=== PATIENT | male | born 1955 | race African-American/Black ===

== ENCOUNTER 2016-06-15 11:04 | Inpatient (IN) | payer OTHER ==
[2016-06-15 11:22] VITALS: BMI 23.0
--- NOTE | 2016-06-15 12:37 | HP ---
CIWA Score - CIWA Score Nausea/Vomitin Muscle Tremors: 3 Anxiety: 3 Agitation: 2 Paroxysmal Sweats: 2 Orientation: 0-Oriented Tacttile Disturbances: 2-Mild Itch/Numbness/Burn Auditory Disturbances: 1-Very Mild Visual Disturbances: 0-None Headache: 3-Moderate CIWA-Ar Total Score: 19 Admission ROS S - HPI Chief Complaint: "I am tired of this using alcohol and and crack." Allergies/Adverse Reactions: Allergies Allergy/AdvReac Type Severity Reaction Status Date / Time No Known Allergies Allergy Verified 06/15/16 11:32 History of Present Illness: Pt. is a 60 YO male here to Detox from Alcohol. This is his first Detox admission to [facility]. He also reports using Crack and marijuana on a daily basis. Exam Limitations: No Limitations - Ebola screening Have you traveled outside of the country in the last 21 days: No (N) Have you had contact with anyone from an Ebola affected area: No Have you been sick,other than usual withdrawal symptoms: No Do you have a fever: No - Review of Systems Constitutional: Chills, Diaphoresis, Fever, Loss of Appetite, Malaise, Night Sweats, Changes in sleep, Unintentional Wgt. Loss (Has lost approx. 40 lbs. over the last 6 months.) EENT: reports: Tinnitus, Other (Pt. uses dentures for both upper and lower teeth ; however, he does not have them with him for this admission.) Respiratory: reports: No Symptoms reported Cardiac: reports: No Symptoms Reported, Other (Hx of Stroke.) GI: reports: Diarrhea, Nausea, Poor Appetite, Vomiting : reports: No Symptoms Reported Musculoskeletal: reports: No Symptoms Reported Integumentary: reports: No Symptoms Reported Neuro: reports: Headache, Tremors Endocrine: reports: No Symptoms Reported Hematology: reports: No Symptoms Reported Psychiatric: reports: Judgement Intact, Anxious, Depressed, other (Hx. of Schizoaffective Disorder.) Other Systems: Reviewed and Negative Patient History - Patient Medical History Hx Anemia: No Hx Asthma: No Hx Chronic Obstructive Pulmonary Disease (COPD): Yes Hx Cancer: Yes (Colon Ca, Tx'd w/ surgery, 2014. No F/U treatment recommended at this time.) Hx Cardiac Disorders: Yes (DVT of Left Lower Extremity, 2016, Treated, Resolved. ) Hx Congestive Heart Failure: No Hx Hypertension: No Hx Hypercholesterolemia: Yes (Meds. in past; Currently managed with diet.) Hx Pacemaker: No HX Cerebrovascular Accident: Yes (Hx. of Strokes, 4-5 previous.) Hx Seizures: No Hx Dementia: No Hx Diabetes: No Hx Gastrointestinal Disorders: Yes (GERD) Hx Liver Disease: Yes (Hep C, Diagnosed approx. 11 years ago.) Hx Genitourinary Disorders: No Hx Sexually Transmitted Disorders: Yes (Hx of gonnorhea, age 16, treated.) Hx Renal Disease (ESRD): No Hx Thyroid Disease: No Hx Human Immunodeficiency Virus (HIV): No (Last Tested: NEGATIVE.) Hx Hepatitis C: Yes (Diagnosed approx. 11 years ago; No treatment yet.) Hx Depression: Yes (On Meds. up until 3 days ago.) Hx Suicide Attempt: No (PATIENT DENIES CURRENT SI / HI.) Hx Bipolar Disorder: No Hx Schizophrenia: No Other Medical History: Schizoaffective Disorder, on meds. until 3 days. ago. - Patient Surgical History Past Surgical History: Yes Hx Neurologic Surgery: No Hx Cataract Extraction: No Hx Cardiac Surgery: No Hx Lung Surgery: No Hx Breast Surgery: No Hx Breast Biopsy: No Hx Abdominal Surgery: Yes (colectomy in 04/22 [facility] for Colon CA) Hx Appendectomy: No Hx Cholecystectomy: No Hx Genitourinary Surgery: No Hx Orthopedic Surgery: No Anesthesia Reaction: No - PPD History Previous Implant?: Yes Documented Results: Negative w/o proof Implanted On Prior R Admission?: No PPD to be Administered?: Yes - Reproductive History Patient is a Female of Child Bearing Age (11 -55 yrs old): No (PATIENT IS MALE.) - Smoking Cessation Smoking history: Current every day smoker Have you smoked in the past 12 months: Yes Aproximately how many cigarettes per day: 5 Cigars Per Day: 0 Hx Chewing Tobacco Use: No Initiated information on smoking cessation: Yes 'Breaking Loose' booklet given: 06/15/16 (GIVEN ON UNIT.) - Substance & Tx. History Hx Alcohol Use: Yes Hx Substance Use: Yes Substance Use Type: Cocaine, Marijuana Hx Substance Use Treatment: Yes (Detox/Rehab at Approx. 4-5 months ago ( [facility]).) - Substances Abused Alcohol Route: Oral Frequency: Daily Amount used: 1 pint vodka or rum/ 2 40 oz beers Age of first use: 11 Date of Last Use: 06/14/16 Crack Route: Smoking Frequency: Daily Amount used: 3 bags Age of first use: 25 Date of Last Use: 06/14/16 Marijuana/Hashish Route: Smoking Frequency: Daily Amount used: 2 joints Age of first use: 25 Date of Last Use: 06/14/16 Family Disease History - Family Disease History Family Disease History: Other: Mother (Stroke.), Brother (Psych. disorder.), Sister (Stroke, .) Admission Physical Exam [facility] - Vital Signs Vital Signs: Vital Signs - 24 hr 06/15/16 11:20 Temperature 98.8 F Pulse Rate 64 Respiratory 20 Rate Blood Pressure 115/73 - Physical General Appearance: Yes: Within Normal Limits, Nourished, Appropriately Dressed , Tremorous, Anxious HEENTM: Yes: Hearing grossly Normal, Normocephalic, Normal Voice, JL, Pharynx Normal Respiratory: Yes: Chest Non-Tender, Lungs Clear, Normal Breath Sounds, No Respiratory Distress Neck: Yes: No masses,lesions,Nodules, Supple, Trachea in good position Breast: Yes: Breast Exam Deferred Cardiology: Yes: Regular Rhythm, Regular Rate, S1, S2 Abdominal: Yes: Normal Bowel Sounds, Non Tender, Flat, Soft Genitourinary: Yes: Within Normal Limits Back: Yes: Normal Inspection Musculoskeletal: Yes: full range of Motion, Gait Steady Extremities: Yes: Normal Range of Motion, Non-Tender, Tremors, Other (Varicose veins noted on Left Lower Extremity. No redness noted. Pt. denies pain at site.) 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: Fully Oriented, Alert, Normal Mood/Affect, Normal Response Integumentary: Yes: Normal Color, Warm Lymphatic: Yes: Within Normal Limits - Diagnostic (1) Alcohol dependence with uncomplicated withdrawal Current Visit: Yes Status: Acute (2) Cocaine dependence, uncomplicated Current Visit: Yes Status: Acute (3) Cannabis dependence, uncomplicated Current Visit: Yes Status: Acute (4) Nicotine dependence Current Visit: Yes Status: Chronic Qualifiers: Nicotine product type: cigarettes Substance use status: uncomplicated Qualified Code(s): F17.210 - Nicotine dependence, cigarettes, uncomplicated (5) Hep C w/o coma, chronic Current Visit: Yes Status: Acute (6) History of DVT of lower extremity Current Visit: Yes Status: Resolved (7) History of stroke Current Visit: Yes Status: Chronic Cleared for Admission [facility] - Detox or Rehab [facility] Level of Care: Medically Managed Detox Regimen/Protocol: Librium (PT. ADVISED TO FOLLOW-UP WITH PMD / VASCULAR SPECIALIST AFTER DETOX DISCHARGE FOR GENERAL MEDICAL ASSESSMENT AND FOR HISTORY OF STROKE AND DVT.) [facility] Breath Alcohol Content Breath Alcohol Content: 0 Urine Drug Screen - Results Drug Screen Negative: No Urine Drug Screen Results: THC-Marijuana, MALINA-Cocaine, TCA-Tricyclic Antidepress
[2016-06-15] MEDS ORDERED: hydrOXYzine PAMOATE 50 MG CAPSULE (FP) PO PRN (13:08)
[2016-06-15] MEDS ORDERED: MAG HYDROX/AL HYDROX/SIMETH 30 ML UNIT-DOSE CUP PO PRN (13:08)
[2016-06-15] MEDS ORDERED: chlordiazePOXIDE HCL 25 MG CAPSULE PO PRN (13:08)
[2016-06-15] MEDS ORDERED: MAGNESIUM HYDROX 2400MG/30ML ORAL SUSPENSION 30 ML CUP PO PRN (13:08)
[2016-06-15] MEDS ORDERED: IBUPROFEN 400 MG TABLET (FP) PO PRN (13:08)
[2016-06-15] MEDS ORDERED: P-EPHED 60MG/TRIPROLIDI 2.5MG TABLET PO PRN (13:08)
[2016-06-15] MEDS ORDERED: MENTHOL/PHENOL 1 EACH UD MM PRN (13:08)
[2016-06-15] MEDS ORDERED: MAGNESIUM CITRATE 300 ML BOTTLE PO PRN (13:08)
[2016-06-15] MEDS ORDERED: diphenhydrAMINE HCL 50 MG CAPSULE PO PRN (13:08)
[2016-06-15] MEDS ORDERED: ACETAMINOPHEN 325 MG TABLET (FP) PO PRN (13:08)
[2016-06-15] MEDS ORDERED: LOPERAMIDE HCL 2 MG CAPSULE PO PRN (13:08)
[2016-06-15] MEDS ORDERED: guaiFENesin/D-METHORPHAN HB 10 ML UNIT-DOSE CUPS PO PRN (13:08)
[2016-06-15] MEDS ORDERED: NICOTINE POLACRILEX 2 MG GUM BUC PRN (13:08)
[2016-06-15] MEDS ORDERED: ALBUTEROL SO4 6.7 GM HFA INHALER IH PRN (13:13)
[2016-06-15] MEDS ORDERED: chlordiazePOXIDE HCL 25 MG CAPSULE PO ONE (14:00)
[2016-06-15] MEDS: chlordiazePOXIDE HCL 25 MG CAPSULE PO SCH ×2 (17:59→23:39)
[2016-06-15 18:51] LABS: URINE APPEARANCE CLEAR; URINE BILIRUBIN NEGATIVE (NEGATIVE); URINE BLOOD NEGATIVE (NEGATIVE); URINE COLOR YELLOW; URINE GLUCOSE (UA) NEGATIVE (NEGATIVE); URINE KETONE NEGATIVE (NEGATIVE); URINE NITRITE NEGATIVE (NEGATIVE); URINE PROTEIN NEGATIVE (NEGATIVE); URINE UROBILINOGEN 4.0 E.U/dl E.U./dl (0.2-1.0)
[2016-06-15 18:57] LABS: URINE LEUK ESTERASE TRACE (NEGATIVE)
[2016-06-15 19:01] LABS: URINE MUCUS RARE; URINE RBC 3 /hpf (0-3); URINE WBC 25 /hpf (3-5)
[2016-06-15] MEDS: THIAMINE HCL 100 MG TABLET (FP) PO SCH (22:55)
[2016-06-16] MEDS: chlordiazePOXIDE HCL 25 MG CAPSULE PO SCH ×4 (05:48→22:35)
--- NOTE | 2016-06-16 09:31 | CONSULT ---
[facility] Psychiatric Consult - Data Date of interview: 06/16/16 Admission source: [facility] Identifying data: This is 60 years old male with Schizoaffective disorder history, intoxicated wioth: Alcohol, Cocaien, Cannabis and Nicotine Substance Abuse History: - Smoking Cessation. Smoking history: Current every day smoker. Have you smoked in the past 12 months: Yes. Aproximately how many cigarettes per day: 5. Cigars Per Day: 0. Hx Chewing Tobacco Use: No. Initiated information on smoking cessation: Yes. 'Breaking Loose' booklet given : 06/15/16 (GIVEN ON UNIT.). - Substance & Tx. History. Hx Alcohol Use: Yes. Hx Substance Use: Yes. Substance Use Type: Cocaine, Marijuana. Hx Substance Use Treatment: Yes (Detox/Rehab at Approx. 4-5 months ago ([facility]).). - Substances Abused. Alcohol. Route: Oral. Frequency: Daily. Amount used: 1 pint vodka or rum/ 2 40 oz beers. Age of first use: 11. Date of Last Use: 06/14/16. Crack. Route: Smoking. Frequency: Daily. Amount used: 3 bags. Age of first use: 25. Date of Last Use: 06/14/16. Marijuana/Hashish. Route : Smoking. Frequency: Daily. Amount used: 2 joints. Age of first use: 25. Date of Last Use: 06/14/16 Medical History: HepC+, History of old CVA, DVT History, Psychiatric History: Patient reports unclear history of psychiatric hospitalizations, reports taking prior to admission: Rispaedal 3mg poqd,. Trazodonbe 100mg po qhs. Remeron 15mg p[o qjhs. Ambien 10mg po qhs Physical/Sexual Abuse/Trauma History: Denies Additional Comment: Rispaedal 3mg poqd,. Trazodonbe 100mg po qhs. Remeron 15mg p[o qjhs. Ambien 10mg po qhs Mental Status Exam - Mental Status Exam Alert and Oriented to: Person Cognitive Function: Fair Patient Appearance: Unkempt Mood: Sad Affect: Flat Patient Behavior: Sedated Speech Pattern: Delayed Voice Loudness: Mildly Soft/Quiet Thought Process: Circumstantial Thought Disorder: Being Controlled Hallucinations: Denies Suicidal Ideation: Denies Homicidal Ideation: Denies Insight/Judgement: Fair Sleep: Difficulty falling asleep Appetite: Fair Muscle strength/Tone: Mild Hypotonicity Gait/Station: Shuffling Additional Comments: Rispaedal 3mg poqd,. Trazodonbe 100mg po qhs. Remeron 15mg p[o qjhs. Ambien 10mg po qhs Psychiatric Findings - Problem List ([place] 1, 2,3) (1) Alcohol dependence with uncomplicated withdrawal Current Visit: Yes Status: Acute (2) Cannabis dependence, uncomplicated Current Visit: Yes Status: Acute (3) Cocaine dependence, uncomplicated Current Visit: Yes Status: Acute (4) Nicotine dependence Current Visit: Yes Status: Chronic Qualifiers: Nicotine product type: cigarettes Substance use status: uncomplicated Qualified Code(s): F17.210 - Nicotine dependence, cigarettes, uncomplicated (5) Schizoaffective disorder Current Visit: Yes Status: Suspected (6) Drug-induced mood disorder Current Visit: Yes Status: Acute - Initial Treatment Plan Initial Treatment Plan: Rispaedal 3mg poqd,. Trazodonbe 100mg po qhs. Remeron 15mg p[o qjhs. Ambien 10mg po qhs
[2016-06-16] MEDS ORDERED: MIRTAZAPINE 15 MG TABLET (FP) PO SCH ×2 (10:00→22:00)
[2016-06-16] MEDS ORDERED: RISPERIDONE 3 MG PO SCH (10:00)
[2016-06-16 10:09] LABS: MCH 28.2 pg (25.7-33.7); MCHC 32.8 g/dl (32.0-35.9); MEAN CELL VOLUME 85.8 fl (80-96); MEAN PLT VOLUME 7.5 fl (7.5-11.1); PLATELET COUNT 173 K/MM3 (134-434); RDW 13.5 % (11.9-15.9); WHITE BLOOD COUNT 4.6 K/mm3 (4.0-10.0)
[2016-06-16 10:16] LABS: ALBUMIN 3.1 g/dl (3.4-5.0); ALK PHOS 124 U/L (45-117); ANION GAP 7 (8-16); BILIRUBIN,TOTAL 0.5 mg/dL (0.2-1.0); CALCIUM 8.9 mg/dL (8.5-10.1); CO2 29 mmol/L (21-32); CREATININE 0.8 mg/dL (0.7-1.3); GLUCOSE,RANDOM 87 mg/dL (74-106); SGOT/AST 96 U/L (15-37); SGPT/ALT 87 U/L (12-78); TOT PROT 7.3 g/dl (6.4-8.2)
[2016-06-16] MEDS: PRENATAL VITAMINS W/ FOLIC ACID TABLET (FP) PO SCH (10:43)
[2016-06-16] MEDS: risperiDONE 3 MG TABLET PO SCH (10:51)
[2016-06-16 11:06] LABS: SICKLE CELL SCREEN NEGATIVE (NEGATIVE)
--- NOTE | 2016-06-16 11:34 | PN ---
S CIWA - CIWA Score Nausea/Vomitin Muscle Tremors: 2 Anxiety: 3 Agitation: 2 Paroxysmal Sweats: 3 Orientation: 0-Oriented Tacttile Disturbances: 1-Very Mild Itch/Numbness Auditory Disturbances: 0-None Visual Disturbances: 0-None Headache: 0-None Present CIWA-Ar Total Score: 13 S Progress Note (SOAP) Subjective: interrupted sleep, sweats , diarrhea Objective: 06/16/16 11:33 Vital Signs Temperature 98.1 F 06/16/16 10:16 Pulse Rate 91 H 06/16/16 10:16 Respiratory Rate 18 06/16/16 10:16 Blood Pressure 98/57 06/16/16 10:16 O2 Sat by Pulse Oximetry (%) Laboratory Tests 06/15/16 06/16/16 06/16/16 17:45 06:30 06:30 WBC 4.6 RBC 4.86 Hgb 13.7 Hct 41.7 MCV 85.8 MCHC 32.8 RDW 13.5 Plt Count 173 MPV 7.5 Sickle Cell Screen Negative Sodium 141 Potassium 4.2 Chloride 105 Carbon Dioxide 29 Anion Gap 7 L BUN 13 Creatinine 0.8 Creat Clearance w eGFR > 60 Random Glucose 87 Calcium 8.9 Total Bilirubin 0.5 AST 96 H ALT 87 H Alkaline Phosphatase 124 H Total Protein 7.3 Albumin 3.1 L Urine Color Yellow Urine Appearance Clear Urine pH 6.0 Ur Specific [place] 1.023 Urine Protein Negative Urine Glucose (UA) Negative Urine Ketones Negative Urine Blood Negative Urine Nitrite Negative Urine Bilirubin Negative Urine Urobilinogen 4.0 e.u/dl Ur Leukocyte Esterase Trace H Urine RBC 3 Urine WBC 25 Ur Epithelial Cells Rare Urine Mucus Rare RPR Titer 06/16/16 06:30 WBC RBC Hgb Hct MCV MCHC RDW Plt Count MPV Sickle Cell Screen Sodium Potassium Chloride Carbon Dioxide Anion Gap BUN Creatinine Creat Clearance w eGFR Random Glucose Calcium Total Bilirubin AST ALT Alkaline Phosphatase Total Protein Albumin Urine Color Urine Appearance Urine pH Ur Specific [place] Urine Protein Urine Glucose (UA) Urine Ketones Urine Blood Urine Nitrite Urine Bilirubin Urine Urobilinogen Ur Leukocyte Esterase Urine RBC Urine WBC Ur Epithelial Cells Urine Mucus RPR Titer Nonreactive pt aox3 in nad lying in bed Assessment: 06/16/16 11:33 withdrawl sx's Plan: cont. detox increase fluids
[2016-06-16] MEDS ORDERED: PNEUMOC 13-VAL CONJ-DIP CRM/PF 0.5 ML DISP.SYRIN IM ONE (12:00)
[2016-06-16] MEDS ORDERED: INFLUENZA VACCINE 45 MCG/0.5 ML (MDV 16-17) IM ONE (12:00)
[2016-06-16 14:31] LABS: HIV 1 & 2 AB NEGATIVE; HIV 1 AGp24 NEGATIVE
[2016-06-16] MEDS ORDERED: PATIENT'S OWN MEDICATION (NON-FORMULARY) (Zolpidem Tartrate [Ambien] 10 MG) PO SCH (22:00)
[2016-06-16] MEDS ORDERED: ZOLPIDEM TARTRATE 10 MG TABLET (PARK CARE ONLY) PO PRN (22:00)
[2016-06-16] MEDS ORDERED: traZODone HCL 50 MG TABLET (FP) PO SCH (22:00)
[2016-06-16] MEDS: THIAMINE HCL 100 MG TABLET (FP) PO SCH (22:36)
[2016-06-16] MEDS: MIRTAZAPINE 15 MG TABLET (FP) PO SCH (22:36)
[2016-06-16] MEDS: traZODone HCL 100 MG TABLET (FP) PO SCH (22:37)
[2016-06-17] MEDS: chlordiazePOXIDE HCL 25 MG CAPSULE PO SCH ×2 (05:40→10:23)
[2016-06-17] MEDS: risperiDONE 3 MG TABLET PO SCH (10:22)
[2016-06-17] MEDS: PRENATAL VITAMINS W/ FOLIC ACID TABLET (FP) PO SCH (10:22)
--- NOTE | 2016-06-17 12:53 | PN ---
S CIWA - CIWA Score Nausea/Vomitin Muscle Tremors: 2 Anxiety: 2 Agitation: 2 Paroxysmal Sweats: 3 Orientation: 0-Oriented Tacttile Disturbances: 1-Very Mild Itch/Numbness Auditory Disturbances: 0-None Visual Disturbances: 0-None Headache: 0-None Present CIWA-Ar Total Score: 13 S Progress Note (SOAP) Subjective: interrupted sleep, upset stomach Objective: 06/17/16 12:51 Vital Signs Temperature 98.1 F 06/17/16 09:29 Pulse Rate 71 06/17/16 09:29 Respiratory Rate 20 06/17/16 09:29 Blood Pressure 122/69 06/17/16 09:29 O2 Sat by Pulse Oximetry (%) Laboratory Tests 06/15/16 06/16/16 06/16/16 17:45 06:30 06:30 WBC 4.6 RBC 4.86 Hgb 13.7 Hct 41.7 MCV 85.8 MCHC 32.8 RDW 13.5 Plt Count 173 MPV 7.5 Sickle Cell Screen Negative Sodium 141 Potassium 4.2 Chloride 105 Carbon Dioxide 29 Anion Gap 7 L BUN 13 Creatinine 0.8 Creat Clearance w eGFR > 60 Random Glucose 87 Calcium 8.9 Total Bilirubin 0.5 AST 96 H ALT 87 H Alkaline Phosphatase 124 H Total Protein 7.3 Albumin 3.1 L Urine Color Yellow Urine Appearance Clear Urine pH 6.0 Ur Specific [place] 1.023 Urine Protein Negative Urine Glucose (UA) Negative Urine Ketones Negative Urine Blood Negative Urine Nitrite Negative Urine Bilirubin Negative Urine Urobilinogen 4.0 e.u/dl Ur Leukocyte Esterase Trace H Urine RBC 3 Urine WBC 25 Ur Epithelial Cells Rare Urine Mucus Rare RPR Titer HIV 1&2 Antibody Screen HIV P24 Antigen 06/16/16 06/16/16 06:30 09:00 WBC RBC Hgb Hct MCV MCHC RDW Plt Count MPV Sickle Cell Screen Sodium Potassium Chloride Carbon Dioxide Anion Gap BUN Creatinine Creat Clearance w eGFR Random Glucose Calcium Total Bilirubin AST ALT Alkaline Phosphatase Total Protein Albumin Urine Color Urine Appearance Urine pH Ur Specific [place] Urine Protein Urine Glucose (UA) Urine Ketones Urine Blood Urine Nitrite Urine Bilirubin Urine Urobilinogen Ur Leukocyte Esterase Urine RBC Urine WBC Ur Epithelial Cells Urine Mucus RPR Titer Nonreactive HIV 1&2 Antibody Screen Negative HIV P24 Antigen Negative pt aox3 in nad lying in bed abd- soft nontender bs ++ Assessment: 06/17/16 12:52 withdrawl sx's dyspepsia Plan: cont. detox increrase fluids [place] [facility]
[2016-06-17] MEDS: chlordiazePOXIDE 5 MG CAPSULE PO SCH ×2 (17:45→22:34)
[2016-06-17] MEDS: traZODone HCL 100 MG TABLET (FP) PO SCH (22:34)
[2016-06-17] MEDS: THIAMINE HCL 100 MG TABLET (FP) PO SCH (22:34)
[2016-06-17] MEDS: MIRTAZAPINE 15 MG TABLET (FP) PO SCH (22:34)
[2016-06-18] MEDS: chlordiazePOXIDE 5 MG CAPSULE PO SCH ×3 (05:49→10:44)
--- NOTE | 2016-06-18 09:50 | EKG ---
Test Reason : Blood Pressure : / mmHG Vent. Rate : 055 BPM Atrial Rate : 055 BPM P-R Int : 160 ms QRS Dur : 076 ms QT Int : 442 ms P-R-T Axes : 078 077 059 degrees QTc Int : 422 ms SINUS BRADYCARDIA OTHERWISE NORMAL ECG NO PREVIOUS ECGS AVAILABLE Confirmed by PERLA GONZALEZ, RENE ([id number]) on 06/18/2016 9:49:36 AM Referred By: Confirmed By:RENE DUNCAN MD
[2016-06-18] MEDS: risperiDONE 3 MG TABLET PO SCH (10:44)
[2016-06-18] MEDS: PRENATAL VITAMINS W/ FOLIC ACID TABLET (FP) PO SCH (10:44)
--- NOTE | 2016-06-18 11:12 | PN ---
[facility] Progress Note (SOAP) Subjective: sweats Objective: 06/18/16 11:12 Vital Signs Temperature 98.2 F 06/18/16 10:02 Pulse Rate 82 06/18/16 10:02 Respiratory Rate 18 06/18/16 10:02 Blood Pressure 117/83 06/18/16 10:02 O2 Sat by Pulse Oximetry (%) awake/alert lying in bed no acute distress Assessment: 06/18/16 11:12 withdrawal sx Plan: continue detox increase fluids d/c in am
[2016-06-18] MEDS: chlordiazePOXIDE HCL 10 MG CAPSULE PO SCH ×2 (17:55→23:41)
[2016-06-18] MEDS: traZODone HCL 100 MG TABLET (FP) PO SCH (22:44)
[2016-06-18] MEDS: THIAMINE HCL 100 MG TABLET (FP) PO SCH (22:45)
[2016-06-18] MEDS: MIRTAZAPINE 15 MG TABLET (FP) PO SCH (22:45)
[2016-06-19] MEDS: chlordiazePOXIDE HCL 10 MG CAPSULE PO SCH (05:50)
--- NOTE | 2016-06-19 08:14 | DS ---
[facility] Detox Discharge Summary Admission Date: 06/15/16 Discharge Date: 06/19/16 - History Present History: Alcohol Dependence - Physical Exam Results Vital Signs: Vital Signs Temperature 96.3 F L 06/19/16 05:51 Pulse Rate 64 06/19/16 05:51 Respiratory Rate 16 06/19/16 05:51 Blood Pressure 96/63 06/19/16 05:51 O2 Sat by Pulse Oximetry (%) - Treatment Hospital Course: Detox Protocol Followed, Detoxed Safely, Responded well, Discharged Condition Good - Medication Discharge Medications: Ambulatory Orders Risperidone [Risperdal] 3 mg PO DAILY 06/15/16 Trazodone HCl [Desyrel -] 100 mg PO HS 06/15/16 Mirtazapine [Remeron -] 15 mg PO HS #30 tablet 06/16/16 Risperidone [Risperdal -] 3 mg PO DAILY #30 tablet 06/16/16 Trazodone HCl [Desyrel -] 100 mg PO HS #30 tablet 06/16/16 Zolpidem Tartrate 10 mg PO HS #14 tablet MDD 10 06/16/16 Zolpidem Tartrate [Ambien] 10 mg PO HS #14 06/16/16 - Diagnosis (1) Alcohol dependence with uncomplicated withdrawal Current Visit: Yes Status: Chronic (2) Cannabis dependence, uncomplicated Current Visit: Yes Status: Chronic (3) Cocaine dependence, uncomplicated Current Visit: Yes Status: Chronic (4) Hep C w/o coma, chronic Current Visit: Yes Status: Chronic (5) Nicotine dependence Current Visit: Yes Status: Chronic Qualifiers: Nicotine product type: cigarettes Substance use status: uncomplicated Qualified Code(s): F17.210 - Nicotine dependence, cigarettes, uncomplicated (6) Schizoaffective disorder Current Visit: Yes Status: Suspected Qualifiers: Schizoaffective disorder type: unspecified Qualified Code(s): F25.9 - Schizoaffective disorder, unspecified - AMA Did Patient Leave Against Medical Advice: No
[2016-06-19 10:30] VITALS: BP 98/74; PULSE 100; TEMP 97.9
[2016-06-19] MEDS: PRENATAL VITAMINS W/ FOLIC ACID TABLET (FP) PO SCH (10:47)
[2016-06-19] MEDS: risperiDONE 3 MG TABLET PO SCH (10:47)
== END 2016-06-19 12:30 | disposition home or self-care (01) | DRG 772 ==
LOC: YASAS 11:04 → Y6N 11:46
PROVIDERS: ADMIT Internal Medicine; ATTEND Internal Medicine
PROC: HZ42ZZZ Group Counseling for Substance Abuse Treatment, Cognitive-Behavioral (ICD-10-PCS; principal; 2016-06-15)
DX: F10.230 Alcohol dependence with withdrawal, uncomplicated (principal); F14.20 Cocaine dependence, uncomplicated; F12.20 Cannabis dependence, uncomplicated; F17.210 Nicotine dependence, cigarettes, uncomplicated; F25.9 Schizoaffective disorder, unspecified; F19.24 Other psychoactive substance dependence with psychoactive substance-induced mood disorder; B18.2 Chronic viral hepatitis C; K21.9 Gastro-esophageal reflux disease without esophagitis; R10.13 Epigastric pain; Z87.438 Personal history of other diseases of male genital organs; Z86.73 Personal history of transient ischemic attack (TIA), and cerebral infarction without residual deficits; Z86.718 Personal history of other venous thrombosis and embolism; Z86.79 Personal history of other diseases of the circulatory system; Z86.69 Personal history of other diseases of the nervous system and sense organs; Z90.49 Acquired absence of other specified parts of digestive tract; Z85.038 Personal history of other malignant neoplasm of large intestine
CPT/HCPCS: 36415; 80053; 81003; 81015; 85027; 85660; 86593; 87389; 90670; 93005; 93010

== ENCOUNTER 2017-01-11 11:46 | Inpatient (IN) | payer OTHER ==
[2017-01-11 12:54] VITALS: BMI 20.7
--- NOTE | 2017-01-11 14:32 | HP ---
CIWA Score - CIWA Score Nausea/Vomitin Muscle Tremors: 3 Anxiety: 4-Mod. Anxious/Guarded Agitation: 1-Slight > Activity Paroxysmal Sweats: 3 Orientation: 0-Oriented Tacttile Disturbances: 2-Mild Itch/Numbness/Burn Auditory Disturbances: 0-None Visual Disturbances: 2-Mild Sensitivity Headache: 0-None Present CIWA-Ar Total Score: 20 Admission ROS [facility] - HPI Chief Complaint: "I have to stop this." Pt. is here to Detox from Alcohol. Allergies/Adverse Reactions: Allergies Allergy/AdvReac Type Severity Reaction Status Date / Time No Known Allergies Allergy Verified 06/15/16 11:32 History of Present Illness: Pt. is a 61 YO male here to Detox from Alcohol. Pt. has had 1 previous Detox admission at [facility]. Longest recent period of sobriety: 5.5 years (2008 - 2013). Exam Limitations: No Limitations - Ebola screening Have you traveled outside of the country in the last 21 days: No Have you had contact with anyone from an Ebola affected area: No Have you been sick,other than usual withdrawal symptoms: No Do you have a fever: No - Review of Systems Constitutional: Diaphoresis, Loss of Appetite, Malaise, Night Sweats, Changes in sleep, Unintentional Wgt. Loss (Lost approx. 35 - 40 lbs. over last 6 months. ) EENT: reports: No Symptoms Reported Respiratory: reports: No Symptoms reported Cardiac: reports: Palpitations GI: reports: Diarrhea, Nausea, Poor Appetite, Vomiting : reports: No Symptoms Reported Musculoskeletal: reports: No Symptoms Reported Integumentary: reports: No Symptoms Reported Neuro: reports: Seizure (Due to ETOH (last episode: approx. 2 months ago).), Tremors Endocrine: reports: No Symptoms Reported Hematology: reports: No Symptoms Reported Psychiatric: reports: Judgement Intact, Mood/Affect Appropiate, Orientated x3, Anxious, Depressed (Takes meds.) Other Systems: Reviewed and Negative Patient History - Patient Medical History Hx Anemia: No Hx Asthma: No Hx Chronic Obstructive Pulmonary Disease (COPD): Yes (Uncertain about type.) Hx Cancer: Yes (Colon Ca, Tx'd w/ surgery, 2014. No F/U treatment recommended at this time.) Hx Cardiac Disorders: No Hx Congestive Heart Failure: No Hx Hypertension: No Hx Hypercholesterolemia: Yes (Meds. in past; Currently managed with diet.) Hx Pacemaker: No HX Cerebrovascular Accident: No Hx Seizures: Yes (2 months ago Due to ETOH; Last episode approx. 2 months ago.) Hx Dementia: No Hx Diabetes: No Hx Gastrointestinal Disorders: No (History of Colon Ca.) Hx Liver Disease: Yes (Hep C, Diagnosed approx. 11 years ago.) Hx Genitourinary Disorders: No Hx Sexually Transmitted Disorders: No Hx Renal Disease (ESRD): No Hx Thyroid Disease: No Hx Human Immunodeficiency Virus (HIV): No (Last Tested: 07/2016: NEGATIVE.) Hx Hepatitis C: Yes (Diagnosed approx. 11 years ago; No treatment yet.) Hx Depression: Yes (On meds.) Hx Suicide Attempt: No (PATIENT DENEIS CURRENT SI / HI.) Hx Bipolar Disorder: No Hx Schizophrenia: Yes (Schizoaffective Disorder.) Other Medical History: DENIES. - Patient Surgical History Past Surgical History: Yes Hx Neurologic Surgery: No Hx Cataract Extraction: No Hx Cardiac Surgery: No Hx Lung Surgery: No Hx Breast Surgery: No Hx Breast Biopsy: No Hx Abdominal Surgery: Yes (colectomy in 04/22 [facility] for Colon CA) Hx Appendectomy: No Hx Cholecystectomy: No Hx Genitourinary Surgery: No Hx Orthopedic Surgery: No Anesthesia Reaction: No - PPD History Previous Implant?: Yes Documented Results: Negative w/proof Implanted On Prior [facility] Admission?: Yes Date: 06/17/16 PPD to be Administered?: No - Reproductive History Patient is a Female of Child Bearing Age (11 -55 yrs old): No (PATIENT IS MALE.) - Smoking Cessation Smoking history: Current every day smoker Have you smoked in the past 12 months: Yes Aproximately how many cigarettes per day: 7 Cigars Per Day: 0 Hx Chewing Tobacco Use: No Initiated information on smoking cessation: Yes 'Breaking Loose' booklet given: 01/11/17 (GIVEN ON UNIT.) - Substance & Tx. History Hx Alcohol Use: Yes Hx Substance Use: Yes Substance Use Type: Alcohol, Cocaine Hx Substance Use Treatment: Yes (1 previous Detox admission at [facility].) - Substances Abused Alcohol Route: Oral Frequency: Daily Amount used: VODKA(1 PINT)/BEER(7-12 OZ CANS) Age of first use: 11 Date of Last Use: 01/10/17 Cocaine Route: Smoking Frequency: Daily Amount used: $100 Age of first use: 20 Date of Last Use: 01/10/17 Family Disease History - Family Disease History Family Disease History: Other: Mother (Stroke.), Brother (Psych. disorder.), Sister (Aneurysm, .) Admission Physical Exam [facility] - Vital Signs Vital Signs: Vital Signs - 24 hr 01/11/17 12:51 Temperature 98 F Pulse Rate 65 Respiratory 18 Rate Blood Pressure 121/76 - Physical General Appearance: Yes: No Apparent Distress, Appropriately Dressed, Thin, Tremorous, Anxious HEENTM: Yes: Hearing grossly Normal, Normocephalic, Normal Voice, JL, Pharynx Normal Respiratory: Yes: Chest Non-Tender, Lungs Clear, No Respiratory Distress, No Accessory Muscle Use Neck: Yes: No masses,lesions,Nodules, Supple, Trachea in good position Breast: Yes: Breast Exam Deferred Cardiology: Yes: Regular Rhythm, Regular Rate, S1, S2 Abdominal: Yes: Normal Bowel Sounds, Non Tender, Flat, Soft Genitourinary: Yes: Within Normal Limits Back: Yes: Normal Inspection Musculoskeletal: Yes: full range of Motion, Gait Steady Extremities: Yes: Normal Range of Motion, Non-Tender, Tremors 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: Fully Oriented, Alert, Normal Mood/Affect, Normal Response Integumentary: Yes: Normal Color, Dry, Warm Lymphatic: Yes: Within Normal Limits - Diagnostic (1) Alcohol dependence with uncomplicated withdrawal Current Visit: Yes Status: Acute (2) Cocaine dependence, uncomplicated Current Visit: Yes Status: Acute (3) Nicotine dependence Current Visit: Yes Status: Chronic Qualifiers: Nicotine product type: cigarettes Substance use status: uncomplicated Qualified Code(s): F17.210 - Nicotine dependence, cigarettes, uncomplicated (4) History of schizoaffective disorder Current Visit: Yes Status: Chronic (5) History of seizure Current Visit: Yes Status: Chronic Comment: Due to ETOH Withdrawal. (6) COPD (chronic obstructive pulmonary disease) Current Visit: Yes Status: Chronic Qualifiers: COPD type: unspecified COPD Qualified Code(s): J44.9 - Chronic obstructive pulmonary disease, unspecified (7) History of colon cancer Current Visit: Yes Status: Chronic (8) History of colon surgery Current Visit: Yes Status: Chronic (9) Hep C w/o coma, chronic Current Visit: Yes Status: Chronic Cleared for Admission [facility] - Detox or Rehab [facility] Level of Care: Medically Managed Detox Regimen/Protocol: Librium [facility] Breath Alcohol Content Breath Alcohol Content: 0 Urine Drug Screen - Results Drug Screen Negative: No Urine Drug Screen Results: THC-Marijuana, MALINA-Cocaine
[2017-01-11] MEDS ORDERED: LOPERAMIDE HCL 2 MG CAPSULE PO PRN (15:07)
[2017-01-11] MEDS ORDERED: diphenhydrAMINE HCL 50 MG CAPSULE PO PRN (15:07)
[2017-01-11] MEDS ORDERED: chlordiazePOXIDE HCL 25 MG CAPSULE PO PRN (15:07)
[2017-01-11] MEDS ORDERED: IBUPROFEN 400 MG TABLET (FP) PO PRN (15:07)
[2017-01-11] MEDS ORDERED: hydrOXYzine PAMOATE 50 MG CAPSULE (FP) PO PRN (15:07)
[2017-01-11] MEDS ORDERED: MAGNESIUM HYDROX 2400MG/30ML ORAL SUSPENSION 30 ML CUP PO PRN (15:07)
[2017-01-11] MEDS ORDERED: MENTHOL/PHENOL 1 EACH UD MM PRN (15:07)
[2017-01-11] MEDS ORDERED: chlordiazePOXIDE HCL 25 MG CAPSULE PO ONE (15:07)
[2017-01-11] MEDS ORDERED: P-EPHED 60MG/TRIPROLIDI 2.5MG TABLET PO PRN (15:07)
[2017-01-11] MEDS ORDERED: ACETAMINOPHEN 325 MG TABLET (FP) PO PRN (15:07)
[2017-01-11] MEDS ORDERED: MAG HYDROX/AL HYDROX/SIMETH 30 ML UNIT-DOSE CUP PO PRN (15:07)
[2017-01-11] MEDS ORDERED: MAGNESIUM CITRATE 300 ML BOTTLE PO PRN (15:07)
[2017-01-11] MEDS ORDERED: guaiFENesin/D-METHORPHAN HB 10 ML UNIT-DOSE CUPS PO PRN (15:07)
[2017-01-11] MEDS: chlordiazePOXIDE HCL 25 MG CAPSULE PO SCH ×2 (17:40→22:47)
[2017-01-11 20:58] LABS: URINE APPEARANCE SLCLOUDY; URINE BILIRUBIN NEGATIVE (NEGATIVE); URINE BLOOD 2+ (NEGATIVE); URINE COLOR YELLOW; URINE GLUCOSE (UA) NEGATIVE (NEGATIVE); URINE KETONE NEGATIVE (NEGATIVE); URINE NITRITE NEGATIVE (NEGATIVE); URINE PROTEIN NEGATIVE (NEGATIVE); URINE UROBILINOGEN 4.0 E.U/dl mg/dL (0.2-1.0)
[2017-01-11 21:00] LABS: URINE LEUK ESTERASE 2+ (NEGATIVE)
[2017-01-11 21:03] LABS: URINE BACTERIA RARE /hpf (NONE SEEN); URINE MUCUS RARE; URINE RBC 4 /hpf (0-3); URINE WBC 5 /hpf (3-5)
[2017-01-11] MEDS: THIAMINE HCL 100 MG TABLET (FP) PO SCH (22:47)
[2017-01-12] MEDS: chlordiazePOXIDE HCL 25 MG CAPSULE PO SCH ×4 (05:45→22:10)
[2017-01-12 10:05] LABS: MCH 27.8 pg (25.7-33.7); MEAN CELL VOLUME 84.4 fl (80-96); MEAN PLT VOLUME 7.7 fl (7.5-11.1); PLATELET COUNT 129 K/MM3 (134-434); RDW 13.5 % (11.9-15.9); WHITE BLOOD COUNT 5.1 K/mm3 (4.0-10.0)
[2017-01-12 10:07] LABS: ANION GAP 5 (8-16); BILIRUBIN,TOTAL 0.9 mg/dL (0.2-1.0); CALCIUM 8.9 mg/dL (8.5-10.1); CO2 31 mmol/L (21-32); CREATININE 0.8 mg/dL (0.7-1.3); GLUCOSE,RANDOM 79 mg/dL (74-106); SGOT/AST 20 U/L (15-37); SGPT/ALT 18 U/L (12-78); TOT PROT 7.2 g/dl (6.4-8.2)
[2017-01-12 10:08] LABS: ALK PHOS 83 U/L (45-117)
[2017-01-12] MEDS: ZEPATIER PO SCH (10:56)
[2017-01-12] MEDS: PRENATAL VITAMINS W/ FOLIC ACID TABLET (FP) PO SCH (10:57)
[2017-01-12] MEDS ORDERED: POTASSIUM CHLORIDE TABS 20 MEQ TABLET.ER (FP) PO ONE (11:03)
--- NOTE | 2017-01-12 11:03 | PN ---
[facility] CIWA - CIWA Score Nausea/Vomitin Muscle Tremors: 3 Anxiety: 3 Agitation: 2 Paroxysmal Sweats: 1-Minimal Palms Moist Orientation: 0-Oriented Tacttile Disturbances: 1-Very Mild Itch/Numbness Auditory Disturbances: 1-Very Mild Visual Disturbances: 1-Very Mild Sensitivity Headache: 2-Mild CIWA-Ar Total Score: 17 S Progress Note (SOAP) Subjective: alert,irritable,anxious,interrupted sleep,tremor,pain in the body Objective: 01/12/17 11:00 Vital Signs Temperature 98.4 F 01/12/17 09:55 Pulse Rate 71 01/12/17 09:55 Respiratory Rate 18 01/12/17 09:55 Blood Pressure 115/76 01/12/17 09:55 O2 Sat by Pulse Oximetry (%) ekg sinus bradycardia 51/min no chest pain,no sob,no dizziness Laboratory Last Values WBC 5.1 K/mm3 (4.0-10.0) 01/12/17 07:45 RBC 4.83 M/mm3 (4.00-5.60) 01/12/17 07:45 Hgb 13.4 GM/dL (11.7-16.9) 01/12/17 07:45 Hct 40.8 % (35.4-49) 01/12/17 07:45 MCV 84.4 fl (80-96) 01/12/17 07:45 MCH 27.8 pg (25.7-33.7) 01/12/17 07:45 MCHC 33.0 g/dl (32.0-35.9) 01/12/17 07:45 RDW 13.5 % (11.9-15.9) 01/12/17 07:45 Plt Count 129 K/MM3 (134-434) L D 01/12/17 07:45 MPV 7.7 fl (7.5-11.1) 01/12/17 07:45 Sodium 144 mmol/L (136-145) 01/12/17 07:45 Potassium 3.3 mmol/L (3.5-5.1) L D 01/12/17 07:45 Chloride 108 mmol/L (98-107) H 01/12/17 07:45 Carbon Dioxide 31 mmol/L (21-32) 01/12/17 07:45 Anion Gap 5 (8-16) L 01/12/17 07:45 BUN 14 mg/dL (7-18) 01/12/17 07:45 Creatinine 0.8 mg/dL (0.7-1.3) 01/12/17 07:45 Creat Clearance w eGFR > 60 (>60) 01/12/17 07:45 Random Glucose 79 mg/dL (74-106) 01/12/17 07:45 Calcium 8.9 mg/dL (8.5-10.1) 01/12/17 07:45 Total Bilirubin 0.9 mg/dL (0.2-1.0) D 01/12/17 07:45 AST 20 U/L (15-37) D 01/12/17 07:45 ALT 18 U/L (12-78) D 01/12/17 07:45 Alkaline Phosphatase 83 U/L (45-117) D 01/12/17 07:45 Total Protein 7.2 g/dl (6.4-8.2) 01/12/17 07:45 Albumin 3.0 g/dl (3.4-5.0) L 01/12/17 07:45 Urine Color Yellow 01/11/17 17:15 Urine Appearance Slcloudy 01/11/17 17:15 Urine pH 6.0 (5.0-8.0) 01/11/17 17:15 Ur Specific [place] 1.025 (1.005-1.025) 01/11/17 17:15 Urine Protein Negative (NEGATIVE) 01/11/17 17:15 Urine Glucose (UA) Negative (NEGATIVE) 01/11/17 17:15 Urine Ketones Negative (NEGATIVE) 01/11/17 17:15 Urine Blood 2+ (NEGATIVE) H 01/11/17 17:15 Urine Nitrite Negative (NEGATIVE) 01/11/17 17:15 Urine Bilirubin Negative (NEGATIVE) 01/11/17 17:15 Urine Urobilinogen 4.0 e.u/dl mg/dL (0.2-1.0) 01/11/17 17:15 Ur Leukocyte Esterase 2+ (NEGATIVE) H D 01/11/17 17:15 Urine RBC 4 /hpf (0-3) 01/11/17 17:15 Urine WBC 5 /hpf (3-5) 01/11/17 17:15 Ur Epithelial Cells Rare /hpf (FEW) 01/11/17 17:15 Urine Bacteria Rare /hpf (NONE SEEN) 01/11/17 17:15 Urine Mucus Rare 01/11/17 17:15 01/12/17 11:02 Assessment: 01/12/17 11:02 withdrawal symptom Plan: continue detox,k dur 20 meq po daily,k is 3.3,continue detox
--- NOTE | 2017-01-12 11:23 | CONSULT ---
[facility] Psychiatric Consult - Data Date of interview: 01/12/17 Admission source: [facility] Identifying data: This is 61 [facility] intoxicated with: Risperdal 3mg poqd. Remeron 15 po qhs. Trazodone 100mg po hqs Substance Abuse History: - Smoking Cessation. Smoking history: Current every day smoker. Have you smoked in the past 12 months: Yes. Aproximately how many cigarettes per day: 7. Cigars Per Day: 0. Hx Chewing Tobacco Use: No. Initiated information on smoking cessation: Yes. 'Breaking Loose' booklet given : 01/11/17 (GIVEN ON UNIT.). - Substance & Tx. History. Hx Alcohol Use: Yes. Hx Substance Use: Yes. Substance Use Type: Alcohol, Cocaine. Hx Substance Use Treatment: Yes (1 previous Detox admission at [facility] - Substances Abused. Alcohol. Route: Oral. Frequency: Daily. Amount used: VODKA(1 PINT)/BEER(7-12 OZ CANS). Age of first use: 11. Date of Last Use: 01/10/17. Cocaine. Route: Smoking. Frequency: Daily. Amount used: $100. Age of first use: 20. Date of Last Use: 01/10/17 Medical History: Colon cancer, HepC+, Seizure history, Stroke history Psychiatric History: Patient reports history of Schizoaffective disorder , reports no history of psychiatric hospitalizarions, reports taking prior to admission: Risperdal 3mg poqd. Remeron 15 mg po qhs. Treazodone 100mg po qhs Physical/Sexual Abuse/Trauma History: Denies Additional Comment: Risperdal 3mg poqd. Remeron 15 mg po qhs. Treazodone 100mg po qhs Mental Status Exam - Mental Status Exam Alert and Oriented to: Person Cognitive Function: Fair Patient Appearance: Unkempt Mood: Sad Affect: Mood Congruent Patient Behavior: Cooperative Speech Pattern: Appropriate Voice Loudness: Mildly Soft/Quiet Thought Process: Circumstantial Thought Disorder: Being Controlled Hallucinations: Denies Suicidal Ideation: Denies Homicidal Ideation: Denies Insight/Judgement: Fair Sleep: Difficulty falling asleep Appetite: Weight loss Muscle strength/Tone: Normal Gait/Station: Normal Additional Comments: Risperdal 3mg poqd. Remeron 15 mg po qhs. Treazodone 100mg po qhs Psychiatric Findings - Problem List ([place] 1, 2,3) (1) Alcohol dependence with uncomplicated withdrawal Current Visit: Yes Status: Acute (2) Cocaine dependence, uncomplicated Current Visit: Yes Status: Acute (3) COPD (chronic obstructive pulmonary disease) Current Visit: Yes Status: Chronic Qualifiers: COPD type: unspecified COPD Qualified Code(s): J44.9 - Chronic obstructive pulmonary disease, unspecified (4) History of schizoaffective disorder Current Visit: Yes Status: Chronic (5) Nicotine dependence Current Visit: Yes Status: Chronic Qualifiers: Nicotine product type: cigarettes Substance use status: uncomplicated Qualified Code(s): F17.210 - Nicotine dependence, cigarettes, uncomplicated (6) Drug-induced mood disorder Current Visit: No Status: Acute (7) Cannabis dependence, uncomplicated Current Visit: No Status: Chronic (8) Schizoaffective disorder Current Visit: No Status: Suspected Qualifiers: Schizoaffective disorder type: unspecified Qualified Code(s): F25.9 - Schizoaffective disorder, unspecified - Initial Treatment Plan Initial Treatment Plan: Risperdal 3mg poqd. Remeron 15 mg po qhs. Treazodone 100mg po qhs
[2017-01-12 12:10] LABS: HIV 1 & 2 AB NEGATIVE; HIV 1 AGp24 NEGATIVE
[2017-01-12] MEDS: THIAMINE HCL 100 MG TABLET (FP) PO SCH (22:10)
[2017-01-13] MEDS: chlordiazePOXIDE HCL 25 MG CAPSULE PO SCH ×2 (05:39→10:34)
[2017-01-13] MEDS: PRENATAL VITAMINS W/ FOLIC ACID TABLET (FP) PO SCH (10:33)
[2017-01-13] MEDS: POTASSIUM CHLORIDE TABS 20 MEQ TABLET.ER (FP) PO SCH (10:34)
[2017-01-13] MEDS: ZEPATIER PO SCH (10:35)
--- NOTE | 2017-01-13 10:38 | PN ---
[facility] CIWA - CIWA Score Nausea/Vomitin Muscle Tremors: 3 Anxiety: 2 Agitation: 2 Paroxysmal Sweats: 1-Minimal Palms Moist Orientation: 0-Oriented Tacttile Disturbances: 1-Very Mild Itch/Numbness Auditory Disturbances: 1-Very Mild Visual Disturbances: 1-Very Mild Sensitivity Headache: 2-Mild CIWA-Ar Total Score: 16 S Progress Note (SOAP) Subjective: ALERT,IRRITABLE,ANXIOUS,INTERRUPTED SLEEP,TREMOR Objective: 01/13/17 10:37 Vital Signs Temperature 97.1 F L 01/13/17 06:00 Pulse Rate 49 L 01/13/17 06:00 Respiratory Rate 18 01/13/17 06:00 Blood Pressure 123/67 01/13/17 06:00 O2 Sat by Pulse Oximetry (%) Laboratory Last Values WBC 5.1 K/mm3 (4.0-10.0) 01/12/17 07:45 RBC 4.83 M/mm3 (4.00-5.60) 01/12/17 07:45 Hgb 13.4 GM/dL (11.7-16.9) 01/12/17 07:45 Hct 40.8 % (35.4-49) 01/12/17 07:45 MCV 84.4 fl (80-96) 01/12/17 07:45 MCH 27.8 pg (25.7-33.7) 01/12/17 07:45 MCHC 33.0 g/dl (32.0-35.9) 01/12/17 07:45 RDW 13.5 % (11.9-15.9) 01/12/17 07:45 Plt Count 129 K/MM3 (134-434) L D 01/12/17 07:45 MPV 7.7 fl (7.5-11.1) 01/12/17 07:45 Sodium 144 mmol/L (136-145) 01/12/17 07:45 Potassium 3.3 mmol/L (3.5-5.1) L D 01/12/17 07:45 Chloride 108 mmol/L (98-107) H 01/12/17 07:45 Carbon Dioxide 31 mmol/L (21-32) 01/12/17 07:45 Anion Gap 5 (8-16) L 01/12/17 07:45 BUN 14 mg/dL (7-18) 01/12/17 07:45 Creatinine 0.8 mg/dL (0.7-1.3) 01/12/17 07:45 Creat Clearance w eGFR > 60 (>60) 01/12/17 07:45 Random Glucose 79 mg/dL (74-106) 01/12/17 07:45 Calcium 8.9 mg/dL (8.5-10.1) 01/12/17 07:45 Total Bilirubin 0.9 mg/dL (0.2-1.0) D 01/12/17 07:45 AST 20 U/L (15-37) D 01/12/17 07:45 ALT 18 U/L (12-78) D 01/12/17 07:45 Alkaline Phosphatase 83 U/L (45-117) D 01/12/17 07:45 Total Protein 7.2 g/dl (6.4-8.2) 01/12/17 07:45 Albumin 3.0 g/dl (3.4-5.0) L 01/12/17 07:45 Urine Color Yellow 01/11/17 17:15 Urine Appearance Slcloudy 01/11/17 17:15 Urine pH 6.0 (5.0-8.0) 01/11/17 17:15 Ur Specific [place] 1.025 (1.005-1.025) 01/11/17 17:15 Urine Protein Negative (NEGATIVE) 01/11/17 17:15 Urine Glucose (UA) Negative (NEGATIVE) 01/11/17 17:15 Urine Ketones Negative (NEGATIVE) 01/11/17 17:15 Urine Blood 2+ (NEGATIVE) H 01/11/17 17:15 Urine Nitrite Negative (NEGATIVE) 01/11/17 17:15 Urine Bilirubin Negative (NEGATIVE) 01/11/17 17:15 Urine Urobilinogen 4.0 e.u/dl mg/dL (0.2-1.0) 01/11/17 17:15 Ur Leukocyte Esterase 2+ (NEGATIVE) H D 01/11/17 17:15 Urine RBC 4 /hpf (0-3) 01/11/17 17:15 Urine WBC 5 /hpf (3-5) 01/11/17 17:15 Ur Epithelial Cells Rare /hpf (FEW) 01/11/17 17:15 Urine Bacteria Rare /hpf (NONE SEEN) 01/11/17 17:15 Urine Mucus Rare 01/11/17 17:15 RPR Titer Nonreactive (NONREACTIVE) 01/12/17 07:45 HIV 1&2 Antibody Screen Negative 01/12/17 07:45 HIV P24 Antigen Negative 01/12/17 07:45 01/13/17 10:39 Assessment: 01/13/17 10:39 WITHDRAWAL SYMPTOM Plan: CONTINUE DETOX,ON K REPLACEMENT
[2017-01-13] MEDS: chlordiazePOXIDE 5 MG CAPSULE PO SCH ×2 (17:29→22:20)
[2017-01-13] MEDS: THIAMINE HCL 100 MG TABLET (FP) PO SCH (22:20)
[2017-01-14] MEDS: chlordiazePOXIDE 5 MG CAPSULE PO SCH ×2 (05:55→11:12)
[2017-01-14] MEDS: PRENATAL VITAMINS W/ FOLIC ACID TABLET (FP) PO SCH (10:39)
[2017-01-14] MEDS: ZEPATIER PO SCH (10:39)
[2017-01-14] MEDS: POTASSIUM CHLORIDE TABS 20 MEQ TABLET.ER (FP) PO SCH (10:39)
[2017-01-14] MEDS: risperiDONE 3 MG TABLET PO SCH (10:39)
--- NOTE | 2017-01-14 10:59 | PN ---
S Progress Note (SOAP) Subjective: ALERT,IRRITABLE,ANXIOUS,INTERRUPTED SLEEP Objective: 01/14/17 10:58 Vital Signs Temperature 97.9 F 01/14/17 09:56 Pulse Rate 69 01/14/17 09:56 Respiratory Rate 18 01/14/17 09:56 Blood Pressure 109/72 01/14/17 09:56 O2 Sat by Pulse Oximetry (%) Assessment: 01/14/17 10:58 WITHDRAWAL SYMPTOM Plan: CONTINUE DETOX
--- NOTE | 2017-01-14 14:52 | EKG ---
Test Reason : Blood Pressure : / mmHG Vent. Rate : 051 BPM Atrial Rate : 051 BPM P-R Int : 142 ms QRS Dur : 078 ms QT Int : 468 ms P-R-T Axes : 054 075 057 degrees QTc Int : 431 ms POOR DATA QUALITY, INTERPRETATION MAY BE ADVERSELY AFFECTED SINUS BRADYCARDIA OTHERWISE NORMAL ECG WHEN COMPARED WITH ECG OF 15-JUN-2016 14:00, NO SIGNIFICANT CHANGE WAS FOUND Confirmed by FLORENTINO VACA MD ([id number]) on 01/14/2017 2:52:13 PM Referred By: Confirmed By:FLORENTINO VACA MD
[2017-01-14] MEDS: chlordiazePOXIDE HCL 10 MG CAPSULE PO SCH ×2 (17:27→22:15)
[2017-01-14] MEDS ORDERED: MIRTAZAPINE 15 MG TABLET (FP) PO SCH (22:00)
[2017-01-14] MEDS ORDERED: traZODone HCL 100 MG TABLET (FP) PO SCH (22:00)
[2017-01-14] MEDS: THIAMINE HCL 100 MG TABLET (FP) PO SCH (22:15)
[2017-01-15] MEDS: chlordiazePOXIDE HCL 10 MG CAPSULE PO SCH ×2 (05:40→11:00)
--- NOTE | 2017-01-15 08:41 | DS ---
[facility] Detox Discharge Summary Admission Date: 01/11/17 Discharge Date: 01/15/17 - History Present History: Alcohol Dependence, Cannabis Dependence Additional Comments: follow up with after care program as arrangement Pertinent Past History: seizure copd history of surgery for colon cancer hepatitis c schizoaffective disorder weight loss hypokalemia - Physical Exam Results Vital Signs: Vital Signs Temperature 96.1 F L 01/15/17 06:16 Pulse Rate 59 L 01/15/17 06:16 Respiratory Rate 16 01/15/17 06:16 Blood Pressure 112/60 01/15/17 06:16 O2 Sat by Pulse Oximetry (%) Pertinent Admission Physical Exam Findings: withdrawal symptom - Treatment Hospital Course: Detox Protocol Followed, Detoxed Safely, Responded well, Discharged Condition Good, Rehab Referral Accepted Patient has Accepted a Rehab Referral to: [facility] - Medication Discharge Medications: Ambulatory Orders Risperidone [Risperdal] 3 mg PO DAILY 06/15/16 Mirtazapine [Remeron -] 15 mg PO HS #30 tablet 06/16/16 Trazodone HCl [Desyrel -] 100 mg PO HS #30 tablet 06/16/16 Elbasvir/Grazoprevir [Zepatier 50-100 mg Tablet] 1 each PO DAILY 01/11/17 Mirtazapine [Remeron -] 15 mg PO HS #30 tablet 01/14/17 Risperidone [Risperdal -] 3 mg PO DAILY #30 tablet 01/14/17 Trazodone HCl [Desyrel -] 100 mg PO HS #30 tablet 01/14/17 - Diagnosis (1) Hypokalemia Current Visit: Yes Status: Acute (2) Alcohol dependence with uncomplicated withdrawal Current Visit: Yes Status: Acute (3) Cocaine dependence, uncomplicated Current Visit: Yes Status: Acute (4) COPD (chronic obstructive pulmonary disease) Current Visit: Yes Status: Chronic Qualifiers: COPD type: unspecified COPD Qualified Code(s): J44.9 - Chronic obstructive pulmonary disease, unspecified (5) History of colon cancer Current Visit: Yes Status: Chronic (6) History of colon surgery Current Visit: Yes Status: Chronic (7) History of schizoaffective disorder Current Visit: Yes Status: Chronic (8) Nicotine dependence Current Visit: Yes Status: Chronic Qualifiers: Nicotine product type: cigarettes Substance use status: uncomplicated Qualified Code(s): F17.210 - Nicotine dependence, cigarettes, uncomplicated (9) Drug-induced mood disorder Current Visit: No Status: Acute (10) History of stroke Current Visit: No Status: Chronic (11) Schizoaffective disorder Current Visit: No Status: Suspected Qualifiers: Schizoaffective disorder type: unspecified Qualified Code(s): F25.9 - Schizoaffective disorder, unspecified (12) History of seizure Current Visit: Yes Status: Chronic - AMA Did Patient Leave Against Medical Advice: No
[2017-01-15 10:25] VITALS: BP 105/68; PULSE 109; TEMP 98.6
[2017-01-15] MEDS: PRENATAL VITAMINS W/ FOLIC ACID TABLET (FP) PO SCH (10:59)
[2017-01-15] MEDS: POTASSIUM CHLORIDE TABS 20 MEQ TABLET.ER (FP) PO SCH (10:59)
[2017-01-15] MEDS: risperiDONE 3 MG TABLET PO SCH (11:00)
[2017-01-15] MEDS: ZEPATIER PO SCH (11:00)
== END 2017-01-15 12:30 | disposition other institution (70) | DRG 774 ==
LOC: YASAS 11:46 → Y6N 15:30
PROVIDERS: ADMIT Internal Medicine; ATTEND Internal Medicine
PROC: HZ2ZZZZ Detoxification Services for Substance Abuse Treatment (ICD-10-PCS; principal; 2017-01-11)
DX: F10.230 Alcohol dependence with withdrawal, uncomplicated (principal); F14.20 Cocaine dependence, uncomplicated; F17.210 Nicotine dependence, cigarettes, uncomplicated; F19.24 Other psychoactive substance dependence with psychoactive substance-induced mood disorder; F25.9 Schizoaffective disorder, unspecified; E87.6 Hypokalemia; R00.1 Bradycardia, unspecified; B18.2 Chronic viral hepatitis C; J44.9 Chronic obstructive pulmonary disease, unspecified; Z85.038 Personal history of other malignant neoplasm of large intestine; Z86.73 Personal history of transient ischemic attack (TIA), and cerebral infarction without residual deficits; Z86.69 Personal history of other diseases of the nervous system and sense organs
CPT/HCPCS: 36415; 80053; 81003; 81015; 85027; 86593; 87389; 93005; 93010

== ENCOUNTER 2017-01-15 12:46 | Inpatient (IN) | payer OTHER ==
[2017-01-15 13:27] VITALS: BMI 21.4
[2017-01-15] MEDS ORDERED: MAG HYDROX/AL HYDROX/SIMETH 30 ML UNIT-DOSE CUP PO PRN (15:30)
[2017-01-15] MEDS ORDERED: IBUPROFEN 400 MG TABLET (FP) PO PRN (15:30)
[2017-01-15] MEDS ORDERED: LOPERAMIDE HCL 2 MG CAPSULE PO PRN (15:30)
[2017-01-15] MEDS ORDERED: MAGNESIUM CITRATE 300 ML BOTTLE PO PRN (15:30)
[2017-01-15] MEDS ORDERED: guaiFENesin/D-METHORPHAN HB 10 ML UNIT-DOSE CUPS PO PRN (15:30)
[2017-01-15] MEDS ORDERED: NICOTINE POLACRILEX 2 MG GUM BUC PRN (15:30)
[2017-01-15] MEDS ORDERED: MENTHOL/PHENOL 1 EACH UD MM PRN (15:30)
[2017-01-15] MEDS ORDERED: P-EPHED 60MG/TRIPROLIDI 2.5MG TABLET PO PRN (15:30)
[2017-01-15] MEDS ORDERED: MAGNESIUM HYDROX 2400MG/30ML ORAL SUSPENSION 30 ML CUP PO PRN (15:30)
[2017-01-15] MEDS ORDERED: ACETAMINOPHEN 325 MG TABLET (FP) PO PRN (15:30)
--- NOTE | 2017-01-15 15:33 | HP ---
[facility] Rehab Assess/Revision - Admission History Admitted to Rehab from: [facility] [place] Date of Admission to Rehab: 01/15/17 - Vital signs Vital Signs: Vital Signs Period Temp Pulse Resp BP Sys/Kelly Pulse Ox Last 24 Hr 98.3 F 92 20 106/70 - Findings Detox History & Physical reviewed: Yes Concur with findings: Yes
[2017-01-15] MEDS: THIAMINE HCL 100 MG TABLET (FP) PO SCH (21:52)
[2017-01-16] MEDS: PRENATAL VITAMINS W/ FOLIC ACID TABLET (FP) PO SCH (10:02)
[2017-01-16] MEDS: PATIENT'S OWN MEDICATION (NON-FORMULARY) (Elbasvir/Grazoprevir [Zepatier 50-100 Mg Tablet] PO SCH (10:02)
--- NOTE | 2017-01-16 11:10 | HP ---
Psychiatrist Admission - Data Date of interview: 01/16/17 Admission source: Identifying data: This is the first inpatient rehabilitation admission for this 61 year old single Black male residing alone in [facility], supported by [facility]. Medical History: Patient reports history of colon cancer, hepatitis C, seizures and stroke. Smokes cigarettes 10 a day. Psychiatric History: Patient reports was diagnosed as Schizoaffective disorder, one psychiatric hospitalization 4 years ago at [facility] due to depression and auditory hallucinations, paranoid thoyghts. He reports sees the psychiatrist at [facility] in the [place], states he currently on Risperdal 3 mg po hs, Remeron 15 mg po hs and Trazodone 100 mg po hs. Was seen by at [facility] and continued his medications. During the admission to patient was observed by a staff to be very sedated. Reports no history of suicidal attempts. Physical/Sexual Abuse/Trauma History: Denies history of sexual, physical and verbal abuse. 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 Vital Signs: Vital Signs - 24 hr 01/15/17 01/16/17 01/16/17 13:05 00:30 03:30 Temperature 98.3 F Pulse Rate 92 H Respiratory 20 18 18 Rate Blood Pressure 106/70 Allergies/Adverse Reactions: Allergies Allergy/AdvReac Type Severity Reaction Status Date / Time No Known Allergies Allergy Verified 01/15/17 13:29 Date of last physical exam: 01/11/17 Concur with the findings of this exam: Yes - Substance Abuse/Tx History Hx Alcohol Use: Yes (started at age of 11, daily 1 pint of vodka) Hx Substance Use: Yes Substance Use Type: Cocaine (daily $100 ), Marijuana ("once in a while".) Hx Substance Use Treatment: Yes - Admission Criteria Previous failed treatment: Yes Poor recovery environment: Yes Comorbidities: Yes Lacks judgement: Yes Mental Status Exam - Mental Status Exam Alert and Oriented to: Place, Person Cognitive Function: Grossly Intact Patient Appearance: Unkempt, Disheveled Mood: Sad Affect: Mood Congruent Patient Behavior: Appropriate, Cooperative Speech Pattern: Unclear, Slurred (disphasic) Voice Loudness: Mildly Soft/Quiet Thought Process: Goal Oriented Thought Disorder: Not Present Hallucinations: Denies Suicidal Ideation: Denies Homicidal Ideation: Denies Insight/Judgement: Fair Sleep: Fair Appetite: Fair Muscle strength/Tone: Normal Gait/Station: Normal Psychiatric Findings - Problem List ([place] 1, 2,3) (1) History of colon surgery Current Visit: No Status: Chronic (2) History of seizure Current Visit: No Status: Chronic Comment: Due to ETOH Withdrawal. (3) History of stroke Current Visit: No Status: Chronic (4) Nicotine dependence Current Visit: No Status: Chronic Qualifiers: Nicotine product type: cigarettes Substance use status: uncomplicated Qualified Code(s): F17.210 - Nicotine dependence, cigarettes, uncomplicated (5) Schizoaffective disorder Current Visit: No Status: Suspected Qualifiers: Schizoaffective disorder type: unspecified Qualified Code(s): F25.9 - Schizoaffective disorder, unspecified (6) Cannabis abuse Current Visit: Yes Status: Acute (7) Alcohol dependence Current Visit: Yes Status: Acute (8) Cocaine dependence Current Visit: Yes Status: Acute - Initial Treatment Plan Initial Treatment Plan: Will continue Trazodone and Risperdal, d/c Remeron due to sedation , will monitor progress as needed.
[2017-01-16] MEDS: THIAMINE HCL 100 MG TABLET (FP) PO SCH (21:52)
[2017-01-16] MEDS: traZODone HCL 100 MG TABLET (FP) PO SCH (21:52)
[2017-01-17] MEDS: PRENATAL VITAMINS W/ FOLIC ACID TABLET (FP) PO SCH (10:22)
[2017-01-17] MEDS: risperiDONE 3 MG TABLET PO SCH (10:22)
[2017-01-17] MEDS: PATIENT'S OWN MEDICATION (NON-FORMULARY) (Elbasvir/Grazoprevir [Zepatier 50-100 Mg Tablet] PO SCH (10:24)
[2017-01-17] MEDS: THIAMINE HCL 100 MG TABLET (FP) PO SCH (21:39)
[2017-01-17] MEDS: traZODone HCL 100 MG TABLET (FP) PO SCH (21:39)
[2017-01-18] MEDS: PRENATAL VITAMINS W/ FOLIC ACID TABLET (FP) PO SCH (10:18)
[2017-01-18] MEDS: risperiDONE 3 MG TABLET PO SCH (10:18)
[2017-01-18] MEDS: PATIENT'S OWN MEDICATION (NON-FORMULARY) (Elbasvir/Grazoprevir [Zepatier 50-100 Mg Tablet] PO SCH (10:19)
[2017-01-18] MEDS: THIAMINE HCL 100 MG TABLET (FP) PO SCH (21:03)
[2017-01-18] MEDS: traZODone HCL 100 MG TABLET (FP) PO SCH (21:03)
[2017-01-19] MEDS: PATIENT'S OWN MEDICATION (NON-FORMULARY) (Elbasvir/Grazoprevir [Zepatier 50-100 Mg Tablet] PO SCH (10:36)
[2017-01-19] MEDS: risperiDONE 3 MG TABLET PO SCH (10:36)
[2017-01-19] MEDS: PRENATAL VITAMINS W/ FOLIC ACID TABLET (FP) PO SCH (10:36)
[2017-01-19] MEDS: diphenhydrAMINE HCL 50 MG CAPSULE PO PRN (21:50)
[2017-01-19] MEDS: traZODone HCL 100 MG TABLET (FP) PO SCH (21:50)
[2017-01-19] MEDS: THIAMINE HCL 100 MG TABLET (FP) PO SCH (21:50)
[2017-01-20] MEDS: risperiDONE 3 MG TABLET PO SCH (10:36)
[2017-01-20] MEDS: PRENATAL VITAMINS W/ FOLIC ACID TABLET (FP) PO SCH (10:36)
[2017-01-20] MEDS: PATIENT'S OWN MEDICATION (NON-FORMULARY) (Elbasvir/Grazoprevir [Zepatier 50-100 Mg Tablet] PO SCH (10:38)
[2017-01-20] MEDS: THIAMINE HCL 100 MG TABLET (FP) PO SCH (22:01)
[2017-01-20] MEDS: traZODone HCL 100 MG TABLET (FP) PO SCH (22:01)
[2017-01-20] MEDS: diphenhydrAMINE HCL 50 MG CAPSULE PO PRN (22:02)
[2017-01-21] MEDS: PATIENT'S OWN MEDICATION (NON-FORMULARY) (Elbasvir/Grazoprevir [Zepatier 50-100 Mg Tablet] PO SCH (10:23)
[2017-01-21] MEDS: risperiDONE 3 MG TABLET PO SCH (10:23)
[2017-01-21] MEDS: PRENATAL VITAMINS W/ FOLIC ACID TABLET (FP) PO SCH (10:23)
[2017-01-21] MEDS: traZODone HCL 100 MG TABLET (FP) PO SCH (21:46)
[2017-01-21] MEDS: THIAMINE HCL 100 MG TABLET (FP) PO SCH (21:46)
[2017-01-21] MEDS: diphenhydrAMINE HCL 50 MG CAPSULE PO PRN (21:46)
[2017-01-22] MEDS: PRENATAL VITAMINS W/ FOLIC ACID TABLET (FP) PO SCH (10:39)
[2017-01-22] MEDS: PATIENT'S OWN MEDICATION (NON-FORMULARY) (Elbasvir/Grazoprevir [Zepatier 50-100 Mg Tablet] PO SCH (10:39)
[2017-01-22] MEDS: risperiDONE 3 MG TABLET PO SCH (10:39)
[2017-01-22] MEDS: traZODone HCL 100 MG TABLET (FP) PO SCH (21:17)
[2017-01-22] MEDS: THIAMINE HCL 100 MG TABLET (FP) PO SCH (21:17)
[2017-01-22] MEDS: diphenhydrAMINE HCL 50 MG CAPSULE PO PRN (21:17)
[2017-01-23] MEDS: PRENATAL VITAMINS W/ FOLIC ACID TABLET (FP) PO SCH (10:19)
[2017-01-23] MEDS: risperiDONE 3 MG TABLET PO SCH (10:19)
[2017-01-23] MEDS: PATIENT'S OWN MEDICATION (NON-FORMULARY) (Elbasvir/Grazoprevir [Zepatier 50-100 Mg Tablet] PO SCH (10:21)
[2017-01-23] MEDS: traZODone HCL 100 MG TABLET (FP) PO SCH (21:50)
[2017-01-23] MEDS: diphenhydrAMINE HCL 50 MG CAPSULE PO PRN (21:50)
[2017-01-23] MEDS: THIAMINE HCL 100 MG TABLET (FP) PO SCH (21:50)
[2017-01-24] MEDS: risperiDONE 3 MG TABLET PO SCH (10:24)
[2017-01-24] MEDS: PATIENT'S OWN MEDICATION (NON-FORMULARY) (Elbasvir/Grazoprevir [Zepatier 50-100 Mg Tablet] PO SCH (10:24)
[2017-01-24] MEDS: PRENATAL VITAMINS W/ FOLIC ACID TABLET (FP) PO SCH (10:24)
[2017-01-24] MEDS: THIAMINE HCL 100 MG TABLET (FP) PO SCH (21:29)
[2017-01-24] MEDS: diphenhydrAMINE HCL 50 MG CAPSULE PO PRN (21:29)
[2017-01-24] MEDS: traZODone HCL 100 MG TABLET (FP) PO SCH (21:29)
[2017-01-25] MEDS: PATIENT'S OWN MEDICATION (NON-FORMULARY) (Elbasvir/Grazoprevir [Zepatier 50-100 Mg Tablet] PO SCH (10:31)
[2017-01-25] MEDS: PRENATAL VITAMINS W/ FOLIC ACID TABLET (FP) PO SCH (10:31)
[2017-01-25] MEDS: risperiDONE 3 MG TABLET PO SCH (10:31)
[2017-01-25] MEDS: traZODone HCL 100 MG TABLET (FP) PO SCH (21:17)
[2017-01-25] MEDS: diphenhydrAMINE HCL 50 MG CAPSULE PO PRN (21:17)
[2017-01-25] MEDS: THIAMINE HCL 100 MG TABLET (FP) PO SCH (21:17)
[2017-01-26] MEDS: risperiDONE 3 MG TABLET PO SCH (10:35)
[2017-01-26] MEDS: PRENATAL VITAMINS W/ FOLIC ACID TABLET (FP) PO SCH (10:35)
[2017-01-26] MEDS: PATIENT'S OWN MEDICATION (NON-FORMULARY) (Elbasvir/Grazoprevir [Zepatier 50-100 Mg Tablet] PO SCH (10:36)
[2017-01-26] MEDS: traZODone HCL 100 MG TABLET (FP) PO SCH (21:38)
[2017-01-26] MEDS: THIAMINE HCL 100 MG TABLET (FP) PO SCH (21:38)
[2017-01-26] MEDS: diphenhydrAMINE HCL 50 MG CAPSULE PO PRN (21:38)
[2017-01-27] MEDS: PRENATAL VITAMINS W/ FOLIC ACID TABLET (FP) PO SCH (10:41)
[2017-01-27] MEDS: PATIENT'S OWN MEDICATION (NON-FORMULARY) (Elbasvir/Grazoprevir [Zepatier 50-100 Mg Tablet] PO SCH (10:41)
[2017-01-27] MEDS: risperiDONE 3 MG TABLET PO SCH (10:41)
[2017-01-27] MEDS: traZODone HCL 100 MG TABLET (FP) PO SCH (21:46)
[2017-01-27] MEDS: THIAMINE HCL 100 MG TABLET (FP) PO SCH (21:46)
[2017-01-27] MEDS: diphenhydrAMINE HCL 50 MG CAPSULE PO PRN (21:47)
[2017-01-28] MEDS: PRENATAL VITAMINS W/ FOLIC ACID TABLET (FP) PO SCH (10:33)
[2017-01-28] MEDS: risperiDONE 3 MG TABLET PO SCH (10:33)
[2017-01-28] MEDS: PATIENT'S OWN MEDICATION (NON-FORMULARY) (Elbasvir/Grazoprevir [Zepatier 50-100 Mg Tablet] PO SCH (10:34)
[2017-01-28] MEDS: THIAMINE HCL 100 MG TABLET (FP) PO SCH (22:04)
[2017-01-28] MEDS: diphenhydrAMINE HCL 50 MG CAPSULE PO PRN (22:04)
[2017-01-28] MEDS: traZODone HCL 100 MG TABLET (FP) PO SCH (22:04)
[2017-01-29 07:04] VITALS: BP 108/75; PULSE 72; TEMP 98.1
[2017-01-29] MEDS: PRENATAL VITAMINS W/ FOLIC ACID TABLET (FP) PO SCH (09:55)
[2017-01-29] MEDS: risperiDONE 3 MG TABLET PO SCH (09:55)
[2017-01-29] MEDS: PATIENT'S OWN MEDICATION (NON-FORMULARY) (Elbasvir/Grazoprevir [Zepatier 50-100 Mg Tablet] PO SCH (09:55)
--- NOTE | 2017-01-29 12:07 | PN ---
Psychiatric Progress Note Vital Signs: Vital Signs Period Temp Pulse Resp BP Sys/Kelly Pulse Ox Last 24 Hr 98.1 F 72 16-18 108/75 Date of Session: 01/29/17 Chief Complaint:: discharge visit HPI: Patient has addressed alcohol, cocaine, nicotine dependence, cannabis abuse comorbid Schizoaffective disorder. ROS: WNL Current Side Effect: No Lab tests ordered: No Lab tests reviewed: Yes Provider note:: Patient has completed today his treatment and met his identified goals, will continue to address his issues at [facility]. Patient verballzed understanding of the negative consequences of his addiction and motivated to continue maintain abstinence. Patient reports feeling with current medications management, his anxiety decrease, mood stable and sleep improved, medications well tolareted, scripts provided, patient is stable for discharge today. Total face to face time:: 30 Mental Status Exam - Mental Status Exam Alert and Oriented to: Time, Place, Person Cognitive Function: Good Patient Appearance: Well Groomed Mood: Hopeful Affect: Appropriate, Mood Congruent Patient Behavior: Appropriate, Cooperative Speech Pattern: Slurred Voice Loudness: Normal Thought Process: Intact, Goal Oriented Thought Disorder: Not Present Hallucinations: Denies Suicidal Ideation: Denies Homicidal Ideation: Denies Insight/Judgement: Fair Sleep: Fair Appetite: Fair Muscle strength/Tone: Normal Gait/Station: Normal Psychiatric Treatment Plan - Problem List (2) History of seizure Comment: Due to ETOH Withdrawal. (4) Nicotine dependence Qualifiers: Nicotine product type: cigarettes Substance use status: uncomplicated Qualified Code(s): F17.210 - Nicotine dependence, cigarettes, uncomplicated (5) Schizoaffective disorder Qualifiers: Schizoaffective disorder type: unspecified Qualified Code(s): F25.9 - Schizoaffective disorder, unspecified
== END 2017-01-29 11:15 | disposition home or self-care (01) | DRG 772 ==
LOC: YASAS 12:46 → Y5N 12:48
PROVIDERS: ADMIT Psychiatry & Neurology Psychiatry; ATTEND Psychiatry & Neurology Psychiatry
PROC: HZ42ZZZ Group Counseling for Substance Abuse Treatment, Cognitive-Behavioral (ICD-10-PCS; principal; 2017-01-29)
DX: F10.20 Alcohol dependence, uncomplicated (principal); F14.20 Cocaine dependence, uncomplicated; F17.210 Nicotine dependence, cigarettes, uncomplicated; F12.10 Cannabis abuse, uncomplicated; Z86.73 Personal history of transient ischemic attack (TIA), and cerebral infarction without residual deficits; Z86.69 Personal history of other diseases of the nervous system and sense organs

== ENCOUNTER 2017-06-24 10:05 | Inpatient (IN) | payer OTHER ==
[2017-06-24 11:38] VITALS: BMI 20.3
--- NOTE | 2017-06-24 14:11 | HP ---
CIWA Score - CIWA Score Nausea/Vomitin-No Nausea/No Vomiting Muscle Tremors: 4-Moderate,w/Arms Extend Anxiety: 4-Mod. Anxious/Guarded Agitation: 4-Moderately Restless Paroxysmal Sweats: 1-Minimal Palms Moist Orientation: 0-Oriented Tacttile Disturbances: 3-Moderate Itch/Numb/Burn Auditory Disturbances: 0-None Visual Disturbances: 0-None Headache: 0-None Present CIWA-Ar Total Score: 16 Admission ROS BHS - HPI Chief Complaint: WITHDRAWAL SX FROM ALCOHOL Allergies/Adverse Reactions: Allergies Allergy/AdvReac Type Severity Reaction Status Date / Time No Known Allergies Allergy Verified 06/24/17 11:37 History of Present Illness: 61 Y/O AA/MALE WITH A HX ALCOHOL AND ALCOHOL DEPENDENCE SEEKING DETOX [place]. Exam Limitations: No Limitations - Ebola screening Have you traveled outside of the country in the last 21 days: No Have you had contact with anyone from an Ebola affected area: No Have you been sick,other than usual withdrawal symptoms: No Do you have a fever: No - Review of Systems Constitutional: Chills, Loss of Appetite, Night Sweats, Changes in sleep, Unexplained wgt Loss EENT: reports: Blurred Vision, Tearing, Nose Congestion, Dental Problems (NO TEETH) Respiratory: reports: Shortness of Breath (HAD COPD BUT RESOLVED PER PT), Wheezing Cardiac: reports: No Symptoms Reported GI: reports: Diarrhea, Nausea, Poor Fluid Intake, Vomiting : reports: No Symptoms Reported Musculoskeletal: reports: No Symptoms Reported Integumentary: reports: No Symptoms Reported Neuro: reports: Unsteady Gait Endocrine: reports: No Symptoms Reported Hematology: reports: No Symptoms Reported Psychiatric: reports: Orientated x3, Anxious, Depressed (HX SCHIZOAFFECTIVE D/O) Other Systems: Reviewed and Negative Patient History - Patient Medical History Hx Anemia: No Hx Asthma: No Hx Chronic Obstructive Pulmonary Disease (COPD): Yes ("NOT ANYMORE"- MED ) Hx Cancer: Yes (Colon Ca, Tx'd w/ surgery, 2014. No F/U treatment recommended at this time.) Hx Cardiac Disorders: No Hx Congestive Heart Failure: No Hx Hypertension: No Hx Hypercholesterolemia: Yes (Meds. in past 2 years; Currently managed with diet.) Hx Pacemaker: No HX Cerebrovascular Accident: No Hx Seizures: No Hx Dementia: No Hx Diabetes: No Hx Gastrointestinal Disorders: No Hx Liver Disease: Yes (Hep C, Diagnosed approx. 11 years ago.) Hx Genitourinary Disorders: No Hx Sexually Transmitted Disorders: No (syhphillis @ 39 yrs old) Hx Renal Disease (ESRD): No Hx Thyroid Disease: No Hx Human Immunodeficiency Virus (HIV): No (Last Tested: 07/2016: NEGATIVE.) Hx Hepatitis C: Yes (Diagnosed approx. 11 years ago; No treatment yet.) Hx Depression: Yes Hx Suicide Attempt: No (DENIES) Hx Bipolar Disorder: No Hx Schizophrenia: Yes - Patient Surgical History Past Surgical History: Yes Hx Neurologic Surgery: No Hx Cataract Extraction: No Hx Cardiac Surgery: No Hx Lung Surgery: No Hx Breast Surgery: No Hx Breast Biopsy: No Hx Abdominal Surgery: Yes (colectomy in 04/22 [facility]) Hx Appendectomy: No Hx Cholecystectomy: No Hx Genitourinary Surgery: No Hx Orthopedic Surgery: No Anesthesia Reaction: No - PPD History Previous Implant?: Yes Date: 06/17/16 PPD to be Administered?: Yes - Reproductive History Patient is a Female of Child Bearing Age (11 -55 yrs old): No (MALE) - Smoking Cessation Smoking history: Current every day smoker Have you smoked in the past 12 months: Yes Aproximately how many cigarettes per day: 7 Cigars Per Day: 0 Hx Chewing Tobacco Use: No Initiated information on smoking cessation: Yes 'Breaking Loose' booklet given: 06/24/17 - Substance & Tx. History Hx Alcohol Use: Yes (BARCADI) Hx Substance Use: Yes (CRACK) Substance Use Type: Alcohol, Cocaine Hx Substance Use Treatment: Yes (LAST TX AT [facility]) - Substances Abused Alcohol Route: Oral Frequency: Daily Amount used: 4 cans 1/2 pint baccardi Age of first use: 12 Date of Last Use: 06/23/17 Crack Route: Smoking Frequency: Daily Amount used: 4 bags Age of first use: 29 Date of Last Use: 06/23/17 Family Disease History - Family Disease History Family Disease History: Other: Mother (Stroke.), Brother (Psych. disorder.), Sister (Aneurysm, .) Admission Physical Exam BHS - Vital Signs Vital Signs: Vital Signs - 24 hr 06/24/17 11:36 Temperature 97 F L Pulse Rate 77 Respiratory 20 Rate Blood Pressure 125/75 - Physical General Appearance: Yes: Moderate Distress, Thin, Irritable, Anxious HEENTM: Yes: EOMI, Normocephalic, JL, Pharynx Normal Respiratory: Yes: Chest Non-Tender, Lungs Clear Neck: Yes: No masses,lesions,Nodules, Supple, Trachea in good position Breast: Yes: Breast Exam Deferred Cardiology: Yes: Regular Rhythm, Regular Rate, S1, S2 Abdominal: Yes: Normal Bowel Sounds, Non Tender, Flat, Soft Genitourinary: Yes: Other (N/C) Back: Yes: Within Normal Limits Musculoskeletal: Yes: full range of Motion, Gait Steady Extremities: Yes: Normal Range of Motion, Non-Tender 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: admitting representative II-XII NML intact, Fully Oriented, Alert Integumentary: Yes: Dry, Warm Lymphatic: Yes: Within Normal Limits - Diagnostic (1) Alcohol dependence with uncomplicated withdrawal Current Visit: No Status: Acute (2) Cocaine dependence, uncomplicated Current Visit: Yes Status: Acute (3) Hepatitis C Current Visit: Yes Status: Chronic Qualifiers: Viral hepatitis chronicity: chronic (4) COPD (chronic obstructive pulmonary disease) Current Visit: Yes Status: Suspected Qualifiers: COPD type: unspecified COPD Qualified Code(s): J44.9 - Chronic obstructive pulmonary disease, unspecified Comment: PT STATES RESOLVED AND NO CURRENT MED/ WILL MONITOR RESPITORY WHILE IN [place]. (5) History of seizure Current Visit: Yes Status: Chronic Comment: Due to ETOH Withdrawal. (6) Nicotine dependence Current Visit: Yes Status: Acute Qualifiers: Nicotine product type: cigarettes Substance use status: in withdrawal Qualified Code(s): F17.213 - Nicotine dependence, cigarettes, with withdrawal Cleared for Admission [facility] - Detox or Rehab [facility] Level of Care: Medically Managed Detox Regimen/Protocol: Librium [facility] Breath Alcohol Content Breath Alcohol Content: 0 Urine Drug Screen - Results Drug Screen Negative: No Urine Drug Screen Results: MALINA-Cocaine
[2017-06-24] MEDS ORDERED: MAGNESIUM HYDROX 2400MG/30ML ORAL SUSPENSION 30 ML CUP PO PRN (14:18)
[2017-06-24] MEDS ORDERED: MAG HYDROX/AL HYDROX/SIMETH 30 ML UNIT-DOSE CUP PO PRN (14:18)
[2017-06-24] MEDS ORDERED: chlordiazePOXIDE HCL 25 MG CAPSULE PO PRN (14:18)
[2017-06-24] MEDS ORDERED: IBUPROFEN 400 MG TABLET (FP) PO PRN (14:18)
[2017-06-24] MEDS ORDERED: hydrOXYzine PAMOATE 25 MG CAPSULE (FP) PO PRN (14:18)
[2017-06-24] MEDS ORDERED: P-EPHED 60MG/TRIPROLIDI 2.5MG TABLET PO PRN (14:18)
[2017-06-24] MEDS ORDERED: LOPERAMIDE HCL 2 MG CAPSULE PO PRN (14:18)
[2017-06-24] MEDS ORDERED: MAGNESIUM CITRATE 300 ML BOTTLE PO PRN (14:18)
[2017-06-24] MEDS ORDERED: ACETAMINOPHEN 325 MG TABLET (FP) PO PRN (14:18)
[2017-06-24] MEDS ORDERED: MENTHOL/PHENOL 1 EACH UD MM PRN (14:18)
[2017-06-24] MEDS ORDERED: NICOTINE POLACRILEX 2 MG GUM BUC PRN (14:18)
[2017-06-24] MEDS ORDERED: chlordiazePOXIDE HCL 25 MG CAPSULE PO ONE (14:38)
[2017-06-24] MEDS: NICOTINE 14 MG/24 HOURS TOPICAL PATCH TD SCH (17:28)
[2017-06-24] MEDS: chlordiazePOXIDE HCL 25 MG CAPSULE PO SCH ×2 (17:28→22:26)
[2017-06-24] MEDS: THIAMINE HCL 100 MG TABLET (FP) PO SCH (22:24)
[2017-06-24 23:37] LABS: URINE APPEARANCE CLEAR; URINE BILIRUBIN NEGATIVE (NEGATIVE); URINE BLOOD NEGATIVE (NEGATIVE); URINE COLOR LTYELLOW; URINE GLUCOSE (UA) NEGATIVE (NEGATIVE); URINE KETONE NEGATIVE (NEGATIVE); URINE NITRITE NEGATIVE (NEGATIVE); URINE PROTEIN NEGATIVE (NEGATIVE); URINE UROBILINOGEN NEGATIVE mg/dL (0.2-1.0)
[2017-06-24 23:41] LABS: URINE LEUK ESTERASE 1+ (NEGATIVE)
[2017-06-25] LABS: EPI CELLS RARE /HPF (FEW); URINE BACTERIA RARE /hpf (NONE SEEN); URINE HYALINE CAST 1 /lpf; URINE MUCUS RARE
[2017-06-25] MEDS: chlordiazePOXIDE HCL 25 MG CAPSULE PO SCH ×4 (05:48→22:08)
[2017-06-25] MEDS: PRENATAL VITAMINS W/ FOLIC ACID TABLET (FP) PO SCH (10:29)
[2017-06-25] MEDS: NICOTINE 14 MG/24 HOURS TOPICAL PATCH TD SCH (10:30)
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
[2017-06-25 10:40] LABS: HEMATOCRIT 46.1 % (35.4-49); HEMOGLOBIN 14.8 GM/dL (11.7-16.9); MCHC 32.2 g/dl (32.0-35.9); MEAN CELL VOLUME 86.9 fl (80-96); MEAN PLT VOLUME 7.6 fl (7.5-11.1); PLATELET COUNT 267 K/MM3 (134-434); RDW 15.1 % (11.9-15.9); WHITE BLOOD COUNT 5.9 K/mm3 (4.0-10.0)
[2017-06-25 10:51] LABS: ALBUMIN 3.5 g/dl (3.4-5.0); ANION GAP 10 (8-16); BLOOD UREA NITROGEN 12 mg/dL (7-18); CALCIUM 9.3 mg/dL (8.5-10.1); CHLORIDE 104 mmol/L (98-107); CO2 28 mmol/L (21-32); GLUCOSE,RANDOM 66 mg/dL (74-106); POTASSIUM 4.4 mmol/L (3.5-5.1); SODIUM 142 mmol/L (136-145)
[2017-06-25 10:57] LABS: ALK PHOS 130 U/L (45-117); BILIRUBIN,TOTAL 0.5 mg/dL (0.2-1.0); CREATININE 0.8 mg/dL (0.7-1.3); SGOT/AST 16 U/L (15-37); SGPT/ALT 14 U/L (12-78); TOT PROT 8.1 g/dl (6.4-8.2)
[2017-06-25] MEDS ORDERED: FLU VACCINE QUAD 60 MCG/0.5 ML (MDV 17-18) IM ONE (12:00)
--- NOTE | 2017-06-25 12:37 | EKG ---
Test Reason : Blood Pressure : / mmHG Vent. Rate : 063 BPM Atrial Rate : 063 BPM P-R Int : 156 ms QRS Dur : 078 ms QT Int : 412 ms P-R-T Axes : 077 078 064 degrees QTc Int : 421 ms NORMAL SINUS RHYTHM NORMAL ECG WHEN COMPARED WITH ECG OF 11-JAN-2017 16:30, NO SIGNIFICANT CHANGE WAS FOUND Confirmed by HAILEE RUIZ MD ([id number]) on 06/25/2017 12:36:52 PM Referred By: Confirmed By:HAILEE RUIZ MD
--- NOTE | 2017-06-25 14:02 | PN ---
[facility] CIWA - CIWA Score Nausea/Vomitin-No Nausea/No Vomiting Muscle Tremors: 3 Anxiety: 5 Agitation: 3 Paroxysmal Sweats: 2 Orientation: 0-Oriented Tacttile Disturbances: 1-Very Mild Itch/Numbness Auditory Disturbances: 2-Mild Harshness/Frighten Visual Disturbances: 2-Mild Sensitivity Headache: 0-None Present CIWA-Ar Total Score: 18 BHS Progress Note (SOAP) Subjective: Fatigue, Anxious, Sweating, Tremors. Objective: PT. A & O X 3. NO ACUTE DISTRESS. 06/25/17 13:59 Vital Signs Temperature 97.5 F L 06/25/17 13:30 Pulse Rate 85 06/25/17 13:30 Respiratory Rate 18 06/25/17 13:30 Blood Pressure 113/77 06/25/17 13:30 O2 Sat by Pulse Oximetry (%) Laboratory Tests 06/24/17 06/24/17 06/25/17 12:20 21:55 06:00 WBC 5.9 RBC 5.30 Hgb 14.8 D Hct 46.1 MCV 86.9 MCH 28.0 MCHC 32.2 RDW 15.1 D Plt Count 267 D MPV 7.6 Sodium Potassium Chloride Carbon Dioxide Anion Gap BUN Creatinine Creat Clearance w eGFR Random Glucose Calcium Total Bilirubin AST ALT Alkaline Phosphatase Total Protein Albumin Urine Color Ltyellow Urine Appearance Clear Urine pH 6.0 Ur Specific [place] 1.016 Urine Protein Negative Urine Glucose (UA) Negative Urine Ketones Negative Urine Blood Negative Urine Nitrite Negative Urine Bilirubin Negative Urine Urobilinogen Negative Ur Leukocyte Esterase 1+ H Urine WBC (Auto) 14 Urine RBC (Auto) 1 Ur Epithelial Cells Rare Urine Bacteria Rare Hyaline Casts 1 Urine Mucus Rare HIV 1&2 Antibody Screen Negative HIV P24 Antigen Negative 06/25/17 06:00 WBC RBC Hgb Hct MCV MCH MCHC RDW Plt Count MPV Sodium 142 Potassium 4.4 D Chloride 104 Carbon Dioxide 28 Anion Gap 10 BUN 12 Creatinine 0.8 Creat Clearance w eGFR > 60 Random Glucose 66 L Calcium 9.3 Total Bilirubin 0.5 D AST 16 ALT 14 D Alkaline Phosphatase 130 H D Total Protein 8.1 Albumin 3.5 Urine Color Urine Appearance Urine pH Ur Specific [place] Urine Protein Urine Glucose (UA) Urine Ketones Urine Blood Urine Nitrite Urine Bilirubin Urine Urobilinogen Ur Leukocyte Esterase Urine WBC (Auto) Urine RBC (Auto) Ur Epithelial Cells Urine Bacteria Hyaline Casts Urine Mucus HIV 1&2 Antibody Screen HIV P24 Antigen LABS NOTED. RPR RESULT PENDING. 06/25/17 14:01 Assessment: 06/25/17 14:00 WITHDRAWAL SYMPTOMS. Plan: CONTINUE DETOX. INCREASE DAILY PO FLUID INTAKE. REPEAT UA FOR ADMISSION ABNORMALITIES.
[2017-06-25] MEDS: risperiDONE 2 MG TABLET PO SCH (22:07)
[2017-06-25] MEDS: THIAMINE HCL 100 MG TABLET (FP) PO SCH (22:07)
[2017-06-25] MEDS: traZODone HCL 50 MG TABLET (FP) PO SCH (22:08)
[2017-06-26] MEDS: chlordiazePOXIDE HCL 25 MG CAPSULE PO SCH ×2 (05:36→10:24)
[2017-06-26] MEDS: PRENATAL VITAMINS W/ FOLIC ACID TABLET (FP) PO SCH (10:24)
[2017-06-26] MEDS: NICOTINE 14 MG/24 HOURS TOPICAL PATCH TD SCH (10:24)
--- NOTE | 2017-06-26 11:58 | PN ---
[facility] CIWA - CIWA Score Nausea/Vomitin-No Nausea/No Vomiting Muscle Tremors: 3 Anxiety: 5 Agitation: 2 Paroxysmal Sweats: No Perspiration Orientation: 0-Oriented Tacttile Disturbances: 2-Mild Itch/Numbness/Burn Auditory Disturbances: 0-None Visual Disturbances: 3-Moderate Sensitivity Headache: 0-None Present CIWA-Ar Total Score: 15 S Progress Note (SOAP) Subjective: Diarrhea, Interrupted Sleep, Nausea, Fatigue. Objective: PT. A & O X 3, OBSERVED AMBULATING ON UNIT. NO ACUTE DISTRESS. 06/26/17 11:56 Vital Signs Temperature 97.0 F L 06/26/17 09:57 Pulse Rate 87 06/26/17 09:57 Respiratory Rate 18 06/26/17 09:57 Blood Pressure 103/71 06/26/17 09:57 O2 Sat by Pulse Oximetry (%) Laboratory Tests 06/24/17 06/24/17 06/25/17 12:20 21:55 06:00 WBC 5.9 RBC 5.30 Hgb 14.8 D Hct 46.1 MCV 86.9 MCH 28.0 MCHC 32.2 RDW 15.1 D Plt Count 267 D MPV 7.6 Sodium Potassium Chloride Carbon Dioxide Anion Gap BUN Creatinine Creat Clearance w eGFR Random Glucose Calcium Total Bilirubin AST ALT Alkaline Phosphatase Total Protein Albumin Urine Color Ltyellow Urine Appearance Clear Urine pH 6.0 Ur Specific [place] 1.016 Urine Protein Negative Urine Glucose (UA) Negative Urine Ketones Negative Urine Blood Negative Urine Nitrite Negative Urine Bilirubin Negative Urine Urobilinogen Negative Ur Leukocyte Esterase 1+ H Urine WBC (Auto) 14 Urine RBC (Auto) 1 Ur Epithelial Cells Rare Urine Bacteria Rare Hyaline Casts 1 Urine Mucus Rare RPR Titer HIV 1&2 Antibody Screen Negative HIV P24 Antigen Negative 06/25/17 06/25/17 06:00 06:00 WBC RBC Hgb Hct MCV MCH MCHC RDW Plt Count MPV Sodium 142 Potassium 4.4 D Chloride 104 Carbon Dioxide 28 Anion Gap 10 BUN 12 Creatinine 0.8 Creat Clearance w eGFR > 60 Random Glucose 66 L Calcium 9.3 Total Bilirubin 0.5 D AST 16 ALT 14 D Alkaline Phosphatase 130 H D Total Protein 8.1 Albumin 3.5 Urine Color Urine Appearance Urine pH Ur Specific [place] Urine Protein Urine Glucose (UA) Urine Ketones Urine Blood Urine Nitrite Urine Bilirubin Urine Urobilinogen Ur Leukocyte Esterase Urine WBC (Auto) Urine RBC (Auto) Ur Epithelial Cells Urine Bacteria Hyaline Casts Urine Mucus RPR Titer Nonreactive HIV 1&2 Antibody Screen HIV P24 Antigen LABS NOTED. RESULTS OF REPEAT UA PENDING. 06/26/17 11:57 Assessment: 06/26/17 11:56 WITHDRAWAL SYMPTOMS. Plan: CONTINUE DETOX. INCREASE DAILY PO FLUID INTAKE.
[2017-06-26 13:43] LABS: URINE APPEARANCE SLCLOUDY; URINE BILIRUBIN NEGATIVE (NEGATIVE); URINE BLOOD NEGATIVE (NEGATIVE); URINE COLOR YELLOW; URINE GLUCOSE (UA) NEGATIVE (NEGATIVE); URINE KETONE NEGATIVE (NEGATIVE); URINE NITRITE NEGATIVE (NEGATIVE); URINE PROTEIN NEGATIVE (NEGATIVE); URINE UROBILINOGEN NEGATIVE mg/dL (0.2-1.0)
[2017-06-26 13:49] LABS: URINE LEUK ESTERASE 1+ (NEGATIVE)
[2017-06-26 13:53] LABS: CALCIUM OXALATE CRYSTALS FEW /hpf (NONE SEEN); URINE BACTERIA RARE /hpf (NONE SEEN)
[2017-06-26] MEDS: chlordiazePOXIDE 5 MG CAPSULE PO SCH ×2 (17:56→22:21)
[2017-06-26] MEDS: guaiFENesin/D-METHORPHAN HB 10 ML UNIT-DOSE CUPS PO PRN (17:58)
[2017-06-26] MEDS: traZODone HCL 50 MG TABLET (FP) PO SCH (22:20)
[2017-06-26] MEDS: risperiDONE 2 MG TABLET PO SCH (22:20)
[2017-06-26] MEDS: THIAMINE HCL 100 MG TABLET (FP) PO SCH (22:20)
[2017-06-27] MEDS: chlordiazePOXIDE 5 MG CAPSULE PO SCH ×2 (06:14→12:18)
[2017-06-27] MEDS: NICOTINE 14 MG/24 HOURS TOPICAL PATCH TD SCH (10:24)
[2017-06-27] MEDS: PRENATAL VITAMINS W/ FOLIC ACID TABLET (FP) PO SCH (10:24)
--- NOTE | 2017-06-27 17:00 | PN ---
S Progress Note (SOAP) Subjective: Tremors, Anxious, Diarrhea. Objective: PT. A & O X 3, OBSERVED AMBULATING ON UNIT. NO ACUTE DISTRESS. 06/27/17 16:58 Vital Signs Temperature 97.0 F L 06/27/17 13:19 Pulse Rate 101 H 06/27/17 13:19 Respiratory Rate 20 06/27/17 13:19 Blood Pressure 103/71 06/27/17 13:19 O2 Sat by Pulse Oximetry (%) Laboratory Tests 06/24/17 06/24/17 06/25/17 12:20 21:55 06:00 WBC 5.9 RBC 5.30 Hgb 14.8 D Hct 46.1 MCV 86.9 MCH 28.0 MCHC 32.2 RDW 15.1 D Plt Count 267 D MPV 7.6 Sodium Potassium Chloride Carbon Dioxide Anion Gap BUN Creatinine Creat Clearance w eGFR Random Glucose Calcium Total Bilirubin AST ALT Alkaline Phosphatase Total Protein Albumin Urine Color Ltyellow Urine Appearance Clear Urine pH 6.0 Ur Specific [place] 1.016 Urine Protein Negative Urine Glucose (UA) Negative Urine Ketones Negative Urine Blood Negative Urine Nitrite Negative Urine Bilirubin Negative Urine Urobilinogen Negative Ur Leukocyte Esterase 1+ H Urine WBC (Auto) 14 Urine RBC (Auto) 1 Ur Epithelial Cells Rare Calcium Oxalate Crystal Urine Bacteria Rare Hyaline Casts 1 Urine Mucus Rare RPR Titer HIV 1&2 Antibody Screen Negative HIV P24 Antigen Negative 06/25/17 06/25/17 06/26/17 06:00 06:00 11:10 WBC RBC Hgb Hct MCV MCH MCHC RDW Plt Count MPV Sodium 142 Potassium 4.4 D Chloride 104 Carbon Dioxide 28 Anion Gap 10 BUN 12 Creatinine 0.8 Creat Clearance w eGFR > 60 Random Glucose 66 L Calcium 9.3 Total Bilirubin 0.5 D AST 16 ALT 14 D Alkaline Phosphatase 130 H D Total Protein 8.1 Albumin 3.5 Urine Color Yellow Urine Appearance Slcloudy Urine pH 5.0 Ur Specific [place] 1.020 Urine Protein Negative Urine Glucose (UA) Negative Urine Ketones Negative Urine Blood Negative Urine Nitrite Negative Urine Bilirubin Negative Urine Urobilinogen Negative Ur Leukocyte Esterase 1+ H Urine WBC (Auto) 43 Urine RBC (Auto) 1 Ur Epithelial Cells Calcium Oxalate Crystal Few Urine Bacteria Rare Hyaline Casts Urine Mucus RPR Titer Nonreactive HIV 1&2 Antibody Screen HIV P24 Antigen LABS NOTED. RESULTS OF REPEAT UA NOTED. URINE NITRITE AND URINE BLOOD NEGATIVE. 06/27/17 18:09 Assessment: 06/27/17 16:59 WITHDRAWAL SYMPTOMS. Plan: CONTINUE DETOX. INCREASE DAILY PO FLUID INTAKE.
[2017-06-27] MEDS: chlordiazePOXIDE HCL 10 MG CAPSULE PO SCH ×2 (17:59→22:48)
[2017-06-27] MEDS: guaiFENesin/D-METHORPHAN HB 10 ML UNIT-DOSE CUPS PO PRN (18:00)
[2017-06-27] MEDS: THIAMINE HCL 100 MG TABLET (FP) PO SCH (22:47)
[2017-06-27] MEDS: risperiDONE 2 MG TABLET PO SCH (22:47)
[2017-06-27] MEDS: traZODone HCL 50 MG TABLET (FP) PO SCH (22:48)
[2017-06-28] MEDS: chlordiazePOXIDE HCL 10 MG CAPSULE PO SCH ×2 (06:05→10:49)
[2017-06-28] MEDS: PRENATAL VITAMINS W/ FOLIC ACID TABLET (FP) PO SCH (09:40)
[2017-06-28 10:21] VITALS: BP 93/63; PULSE 104; TEMP 98.4
[2017-06-28] MEDS: NICOTINE 14 MG/24 HOURS TOPICAL PATCH TD SCH (10:48)
--- NOTE | 2017-06-28 13:20 | DS ---
[facility] Detox Discharge Summary Admission Date: 06/24/17 Discharge Date: 06/28/17 - History Present History: Alcohol Dependence, Cocaine Dependence Pertinent Past History: Hepatitis C HLD - Physical Exam Results Vital Signs: Vital Signs Temperature 98.4 F 06/28/17 10:20 Pulse Rate 104 H 06/28/17 10:20 Respiratory Rate 20 06/28/17 10:20 Blood Pressure 93/63 06/28/17 10:20 O2 Sat by Pulse Oximetry (%) Pertinent Admission Physical Exam Findings: Withdrawal symptoms Laboratory Tests 06/24/17 06/24/17 06/25/17 12:20 21:55 06:00 WBC 5.9 RBC 5.30 Hgb 14.8 D Hct 46.1 MCV 86.9 MCH 28.0 MCHC 32.2 RDW 15.1 D Plt Count 267 D MPV 7.6 Sodium Potassium Chloride Carbon Dioxide Anion Gap BUN Creatinine Creat Clearance w eGFR Random Glucose Calcium Total Bilirubin AST ALT Alkaline Phosphatase Total Protein Albumin Urine Color Ltyellow Urine Appearance Clear Urine pH 6.0 Ur Specific [place] 1.016 Urine Protein Negative Urine Glucose (UA) Negative Urine Ketones Negative Urine Blood Negative Urine Nitrite Negative Urine Bilirubin Negative Urine Urobilinogen Negative Ur Leukocyte Esterase 1+ H Urine WBC (Auto) 14 Urine RBC (Auto) 1 Ur Epithelial Cells Rare Calcium Oxalate Crystal Urine Bacteria Rare Hyaline Casts 1 Urine Mucus Rare RPR Titer HIV 1&2 Antibody Screen Negative HIV P24 Antigen Negative 06/25/17 06/25/17 06/26/17 06:00 06:00 11:10 WBC RBC Hgb Hct MCV MCH MCHC RDW Plt Count MPV Sodium 142 Potassium 4.4 D Chloride 104 Carbon Dioxide 28 Anion Gap 10 BUN 12 Creatinine 0.8 Creat Clearance w eGFR > 60 Random Glucose 66 L Calcium 9.3 Total Bilirubin 0.5 D AST 16 ALT 14 D Alkaline Phosphatase 130 H D Total Protein 8.1 Albumin 3.5 Urine Color Yellow Urine Appearance Slcloudy Urine pH 5.0 Ur Specific [place] 1.020 Urine Protein Negative Urine Glucose (UA) Negative Urine Ketones Negative Urine Blood Negative Urine Nitrite Negative Urine Bilirubin Negative Urine Urobilinogen Negative Ur Leukocyte Esterase 1+ H Urine WBC (Auto) 43 Urine RBC (Auto) 1 Ur Epithelial Cells Calcium Oxalate Crystal Few Urine Bacteria Rare Hyaline Casts Urine Mucus RPR Titer Nonreactive HIV 1&2 Antibody Screen HIV P24 Antigen Labs noted: abnormal UA (encouraged to drink lots of water) - Treatment Hospital Course: Detox Protocol Followed, Detoxed Safely, Responded well, Discharged Condition Good - Medication Discharge Medications: Ambulatory Orders Risperidone [Risperdal] 3 mg PO DAILY 06/15/16 Mirtazapine [Remeron -] 15 mg PO HS #30 tablet 06/16/16 Trazodone HCl [Desyrel -] 100 mg PO HS #30 tablet 06/16/16 Elbasvir/Grazoprevir [Zepatier 50-100 mg Tablet] 1 each PO DAILY 01/11/17 - Diagnosis (1) Depression Status: Chronic (2) HLD (hyperlipidemia) Status: Chronic (3) Alcohol dependence with uncomplicated withdrawal Status: Acute (4) Cocaine dependence, uncomplicated Status: Chronic (5) Nicotine dependence Status: Chronic Qualifiers: Nicotine product type: cigarettes Substance use status: in withdrawal Qualified Code(s): F17.213 - Nicotine dependence, cigarettes, with withdrawal (6) Hepatitis C Status: Chronic Qualifiers: Viral hepatitis chronicity: chronic Hepatic coma status: without hepatic coma Qualified Code(s): B18.2 - Chronic viral hepatitis C (7) Schizoaffective disorder Status: Chronic Qualifiers: Schizoaffective disorder type: unspecified Qualified Code(s): F25.9 - Schizoaffective disorder, unspecified - AMA Did Patient Leave Against Medical Advice: No (F/U with PCP within 1-2 weeks)
== END 2017-06-28 09:50 | disposition home or self-care (01) | DRG 774 ==
LOC: YASAS 10:05 → Y3N 14:33
PROVIDERS: ADMIT Internal Medicine; ATTEND Internal Medicine
PROC: HZ2ZZZZ Detoxification Services for Substance Abuse Treatment (ICD-10-PCS; principal; 2017-06-24)
DX: F10.230 Alcohol dependence with withdrawal, uncomplicated (principal); F14.20 Cocaine dependence, uncomplicated; F17.213 Nicotine dependence, cigarettes, with withdrawal; F32.9 Major depressive disorder, single episode, unspecified; F25.9 Schizoaffective disorder, unspecified; E78.5 Hyperlipidemia, unspecified; B18.2 Chronic viral hepatitis C; J44.9 Chronic obstructive pulmonary disease, unspecified; Z85.038 Personal history of other malignant neoplasm of large intestine; Z90.49 Acquired absence of other specified parts of digestive tract; Z86.69 Personal history of other diseases of the nervous system and sense organs; Z87.438 Personal history of other diseases of male genital organs
CPT/HCPCS: 36415; 80053; 81003; 81015; 85027; 86593; 87389; 90688; 93005; 93010

== ENCOUNTER 2017-08-10 12:01 | Inpatient (IN) | payer OTHER ==
[2017-08-10 15:24] VITALS: BMI 19.8
--- NOTE | 2017-08-10 17:34 | HP ---
CIWA Score - CIWA Score Nausea/Vomitin (N/V/D) Muscle Tremors: 2 Anxiety: 4-Mod. Anxious/Guarded Agitation: 3 Paroxysmal Sweats: 1-Minimal Palms Moist Orientation: 0-Oriented Tacttile Disturbances: 2-Mild Itch/Numbness/Burn Auditory Disturbances: 0-None Visual Disturbances: 0-None Headache: 0-None Present CIWA-Ar Total Score: 17 Admission ROS S - HPI Chief Complaint: ALCOHOL WITHDRAWAL SX Allergies/Adverse Reactions: Allergies Allergy/AdvReac Type Severity Reaction Status Date / Time No Known Allergies Allergy Verified 08/10/17 16:07 History of Present Illness: 61 Y/O AA/MALE WITH A HX OF ALCOHOL AND COCAINE DEPENDENCE SEEKING DETOX TX. PT HAS PREVIOUS TX EPISODES. Exam Limitations: No Limitations - Ebola screening Have you traveled outside of the country in the last 21 days: No Have you had contact with anyone from an Ebola affected area: No Have you been sick,other than usual withdrawal symptoms: No Do you have a fever: No - Review of Systems Constitutional: Chills, Loss of Appetite, Night Sweats, Changes in sleep, Unintentional Wgt. Loss EENT: reports: Blurred Vision (WEARS NIR GLASSES), Dental Problems (MISSING TEETH TOP/BOTTOM) Respiratory: reports: No Symptoms reported Cardiac: reports: Lightheadedness GI: reports: Constipated, Diarrhea, Nausea, Poor Appetite, Poor Fluid Intake, Vomiting, Indigestion : reports: No Symptoms Reported Musculoskeletal: reports: No Symptoms Reported Integumentary: reports: No Symptoms Reported Neuro: reports: Seizure, Unsteady Gait, Dizziness Endocrine: reports: No Symptoms Reported Hematology: reports: No Symptoms Reported Psychiatric: reports: Orientated x3, Anxious, Depressed Other Systems: Reviewed and Negative Patient History - Patient Medical History Hx Anemia: No Hx Asthma: No Hx Chronic Obstructive Pulmonary Disease (COPD): No Hx Cancer: Yes (Colon Ca, Tx'd w/ surgery, 2014. No F/U treatment recommended at this time.) Hx Cardiac Disorders: No Hx Congestive Heart Failure: No Hx Hypertension: No Hx Hypercholesterolemia: Yes (Meds. in past 2 years; Currently managed with diet.) Hx Pacemaker: No HX Cerebrovascular Accident: No Hx Seizures: No Hx Dementia: No Hx Diabetes: No Hx Gastrointestinal Disorders: No Hx Liver Disease: Yes (Hep C, Diagnosed approx. 11 years ago.) Hx Genitourinary Disorders: No Hx Sexually Transmitted Disorders: No Hx Renal Disease (ESRD): No Hx Thyroid Disease: No Hx Human Immunodeficiency Virus (HIV): No (Last Tested: 07/2016: NEGATIVE.) Hx Hepatitis C: Yes (Diagnosed approx. 11 years ago; [facility] [place]) Hx Depression: Yes (ON MEDS) Hx Suicide Attempt: No Hx Bipolar Disorder: No Hx Schizophrenia: Yes - Patient Surgical History Past Surgical History: Yes Hx Neurologic Surgery: No Hx Cataract Extraction: No Hx Cardiac Surgery: No Hx Lung Surgery: No Hx Breast Surgery: No Hx Breast Biopsy: No Hx Abdominal Surgery: Yes (colectomy in 04/22 [facility] [place]) Hx Appendectomy: No Hx Cholecystectomy: No Hx Genitourinary Surgery: No Hx Orthopedic Surgery: No Anesthesia Reaction: No - PPD History Previous Implant?: Yes Documented Results: Negative w/o proof Implanted On Prior [facility] Admission?: Yes Date: 06/17/16 PPD to be Administered?: Yes - Reproductive History Patient is a Female of Child Bearing Age (11 -55 yrs old): No (MALE) - Smoking Cessation Smoking history: Current every day smoker Have you smoked in the past 12 months: Yes Aproximately how many cigarettes per day: 6 Cigars Per Day: 0 Hx Chewing Tobacco Use: No Initiated information on smoking cessation: Yes 'Breaking Loose' booklet given: 08/10/17 - Substance & Tx. History Hx Alcohol Use: Yes (RUM) Hx Substance Use: Yes (COCAINE) Substance Use Type: Alcohol, Cocaine Hx Substance Use Treatment: Yes (LAST TX AT [facility]) - Substances Abused Alcohol Route: Oral Frequency: Daily Amount used: 1 PINT RUM Age of first use: 8 Date of Last Use: 08/10/17 Crack Route: Smoking Frequency: Daily Amount used: $30-40 Age of first use: 23 Date of Last Use: 08/09/17 Family Disease History - Family Disease History Family Disease History: Other: Mother (Stroke.), Brother (Psych. disorder.), Sister (Aneurysm, .) Admission Physical Exam BHS - Vital Signs Vital Signs: Vital Signs - 24 hr 08/10/17 15:20 Temperature 96.4 F L Pulse Rate 76 Respiratory 20 Rate Blood Pressure 122/74 - Physical General Appearance: Yes: Disheveled, Moderate Distress, Thin, Irritable, Anxious HEENTM: Yes: EOMI, Normocephalic, JL, Pharynx Normal Respiratory: Yes: Chest Non-Tender, Lungs Clear, Normal Breath Sounds, No Respiratory Distress Neck: Yes: No masses,lesions,Nodules, Supple, Trachea in good position Breast: Yes: Breast Exam Deferred Cardiology: Yes: Regular Rhythm, Regular Rate, S1, S2 Abdominal: Yes: Normal Bowel Sounds, Non Tender, Flat, Soft Genitourinary: Yes: Other (N/C) Back: Yes: Within Normal Limits Musculoskeletal: Yes: full range of Motion, Gait Steady Extremities: Yes: Normal Range of Motion, Non-Tender 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: 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 NML intact, Fully Oriented, Alert, Motor Strength 5/5 Integumentary: Yes: Dry, Warm Lymphatic: Yes: Within Normal Limits - Diagnostic (1) Alcohol dependence with uncomplicated withdrawal Current Visit: Yes Status: Acute (2) Hepatitis C Current Visit: Yes Status: Chronic Qualifiers: Viral hepatitis chronicity: chronic Hepatic coma status: without hepatic coma Qualified Code(s): B18.2 - Chronic viral hepatitis C (3) History of colon cancer Current Visit: Yes Status: Chronic (4) History of colon surgery Current Visit: Yes Status: Chronic (5) Nicotine dependence Current Visit: Yes Status: Chronic Qualifiers: Nicotine product type: cigarettes Substance use status: in withdrawal Qualified Code(s): F17.213 - Nicotine dependence, cigarettes, with withdrawal (6) COPD (chronic obstructive pulmonary disease) Current Visit: Yes Status: Suspected Qualifiers: COPD type: unspecified COPD Qualified Code(s): J44.9 - Chronic obstructive pulmonary disease, unspecified Comment: PT STATES RESOLVED AND NO CURRENT MED/ WILL MONITOR RESPITORY WHILE IN [place]. (7) HLD (hyperlipidemia) Current Visit: Yes Status: Suspected (8) History of seizure Current Visit: Yes Status: Suspected Comment: Due to ETOH Withdrawal. (9) Depression Current Visit: Yes Status: Chronic (10) History of schizoaffective disorder Current Visit: Yes Status: Chronic Cleared for Admission S - Detox or Rehab [facility] Level of Care: Medically Managed Detox Regimen/Protocol: Librium [facility] Breath Alcohol Content Breath Alcohol Content: 0 Urine Drug Screen - Results Drug Screen Negative: No Urine Drug Screen Results: MALINA-Cocaine
[2017-08-10] MEDS ORDERED: P-EPHED 60MG/TRIPROLIDI 2.5MG TABLET PO PRN (17:56)
[2017-08-10] MEDS ORDERED: chlordiazePOXIDE HCL 25 MG CAPSULE PO PRN (17:56)
[2017-08-10] MEDS ORDERED: MENTHOL/PHENOL 1 EACH UD MM PRN (17:56)
[2017-08-10] MEDS ORDERED: ACETAMINOPHEN 325 MG TABLET (FP) PO PRN (17:56)
[2017-08-10] MEDS ORDERED: MAGNESIUM CITRATE 300 ML BOTTLE PO PRN (17:56)
[2017-08-10] MEDS ORDERED: MAG HYDROX/AL HYDROX/SIMETH 30 ML UNIT-DOSE CUP PO PRN (17:56)
[2017-08-10] MEDS ORDERED: NICOTINE POLACRILEX 2 MG GUM BC PRN (17:56)
[2017-08-10] MEDS ORDERED: IBUPROFEN 400 MG TABLET (FP) PO PRN (17:56)
[2017-08-10] MEDS ORDERED: LOPERAMIDE HCL 2 MG CAPSULE PO PRN (17:56)
[2017-08-10] MEDS ORDERED: hydrOXYzine PAMOATE 50 MG CAPSULE (FP) PO PRN (17:56)
[2017-08-10] MEDS ORDERED: MAGNESIUM HYDROX 2400MG/30ML ORAL SUSPENSION 30 ML CUP PO PRN (17:56)
[2017-08-10] MEDS ORDERED: guaiFENesin/D-METHORPHAN HB 10 ML UNIT-DOSE CUPS PO PRN (17:56)
[2017-08-10] MEDS ORDERED: chlordiazePOXIDE HCL 25 MG CAPSULE PO ONE (18:30)
[2017-08-10] MEDS: NICOTINE 7 MG/24 HOURS TOPICAL PATCH TD SCH (18:41)
[2017-08-10] MEDS: THIAMINE HCL 100 MG TABLET (FP) PO SCH (22:20)
[2017-08-10] MEDS: chlordiazePOXIDE HCL 25 MG CAPSULE PO SCH (22:20)
[2017-08-10] MEDS: PATIENT'S OWN MEDICATION (NON-FORMULARY) (Elbasvir/Grazoprevir [Zepatier 50-100 Mg Tablet] PO SCH (22:20)
[2017-08-10 22:37] LABS: URINE APPEARANCE CLEAR; URINE BILIRUBIN NEGATIVE (NEGATIVE); URINE BLOOD NEGATIVE (NEGATIVE); URINE COLOR YELLOW; URINE GLUCOSE (UA) NEGATIVE (NEGATIVE); URINE KETONE NEGATIVE (NEGATIVE); URINE NITRITE NEGATIVE (NEGATIVE); URINE PROTEIN NEGATIVE (NEGATIVE)
[2017-08-10 22:53] LABS: URINE LEUK ESTERASE 2+ (NEGATIVE)
[2017-08-10 23:01] LABS: EPI CELLS RARE /HPF (FEW); URINE MUCUS RARE
[2017-08-11] MEDS: chlordiazePOXIDE HCL 25 MG CAPSULE PO SCH ×4 (05:43→22:59)
[2017-08-11 10:23] LABS: HEMATOCRIT 41.5 % (35.4-49); HEMOGLOBIN 14.1 GM/dL (11.7-16.9); MCH 29.1 pg (25.7-33.7); MCHC 33.9 g/dl (32.0-35.9); MEAN CELL VOLUME 85.8 fl (80-96); MEAN PLT VOLUME 7.6 fl (7.5-11.1); PLATELET COUNT 240 K/MM3 (134-434); RBC 4.83 M/mm3 (4.00-5.60); RDW 14.9 % (11.9-15.9); WHITE BLOOD COUNT 6.1 K/mm3 (4.0-10.0)
[2017-08-11] MEDS: PRENATAL VITAMINS W/ FOLIC ACID TABLET (FP) PO SCH (10:28)
[2017-08-11 10:32] LABS: CHLORIDE 107 mmol/L (98-107); POTASSIUM 4.1 mmol/L (3.5-5.1); SODIUM 144 mmol/L (136-145)
[2017-08-11] MEDS: NICOTINE 7 MG/24 HOURS TOPICAL PATCH TD SCH (10:40)
[2017-08-11] MEDS: PATIENT'S OWN MEDICATION (NON-FORMULARY) (Elbasvir/Grazoprevir [Zepatier 50-100 Mg Tablet] PO SCH (10:44)
[2017-08-11 10:58] LABS: ALBUMIN 3.7 g/dl (3.4-5.0); ALK PHOS 116 U/L (45-117); ANION GAP 8 (8-16); BILIRUBIN,TOTAL 0.7 mg/dL (0.2-1.0); BLOOD UREA NITROGEN 14 mg/dL (7-18); CALCIUM 8.9 mg/dL (8.5-10.1); CO2 29 mmol/L (21-32); CREATININE 1.1 mg/dL (0.7-1.3); GLUCOSE,RANDOM 80 mg/dL (74-106); SGOT/AST 19 U/L (15-37); SGPT/ALT 10 U/L (12-78); TOT PROT 7.8 g/dl (6.4-8.2)
--- NOTE | 2017-08-11 11:23 | PN ---
S CIWA - CIWA Score Nausea/Vomitin Muscle Tremors: 3 Anxiety: 3 Agitation: 3 Paroxysmal Sweats: 1-Minimal Palms Moist Orientation: 0-Oriented Tacttile Disturbances: 1-Very Mild Itch/Numbness Auditory Disturbances: 1-Very Mild Visual Disturbances: 0-None Headache: 2-Mild CIWA-Ar Total Score: 17 BHS Progress Note (SOAP) Subjective: ALERT,IRRITABLE,ANXIOUS,INTERRUPTED SLEEP,TREMOR,PAIN IN THE BODY Objective: 08/11/17 11:19 Vital Signs Temperature 98.2 F 08/11/17 06:00 Pulse Rate 54 L 08/11/17 06:00 Respiratory Rate 18 08/11/17 06:00 Blood Pressure 102/64 08/11/17 06:00 O2 Sat by Pulse Oximetry (%) EKG NSR NO CHEST PAIN,NO SOB,NO DIZZINESS Laboratory Last Values WBC 6.1 K/mm3 (4.0-10.0) 08/11/17 05:45 RBC 4.83 M/mm3 (4.00-5.60) 08/11/17 05:45 Hgb 14.1 GM/dL (11.7-16.9) 08/11/17 05:45 Hct 41.5 % (35.4-49) 08/11/17 05:45 MCV 85.8 fl (80-96) 08/11/17 05:45 MCH 29.1 pg (25.7-33.7) 08/11/17 05:45 MCHC 33.9 g/dl (32.0-35.9) 08/11/17 05:45 RDW 14.9 % (11.9-15.9) 08/11/17 05:45 Plt Count 240 K/MM3 (134-434) 08/11/17 05:45 MPV 7.6 fl (7.5-11.1) 08/11/17 05:45 Sodium 144 mmol/L (136-145) 08/11/17 05:45 Potassium 4.1 mmol/L (3.5-5.1) 08/11/17 05:45 Chloride 107 mmol/L (98-107) 08/11/17 05:45 Carbon Dioxide 29 mmol/L (21-32) 08/11/17 05:45 Anion Gap 8 (8-16) 08/11/17 05:45 BUN 14 mg/dL (7-18) 08/11/17 05:45 Creatinine 1.1 mg/dL (0.7-1.3) D 08/11/17 05:45 Creat Clearance w eGFR > 60 (>60) 08/11/17 05:45 Random Glucose 80 mg/dL (74-106) D 08/11/17 05:45 Calcium 8.9 mg/dL (8.5-10.1) 08/11/17 05:45 Total Bilirubin 0.7 mg/dL (0.2-1.0) D 08/11/17 05:45 AST 19 U/L (15-37) 08/11/17 05:45 ALT 10 U/L (12-78) L D 08/11/17 05:45 Alkaline Phosphatase 116 U/L (45-117) 08/11/17 05:45 Total Protein 7.8 g/dl (6.4-8.2) 08/11/17 05:45 Albumin 3.7 g/dl (3.4-5.0) 08/11/17 05:45 Urine Color Yellow 08/10/17 Unknown Urine Appearance Clear 08/10/17 Unknown Urine pH 5.0 (5.0-8.0) 08/10/17 Unknown Ur Specific [place] 1.020 (1.001-1.035) 08/10/17 Unknown Urine Protein Negative (NEGATIVE) 08/10/17 Unknown Urine Glucose (UA) Negative (NEGATIVE) 08/10/17 Unknown Urine Ketones Negative (NEGATIVE) 08/10/17 Unknown Urine Blood Negative (NEGATIVE) 08/10/17 Unknown Urine Nitrite Negative (NEGATIVE) 08/10/17 Unknown Urine Bilirubin Negative (NEGATIVE) 08/10/17 Unknown Urine Urobilinogen 2.0 mg/dL (0.2-1.0) 08/10/17 Unknown Ur Leukocyte Esterase 2+ (NEGATIVE) H 08/10/17 Unknown Urine WBC (Auto) 34 /hpf (3-5) 08/10/17 Unknown Urine RBC (Auto) 3 /hpf (0-3) 08/10/17 Unknown Ur Epithelial Cells Rare /HPF (FEW) 08/10/17 Unknown Urine Mucus Rare 08/10/17 Unknown Assessment: 08/11/17 11:22 WITHDRAWAL SYMPTOM Plan: CONTINUE DETOX,REPEAT UA R/O UTI,ENCOURAGE ORAL FLUID
--- NOTE | 2017-08-11 12:04 | EKG ---
Test Reason : Blood Pressure : / mmHG Vent. Rate : 069 BPM Atrial Rate : 069 BPM P-R Int : 152 ms QRS Dur : 078 ms QT Int : 414 ms P-R-T Axes : 068 076 060 degrees QTc Int : 443 ms NORMAL SINUS RHYTHM WHEN COMPARED WITH ECG OF 24-JUN-2017 18:18, NO SIGNIFICANT CHANGE WAS FOUND Confirmed by MD Avelar Edward ([id number]) on 08/11/2017 12:04:29 PM Referred By: Confirmed By:Jassi Avelar MD
--- NOTE | 2017-08-11 12:55 | CONSULT ---
[facility] Psychiatric Consult - Data Date of interview: 08/11/17 Admission source: [facility] Identifying data: Pt. is a 61 year old single male, without kids, supported by [facility], and residence is offered by his drug program. This is one of multiple admissions for patient. Pt. admitted to for alcohol and cocaine dependence. Substance Abuse History: Following information confirmed with Mr. Barker: - Smoking Cessation. Smoking history: Current every day smoker. Have you smoked in the past 12 months: Yes. Aproximately how many cigarettes per day: 6. Cigars Per Day: 0. Hx Chewing Tobacco Use: No. Initiated information on smoking cessation: Yes. 'Breaking Loose' booklet given: 08/10/17. - Substance & Tx. History. Hx Alcohol Use: Yes (RUM). Hx Substance Use: Yes (COCAINE). Substance Use Type: Alcohol, Cocaine. Hx Substance Use Treatment: Yes (LAST TX AT [facility]). - Substances Abused. Alcohol. Route: Oral. Frequency: Daily. Amount used: 1 PINT RUM. Age of first use: 8. Date of Last Use: 08/10/17. Crack. Route: Smoking. Frequency: Daily. Amount used: $30-40. Age of first use: 23. Date of Last Use: 08/09/17 Medical History: Colon Ca, Tx'd w/ surgery, 2015. No F/U treatment recommended at this time. hypercholesterolemia, Hep C Psychiatric History: Pt reports one [facility] [place] approximately ten years ago. States he is currently seeing a psychiatrist at the [facility] [place]. States he is prescribed Risperdal, trazodone and ambien, although is unsure of dosages. Reports last taking his medications one week ago. Chart reviewed. Pt. was seen by gag writer on 06/25/17 and was prescribed risperdal 2mg qhs +trazodone 50mg qhs. Pt. denies h/o suicide attempt. Pt denies suicidal and homicidal ideation. Physical/Sexual Abuse/Trauma History: Denies. Mental Status Exam - Mental Status Exam Alert and Oriented to: Time, Place, Person Cognitive Function: Good Patient Appearance: Unkempt Mood: Euthymic Affect: Mood Congruent Patient Behavior: Guarded, Cooperative Speech Pattern: Delayed Voice Loudness: Moderately Soft/Quiet Thought Process: Goal Oriented Thought Disorder: Not Present Hallucinations: Denies Suicidal Ideation: Denies Homicidal Ideation: Denies Insight/Judgement: Poor Sleep: Poorly Appetite: Fair Muscle strength/Tone: Normal Gait/Station: Normal Psychiatric Findings - Problem List ([place] 1, 2,3) (1) Alcohol dependence with uncomplicated withdrawal Current Visit: Yes Status: Acute (2) Cocaine dependence, uncomplicated Current Visit: Yes Status: Chronic (3) Schizoaffective disorder Current Visit: Yes Status: Chronic Qualifiers: Schizoaffective disorder type: unspecified Qualified Code(s): F25.9 - Schizoaffective disorder, unspecified Comment: Self reports. - Initial Treatment Plan Initial Treatment Plan: Psychoeducation provided. Detoxification provided. Risperdal 2mg qhs +trazdone 50mg qhs. Benefits and side effects discussed. Verbal consent given. Will continue to monitor.
[2017-08-11 18:17] LABS: URINE APPEARANCE SLCLOUDY; URINE BILIRUBIN NEGATIVE (NEGATIVE); URINE BLOOD NEGATIVE (NEGATIVE); URINE COLOR YELLOW; URINE GLUCOSE (UA) NEGATIVE (NEGATIVE); URINE KETONE NEGATIVE (NEGATIVE); URINE NITRITE NEGATIVE (NEGATIVE); URINE PROTEIN NEGATIVE (NEGATIVE)
[2017-08-11 18:22] LABS: URINE LEUK ESTERASE 1+ (NEGATIVE)
[2017-08-11 19:44] LABS: CALCIUM OXALATE CRYSTALS FEW /hpf (NONE SEEN); EPI CELLS RARE /HPF (FEW)
[2017-08-11] MEDS: THIAMINE HCL 100 MG TABLET (FP) PO SCH (22:48)
[2017-08-11] MEDS: risperiDONE 2 MG TABLET PO SCH (22:48)
[2017-08-11] MEDS: traZODone HCL 50 MG TABLET (FP) PO SCH (22:49)
[2017-08-12] MEDS: chlordiazePOXIDE HCL 25 MG CAPSULE PO SCH ×3 (06:04→17:10)
[2017-08-12] MEDS ORDERED: RISPERIDONE 3 MG PO SCH (10:00)
[2017-08-12] MEDS: PRENATAL VITAMINS W/ FOLIC ACID TABLET (FP) PO SCH (10:50)
[2017-08-12] MEDS: PATIENT'S OWN MEDICATION (NON-FORMULARY) (Elbasvir/Grazoprevir [Zepatier 50-100 Mg Tablet] PO SCH (10:50)
--- NOTE | 2017-08-12 10:50 | PN ---
S CIWA - CIWA Score Nausea/Vomitin Muscle Tremors: 3 Anxiety: 3 Agitation: 3 Paroxysmal Sweats: 1-Minimal Palms Moist Orientation: 0-Oriented Tacttile Disturbances: 1-Very Mild Itch/Numbness Auditory Disturbances: 1-Very Mild Visual Disturbances: 0-None Headache: 2-Mild CIWA-Ar Total Score: 17 BHS Progress Note (SOAP) Subjective: ALERT,IRRITABLE,ANXIOUS,INTERRUPTED SLEEP,TREMOR,PAIN IN THE BODY Objective: 08/12/17 10:47 Vital Signs Temperature 98.1 F 08/12/17 06:24 Pulse Rate 62 08/12/17 06:24 Respiratory Rate 16 08/12/17 06:24 Blood Pressure 127/78 08/12/17 06:24 O2 Sat by Pulse Oximetry (%) 08/12/17 10:48 Laboratory Results - last 24 hr 08/11/17 08/11/17 08/11/17 05:45 05:45 14:00 Carbon Dioxide 29 Anion Gap 8 BUN 14 Creatinine 1.1 D Creat Clearance w eGFR > 60 Random Glucose 80 D Calcium 8.9 Total Bilirubin 0.7 D AST 19 ALT 10 L D Alkaline Phosphatase 116 Total Protein 7.8 Albumin 3.7 Urine Color Yellow Urine Appearance Slcloudy Urine pH 6.0 Ur Specific [place] 1.025 Urine Protein Negative Urine Glucose (UA) Negative Urine Ketones Negative Urine Blood Negative Urine Nitrite Negative Urine Bilirubin Negative Urine Urobilinogen 2.0 Ur Leukocyte Esterase 1+ H Urine WBC (Auto) 20 Urine RBC (Auto) 2 Ur Epithelial Cells Rare Calcium Oxalate Crystal Few RPR Titer Nonreactive Assessment: 08/12/17 10:49 WITHDRAWAL SYMPTOM Plan: CONTINUE DETOX,
[2017-08-12] MEDS: NICOTINE 7 MG/24 HOURS TOPICAL PATCH TD SCH (10:51)
--- NOTE | 2017-08-12 11:21 | EKG ---
Test Reason : Blood Pressure : / mmHG Vent. Rate : 070 BPM Atrial Rate : 070 BPM P-R Int : 152 ms QRS Dur : 072 ms QT Int : 396 ms P-R-T Axes : 078 076 065 degrees QTc Int : 427 ms NORMAL SINUS RHYTHM NORMAL ECG WHEN COMPARED WITH ECG OF 10-AUG-2017 18:43, NO SIGNIFICANT CHANGE WAS FOUND Confirmed by RENE DUNCAN MD ([id number]) on 08/12/2017 11:21:04 AM Referred By: Confirmed By:RENE DUNCAN MD
[2017-08-12] MEDS: risperiDONE 2 MG TABLET PO SCH (22:16)
[2017-08-12] MEDS: chlordiazePOXIDE 5 MG CAPSULE PO SCH (22:16)
[2017-08-12] MEDS: traZODone HCL 50 MG TABLET (FP) PO SCH (22:17)
[2017-08-12] MEDS: THIAMINE HCL 100 MG TABLET (FP) PO SCH (22:17)
[2017-08-13] MEDS: chlordiazePOXIDE 5 MG CAPSULE PO SCH ×3 (06:05→17:21)
[2017-08-13] MEDS: PRENATAL VITAMINS W/ FOLIC ACID TABLET (FP) PO SCH (10:10)
[2017-08-13] MEDS: NICOTINE 7 MG/24 HOURS TOPICAL PATCH TD SCH (10:11)
[2017-08-13] MEDS: PATIENT'S OWN MEDICATION (NON-FORMULARY) (Elbasvir/Grazoprevir [Zepatier 50-100 Mg Tablet] PO SCH (10:11)
--- NOTE | 2017-08-13 10:56 | PN ---
BHS Progress Note (SOAP) Subjective: ALERT,INTERRUPTED SLEEP,ACHING PAIN Objective: 08/13/17 10:55 Vital Signs Temperature 97.3 F L 08/13/17 06:22 Pulse Rate 67 08/13/17 06:22 Respiratory Rate 18 08/13/17 06:22 Blood Pressure 103/60 08/13/17 06:22 O2 Sat by Pulse Oximetry (%) Assessment: 08/13/17 10:55 WITHDRAWAL SYMPTOM Plan: CONTINUE DETOX
[2017-08-13] MEDS: THIAMINE HCL 100 MG TABLET (FP) PO SCH (22:11)
[2017-08-13] MEDS: traZODone HCL 50 MG TABLET (FP) PO SCH (22:11)
[2017-08-13] MEDS: chlordiazePOXIDE HCL 10 MG CAPSULE PO SCH (22:11)
[2017-08-13] MEDS: risperiDONE 2 MG TABLET PO SCH (22:11)
[2017-08-14] MEDS: chlordiazePOXIDE HCL 10 MG CAPSULE PO SCH ×2 (06:21→10:46)
--- NOTE | 2017-08-14 08:11 | PN ---
S Progress Note (SOAP) Subjective: ALERT,NO COMPLAINT Objective: 08/14/17 08:09 ALERT,NO COMPLAINT 08/14/17 08:09 Vital Signs Temperature 97.2 F L 08/14/17 06:26 Pulse Rate 63 08/14/17 06:26 Respiratory Rate 16 08/14/17 06:26 Blood Pressure 103/64 08/14/17 06:26 O2 Sat by Pulse Oximetry (%) Assessment: 08/14/17 08:09 DETOX COMPLETED,NO WITHDRAWAL SYMPTOM Plan: DISCHARGE TODAY,FOLLOW UP WITH AFTER CARE PROGRAM ARRANGEMENT
--- NOTE | 2017-08-14 08:17 | DS ---
[facility] Detox Discharge Summary Admission Date: 08/10/17 Discharge Date: 08/14/17 - History Present History: Alcohol Dependence Additional Comments: FOLLOW UP WITH [facility] ARR[facility]EMENT Pertinent Past History: HEPATITIS C HISTORY OF COLECTOMY FOR CANCER OF COLON COPD NICOTINE DEPENDENCE HYPERLIPIDEMIA SEIZURE SCHIZOAFFECTIVE DISORDER - Physical Exam Results Vital Signs: Vital Signs Temperature 97.2 F L 08/14/17 06:26 Pulse Rate 63 08/14/17 06:26 Respiratory Rate 16 08/14/17 06:26 Blood Pressure 103/64 08/14/17 06:26 O2 Sat by Pulse Oximetry (%) Pertinent Admission Physical Exam Findings: WITHDRAWAL SIGNS AND SYMPTOM Vital Signs Temperature 97.2 F L 08/14/17 06:26 Pulse Rate 63 08/14/17 06:26 Respiratory Rate 16 08/14/17 06:26 Blood Pressure 103/64 08/14/17 06:26 O2 Sat by Pulse Oximetry (%) - Treatment Hospital Course: Detox Protocol Followed, Detoxed Safely, Responded well, Discharged Condition Good, Rehab Referral Accepted Patient has Accepted a Rehab Referral to: [facility] - Medication Discharge Medications: Ambulatory Orders Risperidone [Risperdal] 3 mg PO DAILY 06/15/16 Mirtazapine [Remeron -] 15 mg PO HS #30 tablet 06/16/16 traZODone HCL [Desyrel -] 100 mg PO HS #30 tablet 06/16/16 Elbasvir/Grazoprevir [Zepatier 50-100 mg Tablet] 1 each PO DAILY 01/11/17 - Diagnosis (1) Alcohol dependence with uncomplicated withdrawal Current Visit: Yes Status: Acute (2) Hepatitis C Current Visit: Yes Status: Chronic Qualifiers: Viral hepatitis chronicity: chronic Hepatic coma status: without hepatic coma Qualified Code(s): B18.2 - Chronic viral hepatitis C (3) History of colon cancer Current Visit: Yes Status: Chronic (4) History of colon surgery Current Visit: Yes Status: Chronic (5) History of schizoaffective disorder Current Visit: Yes Status: Chronic (6) Nicotine dependence Current Visit: Yes Status: Chronic Qualifiers: Nicotine product type: cigarettes Substance use status: in withdrawal Qualified Code(s): F17.213 - Nicotine dependence, cigarettes, with withdrawal (7) HLD (hyperlipidemia) Current Visit: Yes Status: Suspected (8) History of seizure Current Visit: Yes Status: Suspected (9) History of stroke Current Visit: No Status: Chronic (10) Schizoaffective disorder Current Visit: Yes Status: Chronic Qualifiers: Schizoaffective disorder type: unspecified Qualified Code(s): F25.9 - Schizoaffective disorder, unspecified - AMA Did Patient Leave Against Medical Advice: No
[2017-08-14] MEDS: NICOTINE 7 MG/24 HOURS TOPICAL PATCH TD SCH (10:46)
[2017-08-14] MEDS: PRENATAL VITAMINS W/ FOLIC ACID TABLET (FP) PO SCH (10:46)
[2017-08-14] MEDS: PATIENT'S OWN MEDICATION (NON-FORMULARY) (Elbasvir/Grazoprevir [Zepatier 50-100 Mg Tablet] PO SCH (10:46)
[2017-08-14 13:23] VITALS: BP 125/71; PULSE 94; TEMP 99.7
== END 2017-08-14 14:54 | disposition other institution (70) | DRG 774 ==
LOC: YASAS 12:01 → Y6N 17:27
PROVIDERS: ADMIT Internal Medicine; ATTEND Internal Medicine
PROC: HZ2ZZZZ Detoxification Services for Substance Abuse Treatment (ICD-10-PCS; principal; 2017-08-10)
DX: F10.230 Alcohol dependence with withdrawal, uncomplicated (principal); F14.20 Cocaine dependence, uncomplicated; F17.213 Nicotine dependence, cigarettes, with withdrawal; F25.9 Schizoaffective disorder, unspecified; E78.5 Hyperlipidemia, unspecified; B18.2 Chronic viral hepatitis C; Z85.038 Personal history of other malignant neoplasm of large intestine; Z90.49 Acquired absence of other specified parts of digestive tract; Z86.73 Personal history of transient ischemic attack (TIA), and cerebral infarction without residual deficits; Z86.69 Personal history of other diseases of the nervous system and sense organs
CPT/HCPCS: 36415; 80053; 81003; 81015; 85027; 86593; 93005; 93010

== ENCOUNTER 2017-08-14 15:12 | Inpatient (IN) | payer OTHER ==
[2017-08-14] MEDS ORDERED: guaiFENesin/D-METHORPHAN HB 10 ML UNIT-DOSE CUPS PO PRN (16:01)
[2017-08-14] MEDS ORDERED: MAG HYDROX/AL HYDROX/SIMETH 30 ML UNIT-DOSE CUP PO PRN (16:01)
[2017-08-14] MEDS ORDERED: NICOTINE POLACRILEX 2 MG GUM BUC PRN (16:01)
[2017-08-14] MEDS ORDERED: MAGNESIUM CITRATE 300 ML BOTTLE PO PRN (16:01)
[2017-08-14] MEDS ORDERED: P-EPHED 60MG/TRIPROLIDI 2.5MG TABLET PO PRN (16:01)
[2017-08-14] MEDS ORDERED: IBUPROFEN 400 MG TABLET (FP) PO PRN (16:01)
[2017-08-14] MEDS ORDERED: MENTHOL/PHENOL 1 EACH UD MM PRN (16:01)
[2017-08-14] MEDS ORDERED: LOPERAMIDE HCL 2 MG CAPSULE PO PRN (16:01)
[2017-08-14] MEDS ORDERED: ACETAMINOPHEN 325 MG TABLET (FP) PO PRN (16:01)
--- NOTE | 2017-08-14 16:04 | HP ---
[facility] Rehab Assess/Revision - Admission History Admitted to Rehab from: [facility] Date of Admission to Rehab: 08/14/17 - Findings Detox History & Physical reviewed: Yes Concur with findings: Yes Inpatient Rehab Admission - Initial Determination Are CD services needed?: Yes Free of communicable disease: Yes Not in need of hospitalization: Yes - Rehab Admission Criteria Previous failed treatment: Yes Poor recovery environment: Yes Comorbidities: Yes Lacks judgement: Yes Patient is meeting Inpatient Rehab admission criteria:: Yes
[2017-08-14] MEDS: traZODone HCL 50 MG TABLET (FP) PO SCH (21:28)
[2017-08-14] MEDS: risperiDONE 2 MG TABLET PO SCH (21:28)
[2017-08-14] MEDS: THIAMINE HCL 100 MG TABLET (FP) PO SCH (21:28)
[2017-08-14] MEDS ORDERED: MIRTAZAPINE 15 MG TABLET (FP) PO SCH (22:00)
[2017-08-14] MEDS ORDERED: OLANZapine 5 MG TABLET PO SCH (22:00)
[2017-08-15] MEDS: PATIENT'S OWN MEDICATION (NON-FORMULARY) (Elbasvir/Grazoprevir [Zepatier 50-100 Mg Tablet] PO SCH (09:56)
[2017-08-15] MEDS: PRENATAL VITAMINS W/ FOLIC ACID TABLET (FP) PO SCH (09:56)
[2017-08-15] MEDS: NICOTINE 14 MG/24 HOURS TOPICAL PATCH TD SCH (09:57)
[2017-08-15] MEDS: risperiDONE 2 MG TABLET PO SCH (21:27)
[2017-08-15] MEDS: THIAMINE HCL 100 MG TABLET (FP) PO SCH (21:27)
[2017-08-15] MEDS: traZODone HCL 50 MG TABLET (FP) PO SCH (21:27)
[2017-08-16] MEDS: PATIENT'S OWN MEDICATION (NON-FORMULARY) (Elbasvir/Grazoprevir [Zepatier 50-100 Mg Tablet] PO SCH (10:00)
[2017-08-16] MEDS: PRENATAL VITAMINS W/ FOLIC ACID TABLET (FP) PO SCH (10:00)
[2017-08-16] MEDS: NICOTINE 14 MG/24 HOURS TOPICAL PATCH TD SCH (10:00)
[2017-08-16] MEDS: THIAMINE HCL 100 MG TABLET (FP) PO SCH (21:31)
[2017-08-16] MEDS: traZODone HCL 50 MG TABLET (FP) PO SCH (21:31)
[2017-08-16] MEDS: risperiDONE 2 MG TABLET PO SCH (21:31)
[2017-08-17] MEDS: PATIENT'S OWN MEDICATION (NON-FORMULARY) (Elbasvir/Grazoprevir [Zepatier 50-100 Mg Tablet] PO SCH (10:14)
[2017-08-17] MEDS: PRENATAL VITAMINS W/ FOLIC ACID TABLET (FP) PO SCH (10:14)
[2017-08-17] MEDS: NICOTINE 14 MG/24 HOURS TOPICAL PATCH TD SCH (10:15)
[2017-08-17] MEDS: traZODone HCL 50 MG TABLET (FP) PO SCH (21:26)
[2017-08-17] MEDS: risperiDONE 2 MG TABLET PO SCH (21:26)
[2017-08-17] MEDS: THIAMINE HCL 100 MG TABLET (FP) PO SCH (21:26)
[2017-08-18] MEDS: PRENATAL VITAMINS W/ FOLIC ACID TABLET (FP) PO SCH (10:00)
[2017-08-18] MEDS: NICOTINE 14 MG/24 HOURS TOPICAL PATCH TD SCH (10:00)
[2017-08-18] MEDS: PATIENT'S OWN MEDICATION (NON-FORMULARY) (Elbasvir/Grazoprevir [Zepatier 50-100 Mg Tablet] PO SCH (10:01)
[2017-08-18] MEDS: THIAMINE HCL 100 MG TABLET (FP) PO SCH (21:27)
[2017-08-18] MEDS: risperiDONE 2 MG TABLET PO SCH (21:27)
[2017-08-18] MEDS: traZODone HCL 50 MG TABLET (FP) PO SCH (21:27)
[2017-08-19] MEDS: PRENATAL VITAMINS W/ FOLIC ACID TABLET (FP) PO SCH (09:59)
[2017-08-19] MEDS: NICOTINE 14 MG/24 HOURS TOPICAL PATCH TD SCH (09:59)
[2017-08-19] MEDS: PATIENT'S OWN MEDICATION (NON-FORMULARY) (Elbasvir/Grazoprevir [Zepatier 50-100 Mg Tablet] PO SCH (10:02)
--- NOTE | 2017-08-19 16:52 | PN ---
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
[2017-08-19] MEDS ORDERED: ALBUTEROL SO4 2.5/IPRATROPIUM 0.5 INH SOL 3 ML VIAL.NEB. NEB ONE (17:30)
[2017-08-19] MEDS: LORATADINE 10 MG TABLET PO SCH (17:33)
[2017-08-19] MEDS ORDERED: AZITHROMYCIN 250 MG TABLET PO ONE (17:45)
[2017-08-19] MEDS ORDERED: AZITHROMYCIN 500 MG TABLET PO ONE (17:45)
[2017-08-19] MEDS: THIAMINE HCL 100 MG TABLET (FP) PO SCH (21:30)
[2017-08-19] MEDS: risperiDONE 2 MG TABLET PO SCH (21:30)
[2017-08-19] MEDS: traZODone HCL 50 MG TABLET (FP) PO SCH (21:30)
[2017-08-19] MEDS: hydrOXYzine PAMOATE 50 MG CAPSULE (FP) PO PRN (21:31)
[2017-08-20] MEDS: LORATADINE 10 MG TABLET PO SCH (10:30)
[2017-08-20] MEDS: PRENATAL VITAMINS W/ FOLIC ACID TABLET (FP) PO SCH (10:30)
[2017-08-20] MEDS: PATIENT'S OWN MEDICATION (NON-FORMULARY) (Elbasvir/Grazoprevir [Zepatier 50-100 Mg Tablet] PO SCH (10:31)
[2017-08-20] MEDS: AZITHROMYCIN 250 MG TABLET PO SCH (10:32)
[2017-08-20] MEDS: ALBUTEROL SO4 2.5/IPRATROPIUM 0.5 INH SOL 3 ML VIAL.NEB. NEB PRN (13:31)
[2017-08-20 17:16] LABS: URINE APPEARANCE SLCLOUDY; URINE BILIRUBIN NEGATIVE (NEGATIVE); URINE BLOOD NEGATIVE (NEGATIVE); URINE COLOR YELLOW; URINE GLUCOSE (UA) NEGATIVE (NEGATIVE); URINE KETONE NEGATIVE (NEGATIVE); URINE NITRITE NEGATIVE (NEGATIVE); URINE PROTEIN NEGATIVE (NEGATIVE); URINE UROBILINOGEN NEGATIVE mg/dL (0.2-1.0)
[2017-08-20 17:22] LABS: URINE LEUK ESTERASE 1+ (NEGATIVE)
[2017-08-20 17:50] LABS: URINE MUCUS RARE
[2017-08-20] MEDS: traZODone HCL 50 MG TABLET (FP) PO SCH (21:35)
[2017-08-20] MEDS: THIAMINE HCL 100 MG TABLET (FP) PO SCH (21:35)
[2017-08-20] MEDS: risperiDONE 2 MG TABLET PO SCH (21:35)
[2017-08-20] MEDS: hydrOXYzine PAMOATE 50 MG CAPSULE (FP) PO PRN (21:36)
[2017-08-21] MEDS: PRENATAL VITAMINS W/ FOLIC ACID TABLET (FP) PO SCH (09:54)
[2017-08-21] MEDS: LORATADINE 10 MG TABLET PO SCH (09:54)
[2017-08-21] MEDS: PATIENT'S OWN MEDICATION (NON-FORMULARY) (Elbasvir/Grazoprevir [Zepatier 50-100 Mg Tablet] PO SCH (09:55)
[2017-08-21] MEDS: AZITHROMYCIN 250 MG TABLET PO SCH (09:56)
[2017-08-21] MEDS: ALBUTEROL SO4 2.5/IPRATROPIUM 0.5 INH SOL 3 ML VIAL.NEB. NEB PRN (14:42)
[2017-08-21] MEDS: traZODone HCL 50 MG TABLET (FP) PO SCH (21:33)
[2017-08-21] MEDS: risperiDONE 2 MG TABLET PO SCH (21:33)
[2017-08-21] MEDS: THIAMINE HCL 100 MG TABLET (FP) PO SCH (21:33)
[2017-08-21] MEDS: MAGNESIUM HYDROX 2400MG/30ML ORAL SUSPENSION 30 ML CUP PO PRN (21:33)
[2017-08-21] MEDS: hydrOXYzine PAMOATE 50 MG CAPSULE (FP) PO PRN (21:34)
[2017-08-22] MEDS: PRENATAL VITAMINS W/ FOLIC ACID TABLET (FP) PO SCH (10:14)
[2017-08-22] MEDS: LORATADINE 10 MG TABLET PO SCH (10:14)
[2017-08-22] MEDS: AZITHROMYCIN 250 MG TABLET PO SCH (10:14)
[2017-08-22] MEDS: PATIENT'S OWN MEDICATION (NON-FORMULARY) (Elbasvir/Grazoprevir [Zepatier 50-100 Mg Tablet] PO SCH (10:16)
[2017-08-22] MEDS: MAGNESIUM HYDROX 2400MG/30ML ORAL SUSPENSION 30 ML CUP PO PRN (12:47)
[2017-08-22] MEDS: ALBUTEROL SO4 2.5/IPRATROPIUM 0.5 INH SOL 3 ML VIAL.NEB. NEB PRN (15:35)
[2017-08-22] MEDS: risperiDONE 2 MG TABLET PO SCH (21:37)
[2017-08-22] MEDS: hydrOXYzine PAMOATE 50 MG CAPSULE (FP) PO PRN (21:37)
[2017-08-22] MEDS: traZODone HCL 50 MG TABLET (FP) PO SCH (21:37)
[2017-08-22] MEDS: THIAMINE HCL 100 MG TABLET (FP) PO SCH (21:37)
[2017-08-23] MEDS: PRENATAL VITAMINS W/ FOLIC ACID TABLET (FP) PO SCH (10:20)
[2017-08-23] MEDS: LORATADINE 10 MG TABLET PO SCH (10:21)
[2017-08-23] MEDS: PATIENT'S OWN MEDICATION (NON-FORMULARY) (Elbasvir/Grazoprevir [Zepatier 50-100 Mg Tablet] PO SCH (10:21)
[2017-08-23] MEDS: AZITHROMYCIN 250 MG TABLET PO SCH (10:22)
[2017-08-23] MEDS: hydrOXYzine PAMOATE 50 MG CAPSULE (FP) PO PRN (21:37)
[2017-08-23] MEDS: THIAMINE HCL 100 MG TABLET (FP) PO SCH (21:37)
[2017-08-23] MEDS: traZODone HCL 50 MG TABLET (FP) PO SCH (21:37)
[2017-08-23] MEDS: risperiDONE 2 MG TABLET PO SCH (21:37)
[2017-08-24] MEDS: LORATADINE 10 MG TABLET PO SCH (10:09)
[2017-08-24] MEDS: PATIENT'S OWN MEDICATION (NON-FORMULARY) (Elbasvir/Grazoprevir [Zepatier 50-100 Mg Tablet] PO SCH (10:09)
[2017-08-24] MEDS: PRENATAL VITAMINS W/ FOLIC ACID TABLET (FP) PO SCH (10:09)
[2017-08-24] MEDS: THIAMINE HCL 100 MG TABLET (FP) PO SCH (21:40)
[2017-08-24] MEDS: risperiDONE 2 MG TABLET PO SCH (21:40)
[2017-08-24] MEDS: traZODone HCL 50 MG TABLET (FP) PO SCH (21:40)
[2017-08-24] MEDS: hydrOXYzine PAMOATE 50 MG CAPSULE (FP) PO PRN (21:40)
[2017-08-25] MEDS: PRENATAL VITAMINS W/ FOLIC ACID TABLET (FP) PO SCH (10:14)
[2017-08-25] MEDS: PATIENT'S OWN MEDICATION (NON-FORMULARY) (Elbasvir/Grazoprevir [Zepatier 50-100 Mg Tablet] PO SCH (10:14)
[2017-08-25] MEDS: LORATADINE 10 MG TABLET PO SCH (10:14)
[2017-08-25] MEDS: traZODone HCL 50 MG TABLET (FP) PO SCH (21:30)
[2017-08-25] MEDS: THIAMINE HCL 100 MG TABLET (FP) PO SCH (21:30)
[2017-08-25] MEDS: risperiDONE 2 MG TABLET PO SCH (21:30)
[2017-08-25] MEDS: hydrOXYzine PAMOATE 50 MG CAPSULE (FP) PO PRN (21:31)
[2017-08-26] MEDS: LORATADINE 10 MG TABLET PO SCH (10:23)
[2017-08-26] MEDS: PRENATAL VITAMINS W/ FOLIC ACID TABLET (FP) PO SCH (10:23)
[2017-08-26] MEDS: PATIENT'S OWN MEDICATION (NON-FORMULARY) (Elbasvir/Grazoprevir [Zepatier 50-100 Mg Tablet] PO SCH (10:23)
[2017-08-26] MEDS: traZODone HCL 50 MG TABLET (FP) PO SCH (21:39)
[2017-08-26] MEDS: THIAMINE HCL 100 MG TABLET (FP) PO SCH (21:39)
[2017-08-26] MEDS: risperiDONE 2 MG TABLET PO SCH (21:39)
[2017-08-26] MEDS: hydrOXYzine PAMOATE 50 MG CAPSULE (FP) PO PRN (21:40)
[2017-08-27 06:52] VITALS: BP 108/73; PULSE 73; TEMP 98.1
[2017-08-27] MEDS: LORATADINE 10 MG TABLET PO SCH (10:09)
[2017-08-27] MEDS: PRENATAL VITAMINS W/ FOLIC ACID TABLET (FP) PO SCH (10:09)
[2017-08-27] MEDS: PATIENT'S OWN MEDICATION (NON-FORMULARY) (Elbasvir/Grazoprevir [Zepatier 50-100 Mg Tablet] PO SCH (10:09)
--- NOTE | 2017-08-27 10:12 | PN ---
[facility] Progress Note Note: patient requesting 1 monthhep c medications for discharge, will follow up with hep c specialist Vital Signs - 24 hr 08/27/17 08/27/17 08/27/17 00:30 03:30 06:51 Temperature 98.1 F Pulse Rate 73 Respiratory 18 18 16 Rate Blood Pressure 108/73 Laboratory Tests 08/20/17 15:30 Urine Color Yellow Urine Appearance Slcloudy Urine pH 7.0 Ur Specific [place] 1.016 Urine Protein Negative Urine Glucose (UA) Negative Urine Ketones Negative Urine Blood Negative Urine Nitrite Negative Urine Bilirubin Negative Urine Urobilinogen Negative Ur Leukocyte Esterase 1+ H Urine WBC (Auto) 3 Urine RBC (Auto) <1 Urine Mucus Rare labs reviewed with patient, abnormal u/a Patietn advised to follow up with pcp for hep c treatment and repeat bloodwork, abnormal u/a
--- NOTE | 2017-08-27 11:10 | HP ---
Psychiatrist Admission - Data Date of interview: 08/17/17 Admission source: [address] [place] [address] detox Identifying data: This is the one of the multiple admissions to [address] [place] [address] inpatient rehabilitation for this 61 years old single childless male,residning alone,supported by [facility]. Medical History: Significant for H/O Stroke,COPD,H/O Seizures,Hyperlipidemia. Psychiatric History: Reportsd long and extensive psychiatric history,bieng dx with Schizoaffective disorder and placed on medications more that 10 yeaqrs ago.He reports one psychiatric hopitalization to [facility] due to auditory hallucinations,severe depression.No history of suicidality.Patient sees psychiatrist at [facility].Current medications:Riperdal 2 mg po hs and Trazodone 50 mg po hs(continued while in detox on [address] [place] [address]). Physical/Sexual Abuse/Trauma History: denies Vital Signs: Vital Signs - 24 hr 08/27/17 08/27/17 08/27/17 00:30 03:30 06:51 Temperature 98.1 F Pulse Rate 73 Respiratory 18 18 16 Rate Blood Pressure 108/73 Allergies/Adverse Reactions: Allergies Allergy/AdvReac Type Severity Reaction Status Date / Time No Known Allergies Allergy Verified 08/10/17 16:07 Date of last physical exam: 08/10/17 Concur with the findings of this exam: Yes - Substance Abuse/Tx History Hx Alcohol Use: Yes (10-11 yo,1 pint of rum daily) Hx Substance Use: Yes ( since school age on/off,crack since 23 yo $40 daily) Substance Use Type: Alcohol, Cocaine, Marijuana Hx Substance Use Treatment: Yes (completed this program in Jan 2017) Mental Status Exam - Mental Status Exam Alert and Oriented to: Time, Place, Person Cognitive Function: Grossly Intact Patient Appearance: Well Groomed Mood: Euthymic Affect: Mood Congruent Patient Behavior: Appropriate, Cooperative Speech Pattern: Clear Thought Process: Goal Oriented Thought Disorder: Being Controlled, Paranoid Ideation Hallucinations: Denies Suicidal Ideation: Denies Homicidal Ideation: Denies Insight/Judgement: Fair Sleep: Fair Appetite: Good Muscle strength/Tone: Normal Gait/Station: Normal Psychiatric Findings - Problem List ([place] 1, 2,3) (1) Drug-induced mood disorder Current Visit: Yes Status: Chronic (2) Hypokalemia Current Visit: Yes Status: Resolved (3) Alcohol dependence Current Visit: Yes Status: Chronic (4) Cocaine dependence Current Visit: Yes Status: Chronic (5) Cannabis dependence Current Visit: Yes Status: Acute (6) History of stroke Current Visit: No Status: Chronic (7) Nicotine dependence Current Visit: Yes Status: Chronic Qualifiers: (8) Schizoaffective disorder Current Visit: Yes Status: Chronic Qualifiers: Comment: Self reports. (9) COPD (chronic obstructive pulmonary disease) Current Visit: Yes Status: Chronic Qualifiers: Comment: PT STATES RESOLVED AND NO CURRENT MED/ WILL MONITOR RESPITORY WHILE IN [place]. (10) HLD (hyperlipidemia) Current Visit: Yes Status: Chronic (11) History of seizure Current Visit: Yes Status: Chronic Comment: Due to ETOH Withdrawal. - Initial Treatment Plan Initial Treatment Plan: Continue Risperdal 2 mg po hs and Trazodone 50 mg po hs. Will monitor progress.
--- NOTE | 2017-08-27 13:24 | PN ---
Psychiatric Progress Note Vital Signs: Vital Signs Period Temp Pulse Resp BP Sys/Kelly Pulse Ox Last 24 Hr 98.1 F 73 16-18 108/73 Date of Session: 08/27/17 Chief Complaint:: discharge visit HPI: Patient has addressed alcohol, cocaine, cannabis, nicotine dependence comorbid Schizoaffective disorder. ROS: H/O Stroke,COPD,H/O Seizures,Hyperlipidemia. Current Side Effect: No Lab tests ordered: No Lab tests reviewed: Yes Provider note:: Patient has completed today this program and met his goals, he will continue to address his issues at [facility] outpatient program. He gained insights into importance of changing attitudes and utilization of supports to prevent relapses. Risperdal and Trazodone well tolerated, patient reports he feels well, no darinel-effects reported, scripts provided for 30 days, patient is stable for discharge today. Total face to face time:: 20 Mental Status Exam - Mental Status Exam Alert and Oriented to: Time, Place, Person Cognitive Function: Grossly Intact Patient Appearance: Well Groomed Mood: Hopeful Affect: Appropriate, Mood Congruent Patient Behavior: Appropriate, Cooperative Speech Pattern: Clear, Appropriate Voice Loudness: Normal Thought Process: Intact, Goal Oriented Thought Disorder: Not Present Hallucinations: Denies Suicidal Ideation: Denies Homicidal Ideation: Denies Insight/Judgement: Fair Sleep: Fair Appetite: Good Muscle strength/Tone: Normal Gait/Station: Normal Psychiatric Treatment Plan - Problem List (4) Nicotine dependence Qualifiers: (5) Schizoaffective disorder Qualifiers: Comment: Self reports.
== END 2017-08-27 10:50 | disposition home or self-care (01) | DRG 772 ==
LOC: YASAS 15:12 → Y5N 15:13
PROVIDERS: ADMIT Psychiatry & Neurology Psychiatry; ATTEND Psychiatry & Neurology Psychiatry
PROC: HZ42ZZZ Group Counseling for Substance Abuse Treatment, Cognitive-Behavioral (ICD-10-PCS; principal; 2017-08-14)
DX: F10.20 Alcohol dependence, uncomplicated (principal); F14.20 Cocaine dependence, uncomplicated; F12.20 Cannabis dependence, uncomplicated; F17.210 Nicotine dependence, cigarettes, uncomplicated; F25.9 Schizoaffective disorder, unspecified; F19.24 Other psychoactive substance dependence with psychoactive substance-induced mood disorder; J44.9 Chronic obstructive pulmonary disease, unspecified; E78.5 Hyperlipidemia, unspecified; Z86.69 Personal history of other diseases of the nervous system and sense organs; Z86.73 Personal history of transient ischemic attack (TIA), and cerebral infarction without residual deficits
CPT/HCPCS: 81003; 81015; 94640

== ENCOUNTER 2017-10-08 12:07 | Inpatient (IN) | payer OTHER ==
[2017-10-08 12:47] VITALS: BMI 20.9
--- NOTE | 2017-10-08 14:35 | HP ---
CIWA Score - CIWA Score Nausea/Vomitin Muscle Tremors: 3 Anxiety: 3 Agitation: 2 Paroxysmal Sweats: 1-Minimal Palms Moist Orientation: 0-Oriented Tacttile Disturbances: 1-Very Mild Itch/Numbness Auditory Disturbances: 1-Very Mild Visual Disturbances: 0-None Headache: 2-Mild CIWA-Ar Total Score: 16 Admission ROS BHS - HPI Chief Complaint: i need help to stop drinking alcohol and cocaine Allergies/Adverse Reactions: Allergies Allergy/AdvReac Type Severity Reaction Status Date / Time No Known Allergies Allergy Verified 10/08/17 14:25 History of Present Illness: this 61 years old male with alcohol and cocaine dependence,seeking detox, withdrawal symptom,last detox [facility] 08/10/17 to 08/14/17 hepatitis c schizoaffective disorder,depression nicotine dependence longest period of sobriety 5 and half years weight loss Exam Limitations: No Limitations - Ebola screening Have you traveled outside of the country in the last 21 days: No Have you had contact with anyone from an Ebola affected area: No Have you been sick,other than usual withdrawal symptoms: No Do you have a fever: No - Review of Systems Constitutional: Loss of Appetite, Malaise, Night Sweats, Changes in sleep, Weakness, Unintentional Wgt. Loss EENT: reports: Nose Congestion Respiratory: reports: No Symptoms reported GI: reports: Diarrhea, Poor Appetite, Abdominal cramping : reports: No Symptoms Reported Musculoskeletal: reports: Back Pain, Joint Pain, Muscle Pain Integumentary: reports: Dryness Neuro: reports: Tingling, Tremors Endocrine: reports: No Symptoms Reported Hematology: reports: No Symptoms Reported Psychiatric: reports: No Sypmtoms Reported, Judgement Intact, Mood/Affect Appropiate, Orientated x3, other (schizoaffective disorder with depression) Patient History - Patient Medical History Hx Anemia: No Hx Asthma: No Hx Chronic Obstructive Pulmonary Disease (COPD): No Hx Cancer: Yes (Colon Ca, Tx'd w/ surgery, 2014. No F/U treatment recommended at this time.) Hx Cardiac Disorders: No Hx Congestive Heart Failure: No Hx Hypertension: No Hx Hypercholesterolemia: Yes (Meds. in past 2 years; Currently managed with diet.) Hx Pacemaker: No HX Cerebrovascular Accident: No Hx Seizures: No Hx Dementia: No Hx Diabetes: No Hx Gastrointestinal Disorders: No Hx Liver Disease: Yes (Hep C, Diagnosed approx. 11 years ago.) Hx Genitourinary Disorders: No Hx Sexually Transmitted Disorders: Yes (Treated for syphillis in the past) Hx Renal Disease (ESRD): No Hx Thyroid Disease: No Hx Human Immunodeficiency Virus (HIV): No (Last Tested: 07/2016: NEGATIVE.) Hx Hepatitis C: Yes (Diagnosed approx. 11 years ago; [facility] [place]) Hx Depression: Yes Hx Suicide Attempt: No Hx Bipolar Disorder: No Hx Schizophrenia: No Other Medical History: no suicidal,no homicidal - Patient Surgical History Past Surgical History: Yes Hx Neurologic Surgery: No Hx Cataract Extraction: No Hx Cardiac Surgery: No Hx Lung Surgery: No Hx Breast Surgery: No Hx Breast Biopsy: No Hx Abdominal Surgery: Yes (colectomy in 04/22 [facility]) Hx Appendectomy: No Hx Cholecystectomy: No Hx Genitourinary Surgery: No Hx Section: (N/A) Hx Orthopedic Surgery: No Anesthesia Reaction: No - PPD History Previous Implant?: Yes Documented Results: Negative w/proof Date: 08/12/17 Results: 0mm PPD to be Administered?: No - Smoking Cessation Smoking history: Current every day smoker Have you smoked in the past 12 months: Yes Aproximately how many cigarettes per day: 10 Cigars Per Day: 0 Hx Chewing Tobacco Use: No Initiated information on smoking cessation: Yes 'Breaking Loose' booklet given: 10/08/17 - Substance & Tx. History Hx Alcohol Use: Yes Hx Substance Use: Yes Substance Use Type: Alcohol, Cocaine Hx Substance Use Treatment: Yes ([facility] 08/10/17 to 02/14/18) - Substances Abused Alcohol Route: Oral Frequency: Daily Amount used: 6PK BEER Age of first use: 7 Date of Last Use: 10/08/17 Crack Route: Smoking Frequency: Daily Amount used: $20 Age of first use: 27 Date of Last Use: 10/08/17 Family Disease History - Family Disease History Family Disease History: Other: Mother (Stroke.), Brother (Psych. disorder.), Sister (Aneurysm, .) Admission Physical Exam S - Vital Signs Vital Signs: Vital Signs - 24 hr 10/08/17 12:44 Temperature 98.5 F Pulse Rate 97 H Respiratory 20 Rate Blood Pressure 114/69 - Physical General Appearance: Yes: Moderate Distress, Tremorous, Irritable, Sweating, Anxious HEENTM: Yes: Pharynx Normal, Nasal Congestion Respiratory: Yes: Within Normal Limits, Lungs Clear, Normal Breath Sounds Neck: Yes: Within Normal Limits, Supple, Trachea in good position Breast: Yes: Within Normal Limits Cardiology: Yes: Within Normal Limits, Regular Rhythm, S1, S2 Abdominal: Yes: Within Normal Limits, Normal Bowel Sounds, Non Tender, Soft, Surgical Scar (at midline) Genitourinary: Yes: Within Normal Limits Back: Yes: Within Normal Limits, Normal Inspection, Muscle Spasm Musculoskeletal: Yes: Pelvis Stable Extremities: Yes: Tremors 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: Within Normal Limits, insurance marketing specialist II-XII NML intact, Fully Oriented, Alert Integumentary: Yes: Dry - Diagnostic (1) Alcohol dependence with uncomplicated withdrawal Current Visit: No Status: Acute (2) Cocaine dependence Current Visit: No Status: Chronic (3) Hepatitis C Current Visit: No Status: Chronic Qualifiers: Viral hepatitis chronicity: chronic Hepatic coma status: without hepatic coma Qualified Code(s): B18.2 - Chronic viral hepatitis C (4) History of colon cancer Current Visit: No Status: Chronic (5) Schizoaffective disorder Current Visit: No Status: Chronic Qualifiers: (6) Weight loss Current Visit: Yes Status: Acute (7) COPD (chronic obstructive pulmonary disease) Current Visit: No Status: Chronic Qualifiers: Comment: PT STATES RESOLVED AND NO CURRENT MED/ WILL MONITOR RESPITORY WHILE IN [place]. (8) HLD (hyperlipidemia) Current Visit: No Status: Chronic (9) Nicotine dependence Current Visit: No Status: Chronic Qualifiers: Cleared for Admission S - Detox or Rehab [facility] Level of Care: Medically Managed Detox Regimen/Protocol: Librium [facility] Breath Alcohol Content Breath Alcohol Content: 0 Urine Drug Screen - Results Drug Screen Negative: No Urine Drug Screen Results: MALINA-Cocaine
[2017-10-08] MEDS ORDERED: P-EPHED 60MG/TRIPROLIDI 2.5MG TABLET PO PRN (14:52)
[2017-10-08] MEDS ORDERED: MAG HYDROX/AL HYDROX/SIMETH 30 ML UNIT-DOSE CUP PO PRN (14:52)
[2017-10-08] MEDS ORDERED: chlordiazePOXIDE HCL 25 MG CAPSULE PO PRN (14:52)
[2017-10-08] MEDS ORDERED: MENTHOL/PHENOL 1 EACH UD MM PRN (14:52)
[2017-10-08] MEDS ORDERED: ACETAMINOPHEN 325 MG TABLET (FP) PO PRN (14:52)
[2017-10-08] MEDS ORDERED: hydrOXYzine PAMOATE 25 MG CAPSULE (FP) PO PRN (14:52)
[2017-10-08] MEDS ORDERED: MAGNESIUM CITRATE 300 ML BOTTLE PO PRN (14:52)
[2017-10-08] MEDS ORDERED: IBUPROFEN 400 MG TABLET (FP) PO PRN (14:52)
[2017-10-08] MEDS ORDERED: LOPERAMIDE HCL 2 MG CAPSULE PO PRN (14:52)
[2017-10-08] MEDS ORDERED: MAGNESIUM HYDROX 2400MG/30ML ORAL SUSPENSION 30 ML CUP PO PRN (14:52)
[2017-10-08] MEDS ORDERED: guaiFENesin/D-METHORPHAN HB 10 ML UNIT-DOSE CUPS PO PRN (14:52)
[2017-10-08] MEDS ORDERED: chlordiazePOXIDE HCL 25 MG CAPSULE PO ONE (15:45)
[2017-10-08] MEDS: chlordiazePOXIDE HCL 25 MG CAPSULE PO SCH ×2 (17:24→22:47)
[2017-10-08 17:34] LABS: URINE APPEARANCE CLEAR; URINE BILIRUBIN NEGATIVE (<2.0 mg/dL); URINE COLOR YELLOW; URINE GLUCOSE (UA) NEGATIVE (NEGATIVE); URINE KETONE NEGATIVE (NEGATIVE); URINE NITRITE NEGATIVE (NEGATIVE); URINE PROTEIN NEGATIVE (NEGATIVE); URINE UROBILINOGEN NEGATIVE mg/dL (0.2-1.0)
[2017-10-08 17:46] LABS: URINE LEUK ESTERASE 2+ (NEGATIVE)
[2017-10-08] MEDS: THIAMINE HCL 100 MG TABLET (FP) PO SCH (22:48)
[2017-10-09] MEDS: chlordiazePOXIDE HCL 25 MG CAPSULE PO SCH ×4 (06:16→22:21)
--- NOTE | 2017-10-09 09:51 | EKG ---
Test Reason : Blood Pressure : / mmHG Vent. Rate : 070 BPM Atrial Rate : 070 BPM P-R Int : 156 ms QRS Dur : 078 ms QT Int : 410 ms P-R-T Axes : 073 070 060 degrees QTc Int : 442 ms NORMAL SINUS RHYTHM NORMAL ECG WHEN COMPARED WITH ECG OF 11-AUG-2017 11:40, NO SIGNIFICANT CHANGE WAS FOUND Confirmed by JADA DOOLEY MD ([id number]) on 10/09/2017 9:51:33 AM Referred By: Confirmed By:JADA DOOLEY MD
[2017-10-09 09:55] LABS: HEMATOCRIT 40.5 % (35.4-49); HEMOGLOBIN 13.5 GM/dL (11.7-16.9); MCH 28.8 pg (25.7-33.7); MCHC 33.4 g/dl (32.0-35.9); MEAN CELL VOLUME 86.2 fl (80-96); MEAN PLT VOLUME 6.9 fl (7.5-11.1); PLATELET COUNT 235 K/MM3 (134-434); RDW 14.1 % (11.9-15.9); WHITE BLOOD COUNT 4.9 K/mm3 (4.0-10.0)
[2017-10-09] MEDS: PRENATAL VITAMINS W/ FOLIC ACID TABLET (FP) PO SCH (10:12)
[2017-10-09 10:49] LABS: ALBUMIN 2.9 g/dl (3.4-5.0); ANION GAP 4 (8-16); BLOOD UREA NITROGEN 9 mg/dL (7-18); CALCIUM 8.6 mg/dL (8.5-10.1); CHLORIDE 107 mmol/L (98-107); CO2 32 mmol/L (21-32); GLUCOSE,RANDOM 70 mg/dL (74-106); POTASSIUM 4.1 mmol/L (3.5-5.1); SODIUM 143 mmol/L (136-145)
[2017-10-09 10:54] LABS: ALK PHOS 73 U/L (45-117); BILIRUBIN,TOTAL 0.5 mg/dL (0.2-1.0); CREATININE 0.8 mg/dL (0.7-1.3); SGOT/AST 18 U/L (15-37); SGPT/ALT 9 U/L (12-78); TOT PROT 6.6 g/dl (6.4-8.2)
--- NOTE | 2017-10-09 12:04 | CONSULT ---
[facility] Psychiatric Consult - Data Date of interview: 10/09/17 Admission source: [facility] Identifying data: Readmission to [facility] for this 61 y/o AA male seeking detox treatment on for alcohol and cocaine (crack) dependence.Patient is single without children,domiciled,unemployed and supported on SSI benefits. Substance Abuse History: Confirmed by patient in this interview.Details in current [facility] report : Smoking history: Current every day smoker. Have you smoked in the past 12 months: Yes. Aproximately how many cigarettes per day: 10. Cigars Per Day: 0. Hx Chewing Tobacco Use: No. Initiated information on smoking cessation: Yes. 'Breaking Loose' booklet given: 10/08/17. - Substance & Tx. History. Hx Alcohol Use: Yes. Hx Substance Use: Yes. Substance Use Type : Alcohol, Cocaine. Hx Substance Use Treatment: Yes ([facility] 08/10/17 to 02/14/18) . - Substances Abused. Alcohol. Route: Oral. Frequency: Daily. Amount used: 6PK BEER. Age of first use: 7. Date of Last Use: 10/08/17. Crack. Route: Smoking. Frequency: Daily. Amount used: $20. Age of first use: 27. Date of Last Use: 10/08/17 Medical History: Hepatitis C,past treatment (colectomy) for cancer of colon in 2014,hypercholesterolemia and a history of treatment for syphilis. Psychiatric History: Significant history of psychiatric illness.Patient is diagnosed with Schizoaffective Disorder.He admits to two (?) psychiatric hospitalizations ([facility] in [place] + [facility] in the [place]).Mr Barker declares that he gets his outpatient psychiatric services at [facility] under the supervision of Dr Benitez.Managed on a regimen of risperdal,trazodone and remeron (individual doses not recalled).Patient denies history of suicide attempts. Physical/Sexual Abuse/Trauma History: Patient denies. Additional Comment: Urine Drug Screen Results: MALINA-Cocaine.Noted. Mental Status Exam - Mental Status Exam Alert and Oriented to: Time, Place, Person Cognitive Function: Grossly Intact Patient Appearance: Unkempt, Disheveled Mood: Nervous, Withdrawn Affect: Mood Congruent, Constricted Patient Behavior: Fatigued, Appropriate, Cooperative Speech Pattern: Clear Voice Loudness: Normal Thought Process: Goal Oriented Thought Disorder: Not Present Hallucinations: Denies Suicidal Ideation: Denies Homicidal Ideation: Denies Insight/Judgement: Poor Sleep: Poorly, Difficulty falling asleep Appetite: Fair, Weight loss Muscle strength/Tone: Normal (no complaint of rigidity or weakness ) Gait/Station: Normal Psychiatric Findings - Problem List ([place] 1, 2,3) (1) Alcohol dependence with uncomplicated withdrawal Current Visit: Yes Status: Acute (2) Cocaine dependence, uncomplicated Current Visit: Yes Status: Acute (3) Nicotine dependence Current Visit: Yes Status: Acute Qualifiers: (4) Schizoaffective disorder Current Visit: Yes Status: Chronic Qualifiers: Comment: As per existing records and patient's own verbal account.On medications. (5) Insomnia Current Visit: Yes Status: Acute - Initial Treatment Plan Initial Treatment Plan: Psychoeducation.Records are revisited.Detoxification.Sleep hygiene.Medications : risperdal 0.5 mg po bid + trazodone 50 mg po hs.Doses are reduced (caution for oversedation).Side effects/ benefits of both drugs are reviewed with the patient.He agrees with this careplan.Observation.Pharmacy claims surveyed with patient's verbal authorization : evidence of refills for risperdal 2 mg/hs/30 days + trazodone 50 mg/hs/30 days issued on 08/2017 at [facility] (resume writer spoke with pharmacist @ [phone]).
--- NOTE | 2017-10-09 12:37 | PN ---
[facility] CIWA - CIWA Score Nausea/Vomitin-No Nausea/No Vomiting Muscle Tremors: 2 Anxiety: 4-Mod. Anxious/Guarded Agitation: 2 Paroxysmal Sweats: 3 Orientation: 0-Oriented Tacttile Disturbances: 2-Mild Itch/Numbness/Burn Auditory Disturbances: 2-Mild Harshness/Frighten Visual Disturbances: 2-Mild Sensitivity Headache: 0-None Present CIWA-Ar Total Score: 17 BHS Progress Note (SOAP) Subjective: Fatigue, Tremors, Sweating, Anxious. Objective: PATIENT A & O X 3. NO ACUTE DISTRESS. 10/09/17 12:33 Vital Signs Temperature 97.4 F L 10/09/17 09:30 Pulse Rate 63 10/09/17 09:30 Respiratory Rate 16 10/09/17 09:30 Blood Pressure 98/58 10/09/17 09:30 O2 Sat by Pulse Oximetry (%) Laboratory Tests 10/08/17 10/09/17 10/09/17 17:07 07:30 07:30 WBC 4.9 RBC 4.70 Hgb 13.5 Hct 40.5 MCV 86.2 MCH 28.8 MCHC 33.4 RDW 14.1 Plt Count 235 MPV 6.9 L Sodium 143 Potassium 4.1 Chloride 107 Carbon Dioxide 32 Anion Gap 4 L BUN 9 D Creatinine 0.8 D Creat Clearance w eGFR > 60 Random Glucose 70 L Calcium 8.6 Total Bilirubin 0.5 D AST 18 ALT 9 L Alkaline Phosphatase 73 D Total Protein 6.6 Albumin 2.9 L D Urine Color Yellow Urine Appearance Clear Urine pH 6.0 Ur Specific [place] 1.011 Urine Protein Negative Urine Glucose (UA) Negative Urine Ketones Negative Urine Blood Negative Urine Nitrite Negative Urine Bilirubin Negative Urine Urobilinogen Negative Ur Leukocyte Esterase 2+ H Urine WBC (Auto) 27 Urine RBC (Auto) 1 RPR Titer 10/09/17 07:30 WBC RBC Hgb Hct MCV MCH MCHC RDW Plt Count MPV Sodium Potassium Chloride Carbon Dioxide Anion Gap BUN Creatinine Creat Clearance w eGFR Random Glucose Calcium Total Bilirubin AST ALT Alkaline Phosphatase Total Protein Albumin Urine Color Urine Appearance Urine pH Ur Specific [place] Urine Protein Urine Glucose (UA) Urine Ketones Urine Blood Urine Nitrite Urine Bilirubin Urine Urobilinogen Ur Leukocyte Esterase Urine WBC (Auto) Urine RBC (Auto) RPR Titer Nonreactive LABS NOTED. Assessment: 10/09/17 12:34 WITHDRAWAL SYMPTOMS. Plan: CONTINUE DETOX. INCREASE DAILY PO FLUID INTAKE. REPEAT UA WITH URINE C + S FOR ADMISSION [place] ABNORMALITIES.
[2017-10-09] MEDS: risperiDONE 0.5 MG TABLET (FP) PO SCH (22:20)
[2017-10-09] MEDS: traZODone HCL 50 MG TABLET (FP) PO SCH (22:21)
[2017-10-09] MEDS: THIAMINE HCL 100 MG TABLET (FP) PO SCH (22:21)
[2017-10-10] MEDS: chlordiazePOXIDE HCL 25 MG CAPSULE PO SCH ×2 (05:18→10:26)
[2017-10-10] MEDS: PRENATAL VITAMINS W/ FOLIC ACID TABLET (FP) PO SCH (10:26)
[2017-10-10] MEDS: risperiDONE 0.5 MG TABLET (FP) PO SCH ×2 (10:26→22:19)
--- NOTE | 2017-10-10 15:48 | PN ---
[facility] CIWA - CIWA Score Nausea/Vomitin-No Nausea/No Vomiting Muscle Tremors: 3 Anxiety: 4-Mod. Anxious/Guarded Agitation: 0-Normal Activity Paroxysmal Sweats: 3 Orientation: 2-Disoriented Date<2 days Tacttile Disturbances: 2-Mild Itch/Numbness/Burn Auditory Disturbances: 0-None Visual Disturbances: 2-Mild Sensitivity Headache: 0-None Present CIWA-Ar Total Score: 16 S Progress Note (SOAP) Subjective: Tremors, Sweating, Interrupted Sleep, Fatigue. Objective: PATIENT A & O X 2 (UNCERTAIN ABOUT CURRENT DAY / DATE). PATIENT OBSERVED AMBULATING ON UNIT. NO ACUTE DISTRESS. 10/10/17 15:49 Vital Signs Temperature 96.2 F L 10/10/17 13:24 Pulse Rate 82 10/10/17 13:24 Respiratory Rate 16 10/10/17 13:24 Blood Pressure 104/62 10/10/17 13:24 O2 Sat by Pulse Oximetry (%) Laboratory Tests 10/08/17 10/09/17 10/09/17 17:07 07:30 07:30 WBC 4.9 RBC 4.70 Hgb 13.5 Hct 40.5 MCV 86.2 MCH 28.8 MCHC 33.4 RDW 14.1 Plt Count 235 MPV 6.9 L Sodium 143 Potassium 4.1 Chloride 107 Carbon Dioxide 32 Anion Gap 4 L BUN 9 D Creatinine 0.8 D Creat Clearance w eGFR > 60 Random Glucose 70 L Calcium 8.6 Total Bilirubin 0.5 D AST 18 ALT 9 L Alkaline Phosphatase 73 D Total Protein 6.6 Albumin 2.9 L D Urine Color Yellow Urine Appearance Clear Urine pH 6.0 Ur Specific [place] 1.011 Urine Protein Negative Urine Glucose (UA) Negative Urine Ketones Negative Urine Blood Negative Urine Nitrite Negative Urine Bilirubin Negative Urine Urobilinogen Negative Ur Leukocyte Esterase 2+ H Urine WBC (Auto) 27 Urine RBC (Auto) 1 RPR Titer 10/09/17 07:30 WBC RBC Hgb Hct MCV MCH MCHC RDW Plt Count MPV Sodium Potassium Chloride Carbon Dioxide Anion Gap BUN Creatinine Creat Clearance w eGFR Random Glucose Calcium Total Bilirubin AST ALT Alkaline Phosphatase Total Protein Albumin Urine Color Urine Appearance Urine pH Ur Specific [place] Urine Protein Urine Glucose (UA) Urine Ketones Urine Blood Urine Nitrite Urine Bilirubin Urine Urobilinogen Ur Leukocyte Esterase Urine WBC (Auto) Urine RBC (Auto) RPR Titer Nonreactive LABS NOTED. RESULTS OF REPEAT UA AND URINE C + S PENDING. PATIENT DENIES ANY UNUSUAL URINARY SYMPTOMS (BURNING, PAIN, FREQUENCY, URGENCY). 10/10/17 15:51 Assessment: 10/10/17 15:49 WITHDRAWAL SYMPTOMS. Plan: CONTINUE DETOX. INCREASE DAILY PO FLUID INTAKE. ENCOURAGE AMBULATION.
[2017-10-10 16:02] LABS: URINE APPEARANCE CLOUDY; URINE BILIRUBIN NEGATIVE (<2.0 mg/dL); URINE COLOR YELLOW; URINE GLUCOSE (UA) NEGATIVE (NEGATIVE); URINE KETONE NEGATIVE (NEGATIVE); URINE LEUK ESTERASE TRACE (NEGATIVE); URINE NITRITE NEGATIVE (NEGATIVE); URINE PROTEIN NEGATIVE (NEGATIVE); URINE UROBILINOGEN NEGATIVE mg/dL (0.2-1.0)
[2017-10-10 16:22] LABS: EPI CELLS RARE /HPF (FEW); URINE MUCUS RARE; YEAST FEW
[2017-10-10] MEDS: chlordiazePOXIDE 5 MG CAPSULE PO SCH ×2 (16:56→22:20)
[2017-10-10] MEDS: THIAMINE HCL 100 MG TABLET (FP) PO SCH (22:19)
[2017-10-10] MEDS: traZODone HCL 50 MG TABLET (FP) PO SCH (22:19)
[2017-10-11] MEDS: chlordiazePOXIDE 5 MG CAPSULE PO SCH ×2 (05:23→10:10)
[2017-10-11] MEDS: risperiDONE 0.5 MG TABLET (FP) PO SCH ×2 (10:10→22:28)
[2017-10-11] MEDS: PRENATAL VITAMINS W/ FOLIC ACID TABLET (FP) PO SCH (10:10)
--- NOTE | 2017-10-11 14:45 | PN ---
[facility] Progress Note (SOAP) Subjective: ANXIETY,SWEATS,FATIGUE. Objective: 10/11/17 14:45 Vital Signs 10/11/17 10/11/17 09:31 13:17 Temperature 95.9 F L 97.1 F L Pulse Rate 87 61 Respiratory 16 18 Rate Blood Pressure 85/59 103/66 Laboratory Tests 10/08/17 10/09/17 10/09/17 17:07 07:30 07:30 WBC 4.9 RBC 4.70 Hgb 13.5 Hct 40.5 MCV 86.2 MCH 28.8 MCHC 33.4 RDW 14.1 Plt Count 235 MPV 6.9 L Sodium 143 Potassium 4.1 Chloride 107 Carbon Dioxide 32 Anion Gap 4 L BUN 9 D Creatinine 0.8 D Creat Clearance w eGFR > 60 Random Glucose 70 L Calcium 8.6 Total Bilirubin 0.5 D AST 18 ALT 9 L Alkaline Phosphatase 73 D Total Protein 6.6 Albumin 2.9 L D Urine Color Yellow Urine Appearance Clear Urine pH 6.0 Ur Specific [place] 1.011 Urine Protein Negative Urine Glucose (UA) Negative Urine Ketones Negative Urine Blood Negative Urine Nitrite Negative Urine Bilirubin Negative Urine Urobilinogen Negative Ur Leukocyte Esterase 2+ H Urine WBC (Auto) 27 Urine RBC (Auto) 1 Ur Epithelial Cells Urine Mucus Urine Yeast RPR Titer 10/09/17 10/10/17 07:30 07:44 WBC RBC Hgb Hct MCV MCH MCHC RDW Plt Count MPV Sodium Potassium Chloride Carbon Dioxide Anion Gap BUN Creatinine Creat Clearance w eGFR Random Glucose Calcium Total Bilirubin AST ALT Alkaline Phosphatase Total Protein Albumin Urine Color Yellow Urine Appearance Cloudy Urine pH 6.0 Ur Specific [place] 1.019 Urine Protein Negative Urine Glucose (UA) Negative Urine Ketones Negative Urine Blood Negative Urine Nitrite Negative Urine Bilirubin Negative Urine Urobilinogen Negative Ur Leukocyte Esterase Trace Urine WBC (Auto) 23 Urine RBC (Auto) 12 Ur Epithelial Cells Rare Urine Mucus Rare Urine Yeast Few RPR Titer Nonreactive ASYMPTOMATIC UC RESULT PENDING Assessment: 10/11/17 14:46 WITHDRAWAL SX Plan: CONTINUE DETOX
[2017-10-11] MEDS: chlordiazePOXIDE HCL 10 MG CAPSULE PO SCH ×2 (17:28→22:28)
[2017-10-11] MEDS: THIAMINE HCL 100 MG TABLET (FP) PO SCH (22:28)
[2017-10-11] MEDS: traZODone HCL 50 MG TABLET (FP) PO SCH (22:28)
[2017-10-11] MEDS: MELATONIN 5 MG TABLETS PO PRN (22:30)
[2017-10-12] MEDS: chlordiazePOXIDE HCL 10 MG CAPSULE PO SCH ×2 (06:05→10:27)
--- NOTE | 2017-10-12 09:33 | DS ---
[facility] Detox Discharge Summary Admission Date: 10/08/17 Discharge Date: 10/13/17 - History Present History: Alcohol Dependence, Cocaine Dependence Additional Comments: DETOX COMPLETED. ALERT O X 3. PT HAS PCP DR. SIFUENTES AT [facility] IN [place], [place]. PT REFERRED TO [facility] IF BED AVAILABLE OR [facility]. ADDENDUM: PT DID NOT GO TO REHAB PLANNED YESTERDAY HENCE HE WAS HELD FROM YESTERDAY 10/12/17 ON THE UNIT TILL TODAY(10/13/17). PT NOW HAS BEEN ADMITTED TO GO TO [facility] TODAY AND HAS A BED AVAILABLE. Pertinent Past History: PLEASE SEE DX BELOW - Physical Exam Results Vital Signs: Vital Signs Temperature 97.7 F 10/12/17 09:31 Pulse Rate 78 10/12/17 09:31 Respiratory Rate 18 10/12/17 09:31 Blood Pressure 116/74 10/12/17 09:31 O2 Sat by Pulse Oximetry (%) Pertinent Admission Physical Exam Findings: WITHDRAWAL SX Laboratory Tests 10/08/17 10/09/17 10/09/17 17:07 07:30 07:30 WBC 4.9 RBC 4.70 Hgb 13.5 Hct 40.5 MCV 86.2 MCH 28.8 MCHC 33.4 RDW 14.1 Plt Count 235 MPV 6.9 L Sodium 143 Potassium 4.1 Chloride 107 Carbon Dioxide 32 Anion Gap 4 L BUN 9 D Creatinine 0.8 D Creat Clearance w eGFR > 60 Random Glucose 70 L Calcium 8.6 Total Bilirubin 0.5 D AST 18 ALT 9 L Alkaline Phosphatase 73 D Total Protein 6.6 Albumin 2.9 L D Urine Color Yellow Urine Appearance Clear Urine pH 6.0 Ur Specific [place] 1.011 Urine Protein Negative Urine Glucose (UA) Negative Urine Ketones Negative Urine Blood Negative Urine Nitrite Negative Urine Bilirubin Negative Urine Urobilinogen Negative Ur Leukocyte Esterase 2+ H Urine WBC (Auto) 27 Urine RBC (Auto) 1 Ur Epithelial Cells Urine Mucus Urine Yeast RPR Titer 10/09/17 10/10/17 07:30 07:44 WBC RBC Hgb Hct MCV MCH MCHC RDW Plt Count MPV Sodium Potassium Chloride Carbon Dioxide Anion Gap BUN Creatinine Creat Clearance w eGFR Random Glucose Calcium Total Bilirubin AST ALT Alkaline Phosphatase Total Protein Albumin Urine Color Yellow Urine Appearance Cloudy Urine pH 6.0 Ur Specific [place] 1.019 Urine Protein Negative Urine Glucose (UA) Negative Urine Ketones Negative Urine Blood Negative Urine Nitrite Negative Urine Bilirubin Negative Urine Urobilinogen Negative Ur Leukocyte Esterase Trace Urine WBC (Auto) 23 Urine RBC (Auto) 12 Ur Epithelial Cells Rare Urine Mucus Rare Urine Yeast Few RPR Titer Nonreactive UC RESULT PENDING. PT DENIES ANY SYMPTOMS OF UTI. - Treatment Hospital Course: Detox Protocol Followed, Detoxed Safely, Responded well, Discharged Condition Good, Rehab Referral Accepted Patient has Accepted a Rehab Referral to: [facility] - Medication Discharge Medications: Ambulatory Orders traZODone HCL [Desyrel -] 100 mg PO HS #30 tablet 06/16/16 Mirtazapine [Remeron -] 15 mg PO HS 10/08/17 Risperidone [Risperdal -] 3 mg PO HS 10/08/17 Risperidone [Risperdal] 2 mg PO DAILY 10/08/17 Zolpidem Tartrate [Ambien] 10 mg PO HS 10/08/17 Risperidone [Risperdal -] 0.5 mg PO BID #60 tablet 10/13/17 traZODone HCL [Desyrel -] 50 mg PO HS #30 tablet 10/13/17 - Diagnosis (1) Alcohol dependence with uncomplicated withdrawal Current Visit: Yes Status: Acute (2) Cocaine dependence, uncomplicated Current Visit: Yes Status: Acute (3) Nicotine dependence Current Visit: Yes Status: Acute Qualifiers: Nicotine product type: cigarettes Substance use status: in withdrawal Qualified Code(s): F17.213 - Nicotine dependence, cigarettes, with withdrawal (4) Weight loss Current Visit: Yes Status: Acute (5) COPD (chronic obstructive pulmonary disease) Current Visit: Yes Status: Chronic Qualifiers: COPD type: unspecified COPD Qualified Code(s): J44.9 - Chronic obstructive pulmonary disease, unspecified (6) Hep C w/o coma, chronic Current Visit: Yes Status: Chronic (7) History of colon cancer Current Visit: Yes Status: Chronic (8) HLD (hyperlipidemia) Current Visit: Yes Status: Chronic Qualifiers: Hyperlipidemia type: unspecified Qualified Code(s): E78.5 - Hyperlipidemia , unspecified - AMA Did Patient Leave Against Medical Advice: No
[2017-10-12] MEDS: risperiDONE 0.5 MG TABLET (FP) PO SCH ×2 (10:26→22:27)
[2017-10-12] MEDS: PRENATAL VITAMINS W/ FOLIC ACID TABLET (FP) PO SCH (10:26)
--- NOTE | 2017-10-12 10:28 | PN ---
[facility] Progress Note (SOAP) Subjective: DETOX COMPLETED. ALERT O X 3 PT REFERRED TO [facility] OR [facility] PENDING BED AVAILABILITY. Objective: 10/12/17 10:26 Vital Signs 10/12/17 10/12/17 10/12/17 03:30 06:09 06:30 Temperature 96.9 F L Pulse Rate 59 L Respiratory 18 18 18 Rate Blood Pressure 103/66 10/12/17 09:31 Temperature 97.7 F Pulse Rate 78 Respiratory 18 Rate Blood Pressure 116/74 Laboratory Tests 10/08/17 10/09/17 10/09/17 17:07 07:30 07:30 WBC 4.9 RBC 4.70 Hgb 13.5 Hct 40.5 MCV 86.2 MCH 28.8 MCHC 33.4 RDW 14.1 Plt Count 235 MPV 6.9 L Sodium 143 Potassium 4.1 Chloride 107 Carbon Dioxide 32 Anion Gap 4 L BUN 9 D Creatinine 0.8 D Creat Clearance w eGFR > 60 Random Glucose 70 L Calcium 8.6 Total Bilirubin 0.5 D AST 18 ALT 9 L Alkaline Phosphatase 73 D Total Protein 6.6 Albumin 2.9 L D Urine Color Yellow Urine Appearance Clear Urine pH 6.0 Ur Specific [place] 1.011 Urine Protein Negative Urine Glucose (UA) Negative Urine Ketones Negative Urine Blood Negative Urine Nitrite Negative Urine Bilirubin Negative Urine Urobilinogen Negative Ur Leukocyte Esterase 2+ H Urine WBC (Auto) 27 Urine RBC (Auto) 1 Ur Epithelial Cells Urine Mucus Urine Yeast RPR Titer 10/09/17 10/10/17 07:30 07:44 WBC RBC Hgb Hct MCV MCH MCHC RDW Plt Count MPV Sodium Potassium Chloride Carbon Dioxide Anion Gap BUN Creatinine Creat Clearance w eGFR Random Glucose Calcium Total Bilirubin AST ALT Alkaline Phosphatase Total Protein Albumin Urine Color Yellow Urine Appearance Cloudy Urine pH 6.0 Ur Specific [place] 1.019 Urine Protein Negative Urine Glucose (UA) Negative Urine Ketones Negative Urine Blood Negative Urine Nitrite Negative Urine Bilirubin Negative Urine Urobilinogen Negative Ur Leukocyte Esterase Trace Urine WBC (Auto) 23 Urine RBC (Auto) 12 Ur Epithelial Cells Rare Urine Mucus Rare Urine Yeast Few RPR Titer Nonreactive UC RESULT PENDING. Assessment: 10/12/17 10:28 MEDICALLY STABLE. Plan: D/C PT TODAY TO REHAB WHERE BED AVAILABLE.
--- NOTE | 2017-10-12 16:08 | PN ---
[facility] Progress Note Note: MR SOLORZANO WILL BE HELD OVER TILL TOMORROW BECAUSE PT WAS WAITING TO BE PICKED UP BY [facility] BUT AT THE LAST MINUTE CALLED TO SAY BED WAS NOW UNAVAILABLE. COUNSELOR BERNIE ROQUE WILL REVISIT PATIENTS REFERRAL ARRANGEMENTS TOMORROW,
[2017-10-12] MEDS: traZODone HCL 50 MG TABLET (FP) PO SCH (22:27)
[2017-10-12] MEDS: THIAMINE HCL 100 MG TABLET (FP) PO SCH (22:27)
[2017-10-12] MEDS: MELATONIN 5 MG TABLETS PO PRN (22:27)
[2017-10-13] MEDS: PRENATAL VITAMINS W/ FOLIC ACID TABLET (FP) PO SCH (09:49)
[2017-10-13] MEDS: risperiDONE 0.5 MG TABLET (FP) PO SCH (09:49)
[2017-10-13 14:15] VITALS: BP 102/80; PULSE 70; TEMP 96.4
== END 2017-10-13 17:46 | disposition other institution (70) | DRG 774 ==
LOC: YASAS 12:07 → Y3N 14:49
PROVIDERS: ADMIT Internal Medicine; ATTEND Internal Medicine
PROC: HZ2ZZZZ Detoxification Services for Substance Abuse Treatment (ICD-10-PCS; principal; 2017-10-08)
DX: F10.230 Alcohol dependence with withdrawal, uncomplicated (principal); F14.20 Cocaine dependence, uncomplicated; F17.213 Nicotine dependence, cigarettes, with withdrawal; F25.9 Schizoaffective disorder, unspecified; J44.9 Chronic obstructive pulmonary disease, unspecified; B18.2 Chronic viral hepatitis C; E78.5 Hyperlipidemia, unspecified; G47.00 Insomnia, unspecified; Z85.038 Personal history of other malignant neoplasm of large intestine; Z87.438 Personal history of other diseases of male genital organs; Z87.898 Personal history of other specified conditions
CPT/HCPCS: 36415; 80053; 81003; 81015; 85027; 86593; 87086; 93005; 93010

== ENCOUNTER 2017-10-13 17:54 | Inpatient (IN) | payer OTHER ==
--- NOTE | 2017-10-13 19:29 | PN ---
[facility] Progress Note Note: Psychiatrist telephone appointment clerk note: Called by nursing staff to order medications for patient recently admitted from detox. He saw Dr Ku on 10/09/17 in detox and was prescribed Risperdal 0.5 mg po BID and Trazadone 50 mg po HS. .According to pharmacy claims, he filled scrpits for Risperdal 2 mg/day and trazadone 50 mg/hs as recently as august 2017. Risperdal 1 mg po BID and Trazadone 50 mg po HS will be ordered for patient
[2017-10-13] MEDS: risperiDONE 1 MG TABLET (FP) PO SCH (21:45)
[2017-10-13] MEDS: traZODone HCL 50 MG TABLET (FP) PO SCH (21:45)
[2017-10-13] MEDS ORDERED: traZODone HCL 100 MG TABLET (FP) PO SCH (22:00)
--- NOTE | 2017-10-14 06:46 | HP ---
Psychiatrist Admission - Data Date of interview: 10/14/17 Admission source: 3N Identifying data: This is the third [facility] admission for this 61 years old single Black male, unemployed on SSI, domiciled Medical History: Significant for COPD, hepatitis C, dyslipidemia, history of treatment for syphilis and past colectomy for cancer of colon in 2015. Smokes 10 cigarettes daily Psychiatric History: Significant history of psychiatric illness. Patient is diagnosed with Schizoaffective Disorder. Reports history of 2 previous psychiatric admissions to [facility] in [place] 7-8 years ago and [facility] in the [place] approximately 3 years ago. Denies previous admission to [facility] as reported on one of his previous admission to this facility. Told entry writer he attended psychiatric outpatient at [facility] [place] in the past. Curently he receives his outpatient psychiatric services at [facility] under the supervision of Dr Benitez and he is on a regimen of Risperdal 2 mg, Trazodone 100 mg and Ambien. According to [facility] claims, script for Risperdal 2mg/day & Trazadone 50 mg/hs were filled on 08/27/17 at [facility]. Patient denies history of suicide attempt. Physical/Sexual Abuse/Trauma History: Denies history of sexual, physical and verbal abuse.Patient reports he served in [employer]) from 1972 to 1977, and discharged with "bad conduct", reports "I was fighting". Additional Comment: Reports history of 3 previous misdemeanor arrests on chages of drinking in public Vital Signs: Vital Signs - 24 hr 10/14/17 10/14/17 00:30 03:30 Respiratory 18 18 Rate Allergies/Adverse Reactions: Allergies Allergy/AdvReac Type Severity Reaction Status Date / Time No Known Allergies Allergy Verified 10/08/17 14:25 Date of last physical exam: 10/08/17 Concur with the findings of this exam: Yes - Substance Abuse/Tx History Hx Alcohol Use: Yes Hx Substance Use: Yes Substance Use Type: Alcohol (Started drinking alcohol at age 7, consumes a 6pk of beer daily. Last drank on 10/08/17), Cocaine (Started smoking crack cocaine at age 27, consumes $20 worth daily. Last smoked on 10/08/17) Hx Substance Use Treatment: Yes (5 previous inpt detox & 2 inpt rehab @ [facility]) Mental Status Exam - Mental Status Exam Alert and Oriented to: Time, Place, Person Cognitive Function: Fair Patient Appearance: Disheveled Mood: Hopeful, Euthymic Affect: Appropriate Patient Behavior: Cooperative Speech Pattern: Clear Voice Loudness: Normal Thought Process: Intact, Goal Oriented Thought Disorder: Not Present Hallucinations: Denies Suicidal Ideation: Denies Homicidal Ideation: Denies Insight/Judgement: Fair Sleep: Poorly Appetite: Good Muscle strength/Tone: Normal Gait/Station: Normal Psychiatric Findings - Problem List (Straughn 1, 2,3) (1) Alcohol dependence Current Visit: Yes Status: Acute (2) Cocaine dependence Current Visit: Yes Status: Acute (3) Cannabis dependence Current Visit: No Status: Acute (4) Nicotine dependence Current Visit: No Status: Chronic Qualifiers: Nicotine product type: cigarettes Substance use status: in withdrawal Qualified Code(s): F17.213 - Nicotine dependence, cigarettes, with withdrawal (5) Schizoaffective disorder Current Visit: No Status: Chronic Qualifiers: Schizoaffective disorder type: unspecified Qualified Code(s): F25.9 - Schizoaffective disorder, unspecified Comment: As per existing records and patient's own verbal account.On medications. (6) Substance-induced sleep disorder Current Visit: Yes Status: Acute (7) COPD (chronic obstructive pulmonary disease) Current Visit: No Status: Chronic Qualifiers: COPD type: unspecified COPD Qualified Code(s): J44.9 - Chronic obstructive pulmonary disease, unspecified Comment: PT STATES RESOLVED AND NO CURRENT MED/ WILL MONITOR RESPITORY WHILE IN [place]. (8) HLD (hyperlipidemia) Current Visit: No Status: Chronic Qualifiers: Hyperlipidemia type: unspecified Qualified Code(s): E78.5 - Hyperlipidemia , unspecified (9) Hepatitis C Current Visit: No Status: Chronic Qualifiers: Viral hepatitis chronicity: chronic Hepatic coma status: without hepatic coma Qualified Code(s): B18.2 - Chronic viral hepatitis C (10) History of colon cancer Current Visit: No Status: Resolved (11) History of colon surgery Current Visit: No Status: Suspected - Initial Treatment Plan Initial Treatment Plan: 1) Continue Risperdal 1 mg po BID and Trazadone 50 mg po HS. 2) Monitor progress
[2017-10-14] MEDS ORDERED: risperiDONE 2 MG TABLET PO SCH (10:00)
[2017-10-14] MEDS: risperiDONE 1 MG TABLET (FP) PO SCH ×2 (10:06→21:31)
[2017-10-14] MEDS: traZODone HCL 50 MG TABLET (FP) PO SCH (21:31)
[2017-10-15] MEDS: risperiDONE 1 MG TABLET (FP) PO SCH ×2 (09:59→21:29)
[2017-10-15] MEDS ORDERED: IBUPROFEN 400 MG TABLET (FP) PO PRN (10:06)
[2017-10-15] MEDS ORDERED: P-EPHED 60MG/TRIPROLIDI 2.5MG TABLET PO PRN (10:06)
[2017-10-15] MEDS ORDERED: NICOTINE POLACRILEX 2 MG GUM BUC PRN (10:06)
[2017-10-15] MEDS ORDERED: MENTHOL/PHENOL 1 EACH UD MM PRN (10:06)
[2017-10-15] MEDS ORDERED: MAGNESIUM CITRATE 300 ML BOTTLE PO PRN (10:06)
[2017-10-15] MEDS ORDERED: ACETAMINOPHEN 325 MG TABLET (FP) PO PRN (10:06)
[2017-10-15] MEDS ORDERED: guaiFENesin/D-METHORPHAN HB 10 ML UNIT-DOSE CUPS PO PRN (10:06)
[2017-10-15] MEDS ORDERED: MAGNESIUM HYDROX 2400MG/30ML ORAL SUSPENSION 30 ML CUP PO PRN (10:06)
[2017-10-15] MEDS ORDERED: LOPERAMIDE HCL 2 MG CAPSULE PO PRN (10:06)
[2017-10-15] MEDS ORDERED: MAG HYDROX/AL HYDROX/SIMETH 30 ML UNIT-DOSE CUP PO PRN (10:06)
--- NOTE | 2017-10-15 10:09 | HP ---
[facility]USAN GONZALEZ Rehab Assess/Revision - Admission History Admitted to Rehab from: [facility] Date of Admission to Rehab: 10/13/17 - Vital signs Vital Signs: Vital Signs Period Temp Pulse Resp BP Sys/Kelly Pulse Ox Last 24 Hr 97.9 F 66 18-18 99/65 - Findings Detox History & Physical reviewed: Yes Concur with findings: Yes Comments/Additional Findings: FOR REHAB PROTOCOL Inpatient Rehab Admission - Initial Determination Are CD services needed?: Yes Free of communicable disease: Yes Not in need of hospitalization: Yes - Rehab Admission Criteria Previous failed treatment: Yes Poor recovery environment: Yes Comorbidities: Yes Lacks judgement: No Patient is meeting Inpatient Rehab admission criteria:: Yes
[2017-10-15] MEDS: NICOTINE 21 MG/24 HOURS TOPICAL PATCH TD SCH (13:45)
[2017-10-15] MEDS: MELATONIN 5 MG TABLETS PO PRN (21:29)
[2017-10-15] MEDS: traZODone HCL 50 MG TABLET (FP) PO SCH (21:29)
[2017-10-15] MEDS: THIAMINE HCL 100 MG TABLET (FP) PO SCH (21:29)
[2017-10-16] MEDS: risperiDONE 1 MG TABLET (FP) PO SCH ×2 (10:04→21:21)
[2017-10-16] MEDS: PRENATAL VITAMINS W/ FOLIC ACID TABLET (FP) PO SCH (10:04)
[2017-10-16] MEDS: NICOTINE 21 MG/24 HOURS TOPICAL PATCH TD SCH (10:04)
[2017-10-16] MEDS: traZODone HCL 50 MG TABLET (FP) PO SCH (21:21)
[2017-10-16] MEDS: THIAMINE HCL 100 MG TABLET (FP) PO SCH (21:21)
[2017-10-16] MEDS: MELATONIN 5 MG TABLETS PO PRN (21:21)
[2017-10-17] MEDS: risperiDONE 1 MG TABLET (FP) PO SCH ×2 (10:24→21:40)
[2017-10-17] MEDS: PRENATAL VITAMINS W/ FOLIC ACID TABLET (FP) PO SCH (10:24)
[2017-10-17] MEDS: NICOTINE 21 MG/24 HOURS TOPICAL PATCH TD SCH (10:24)
[2017-10-17] MEDS: THIAMINE HCL 100 MG TABLET (FP) PO SCH (21:40)
[2017-10-17] MEDS: traZODone HCL 50 MG TABLET (FP) PO SCH (21:40)
[2017-10-17] MEDS: MELATONIN 5 MG TABLETS PO PRN (21:40)
[2017-10-18] MEDS: NICOTINE 21 MG/24 HOURS TOPICAL PATCH TD SCH (10:04)
[2017-10-18] MEDS: PRENATAL VITAMINS W/ FOLIC ACID TABLET (FP) PO SCH (10:04)
[2017-10-18] MEDS: risperiDONE 1 MG TABLET (FP) PO SCH ×2 (10:04→21:20)
[2017-10-18] MEDS: MELATONIN 5 MG TABLETS PO PRN (21:20)
[2017-10-18] MEDS: traZODone HCL 50 MG TABLET (FP) PO SCH (21:20)
[2017-10-18] MEDS: THIAMINE HCL 100 MG TABLET (FP) PO SCH (21:20)
[2017-10-19] MEDS: risperiDONE 1 MG TABLET (FP) PO SCH ×2 (09:32→21:32)
[2017-10-19] MEDS: PRENATAL VITAMINS W/ FOLIC ACID TABLET (FP) PO SCH (09:32)
[2017-10-19] MEDS: NICOTINE 21 MG/24 HOURS TOPICAL PATCH TD SCH (09:32)
[2017-10-19] MEDS: MELATONIN 5 MG TABLETS PO PRN (21:31)
[2017-10-19] MEDS: THIAMINE HCL 100 MG TABLET (FP) PO SCH (21:32)
[2017-10-19] MEDS: traZODone HCL 50 MG TABLET (FP) PO SCH (21:32)
[2017-10-20] MEDS: PRENATAL VITAMINS W/ FOLIC ACID TABLET (FP) PO SCH (10:19)
[2017-10-20] MEDS: NICOTINE 21 MG/24 HOURS TOPICAL PATCH TD SCH (10:19)
[2017-10-20] MEDS: risperiDONE 1 MG TABLET (FP) PO SCH ×2 (10:19→22:10)
[2017-10-20] MEDS: traZODone HCL 50 MG TABLET (FP) PO SCH (22:10)
[2017-10-20] MEDS: THIAMINE HCL 100 MG TABLET (FP) PO SCH (22:10)
[2017-10-20] MEDS: MELATONIN 5 MG TABLETS PO PRN (22:10)
[2017-10-21] MEDS: PRENATAL VITAMINS W/ FOLIC ACID TABLET (FP) PO SCH (10:19)
[2017-10-21] MEDS: risperiDONE 1 MG TABLET (FP) PO SCH ×2 (10:19→21:40)
[2017-10-21] MEDS: NICOTINE 21 MG/24 HOURS TOPICAL PATCH TD SCH (10:20)
[2017-10-21] MEDS: traZODone HCL 50 MG TABLET (FP) PO SCH (21:40)
[2017-10-21] MEDS: THIAMINE HCL 100 MG TABLET (FP) PO SCH (21:40)
[2017-10-21] MEDS: MELATONIN 5 MG TABLETS PO PRN (21:40)
[2017-10-22] MEDS: risperiDONE 1 MG TABLET (FP) PO SCH ×2 (10:07→21:50)
[2017-10-22] MEDS: PRENATAL VITAMINS W/ FOLIC ACID TABLET (FP) PO SCH (10:07)
[2017-10-22] MEDS: NICOTINE 21 MG/24 HOURS TOPICAL PATCH TD SCH (10:08)
[2017-10-22] MEDS: traZODone HCL 50 MG TABLET (FP) PO SCH (21:50)
[2017-10-22] MEDS: THIAMINE HCL 100 MG TABLET (FP) PO SCH (21:50)
[2017-10-22] MEDS: MELATONIN 5 MG TABLETS PO PRN (21:50)
[2017-10-23] MEDS: PRENATAL VITAMINS W/ FOLIC ACID TABLET (FP) PO SCH (09:39)
[2017-10-23] MEDS: risperiDONE 1 MG TABLET (FP) PO SCH (09:39)
[2017-10-23] MEDS: NICOTINE 21 MG/24 HOURS TOPICAL PATCH TD SCH (09:40)
--- NOTE | 2017-10-23 09:43 | PN ---
Psychiatric Progress Note Vital Signs: Vital Signs Period Temp Pulse Resp BP Sys/Kelly Pulse Ox Last 24 Hr 97.8 F 72 16-18 105/69 Date of Session: 10/23/17 Chief Complaint:: "I'm hearing noises" HPI: Patient addressing Alcohol, Cocaine and Cannabis Dependence comorbid with Nicotine Dependence, Schizoffective Disorder and Substance-Induced Mood Disorder ROS: COPD, HLD, Hep C, S/P colon cancer Current Medications: Active Medications Generic Name Dose Route Start Last Admin Trade Name Freq PRN Reason Stop Dose Admin Acetaminophen 650 mg 10/15/17 10:06 Tylenol - PO Q4H PRN FEVER Al Hydroxide/Mg Hydroxide 30 ml 10/15/17 10:06 Mylanta Oral Suspension - PO Q6H PRN DYSPEPSIA Eucalyptus/Menthol/Phenol/Sorbitol 1 each 10/15/17 10:06 Cepastat Lozenge - MM Q4H PRN SORE THROAT Guaifenesin 10 ml 10/15/17 10:06 Robitussin Dm - PO Q6H PRN COUGH Hydroxyzine Pamoate 25 mg 10/15/17 10:06 Vistaril - PO Q4H PRN AGITATION Ibuprofen 400 mg 10/15/17 10:06 Motrin - PO Q6H PRN Pain Level 4-6 Loperamide HCl 4 mg 10/15/17 10:06 Imodium - PO Q6H PRN DIARRHEA Magnesium Citrate 300 ml 10/15/17 10:06 Citroma - PO Q48H PRN CONSTIPATION Magnesium Hydroxide 30 ml 10/15/17 10:06 Milk Of Magnesia - PO DAILY PRN CONSTIPATION Melatonin 5 mg 10/15/17 22:00 10/22/17 21:50 Melatonin PO 5 mg HS PRN Administration INSOMNIA Nicotine 21 mg 10/15/17 10:30 10/22/17 10:08 Nicoderm Patch - TD Not Given DAILY RADHA Nicotine Polacrilex 2 mg 10/15/17 10:06 Nicorette Gum - BUC Q2H PRN NICOTINE REPLACEMENT RX Multivit/Folic Acid/Iron 1 tab 10/16/17 10:00 10/22/17 10:07 Vitamins (Sjr) - PO 1 tab DAILY RADHA Administration Pseudoephedrine/Triprolidine 1 combo 10/15/17 10:06 Actifed - PO TID PRN NASAL CONGESTION Risperidone 1 mg 05/08/18 22:00 10/22/17 21:50 Risperdal - PO 1 mg BID RADHA Administration Thiamine HCl 100 mg 10/15/17 22:00 10/22/17 21:50 Vitamin B1 - PO 100 mg HS RADHA Administration Trazodone HCl 50 mg 10/13/17 22:00 10/22/17 21:50 Desyrel - PO 50 mg HS RADHA Administration Medication(s) Change(s): Increase Risperdal dosage to 2 mg po BID Current Side Effect: No Lab tests ordered: Yes Lab tests reviewed: Yes Provider note:: Patient reports hearing noises of keys diggling and foot steps of people walking. Denies hearing voices. States he always hears these noises despite taking medication. Claims that the only time he stopped hearing them was when he was taking Zyprexa. He was explained that he is currently on Risperdal which has similar antipsychotic effects as Zyprexa. Discussed raising current med dose to 2 mg po BID and he agreed with that plan. Total face to face time:: 25 Mental Status Exam - Mental Status Exam Alert and Oriented to: Time, Place, Person Cognitive Function: Fair Patient Appearance: Disheveled Mood: Hopeful, Euthymic Affect: Appropriate Patient Behavior: Cooperative Speech Pattern: Clear Voice Loudness: Normal Thought Process: Intact Thought Disorder: Not Present Hallucinations: Auditory (hearing noises of keys diggling and foot steps) Suicidal Ideation: Denies Homicidal Ideation: Denies Insight/Judgement: Fair Sleep: Fair Appetite: Good Muscle strength/Tone: Normal Psychiatric Treatment Plan - Problem List (1) Alcohol dependence Current Visit: Yes (2) Cocaine dependence Current Visit: Yes (3) Cannabis dependence Current Visit: No (4) Nicotine dependence Current Visit: No Qualifiers: Nicotine product type: cigarettes Substance use status: in withdrawal Qualified Code(s): F17.213 - Nicotine dependence, cigarettes, with withdrawal (5) Schizoaffective disorder Current Visit: No Qualifiers: Schizoaffective disorder type: unspecified Qualified Code(s): F25.9 - Schizoaffective disorder, unspecified Comment: As per existing records and patient's own verbal account.On medications. (6) Substance-induced sleep disorder Current Visit: Yes (7) COPD (chronic obstructive pulmonary disease) Current Visit: No Qualifiers: COPD type: unspecified COPD Qualified Code(s): J44.9 - Chronic obstructive pulmonary disease, unspecified Comment: PT STATES RESOLVED AND NO CURRENT MED/ WILL MONITOR RESPITORY WHILE IN [place]. (8) HLD (hyperlipidemia) Current Visit: No Qualifiers: Hyperlipidemia type: unspecified Qualified Code(s): E78.5 - Hyperlipidemia , unspecified (9) Hepatitis C Current Visit: No Qualifiers: Viral hepatitis chronicity: chronic Hepatic coma status: without hepatic coma Qualified Code(s): B18.2 - Chronic viral hepatitis C (10) History of colon cancer Current Visit: No (11) History of colon surgery Current Visit: No Initial treatment plan: 1) Discontinue Risperdal 1 mg po BID. 2) Start Risperdal 2 mg po BID. 3) Monitor progress
[2017-10-23] MEDS: risperiDONE 2 MG TABLET PO SCH ×2 (10:21→22:29)
[2017-10-23] MEDS: THIAMINE HCL 100 MG TABLET (FP) PO SCH (22:28)
[2017-10-23] MEDS: traZODone HCL 50 MG TABLET (FP) PO SCH (22:29)
[2017-10-23] MEDS: hydrOXYzine PAMOATE 25 MG CAPSULE (FP) PO PRN (22:31)
[2017-10-24] MEDS: NICOTINE 21 MG/24 HOURS TOPICAL PATCH TD SCH (09:52)
[2017-10-24] MEDS: PRENATAL VITAMINS W/ FOLIC ACID TABLET (FP) PO SCH (09:52)
[2017-10-24] MEDS: risperiDONE 2 MG TABLET PO SCH ×2 (09:52→22:11)
[2017-10-24] MEDS: THIAMINE HCL 100 MG TABLET (FP) PO SCH (22:11)
[2017-10-24] MEDS: traZODone HCL 50 MG TABLET (FP) PO SCH (22:11)
[2017-10-24] MEDS: hydrOXYzine PAMOATE 25 MG CAPSULE (FP) PO PRN (22:12)
[2017-10-25] MEDS: PRENATAL VITAMINS W/ FOLIC ACID TABLET (FP) PO SCH (10:02)
[2017-10-25] MEDS: risperiDONE 2 MG TABLET PO SCH ×2 (10:02→22:15)
[2017-10-25] MEDS: NICOTINE 21 MG/24 HOURS TOPICAL PATCH TD SCH (10:02)
[2017-10-25] MEDS: hydrOXYzine PAMOATE 25 MG CAPSULE (FP) PO PRN (22:15)
[2017-10-25] MEDS: THIAMINE HCL 100 MG TABLET (FP) PO SCH (22:15)
[2017-10-25] MEDS: traZODone HCL 50 MG TABLET (FP) PO SCH (22:15)
[2017-10-26] MEDS: risperiDONE 2 MG TABLET PO SCH ×2 (10:04→22:50)
[2017-10-26] MEDS: PRENATAL VITAMINS W/ FOLIC ACID TABLET (FP) PO SCH (10:04)
[2017-10-26] MEDS: NICOTINE 21 MG/24 HOURS TOPICAL PATCH TD SCH (10:05)
[2017-10-26] MEDS: THIAMINE HCL 100 MG TABLET (FP) PO SCH (22:50)
[2017-10-26] MEDS: traZODone HCL 50 MG TABLET (FP) PO SCH (22:50)
[2017-10-26] MEDS: hydrOXYzine PAMOATE 25 MG CAPSULE (FP) PO PRN (22:51)
[2017-10-27] MEDS: PRENATAL VITAMINS W/ FOLIC ACID TABLET (FP) PO SCH (10:23)
[2017-10-27] MEDS: NICOTINE 21 MG/24 HOURS TOPICAL PATCH TD SCH (10:23)
[2017-10-27] MEDS: risperiDONE 2 MG TABLET PO SCH ×2 (10:23→21:52)
--- NOTE | 2017-10-27 14:40 | PN ---
Psychiatric Progress Note Vital Signs: Vital Signs Period Temp Pulse Resp BP Sys/Kelly Pulse Ox Last 24 Hr 97.8 F 78 18-18 120/68 Date of Session: 10/27/17 Chief Complaint:: Discharge Note HPI: Patient addressing Alcohol, Cocaine and Cannabis Dependence comorbid with Nicotine Depence, Schizoaffective Disorder and Substance-Induced Sleep Disorder ROS: COPD, HLD, Hep C, S/P colon cancer Current Medications: Active Medications Generic Name Dose Route Start Last Admin Trade Name Freq PRN Reason Stop Dose Admin Acetaminophen 650 mg 10/15/17 10:06 Tylenol - PO Q4H PRN FEVER Al Hydroxide/Mg Hydroxide 30 ml 10/15/17 10:06 Mylanta Oral Suspension - PO Q6H PRN DYSPEPSIA Eucalyptus/Menthol/Phenol/Sorbitol 1 each 10/15/17 10:06 Cepastat Lozenge - MM Q4H PRN SORE THROAT Guaifenesin 10 ml 10/15/17 10:06 Robitussin Dm - PO Q6H PRN COUGH Hydroxyzine Pamoate 25 mg 10/15/17 10:06 10/26/17 22:51 Vistaril - PO 25 mg Q4H PRN Administration AGITATION Ibuprofen 400 mg 10/15/17 10:06 Motrin - PO Q6H PRN Pain Level 4-6 Loperamide HCl 4 mg 10/15/17 10:06 Imodium - PO Q6H PRN DIARRHEA Magnesium Citrate 300 ml 10/15/17 10:06 Citroma - PO Q48H PRN CONSTIPATION Magnesium Hydroxide 30 ml 10/15/17 10:06 10/24/17 09:53 Milk Of Magnesia - PO 30 ml DAILY PRN Administration CONSTIPATION Melatonin 5 mg 10/15/17 22:00 10/22/17 21:50 Melatonin PO 5 mg HS PRN Administration INSOMNIA Nicotine 21 mg 10/15/17 10:30 10/27/17 10:23 Nicoderm Patch - TD Not Given DAILY RADHA Nicotine Polacrilex 2 mg 10/15/17 10:06 Nicorette Gum - BUC Q2H PRN NICOTINE REPLACEMENT RX Multivit/Folic Acid/Iron 1 tab 10/16/17 10:00 10/27/17 10:23 Vitamins (Sjr) - PO 1 tab DAILY RADHA Administration Pseudoephedrine/Triprolidine 1 combo 10/15/17 10:06 Actifed - PO TID PRN NASAL CONGESTION Risperidone 2 mg 10/23/17 10:00 10/27/17 10:23 Risperdal - PO 2 mg BID RADHA Administration Thiamine HCl 100 mg 10/15/17 22:00 10/26/17 22:50 Vitamin B1 - PO 100 mg HS RADHA Administration Trazodone HCl 50 mg 10/13/17 22:00 10/26/17 22:50 Desyrel - PO 50 mg HS RADHA Administration Current Side Effect: No Lab tests ordered: Yes Lab tests reviewed: Yes Provider note:: Patient will complete this program on 10/28/17. He has met his treatment goals and will continue to address his issues in outpatient treatment at [facility]/OP. Told keno writer that from his participation in this program, he has come to realize if he continues to surround himself with people that use he will continue using as well. He responded well to Risperdal 2 mg po BID and Trazadone 50 mg po HS, Scripts for 30 days supply of medications will electronicaly be transmitted to [facility] at [address] [place] [address]. He is stable for discharge on 10/28/17. Total face to face time:: 35 Mental Status Exam - Mental Status Exam Alert and Oriented to: Time, Place, Person Cognitive Function: Fair Patient Appearance: Disheveled Mood: Hopeful, Euthymic Affect: Appropriate Patient Behavior: Cooperative Speech Pattern: Clear, Artificially Ventilated Thought Process: Intact, Goal Oriented Thought Disorder: Not Present Hallucinations: Denies Suicidal Ideation: Denies Homicidal Ideation: Denies Insight/Judgement: Fair Sleep: Fair Appetite: Good Muscle strength/Tone: Normal Gait/Station: Normal Psychiatric Treatment Plan - Problem List (1) Alcohol dependence Current Visit: Yes (2) Cocaine dependence Current Visit: Yes (3) Cannabis dependence Current Visit: No (4) Nicotine dependence Current Visit: No Qualifiers: Nicotine product type: cigarettes Substance use status: in withdrawal Qualified Code(s): F17.213 - Nicotine dependence, cigarettes, with withdrawal (5) Schizoaffective disorder Current Visit: No Qualifiers: Schizoaffective disorder type: unspecified Qualified Code(s): F25.9 - Schizoaffective disorder, unspecified Comment: As per existing records and patient's own verbal account.On medications. (6) Substance-induced sleep disorder Current Visit: Yes (7) COPD (chronic obstructive pulmonary disease) Current Visit: No Qualifiers: COPD type: unspecified COPD Qualified Code(s): J44.9 - Chronic obstructive pulmonary disease, unspecified Comment: PT STATES RESOLVED AND NO CURRENT MED/ WILL MONITOR RESPITORY WHILE IN [place]. (8) HLD (hyperlipidemia) Current Visit: No Qualifiers: Hyperlipidemia type: unspecified Qualified Code(s): E78.5 - Hyperlipidemia , unspecified (9) Hepatitis C Current Visit: No Qualifiers: Viral hepatitis chronicity: chronic Hepatic coma status: without hepatic coma Qualified Code(s): B18.2 - Chronic viral hepatitis C (10) History of colon cancer Current Visit: No (11) History of colon surgery Current Visit: No Initial treatment plan: Patient will be discharged tomorrow and referred to [facility] for outpatient treatment
[2017-10-27] MEDS: hydrOXYzine PAMOATE 25 MG CAPSULE (FP) PO PRN (21:52)
[2017-10-27] MEDS: THIAMINE HCL 100 MG TABLET (FP) PO SCH (21:52)
[2017-10-27] MEDS: traZODone HCL 50 MG TABLET (FP) PO SCH (21:52)
[2017-10-28 06:50] VITALS: BP 131/69; PULSE 76; TEMP 98
[2017-10-28] MEDS: risperiDONE 2 MG TABLET PO SCH (09:05)
[2017-10-28] MEDS: PRENATAL VITAMINS W/ FOLIC ACID TABLET (FP) PO SCH (09:05)
[2017-10-28] MEDS: NICOTINE 21 MG/24 HOURS TOPICAL PATCH TD SCH (09:05)
== END 2017-10-28 09:56 | disposition home or self-care (01) | DRG 772 ==
LOC: YASAS 17:54 → Y3W 17:55
PROVIDERS: ADMIT Psychiatry & Neurology Psychiatry; ATTEND Psychiatry & Neurology Psychiatry
PROC: HZ42ZZZ Group Counseling for Substance Abuse Treatment, Cognitive-Behavioral (ICD-10-PCS; principal; 2017-10-13)
DX: F10.20 Alcohol dependence, uncomplicated (principal); F14.20 Cocaine dependence, uncomplicated; F12.20 Cannabis dependence, uncomplicated; F17.210 Nicotine dependence, cigarettes, uncomplicated; F25.9 Schizoaffective disorder, unspecified; F19.282 Other psychoactive substance dependence with psychoactive substance-induced sleep disorder; B18.2 Chronic viral hepatitis C; J44.9 Chronic obstructive pulmonary disease, unspecified; E78.5 Hyperlipidemia, unspecified; Z85.038 Personal history of other malignant neoplasm of large intestine
CPT/HCPCS: J2794

== ENCOUNTER 2017-12-08 12:03 | Inpatient (IN) | payer OTHER ==
[2017-12-08 13:47] VITALS: BMI 21.2
--- NOTE | 2017-12-08 15:27 | HP ---
CIWA Score - CIWA Score Nausea/Vomitin-No Nausea/No Vomiting Muscle Tremors: 3 Anxiety: 4-Mod. Anxious/Guarded Agitation: 3 Paroxysmal Sweats: 1-Minimal Palms Moist Orientation: 0-Oriented Tacttile Disturbances: 1-Very Mild Itch/Numbness Auditory Disturbances: 0-None Visual Disturbances: 0-None Headache: 0-None Present CIWA-Ar Total Score: 12 Admission ROS BHS - HPI Chief Complaint: alcohol withdrawal sx Allergies/Adverse Reactions: Allergies Allergy/AdvReac Type Severity Reaction Status Date / Time No Known Allergies Allergy Verified 12/08/17 15:24 History of Present Illness: 61 years old male with long history of alcohol nicotine dependence has weight loss hepatitis c and schizophrenia is admitted to detox Exam Limitations: No Limitations - Ebola screening Have you traveled outside of the country in the last 21 days: No (N) Have you had contact with anyone from an Ebola affected area: No Have you been sick,other than usual withdrawal symptoms: No Do you have a fever: No - Review of Systems Constitutional: Loss of Appetite, Changes in sleep, Unintentional Wgt. Loss, Unexplained wgt Loss EENT: reports: Blurred Vision (need eye glasses) Respiratory: reports: No Symptoms reported Cardiac: reports: No Symptoms Reported GI: reports: Nausea, Poor Appetite, Poor Fluid Intake, Indigestion, Abdominal cramping : reports: No Symptoms Reported Musculoskeletal: reports: No Symptoms Reported Integumentary: reports: No Symptoms Reported Neuro: reports: Tremors Endocrine: reports: No Symptoms Reported Hematology: reports: No Symptoms Reported Psychiatric: reports: Judgement Intact, Orientated x3, Anxious, Depressed Other Systems: Reviewed and Negative Patient History - Patient Medical History Hx Anemia: No Hx Asthma: No Hx Chronic Obstructive Pulmonary Disease (COPD): No Hx Cancer: Yes (Colon Ca, Tx'd w/ surgery, 2015. No F/U treatment recommended at this time.) Hx Cardiac Disorders: No Hx Congestive Heart Failure: No Hx Hypertension: No Hx Hypercholesterolemia: Yes (Meds. in past 2 years; Currently managed with diet.) Hx Pacemaker: No HX Cerebrovascular Accident: No Hx Seizures: No Hx Dementia: No Hx Diabetes: No Hx Gastrointestinal Disorders: No Hx Liver Disease: Yes (Hep C, Diagnosed approx. 11 years ago.) Hx Genitourinary Disorders: No Hx Sexually Transmitted Disorders: Yes (Gonorrhea at 15 years) Hx Renal Disease (ESRD): No Hx Thyroid Disease: No Hx Human Immunodeficiency Virus (HIV): No (Last Tested: 07/2016: NEGATIVE.) Hx Hepatitis C: Yes (Diagnosed approx. 11 years ago; [facility] [place]) Hx Depression: No Hx Suicide Attempt: No Hx Bipolar Disorder: No Hx Schizophrenia: Yes - Patient Surgical History Past Surgical History: Yes Hx Neurologic Surgery: No Hx Cataract Extraction: No Hx Cardiac Surgery: No Hx Lung Surgery: No Hx Breast Surgery: No Hx Breast Biopsy: No Hx Abdominal Surgery: Yes (colectomy in 04/22 [facility]) Hx Appendectomy: No Hx Cholecystectomy: No Hx Genitourinary Surgery: No Hx Section: (N/A) Hx Orthopedic Surgery: No Anesthesia Reaction: No - PPD History Previous Implant?: Yes Documented Results: Negative w/proof Implanted On Prior [facility] Admission?: Yes Date: 08/12/17 Results: 0mm PPD to be Administered?: No - Smoking Cessation Smoking history: Current every day smoker Have you smoked in the past 12 months: Yes Aproximately how many cigarettes per day: 10 Cigars Per Day: 0 Hx Chewing Tobacco Use: No Initiated information on smoking cessation: Yes 'Breaking Loose' booklet given: 12/08/17 - Substance & Tx. History Hx Alcohol Use: Yes Hx Substance Use: Yes Substance Use Type: Alcohol, Cocaine, Marijuana Hx Substance Use Treatment: Yes (10/2017 [facility] - Substances Abused Alcohol-beer Route: Oral Frequency: Daily Amount used: 2 (16 oz.)/2 shots (vodka) Age of first use: 11 Date of Last Use: 12/07/17 Crack Route: Smoking Frequency: Daily Amount used: $20 Age of first use: 29 Date of Last Use: 12/07/17 Family Disease History - Family Disease History Family Disease History: Other: Mother (Stroke.), Brother (Psych. disorder.), Sister (Aneurysm, .) Admission Physical Exam S - Vital Signs Vital Signs: Vital Signs - 24 hr 12/08/17 13:45 Temperature 97.2 F L Pulse Rate 59 L Respiratory 20 Rate Blood Pressure 129/71 - Physical General Appearance: Yes: Appropriately Dressed, Mild Distress, Thin, Tremorous, Irritable, Sweating, Anxious HEENTM: Yes: Hearing grossly Normal, Normocephalic, Normal Voice Respiratory: Yes: Chest Non-Tender, Lungs Clear, Normal Breath Sounds, No Respiratory Distress, No Accessory Muscle Use Neck: Yes: Supple, Trachea in good position Breast: Yes: Breasts Symetrical, No Discharge Cardiology: Yes: Regular Rhythm, S1, S2, Bradycardia Abdominal: Yes: Normal Bowel Sounds, Non Tender, Flat Genitourinary: Yes: Within Normal Limits Back: Yes: Normal Inspection Musculoskeletal: Yes: full range of Motion, Gait Steady Extremities: Yes: Normal Inspection, Normal Range of Motion, Non-Tender, Tremors 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: Fully Oriented, Alert, Motor Strength 5/5, Normal Response, Depressed Affect Integumentary: Yes: Warm Lymphatic: Yes: Within Normal Limits - Diagnostic (1) Alcohol dependence with uncomplicated withdrawal Current Visit: Yes Status: Acute (2) Weight loss Current Visit: Yes Status: Acute (3) Hepatitis C Current Visit: Yes Status: Resolved Qualifiers: Viral hepatitis chronicity: chronic Hepatic coma status: without hepatic coma Qualified Code(s): B18.2 - Chronic viral hepatitis C (4) Nicotine dependence Current Visit: Yes Status: Acute Qualifiers: Nicotine product type: cigarettes Substance use status: in withdrawal Qualified Code(s): F17.213 - Nicotine dependence, cigarettes, with withdrawal (5) Schizoaffective disorder Current Visit: Yes Status: Suspected Qualifiers: Schizoaffective disorder type: unspecified Qualified Code(s): F25.9 - Schizoaffective disorder, unspecified Comment: As per existing records and patient's own verbal account.On medications. (6) History of colon cancer Current Visit: Yes Status: Resolved Cleared for Admission [facility] - Detox or Rehab [facility] Level of Care: Medically Managed Detox Regimen/Protocol: Librium [facility] Breath Alcohol Content Breath Alcohol Content: 0 Urine Drug Screen - Results Drug Screen Negative: No Urine Drug Screen Results: THC-Marijuana, MALINA-Cocaine
[2017-12-08] MEDS ORDERED: ACETAMINOPHEN 325 MG TABLET (FP) PO PRN (15:35)
[2017-12-08] MEDS ORDERED: MENTHOL/PHENOL 1 EACH UD MM PRN (15:35)
[2017-12-08] MEDS ORDERED: P-EPHED 60MG/TRIPROLIDI 2.5MG TABLET PO PRN (15:35)
[2017-12-08] MEDS ORDERED: MAGNESIUM HYDROX 2400MG/30ML ORAL SUSPENSION 30 ML CUP PO PRN (15:35)
[2017-12-08] MEDS ORDERED: NICOTINE POLACRILEX 2 MG GUM BC PRN (15:35)
[2017-12-08] MEDS ORDERED: MAGNESIUM CITRATE 300 ML BOTTLE PO PRN (15:35)
[2017-12-08] MEDS ORDERED: guaiFENesin/D-METHORPHAN HB 10 ML UNIT-DOSE CUPS PO PRN (15:35)
[2017-12-08] MEDS ORDERED: chlordiazePOXIDE HCL 25 MG CAPSULE PO PRN (15:35)
[2017-12-08] MEDS ORDERED: LOPERAMIDE HCL 2 MG CAPSULE PO PRN (15:35)
[2017-12-08] MEDS ORDERED: MAG HYDROX/AL HYDROX/SIMETH 30 ML UNIT-DOSE CUP PO PRN (15:35)
[2017-12-08] MEDS ORDERED: chlordiazePOXIDE HCL 25 MG CAPSULE PO SCH (17:00)
[2017-12-08] MEDS: chlordiazePOXIDE HCL 25 MG CAPSULE PO SCH ×2 (18:36→22:35)
[2017-12-08] MEDS: NICOTINE 14 MG/24 HOURS TOPICAL PATCH TD SCH (18:37)
[2017-12-08] MEDS ORDERED: MELATONIN 5 MG TABLETS PO PRN (22:00)
[2017-12-08] MEDS: THIAMINE HCL 100 MG TABLET (FP) PO SCH (22:35)
[2017-12-09] MEDS: chlordiazePOXIDE HCL 25 MG CAPSULE PO SCH ×4 (05:40→22:22)
[2017-12-09 09:40] LABS: HEMATOCRIT 43.2 % (35.4-49); HEMOGLOBIN 14.5 GM/dL (11.7-16.9); MCHC 33.6 g/dl (32.0-35.9); MEAN CELL VOLUME 86.3 fl (80-96); PLATELET COUNT 213 K/MM3 (134-434); RBC 5.01 M/mm3 (4.00-5.60); WHITE BLOOD COUNT 4.8 K/mm3 (4.0-10.0)
[2017-12-09 09:54] LABS: CHLORIDE 105 mmol/L (98-107); SODIUM 140 mmol/L (136-145)
[2017-12-09 10:14] LABS: ALBUMIN 3.2 g/dl (3.4-5.0); ALK PHOS 84 U/L (45-117); ANION GAP 10 (8-16); BILIRUBIN,TOTAL 0.9 mg/dL (0.2-1.0); BLOOD UREA NITROGEN 13 mg/dL (7-18); CALCIUM 8.4 mg/dL (8.5-10.1); CO2 25 mmol/L (21-32); CREATININE 0.8 mg/dL (0.7-1.3); GLUCOSE,RANDOM 80 mg/dL (74-106); SGOT/AST 21 U/L (15-37); SGPT/ALT 15 U/L (12-78); TOT PROT 7.3 g/dl (6.4-8.2)
[2017-12-09] MEDS: NICOTINE 14 MG/24 HOURS TOPICAL PATCH TD SCH (10:26)
[2017-12-09] MEDS: PRENATAL VITAMINS W/ FOLIC ACID TABLET (FP) PO SCH (10:26)
--- NOTE | 2017-12-09 10:55 | PN ---
S CIWA - CIWA Score Nausea/Vomitin-No Nausea/No Vomiting Muscle Tremors: 3 Anxiety: 2 Agitation: 3 Paroxysmal Sweats: 1-Minimal Palms Moist Orientation: 1-Uncertain about Date Tacttile Disturbances: 1-Very Mild Itch/Numbness Auditory Disturbances: 0-None Visual Disturbances: 0-None Headache: 1-Very Mild CIWA-Ar Total Score: 12 BHS Progress Note (SOAP) Subjective: tremor sweat tolerated librium 25 mg well sleep better at night "calmer" Objective: 12/09/17 10:59 Vital Signs Temperature 98.1 F 12/09/17 09:46 Pulse Rate 82 12/09/17 09:46 Respiratory Rate 18 12/09/17 09:46 Blood Pressure 96/52 12/09/17 09:46 O2 Sat by Pulse Oximetry (%) Laboratory Last Values WBC 4.8 K/mm3 (4.0-10.0) 12/09/17 08:00 RBC 5.01 M/mm3 (4.00-5.60) 12/09/17 08:00 Hgb 14.5 GM/dL (11.7-16.9) 12/09/17 08:00 Hct 43.2 % (35.4-49) 12/09/17 08:00 MCV 86.3 fl (80-96) 12/09/17 08:00 MCH 29.0 pg (25.7-33.7) 12/09/17 08:00 MCHC 33.6 g/dl (32.0-35.9) 12/09/17 08:00 RDW 14.0 % (11.9-15.9) 12/09/17 08:00 Plt Count 213 K/MM3 (134-434) 12/09/17 08:00 MPV 7.0 fl (7.5-11.1) L 12/09/17 08:00 Sodium 140 mmol/L (136-145) 12/09/17 08:00 Potassium 4.0 mmol/L (3.5-5.1) 12/09/17 08:00 Chloride 105 mmol/L (98-107) 12/09/17 08:00 Carbon Dioxide 25 mmol/L (21-32) D 12/09/17 08:00 Anion Gap 10 (8-16) 12/09/17 08:00 BUN 13 mg/dL (7-18) 12/09/17 08:00 Creatinine 0.8 mg/dL (0.7-1.3) 12/09/17 08:00 Creat Clearance w eGFR > 60 (>60) 12/09/17 08:00 Random Glucose 80 mg/dL (74-106) 12/09/17 08:00 Calcium 8.4 mg/dL (8.5-10.1) L 12/09/17 08:00 Total Bilirubin 0.9 mg/dL (0.2-1.0) 12/09/17 08:00 AST 21 U/L (15-37) 12/09/17 08:00 ALT 15 U/L (12-78) D 12/09/17 08:00 Alkaline Phosphatase 84 U/L (45-117) 12/09/17 08:00 Total Protein 7.3 g/dl (6.4-8.2) 12/09/17 08:00 Albumin 3.2 g/dl (3.4-5.0) L 12/09/17 08:00 RPR Titer Nonreactive (NONREACTIVE) 12/09/17 08:00 lab noted Assessment: 12/09/17 11:00 withdrawal sx Plan: continue detox
[2017-12-09 11:00] LABS: URINE APPEARANCE CLEAR; URINE BILIRUBIN NEGATIVE (<2.0 mg/dL); URINE COLOR YELLOW; URINE GLUCOSE (UA) NEGATIVE (NEGATIVE); URINE KETONE NEGATIVE (NEGATIVE); URINE NITRITE NEGATIVE (NEGATIVE); URINE PROTEIN NEGATIVE (NEGATIVE)
[2017-12-09 11:10] LABS: URINE LEUK ESTERASE 2+ (NEGATIVE)
[2017-12-09 11:12] LABS: EPI CELLS RARE /HPF (FEW); URINE MUCUS RARE
--- NOTE | 2017-12-09 14:05 | CONSULT ---
[facility] Psychiatric Consult - Data Date of interview: 12/09/17 Admission source: [facility] Identifying data: Patient is a 61 year old single male, without kids, domiciled , unemployed and supported by [facility]. This is one of multiple admissions for patient. Pt admitted to for alcohol and cocaine dependence. Substance Abuse History: Smoking Cessation. Smoking history: Current every day smoker. Have you smoked in the past 12 months: Yes. Aproximately how many cigarettes per day: 10. Cigars Per Day: 0. Hx Chewing Tobacco Use: No. Initiated information on smoking cessation: Yes. 'Breaking Loose' booklet given : 12/08/17. - Substance & Tx. History. Hx Alcohol Use: Yes. Hx Substance Use : Yes. Substance Use Type: Alcohol, Cocaine, Marijuana. Hx Substance Use Treatment: Yes (10/2017 [facility]). - Substances Abused. Alcohol-beer. Route: Oral. Frequency: Daily. Amount used: 2 (16 oz.)/2 shots (vodka). Age of first use: 11. Date of Last Use: 12/07/17. Crack. Route: Smoking. Frequency: Daily. Amount used: $20. Age of first use: 29. Date of Last Use: 12/07/17 Medical History: hypercholesterolemia, Hep C, Colon Ca, Tx'd w/ surgery, 2014. No F/U treatment recommended at this time. Psychiatric History: Patient reports several psychiatric hospitalizations to [facility] in [place] and [facility] approximately 7-10 years ago. OPD is provided at [facility] in [facility]. Diagnosis of schizoaffective disorder. Pt. reports being prescribed risperdal, zyprexa, and trazodone. As per pharmacy claims patient is prescribed risperdal 2mg BID and trazodone 50mg qhs. Pt. was recently in [facility] and was titrated from risperdal 1mg BID to risperdal 2mg BID. Pt. denies h/o suicide attempt. Physical/Sexual Abuse/Trauma History: Denies. Mental Status Exam - Mental Status Exam Alert and Oriented to: Time, Place, Person Cognitive Function: Fair Patient Appearance: Unkempt, Disheveled Mood: Hopeful, Euthymic Affect: Mood Congruent Patient Behavior: Cooperative Speech Pattern: Appropriate Voice Loudness: Normal Thought Process: Intact Thought Disorder: Not Present Hallucinations: Denies Suicidal Ideation: Denies Homicidal Ideation: Denies Insight/Judgement: Poor Sleep: Poorly Appetite: Poor Muscle strength/Tone: Normal Gait/Station: Normal Psychiatric Findings - Problem List ([place] 1, 2,3) (1) Alcohol dependence with uncomplicated withdrawal Current Visit: Yes Status: Acute (2) Nicotine dependence Current Visit: Yes Status: Acute Qualifiers: Nicotine product type: cigarettes Substance use status: in withdrawal Qualified Code(s): F17.213 - Nicotine dependence, cigarettes, with withdrawal (3) Schizoaffective disorder Current Visit: Yes Status: Chronic Qualifiers: Schizoaffective disorder type: unspecified Qualified Code(s): F25.9 - Schizoaffective disorder, unspecified Comment: As per existing records and patient's own verbal account.On medications. (4) Hepatitis C Current Visit: Yes Status: Resolved Qualifiers: Viral hepatitis chronicity: chronic Hepatic coma status: without hepatic coma Qualified Code(s): B18.2 - Chronic viral hepatitis C (5) History of colon cancer Current Visit: Yes Status: Resolved - Initial Treatment Plan Initial Treatment Plan: Psychoeducation provided. Detoxification provided. Risperdal 1mg BID + trazodone 50mg qhs. Benefits and side effects discussed. Verbal consent given.
--- NOTE | 2017-12-09 15:47 | EKG ---
Test Reason : Blood Pressure : / mmHG Vent. Rate : 052 BPM Atrial Rate : 052 BPM P-R Int : 160 ms QRS Dur : 078 ms QT Int : 448 ms P-R-T Axes : 094 078 068 degrees QTc Int : 416 ms SINUS BRADYCARDIA OTHERWISE NORMAL ECG WHEN COMPARED WITH ECG OF 08-OCT-2017 18:15, NO SIGNIFICANT CHANGE WAS FOUND Confirmed by RENE DUNCAN MD ([id number]) on 12/09/2017 3:46:54 PM Referred By: Confirmed By:RENE DUNCAN MD
[2017-12-09] MEDS ORDERED: chlordiazePOXIDE HCL 25 MG CAPSULE PO SCH (17:00)
[2017-12-09] MEDS: THIAMINE HCL 100 MG TABLET (FP) PO SCH (22:22)
[2017-12-09] MEDS: risperiDONE 2 MG TABLET PO SCH (22:23)
[2017-12-09] MEDS: traZODone HCL 50 MG TABLET (FP) PO SCH (22:23)
[2017-12-10] MEDS: chlordiazePOXIDE HCL 25 MG CAPSULE PO SCH ×2 (05:14→10:51)
--- NOTE | 2017-12-10 10:17 | PN ---
[facility] CIWA - CIWA Score Nausea/Vomitin-No Nausea/No Vomiting Muscle Tremors: 3 Anxiety: 3 Agitation: 2 Paroxysmal Sweats: 1-Minimal Palms Moist Orientation: 0-Oriented Tacttile Disturbances: 1-Very Mild Itch/Numbness Auditory Disturbances: 0-None Visual Disturbances: 0-None Headache: 0-None Present CIWA-Ar Total Score: 10 BHS Progress Note (SOAP) Subjective: mild tremor less sweat little gi distress able to slept throughout the night Objective: 12/10/17 10:18 Vital Signs Temperature 97.2 F L 12/10/17 09:18 Pulse Rate 71 12/10/17 09:18 Respiratory Rate 18 12/10/17 09:18 Blood Pressure 141/69 12/10/17 09:18 O2 Sat by Pulse Oximetry (%) Laboratory Last Values WBC 4.8 K/mm3 (4.0-10.0) 12/09/17 08:00 RBC 5.01 M/mm3 (4.00-5.60) 12/09/17 08:00 Hgb 14.5 GM/dL (11.7-16.9) 12/09/17 08:00 Hct 43.2 % (35.4-49) 12/09/17 08:00 MCV 86.3 fl (80-96) 12/09/17 08:00 MCH 29.0 pg (25.7-33.7) 12/09/17 08:00 MCHC 33.6 g/dl (32.0-35.9) 12/09/17 08:00 RDW 14.0 % (11.9-15.9) 12/09/17 08:00 Plt Count 213 K/MM3 (134-434) 12/09/17 08:00 MPV 7.0 fl (7.5-11.1) L 12/09/17 08:00 Sodium 140 mmol/L (136-145) 12/09/17 08:00 Potassium 4.0 mmol/L (3.5-5.1) 12/09/17 08:00 Chloride 105 mmol/L (98-107) 12/09/17 08:00 Carbon Dioxide 25 mmol/L (21-32) D 12/09/17 08:00 Anion Gap 10 (8-16) 12/09/17 08:00 BUN 13 mg/dL (7-18) 12/09/17 08:00 Creatinine 0.8 mg/dL (0.7-1.3) 12/09/17 08:00 Creat Clearance w eGFR > 60 (>60) 12/09/17 08:00 Random Glucose 80 mg/dL (74-106) 12/09/17 08:00 Calcium 8.4 mg/dL (8.5-10.1) L 12/09/17 08:00 Total Bilirubin 0.9 mg/dL (0.2-1.0) 12/09/17 08:00 AST 21 U/L (15-37) 12/09/17 08:00 ALT 15 U/L (12-78) D 12/09/17 08:00 Alkaline Phosphatase 84 U/L (45-117) 12/09/17 08:00 Total Protein 7.3 g/dl (6.4-8.2) 12/09/17 08:00 Albumin 3.2 g/dl (3.4-5.0) L 12/09/17 08:00 Urine Color Yellow 12/09/17 09:50 Urine Appearance Clear 12/09/17 09:50 Urine pH 6.0 (5.0-8.0) 12/09/17 09:50 Ur Specific [place] 1.012 (1.001-1.035) 12/09/17 09:50 Urine Protein Negative (NEGATIVE) 12/09/17 09:50 Urine Glucose (UA) Negative (NEGATIVE) 12/09/17 09:50 Urine Ketones Negative (NEGATIVE) 12/09/17 09:50 Urine Blood Negative (NEGATIVE) 12/09/17 09:50 Urine Nitrite Negative (NEGATIVE) 12/09/17 09:50 Urine Bilirubin Negative (<2.0 mg/dL) 12/09/17 09:50 Urine Urobilinogen 2.0 mg/dL (0.2-1.0) 12/09/17 09:50 Ur Leukocyte Esterase 2+ (NEGATIVE) H 12/09/17 09:50 Urine WBC (Auto) 32 /hpf (3-5) 12/09/17 09:50 Urine RBC (Auto) 2 /hpf (0-3) 12/09/17 09:50 Ur Epithelial Cells Rare /HPF (FEW) 12/09/17 09:50 Urine Mucus Rare 12/09/17 09:50 RPR Titer Nonreactive (NONREACTIVE) 12/09/17 08:00 12/10/17 10:21 lab noted repeat ua Assessment: 12/10/17 10:21 withdrawal sx Plan: continue detox repeat ua personal hygiene
[2017-12-10] MEDS: PRENATAL VITAMINS W/ FOLIC ACID TABLET (FP) PO SCH (10:50)
[2017-12-10] MEDS: risperiDONE 2 MG TABLET PO SCH ×2 (10:50→22:17)
[2017-12-10] MEDS: NICOTINE 14 MG/24 HOURS TOPICAL PATCH TD SCH (10:51)
--- NOTE | 2017-12-10 11:22 | PN ---
Psychiatric Progress Note Vital Signs: Vital Signs Period Temp Pulse Resp BP Sys/Kelly Pulse Ox Last 24 Hr 97.2 F-98.6 F 53-71 18-19 122-141/68-84 Date of Session: 12/10/17 Chief Complaint:: My medications HPI: Patient reports taking prior to admission. Prozac 20mg po qd,. Patient motivated to restart Prozac during detox treatment. Current Medications: Active Medications Generic Name Dose Route Start Last Admin Trade Name Freq PRN Reason Stop Dose Admin Acetaminophen 650 mg 12/08/17 15:35 Tylenol - PO Q4H PRN FEVER Al Hydroxide/Mg Hydroxide 30 ml 12/08/17 15:35 Mylanta Oral Suspension - PO Q6H PRN DYSPEPSIA Chlordiazepoxide HCl 15 mg 12/10/17 17:00 Librium - PO 12/11/17 11:01 [id number] RADHA Chlordiazepoxide HCl 25 mg 12/08/17 15:35 Librium - PO 12/11/17 15:34 Q4H PRN WITHDRAWAL(CONT SUBST) Chlordiazepoxide HCl 10 mg 12/11/17 17:00 Librium - PO 12/12/17 11:01 [id number] RADHA Eucalyptus/Menthol/Phenol/Sorbitol 1 each 12/08/17 15:35 Cepastat Lozenge - MM Q4H PRN SORE THROAT Fluoxetine HCl 20 mg 12/10/17 11:30 Prozac - PO DAILY RADHA Guaifenesin 10 ml 12/08/17 15:35 Robitussin Dm - PO Q6H PRN COUGH Loperamide HCl 4 mg 12/08/17 15:35 Imodium - PO Q6H PRN DIARRHEA Magnesium Citrate 300 ml 12/08/17 15:35 Citroma - PO Q48H PRN CONSTIPATION Magnesium Hydroxide 30 ml 12/08/17 15:35 Milk Of Magnesia - PO DAILY PRN CONSTIPATION Melatonin 5 mg 12/08/17 22:00 Melatonin PO HS PRN INSOMNIA Nicotine 14 mg 12/08/17 16:15 12/10/17 10:51 Nicoderm Patch - TD Not Given DAILY RADHA Nicotine Polacrilex 2 mg 12/08/17 15:35 Nicorette Gum - BC Q2H PRN NICOTINE REPLACEMENT RX Multivit/Folic Acid/Iron 1 tab 12/09/17 10:00 07/05/18 10:50 Vitamins (Sjr) - PO 1 tab DAILY RADHA Administration Pseudoephedrine/Triprolidine 1 combo 12/08/17 15:35 Actifed - PO TID PRN NASAL CONGESTION Risperidone 1 mg 12/09/17 22:00 12/10/17 10:50 Risperdal - PO 1 mg BID RADHA Administration Thiamine HCl 100 mg 12/08/17 22:00 12/09/17 22:22 Vitamin B1 - PO 100 mg HS RADHA Administration Trazodone HCl 50 mg 12/09/17 22:00 12/09/17 22:23 Desyrel - PO 50 mg HS RADHA Administration Provider note:: Prozac 20mg po qd was ordered. Mental Status Exam - Mental Status Exam Alert and Oriented to: Place, Person Cognitive Function: Fair Patient Appearance: Unkempt Mood: Apprehensive Affect: Mood Congruent Patient Behavior: Cooperative Speech Pattern: Delayed Voice Loudness: Mildly Soft/Quiet Thought Process: Goal Oriented Thought Disorder: Being Controlled Hallucinations: Denies Suicidal Ideation: Denies Homicidal Ideation: Denies Insight/Judgement: Fair Sleep: Difficulty falling asleep Appetite: Weight loss Muscle strength/Tone: Mild Hypotonicity Gait/Station: Shuffling Additional Comments: Prozac 20mg po qd Psychiatric Treatment Plan - Problem List (1) Alcohol dependence with uncomplicated withdrawal Current Visit: Yes (2) Nicotine dependence Current Visit: Yes Qualifiers: Nicotine product type: cigarettes Substance use status: in withdrawal Qualified Code(s): F17.213 - Nicotine dependence, cigarettes, with withdrawal (3) Weight loss Current Visit: Yes (4) Schizoaffective disorder Current Visit: Yes Qualifiers: Schizoaffective disorder type: unspecified Qualified Code(s): F25.9 - Schizoaffective disorder, unspecified Comment: As per existing records and patient's own verbal account.On medications. (5) History of colon cancer Current Visit: Yes (6) Alcohol dependence Current Visit: No (7) Cannabis abuse Current Visit: No (8) Cannabis dependence Current Visit: No (9) Cocaine dependence, uncomplicated Current Visit: No (10) Substance-induced sleep disorder Current Visit: No (11) COPD (chronic obstructive pulmonary disease) Current Visit: No Qualifiers: COPD type: unspecified COPD Qualified Code(s): J44.9 - Chronic obstructive pulmonary disease, unspecified Comment: PT STATES RESOLVED AND NO CURRENT MED/ WILL MONITOR RESPITORY WHILE IN [place]. (12) HLD (hyperlipidemia) Current Visit: No Qualifiers: Hyperlipidemia type: unspecified Qualified Code(s): E78.5 - Hyperlipidemia , unspecified (13) Hep C w/o coma, chronic Current Visit: No (14) History of colon surgery Current Visit: No (15) Hypokalemia Current Visit: No Initial treatment plan: Prozac 20mg po qd
[2017-12-10] MEDS: FLUoxetine HCL 20 MG CAPSULE (FP) PO SCH (12:12)
[2017-12-10] MEDS: chlordiazePOXIDE 5 MG CAPSULE PO SCH ×2 (17:47→22:17)
[2017-12-10] MEDS: traZODone HCL 50 MG TABLET (FP) PO SCH (22:17)
[2017-12-10] MEDS: THIAMINE HCL 100 MG TABLET (FP) PO SCH (22:17)
[2017-12-11] MEDS: chlordiazePOXIDE 5 MG CAPSULE PO SCH ×2 (05:54→10:41)
--- NOTE | 2017-12-11 09:49 | PN ---
S Progress Note (SOAP) Subjective: alert,no complaint Objective: 12/11/17 09:48 Vital Signs Temperature 97.3 F L 12/11/17 06:09 Pulse Rate 50 L 12/11/17 06:09 Respiratory Rate 16 12/11/17 06:09 Blood Pressure 119/61 12/11/17 06:09 O2 Sat by Pulse Oximetry (%) Assessment: 12/11/17 09:49 patient is stable for discharge to rehab Plan: discharge today
--- NOTE | 2017-12-11 09:54 | DS ---
[facility] Detox Discharge Summary Admission Date: 12/08/17 Discharge Date: 12/11/17 - History Present History: Alcohol Dependence, Cannabis Dependence Pertinent Past History: hepatitis c weight loss nicotine dependence schizoaffective disorder history of colon cancer - Physical Exam Results Vital Signs: Vital Signs Temperature 97.3 F L 12/11/17 06:09 Pulse Rate 50 L 12/11/17 06:09 Respiratory Rate 16 12/11/17 06:09 Blood Pressure 119/61 12/11/17 06:09 O2 Sat by Pulse Oximetry (%) Pertinent Admission Physical Exam Findings: withdrawal signs and symptom Laboratory Last Values WBC 4.8 K/mm3 (4.0-10.0) 12/09/17 08:00 RBC 5.01 M/mm3 (4.00-5.60) 12/09/17 08:00 Hgb 14.5 GM/dL (11.7-16.9) 12/09/17 08:00 Hct 43.2 % (35.4-49) 12/09/17 08:00 MCV 86.3 fl (80-96) 12/09/17 08:00 MCH 29.0 pg (25.7-33.7) 12/09/17 08:00 MCHC 33.6 g/dl (32.0-35.9) 12/09/17 08:00 RDW 14.0 % (11.9-15.9) 12/09/17 08:00 Plt Count 213 K/MM3 (134-434) 12/09/17 08:00 MPV 7.0 fl (7.5-11.1) L 12/09/17 08:00 Sodium 140 mmol/L (136-145) 12/09/17 08:00 Potassium 4.0 mmol/L (3.5-5.1) 12/09/17 08:00 Chloride 105 mmol/L (98-107) 12/09/17 08:00 Carbon Dioxide 25 mmol/L (21-32) D 12/09/17 08:00 Anion Gap 10 (8-16) 12/09/17 08:00 BUN 13 mg/dL (7-18) 12/09/17 08:00 Creatinine 0.8 mg/dL (0.7-1.3) 12/09/17 08:00 Creat Clearance w eGFR > 60 (>60) 12/09/17 08:00 Random Glucose 80 mg/dL (74-106) 12/09/17 08:00 Calcium 8.4 mg/dL (8.5-10.1) L 12/09/17 08:00 Total Bilirubin 0.9 mg/dL (0.2-1.0) 12/09/17 08:00 AST 21 U/L (15-37) 12/09/17 08:00 ALT 15 U/L (12-78) D 12/09/17 08:00 Alkaline Phosphatase 84 U/L (45-117) 12/09/17 08:00 Total Protein 7.3 g/dl (6.4-8.2) 12/09/17 08:00 Albumin 3.2 g/dl (3.4-5.0) L 12/09/17 08:00 Urine Color Yellow 12/09/17 09:50 Urine Appearance Clear 12/09/17 09:50 Urine pH 6.0 (5.0-8.0) 12/09/17 09:50 Ur Specific [place] 1.012 (1.001-1.035) 12/09/17 09:50 Urine Protein Negative (NEGATIVE) 12/09/17 09:50 Urine Glucose (UA) Negative (NEGATIVE) 12/09/17 09:50 Urine Ketones Negative (NEGATIVE) 12/09/17 09:50 Urine Blood Negative (NEGATIVE) 12/09/17 09:50 Urine Nitrite Negative (NEGATIVE) 12/09/17 09:50 Urine Bilirubin Negative (<2.0 mg/dL) 12/09/17 09:50 Urine Urobilinogen 2.0 mg/dL (0.2-1.0) 12/09/17 09:50 Ur Leukocyte Esterase 2+ (NEGATIVE) H 12/09/17 09:50 Urine WBC (Auto) 32 /hpf (3-5) 12/09/17 09:50 Urine RBC (Auto) 2 /hpf (0-3) 12/09/17 09:50 Ur Epithelial Cells Rare /HPF (FEW) 12/09/17 09:50 Urine Mucus Rare 12/09/17 09:50 RPR Titer Nonreactive (NONREACTIVE) 12/09/17 08:00 Vital Signs Temperature 97.3 F L 12/11/17 06:09 Pulse Rate 50 L 12/11/17 06:09 Respiratory Rate 16 12/11/17 06:09 Blood Pressure 119/61 12/11/17 06:09 O2 Sat by Pulse Oximetry (%) - Treatment Hospital Course: Detox Protocol Followed, Detoxed Safely, Responded well, Discharged Condition Good, Rehab Referral Accepted Patient has Accepted a [facility] Referral to: [facility] - Medication Discharge Medications: Ambulatory Orders traZODone HCL [Desyrel -] 50 mg PO HS #30 tablet 10/13/17 Risperidone [Risperdal -] 2 mg PO BID #60 tablet 10/27/17 Fluoxetine HCl [Prozac] 20 mg PO DAILY #30 capsule 12/10/17 Risperidone [Risperdal -] 1 mg PO BID #60 tablet 12/10/17 - Diagnosis (1) Alcohol dependence with uncomplicated withdrawal Current Visit: Yes Status: Acute (2) Nicotine dependence Current Visit: Yes Status: Acute Qualifiers: Nicotine product type: cigarettes Substance use status: in withdrawal Qualified Code(s): F17.213 - Nicotine dependence, cigarettes, with withdrawal (3) Weight loss Current Visit: Yes Status: Acute (4) Schizoaffective disorder Current Visit: Yes Status: Chronic Qualifiers: Schizoaffective disorder type: unspecified Qualified Code(s): F25.9 - Schizoaffective disorder, unspecified (5) Hepatitis C Current Visit: Yes Status: Resolved Qualifiers: Viral hepatitis chronicity: chronic Hepatic coma status: without hepatic coma Qualified Code(s): B18.2 - Chronic viral hepatitis C (6) History of colon cancer Current Visit: Yes Status: Resolved (7) Cannabis dependence Current Visit: No Status: Acute
[2017-12-11] MEDS: risperiDONE 2 MG TABLET PO SCH (10:41)
[2017-12-11] MEDS: FLUoxetine HCL 20 MG CAPSULE (FP) PO SCH (10:41)
[2017-12-11] MEDS: PRENATAL VITAMINS W/ FOLIC ACID TABLET (FP) PO SCH (10:42)
[2017-12-11] MEDS: NICOTINE 14 MG/24 HOURS TOPICAL PATCH TD SCH (10:42)
[2017-12-11] MEDS ORDERED: chlordiazePOXIDE HCL 10 MG CAPSULE PO SCH (17:00)
[2017-12-11 17:27] VITALS: BP 130/91; PULSE 90; TEMP 98.1
== END 2017-12-11 17:29 | disposition other institution (70) | DRG 775 ==
LOC: YASAS 12:03 → Y6N 15:57
PROVIDERS: ADMIT Surgery; ATTEND Surgery
PROC: HZ2ZZZZ Detoxification Services for Substance Abuse Treatment (ICD-10-PCS; principal; 2017-12-08)
DX: F10.230 Alcohol dependence with withdrawal, uncomplicated (principal); F12.20 Cannabis dependence, uncomplicated; F17.213 Nicotine dependence, cigarettes, with withdrawal; F25.9 Schizoaffective disorder, unspecified; B18.2 Chronic viral hepatitis C; E78.00 Pure hypercholesterolemia, unspecified; R63.4 Abnormal weight loss; Z68.21 Body mass index [BMI] 21.0-21.9, adult; Z85.038 Personal history of other malignant neoplasm of large intestine; Z86.19 Personal history of other infectious and parasitic diseases
CPT/HCPCS: 36415; 80053; 81003; 81015; 85027; 86593; 93005; 93010

== ENCOUNTER 2017-12-11 17:44 | Inpatient (IN) | payer OTHER ==
[2017-12-11] MEDS ORDERED: MENTHOL/PHENOL 1 EACH UD MM PRN (18:42)
[2017-12-11] MEDS ORDERED: guaiFENesin/D-METHORPHAN HB 10 ML UNIT-DOSE CUPS PO PRN (18:42)
[2017-12-11] MEDS ORDERED: LOPERAMIDE HCL 2 MG CAPSULE PO PRN (18:42)
[2017-12-11] MEDS ORDERED: hydrOXYzine PAMOATE 50 MG CAPSULE (FP) PO PRN (18:42)
[2017-12-11] MEDS ORDERED: MAG HYDROX/AL HYDROX/SIMETH 30 ML UNIT-DOSE CUP PO PRN (18:42)
[2017-12-11] MEDS ORDERED: IBUPROFEN 400 MG TABLET (FP) PO PRN (18:42)
[2017-12-11] MEDS ORDERED: ACETAMINOPHEN 325 MG TABLET (FP) PO PRN (18:42)
[2017-12-11] MEDS ORDERED: MAGNESIUM CITRATE 300 ML BOTTLE PO PRN (18:42)
[2017-12-11] MEDS ORDERED: MAGNESIUM HYDROX 2400MG/30ML ORAL SUSPENSION 30 ML CUP PO PRN (18:42)
[2017-12-11] MEDS ORDERED: P-EPHED 60MG/TRIPROLIDI 2.5MG TABLET PO PRN (18:42)
[2017-12-11] MEDS: risperiDONE 1 MG TABLET (FP) PO SCH (21:56)
[2017-12-11] MEDS: THIAMINE HCL 100 MG TABLET (FP) PO SCH (21:56)
[2017-12-12] MEDS: FLUoxetine HCL 20 MG CAPSULE (FP) PO SCH (10:01)
[2017-12-12] MEDS: risperiDONE 1 MG TABLET (FP) PO SCH ×2 (10:01→21:07)
[2017-12-12] MEDS: PRENATAL VITAMINS W/ FOLIC ACID TABLET (FP) PO SCH (10:01)
[2017-12-12] MEDS: NICOTINE 14 MG/24 HOURS TOPICAL PATCH TD SCH (10:02)
[2017-12-12] MEDS: THIAMINE HCL 100 MG TABLET (FP) PO SCH (21:07)
[2017-12-12] MEDS: MELATONIN 5 MG TABLETS PO PRN (21:09)
[2017-12-13] MEDS: risperiDONE 1 MG TABLET (FP) PO SCH ×2 (09:47→21:14)
[2017-12-13] MEDS: FLUoxetine HCL 20 MG CAPSULE (FP) PO SCH (09:47)
[2017-12-13] MEDS: NICOTINE 14 MG/24 HOURS TOPICAL PATCH TD SCH (09:47)
[2017-12-13] MEDS: PRENATAL VITAMINS W/ FOLIC ACID TABLET (FP) PO SCH (09:47)
[2017-12-13] MEDS: MELATONIN 5 MG TABLETS PO PRN (21:14)
[2017-12-13] MEDS: THIAMINE HCL 100 MG TABLET (FP) PO SCH (21:14)
[2017-12-14] MEDS: NICOTINE 14 MG/24 HOURS TOPICAL PATCH TD SCH (10:13)
[2017-12-14] MEDS: PRENATAL VITAMINS W/ FOLIC ACID TABLET (FP) PO SCH (10:13)
[2017-12-14] MEDS: risperiDONE 1 MG TABLET (FP) PO SCH ×2 (10:13→21:22)
[2017-12-14] MEDS: FLUoxetine HCL 20 MG CAPSULE (FP) PO SCH (10:13)
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
[2017-12-14] MEDS: THIAMINE HCL 100 MG TABLET (FP) PO SCH (21:22)
[2017-12-14] MEDS: traZODone HCL 100 MG TABLET (FP) PO SCH (21:22)
[2017-12-15] MEDS: NICOTINE 14 MG/24 HOURS TOPICAL PATCH TD SCH (09:53)
[2017-12-15] MEDS: PRENATAL VITAMINS W/ FOLIC ACID TABLET (FP) PO SCH (09:54)
[2017-12-15] MEDS: FLUoxetine HCL 20 MG CAPSULE (FP) PO SCH (09:54)
[2017-12-15] MEDS: risperiDONE 1 MG TABLET (FP) PO SCH ×2 (09:54→21:07)
[2017-12-15] MEDS: THIAMINE HCL 100 MG TABLET (FP) PO SCH (21:07)
[2017-12-15] MEDS: traZODone HCL 100 MG TABLET (FP) PO SCH (21:07)
[2017-12-16] MEDS: FLUoxetine HCL 20 MG CAPSULE (FP) PO SCH (10:03)
[2017-12-16] MEDS: risperiDONE 1 MG TABLET (FP) PO SCH ×2 (10:03→21:26)
[2017-12-16] MEDS: NICOTINE 14 MG/24 HOURS TOPICAL PATCH TD SCH (10:03)
[2017-12-16] MEDS: PRENATAL VITAMINS W/ FOLIC ACID TABLET (FP) PO SCH (10:03)
[2017-12-16] MEDS: THIAMINE HCL 100 MG TABLET (FP) PO SCH (21:26)
[2017-12-16] MEDS: traZODone HCL 100 MG TABLET (FP) PO SCH (21:26)
[2017-12-17] MEDS: PRENATAL VITAMINS W/ FOLIC ACID TABLET (FP) PO SCH (09:41)
[2017-12-17] MEDS: NICOTINE 14 MG/24 HOURS TOPICAL PATCH TD SCH (09:41)
[2017-12-17] MEDS: FLUoxetine HCL 20 MG CAPSULE (FP) PO SCH (09:41)
[2017-12-17] MEDS: risperiDONE 1 MG TABLET (FP) PO SCH ×2 (09:41→21:07)
[2017-12-17] MEDS: THIAMINE HCL 100 MG TABLET (FP) PO SCH (21:07)
[2017-12-17] MEDS: traZODone HCL 100 MG TABLET (FP) PO SCH (21:07)
[2017-12-18] MEDS: PRENATAL VITAMINS W/ FOLIC ACID TABLET (FP) PO SCH (09:56)
[2017-12-18] MEDS: risperiDONE 1 MG TABLET (FP) PO SCH ×2 (09:56→21:15)
[2017-12-18] MEDS: NICOTINE 14 MG/24 HOURS TOPICAL PATCH TD SCH (09:56)
[2017-12-18] MEDS: FLUoxetine HCL 20 MG CAPSULE (FP) PO SCH (09:56)
[2017-12-18] MEDS: traZODone HCL 100 MG TABLET (FP) PO SCH (21:15)
[2017-12-18] MEDS: THIAMINE HCL 100 MG TABLET (FP) PO SCH (21:15)
[2017-12-19] MEDS: FLUoxetine HCL 20 MG CAPSULE (FP) PO SCH (09:59)
[2017-12-19] MEDS: risperiDONE 1 MG TABLET (FP) PO SCH ×2 (09:59→21:21)
[2017-12-19] MEDS: PRENATAL VITAMINS W/ FOLIC ACID TABLET (FP) PO SCH (09:59)
[2017-12-19] MEDS: NICOTINE 14 MG/24 HOURS TOPICAL PATCH TD SCH (10:00)
[2017-12-19] MEDS: THIAMINE HCL 100 MG TABLET (FP) PO SCH (21:20)
[2017-12-19] MEDS: traZODone HCL 100 MG TABLET (FP) PO SCH (21:21)
[2017-12-20] MEDS: FLUoxetine HCL 20 MG CAPSULE (FP) PO SCH (09:45)
[2017-12-20] MEDS: NICOTINE 14 MG/24 HOURS TOPICAL PATCH TD SCH (09:45)
[2017-12-20] MEDS: PRENATAL VITAMINS W/ FOLIC ACID TABLET (FP) PO SCH (09:45)
[2017-12-20] MEDS: risperiDONE 1 MG TABLET (FP) PO SCH ×2 (09:45→21:10)
[2017-12-20] MEDS: THIAMINE HCL 100 MG TABLET (FP) PO SCH (21:10)
[2017-12-20] MEDS: traZODone HCL 100 MG TABLET (FP) PO SCH (21:10)
[2017-12-21] MEDS: NICOTINE 14 MG/24 HOURS TOPICAL PATCH TD SCH (10:15)
[2017-12-21] MEDS: FLUoxetine HCL 20 MG CAPSULE (FP) PO SCH (10:15)
[2017-12-21] MEDS: risperiDONE 1 MG TABLET (FP) PO SCH ×2 (10:15→21:07)
[2017-12-21] MEDS: PRENATAL VITAMINS W/ FOLIC ACID TABLET (FP) PO SCH (10:15)
[2017-12-21] MEDS: THIAMINE HCL 100 MG TABLET (FP) PO SCH (21:07)
[2017-12-21] MEDS: traZODone HCL 100 MG TABLET (FP) PO SCH (21:07)
[2017-12-22] MEDS: risperiDONE 1 MG TABLET (FP) PO SCH ×2 (09:54→21:10)
[2017-12-22] MEDS: FLUoxetine HCL 20 MG CAPSULE (FP) PO SCH (09:54)
[2017-12-22] MEDS: PRENATAL VITAMINS W/ FOLIC ACID TABLET (FP) PO SCH (09:54)
[2017-12-22] MEDS: NICOTINE 14 MG/24 HOURS TOPICAL PATCH TD SCH (09:54)
[2017-12-22] MEDS: traZODone HCL 100 MG TABLET (FP) PO SCH (21:10)
[2017-12-22] MEDS: THIAMINE HCL 100 MG TABLET (FP) PO SCH (21:10)
[2017-12-23] MEDS: risperiDONE 1 MG TABLET (FP) PO SCH ×2 (09:55→21:13)
[2017-12-23] MEDS: PRENATAL VITAMINS W/ FOLIC ACID TABLET (FP) PO SCH (09:55)
[2017-12-23] MEDS: NICOTINE 14 MG/24 HOURS TOPICAL PATCH TD SCH (09:55)
[2017-12-23] MEDS: FLUoxetine HCL 20 MG CAPSULE (FP) PO SCH (09:55)
[2017-12-23] MEDS: MELATONIN 5 MG TABLETS PO PRN (21:13)
[2017-12-23] MEDS: traZODone HCL 100 MG TABLET (FP) PO SCH (21:13)
[2017-12-23] MEDS: THIAMINE HCL 100 MG TABLET (FP) PO SCH (21:13)
[2017-12-24] MEDS: FLUoxetine HCL 20 MG CAPSULE (FP) PO SCH (09:59)
[2017-12-24] MEDS: risperiDONE 1 MG TABLET (FP) PO SCH ×2 (09:59→21:17)
[2017-12-24] MEDS: PRENATAL VITAMINS W/ FOLIC ACID TABLET (FP) PO SCH (10:00)
[2017-12-24] MEDS: NICOTINE 14 MG/24 HOURS TOPICAL PATCH TD SCH (10:00)
[2017-12-24] MEDS: MELATONIN 5 MG TABLETS PO PRN (21:17)
[2017-12-24] MEDS: traZODone HCL 100 MG TABLET (FP) PO SCH (21:17)
[2017-12-24] MEDS: THIAMINE HCL 100 MG TABLET (FP) PO SCH (21:17)
[2017-12-25] MEDS: FLUoxetine HCL 20 MG CAPSULE (FP) PO SCH (09:48)
[2017-12-25] MEDS: risperiDONE 1 MG TABLET (FP) PO SCH ×2 (09:49→21:15)
[2017-12-25] MEDS: NICOTINE 14 MG/24 HOURS TOPICAL PATCH TD SCH (09:49)
[2017-12-25] MEDS: PRENATAL VITAMINS W/ FOLIC ACID TABLET (FP) PO SCH (09:49)
[2017-12-25] MEDS: THIAMINE HCL 100 MG TABLET (FP) PO SCH (21:15)
[2017-12-25] MEDS: traZODone HCL 100 MG TABLET (FP) PO SCH (21:15)
[2017-12-25] MEDS: MELATONIN 5 MG TABLETS PO PRN (21:16)
[2017-12-26] MEDS: PRENATAL VITAMINS W/ FOLIC ACID TABLET (FP) PO SCH (09:59)
[2017-12-26] MEDS: FLUoxetine HCL 20 MG CAPSULE (FP) PO SCH (09:59)
[2017-12-26] MEDS: risperiDONE 1 MG TABLET (FP) PO SCH ×2 (09:59→21:11)
[2017-12-26] MEDS: NICOTINE 14 MG/24 HOURS TOPICAL PATCH TD SCH (10:40)
[2017-12-26] MEDS: MELATONIN 5 MG TABLETS PO PRN (21:11)
[2017-12-26] MEDS: traZODone HCL 100 MG TABLET (FP) PO SCH (21:11)
[2017-12-26] MEDS: THIAMINE HCL 100 MG TABLET (FP) PO SCH (21:11)
[2017-12-27] MEDS: NICOTINE 14 MG/24 HOURS TOPICAL PATCH TD SCH (10:05)
[2017-12-27] MEDS: PRENATAL VITAMINS W/ FOLIC ACID TABLET (FP) PO SCH (10:05)
[2017-12-27] MEDS: FLUoxetine HCL 20 MG CAPSULE (FP) PO SCH (10:05)
[2017-12-27] MEDS: risperiDONE 1 MG TABLET (FP) PO SCH ×2 (10:05→21:12)
[2017-12-27] MEDS: THIAMINE HCL 100 MG TABLET (FP) PO SCH (21:12)
[2017-12-27] MEDS: MELATONIN 5 MG TABLETS PO PRN (21:12)
[2017-12-27] MEDS: traZODone HCL 100 MG TABLET (FP) PO SCH (21:12)
[2017-12-28] MEDS: PRENATAL VITAMINS W/ FOLIC ACID TABLET (FP) PO SCH (09:51)
[2017-12-28] MEDS: risperiDONE 1 MG TABLET (FP) PO SCH ×2 (09:51→21:11)
[2017-12-28] MEDS: FLUoxetine HCL 20 MG CAPSULE (FP) PO SCH (09:51)
[2017-12-28] MEDS: NICOTINE 14 MG/24 HOURS TOPICAL PATCH TD SCH (09:51)
[2017-12-28] MEDS: traZODone HCL 100 MG TABLET (FP) PO SCH (21:11)
[2017-12-28] MEDS: MELATONIN 5 MG TABLETS PO PRN (21:11)
[2017-12-28] MEDS: THIAMINE HCL 100 MG TABLET (FP) PO SCH (21:11)
[2017-12-29] MEDS: PRENATAL VITAMINS W/ FOLIC ACID TABLET (FP) PO SCH (09:53)
[2017-12-29] MEDS: FLUoxetine HCL 20 MG CAPSULE (FP) PO SCH (09:53)
[2017-12-29] MEDS: NICOTINE 14 MG/24 HOURS TOPICAL PATCH TD SCH (09:53)
[2017-12-29] MEDS: risperiDONE 1 MG TABLET (FP) PO SCH ×2 (09:53→21:12)
[2017-12-29] MEDS: MELATONIN 5 MG TABLETS PO PRN (21:12)
[2017-12-29] MEDS: traZODone HCL 100 MG TABLET (FP) PO SCH (21:12)
[2017-12-29] MEDS: THIAMINE HCL 100 MG TABLET (FP) PO SCH (21:12)
[2017-12-30] MEDS: PRENATAL VITAMINS W/ FOLIC ACID TABLET (FP) PO SCH (09:52)
[2017-12-30] MEDS: FLUoxetine HCL 20 MG CAPSULE (FP) PO SCH (09:52)
[2017-12-30] MEDS: risperiDONE 1 MG TABLET (FP) PO SCH ×2 (09:52→21:14)
[2017-12-30] MEDS: NICOTINE 14 MG/24 HOURS TOPICAL PATCH TD SCH (09:52)
--- NOTE | 2017-12-30 14:04 | PN ---
Psychiatric Progress Note Vital Signs: Vital Signs Period Temp Pulse Resp BP Sys/Kelly Pulse Ox Last 24 Hr 98.4 F 71 16-20 100/70 Date of Session: 12/30/17 Chief Complaint:: Discharge Note HPI: Patient addressing Alcohol, Cocaine and Cannabis Dependence comorbid with Nicotine Dependence and Schizoaffective Disorder ROS: Hep C, HLD, S/P Colon cancer Current Medications: Active Medications Generic Name Dose Route Start Last Admin Trade Name Freq PRN Reason Stop Dose Admin Acetaminophen 650 mg 12/11/17 18:42 Tylenol - PO Q4H PRN FEVER Al Hydroxide/Mg Hydroxide 30 ml 12/11/17 18:42 Mylanta Oral Suspension - PO Q6H PRN DYSPEPSIA Eucalyptus/Menthol/Phenol/Sorbitol 1 each 12/11/17 18:42 Cepastat Lozenge - MM Q4H PRN SORE THROAT Fluoxetine HCl 20 mg 12/12/17 10:00 12/30/17 09:52 Prozac - PO 20 mg DAILY RADHA Administration Guaifenesin 10 ml 12/11/17 18:42 Robitussin Dm - PO Q6H PRN COUGH Hydroxyzine Pamoate 50 mg 12/11/17 18:42 Vistaril - PO Q4H PRN AGITATION Ibuprofen 400 mg 12/11/17 18:42 Motrin - PO Q6H PRN Pain Level 4-6 Loperamide HCl 4 mg 12/11/17 18:42 Imodium - PO Q6H PRN DIARRHEA Magnesium Citrate 300 ml 12/11/17 18:42 Citroma - PO Q48H PRN CONSTIPATION Magnesium Hydroxide 30 ml 12/11/17 18:42 Milk Of Magnesia - PO DAILY PRN CONSTIPATION Melatonin 5 mg 12/11/17 22:00 12/29/17 21:12 Melatonin PO 5 mg HS PRN Administration INSOMNIA Nicotine 14 mg 12/12/17 10:00 12/30/17 09:52 Nicoderm Patch - TD Not Given DAILY RADHA Multivit/Folic Acid/Iron 1 tab 12/12/17 10:00 12/30/17 09:52 Vitamins (Sjr) - PO 1 tab DAILY RADHA Administration Pseudoephedrine/Triprolidine 1 combo 12/11/17 18:42 Actifed - PO TID PRN NASAL CONGESTION Risperidone 1 mg 12/11/17 22:00 12/30/17 09:52 Risperdal - PO 1 mg BID RADHA Administration Thiamine HCl 100 mg 12/11/17 22:00 12/29/17 21:12 Vitamin B1 - PO 100 mg HS RADHA Administration Trazodone HCl 100 mg 12/14/17 22:00 12/29/17 21:12 Desyrel - PO 100 mg HS RADHA Administration Current Side Effect: No Lab tests ordered: Yes Lab tests reviewed: Yes Provider note:: Patient will complete this program on 12/31/17. He has met his treatment goals and will continue to address his issues in outpatient program at [facility]. Told service writer advisor that from his participation in this program, he has learned the importance of staying away from people. places and things. He responded well to Prozac 20 mg po daily, Risperdal 1 mg po BID and Trazadone 100 mg po HS. Sripts for 30 days supply of medications will be electronically transmitted to [facility] at [address] [place] [address]. He is stable for discharge on 12/31/17 Total face to face time:: 35 Mental Status Exam - Mental Status Exam Alert and Oriented to: Time, Place, Person Cognitive Function: Fair Patient Appearance: Well Groomed Mood: Hopeful, Euthymic Affect: Appropriate Patient Behavior: Cooperative Speech Pattern: Clear Voice Loudness: Normal Thought Process: Intact, Goal Oriented Thought Disorder: Not Present Hallucinations: Denies Suicidal Ideation: Denies Homicidal Ideation: Denies Insight/Judgement: Fair Sleep: Fair Appetite: Good Muscle strength/Tone: Normal Gait/Station: Normal Psychiatric Treatment Plan - Problem List (1) Alcohol dependence Current Visit: Yes (2) Cocaine dependence Current Visit: Yes (3) Cannabis dependence Current Visit: Yes (4) Nicotine dependence Current Visit: No Qualifiers: Nicotine product type: cigarettes Substance use status: in withdrawal Qualified Code(s): F17.213 - Nicotine dependence, cigarettes, with withdrawal (5) Schizoaffective disorder Current Visit: Yes Qualifiers: Schizoaffective disorder type: unspecified Qualified Code(s): F25.9 - Schizoaffective disorder, unspecified Comment: As per existing records and patient's own verbal account.On medications. (6) Hepatitis C Current Visit: Yes Qualifiers: Viral hepatitis chronicity: chronic Hepatic coma status: without hepatic coma Qualified Code(s): B18.2 - Chronic viral hepatitis C (7) HLD (hyperlipidemia) Current Visit: No Qualifiers: Hyperlipidemia type: unspecified Qualified Code(s): E78.5 - Hyperlipidemia , unspecified (8) History of colon surgery Current Visit: Yes Initial treatment plan: Patient will be discharged tomorrow and referred to [facility] for outpatient treatment
[2017-12-30] MEDS: traZODone HCL 100 MG TABLET (FP) PO SCH (21:14)
[2017-12-30] MEDS: MELATONIN 5 MG TABLETS PO PRN (21:14)
[2017-12-30] MEDS: THIAMINE HCL 100 MG TABLET (FP) PO SCH (21:14)
[2017-12-31 07:04] VITALS: BP 120/71; PULSE 65; TEMP 98.3
[2017-12-31] MEDS: risperiDONE 1 MG TABLET (FP) PO SCH (09:53)
[2017-12-31] MEDS: NICOTINE 14 MG/24 HOURS TOPICAL PATCH TD SCH (09:53)
[2017-12-31] MEDS: FLUoxetine HCL 20 MG CAPSULE (FP) PO SCH (09:53)
[2017-12-31] MEDS: PRENATAL VITAMINS W/ FOLIC ACID TABLET (FP) PO SCH (09:53)
== END 2017-12-31 10:40 | disposition home or self-care (01) | DRG 772 ==
LOC: YASAS 17:44 → Y5N 17:47
PROVIDERS: ADMIT Psychiatry & Neurology Psychiatry; ATTEND Psychiatry & Neurology Psychiatry
PROC: HZ42ZZZ Group Counseling for Substance Abuse Treatment, Cognitive-Behavioral (ICD-10-PCS; principal; 2017-12-11)
DX: F10.20 Alcohol dependence, uncomplicated (principal); F14.20 Cocaine dependence, uncomplicated; F12.20 Cannabis dependence, uncomplicated; F17.213 Nicotine dependence, cigarettes, with withdrawal; F25.9 Schizoaffective disorder, unspecified; B18.2 Chronic viral hepatitis C; E78.5 Hyperlipidemia, unspecified; Z85.038 Personal history of other malignant neoplasm of large intestine; Z98.890 Other specified postprocedural states
CPT/HCPCS: J2794

== ENCOUNTER 2018-03-08 14:03 | Inpatient (IN) | payer OTHER ==
[2018-03-08 14:55] VITALS: BMI 21.6
--- NOTE | 2018-03-08 16:29 | HP ---
CIWA Score - CIWA Score Nausea/Vomitin Muscle Tremors: 2 Anxiety: 2 Agitation: 3 Paroxysmal Sweats: 2 Orientation: 1-Uncertain about Date (no distress) Tacttile Disturbances: 0-None Auditory Disturbances: 0-None Visual Disturbances: 0-None Headache: 0-None Present CIWA-Ar Total Score: 12 Admission ROS S - HPI Chief Complaint: " I want get help" alcohol withdrawal symptoms Allergies/Adverse Reactions: Allergies Allergy/AdvReac Type Severity Reaction Status Date / Time No Known Allergies Allergy Verified 12/08/17 15:24 History of Present Illness: 62 yo male with hx of nicotine, alcohol, crack cocaine dependence and occasional marijuana use is here seeking detox. Last detox and rehab [facility] - 12/30/17. PMHX: COPD, Hep C, HDL, weight loss, schizophrenia, insomnia, depression. Denies suicidal / homicidal ideation or suicide attempts. Denies auditory or visual hallucinations at this time. Reports remote hx of ETOH seizures with last episode one year ago. Reports longest period of sobriety 5.5 years. Denies any legal problems at this time. Exam Limitations: No Limitations - Ebola screening Have you traveled outside of the country in the last 21 days: No Have you had contact with anyone from an Ebola affected area: No Have you been sick,other than usual withdrawal symptoms: No Do you have a fever: No - Review of Systems Constitutional: Chills, Changes in sleep (takes trazadone), Unintentional Wgt. Loss EENT: reports: Dental Problems (missing teeth) Respiratory: reports: No Symptoms reported Cardiac: reports: No Symptoms Reported GI: reports: Diarrhea, Nausea, Poor Appetite, Vomiting, Abdominal cramping : reports: No Symptoms Reported Musculoskeletal: reports: No Symptoms Reported Integumentary: reports: No Symptoms Reported Neuro: reports: No Symptoms reported Endocrine: reports: Increased Thirst Hematology: reports: No Symptoms Reported Psychiatric: reports: Orientated x3, Anxious Other Systems: Reviewed and Negative Patient History - Patient Medical History Hx Anemia: No Hx Asthma: No Hx Chronic Obstructive Pulmonary Disease (COPD): Yes (no meds ) Hx Cancer: Yes (Colon Ca, Tx'd w/ surgery, 2014. No F/U treatment recommended at this time.) Hx Cardiac Disorders: No Hx Congestive Heart Failure: No Hx Hypertension: No Hx Hypercholesterolemia: Yes (Meds. in past 2 years; Currently managed with diet.) Hx Pacemaker: No HX Cerebrovascular Accident: No Hx Seizures: Yes (2016) Hx Dementia: No Hx Diabetes: No Hx Gastrointestinal Disorders: No Hx Liver Disease: Yes (Hep C, Diagnosed approx. 11 years ago.) Hx Genitourinary Disorders: No Hx Sexually Transmitted Disorders: Yes (GONORRHEA AT AGE 15) Hx Renal Disease (ESRD): No Hx Thyroid Disease: No Hx Human Immunodeficiency Virus (HIV): No (Last Tested: 06/2017: NEGATIVE.) Hx Hepatitis C: Yes (Diagnosed approx. 11 years ago; [facility] [place]) Hx Depression: Yes Hx Suicide Attempt: No Hx Bipolar Disorder: No Hx Schizophrenia: Yes - Patient Surgical History Past Surgical History: Yes Hx Neurologic Surgery: No Hx Cataract Extraction: No Hx Cardiac Surgery: No Hx Lung Surgery: No Hx Breast Surgery: No Hx Breast Biopsy: No Hx Abdominal Surgery: Yes (colectomy in 04/22 [facility]) Hx Appendectomy: No Hx Cholecystectomy: No Hx Genitourinary Surgery: No Hx Section: (N/A) Hx Orthopedic Surgery: No Anesthesia Reaction: No - PPD History Previous Implant?: No Documented Results: Negative w/proof Date: 08/12/17 Results: 0mm PPD to be Administered?: No - Smoking Cessation Smoking history: Current every day smoker Have you smoked in the past 12 months: Yes Aproximately how many cigarettes per day: 10 Cigars Per Day: 0 Hx Chewing Tobacco Use: No Initiated information on smoking cessation: Yes 'Breaking Loose' booklet given: 03/08/18 - Substance & Tx. History Hx Alcohol Use: Yes Hx Substance Use: Yes Substance Use Type: Alcohol, Cocaine Hx Substance Use Treatment: Yes ( Last detox and rehab [facility] 12/08/17 - 12/30/17.) - Substances Abused Alcohol Route: Oral Frequency: Daily Amount used: 3 x 24 oz, 1 pint vodka Age of first use: 13 Date of Last Use: 03/08/18 (4 AM) crack Route: Smoking Frequency: Daily Amount used: 10 crack / cigarettes per day Age of first use: 23 Date of Last Use: 03/07/18 Marijuana/Hashish Route: Smoking Frequency: 1-3 times last 30 days Amount used: 1 joint Age of first use: 18 Date of Last Use: 03/01/18 Family Disease History - Family Disease History Family Disease History: Other: Mother (Stroke.), Brother (Psych. disorder.), Sister (Aneurysm, .) Admission Physical Exam [facility] - Vital Signs Vital Signs: Vital Signs - 24 hr 03/08/18 14:54 Temperature 99.1 F Pulse Rate 85 Respiratory 18 Rate Blood Pressure 118/73 - Physical General Appearance: Yes: Disheveled, Mild Distress, Alcohol on Breath, Thin, Anxious, Other (unkempt) HEENTM: Yes: EOMI, Hearing grossly Normal, Normal ENT Inspection, Normocephalic , Normal Voice, JL, Pharynx Normal, Tm's normal, Other (cheilitis , edentulous ) Respiratory: Yes: Chest Non-Tender, Lungs Clear, Normal Breath Sounds, No Respiratory Distress, No Accessory Muscle Use Neck: Yes: Within Normal Limits Breast: Yes: Breast Exam Deferred Cardiology: Yes: Regular Rhythm, Regular Rate Abdominal: Yes: Normal Bowel Sounds, Non Tender, Flat, Soft Genitourinary: Yes: Within Normal Limits Back: Yes: Normal Inspection Musculoskeletal: Yes: full range of Motion, Gait Steady, Pelvis Stable Extremities: Yes: Normal Capillary Refill, Normal Inspection, Normal Range of Motion, Non-Tender 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: buffet manager II-XII NML intact, Fully Oriented, Motor Strength 5/5, Depressed Affect Integumentary: Yes: Normal Color, Dry, Warm Lymphatic: Yes: Within Normal Limits - Diagnostic (1) Psychiatric disorder Current Visit: Yes Status: Suspected (2) Alcohol dependence with uncomplicated withdrawal Current Visit: Yes Status: Acute (3) Cannabis abuse Current Visit: Yes Status: Acute (4) Cocaine dependence, uncomplicated Current Visit: Yes Status: Acute (5) Nicotine dependence Current Visit: Yes Status: Acute Qualifiers: Nicotine product type: cigarettes Substance use status: in withdrawal Qualified Code(s): F17.213 - Nicotine dependence, cigarettes, with withdrawal (6) HLD (hyperlipidemia) Current Visit: Yes Status: Chronic Qualifiers: Hyperlipidemia type: unspecified Qualified Code(s): E78.5 - Hyperlipidemia , unspecified (7) Weight loss Current Visit: Yes Status: Acute (8) COPD (chronic obstructive pulmonary disease) Current Visit: Yes Status: Chronic Qualifiers: COPD type: unspecified COPD Qualified Code(s): J44.9 - Chronic obstructive pulmonary disease, unspecified Comment: PT STATES RESOLVED AND NO CURRENT MED/ WILL MONITOR RESPITORY WHILE IN [place]. Cleared for Admission [facility] - Detox or Rehab [facility] Level of Care: Medically Managed Detox Regimen/Protocol: Librium S Breath Alcohol Content Breath Alcohol Content: 0 Urine Drug Screen - Results Drug Screen Negative: No Urine Drug Screen Results: THC-Marijuana, MALINA-Cocaine
[2018-03-08] MEDS ORDERED: IBUPROFEN 400 MG TABLET (FP) PO PRN (16:39)
[2018-03-08] MEDS ORDERED: MAGNESIUM CITRATE 300 ML BOTTLE PO PRN (16:39)
[2018-03-08] MEDS ORDERED: ACETAMINOPHEN 325 MG TABLET (FP) PO PRN (16:39)
[2018-03-08] MEDS ORDERED: MAG HYDROX/AL HYDROX/SIMETH 30 ML UNIT-DOSE CUP PO PRN (16:39)
[2018-03-08] MEDS ORDERED: guaiFENesin/D-METHORPHAN HB 10 ML UNIT-DOSE CUPS PO PRN (16:39)
[2018-03-08] MEDS ORDERED: MAGNESIUM HYDROX 2400MG/30ML ORAL SUSPENSION 30 ML CUP PO PRN (16:39)
[2018-03-08] MEDS ORDERED: P-EPHED 60MG/TRIPROLIDI 2.5MG TABLET PO PRN (16:39)
[2018-03-08] MEDS ORDERED: MENTHOL/PHENOL 1 EACH UD MM PRN (16:39)
[2018-03-08] MEDS ORDERED: chlordiazePOXIDE HCL 25 MG CAPSULE PO PRN (16:39)
[2018-03-08] MEDS ORDERED: LOPERAMIDE HCL 2 MG CAPSULE PO PRN (16:39)
[2018-03-08] MEDS ORDERED: hydrOXYzine PAMOATE 50 MG CAPSULE (FP) PO PRN (16:41)
[2018-03-08] MEDS ORDERED: NICOTINE POLACRILEX 2 MG GUM BUC PRN (16:41)
[2018-03-08] MEDS ORDERED: MELATONIN 5 MG TABLETS PO PRN (22:00)
[2018-03-08] MEDS: THIAMINE HCL 100 MG TABLET (FP) PO SCH (22:34)
[2018-03-08] MEDS: chlordiazePOXIDE HCL 25 MG CAPSULE PO SCH (22:35)
[2018-03-08 23:21] LABS: URINE APPEARANCE CLEAR; URINE BILIRUBIN NEGATIVE (<2.0 mg/dL); URINE COLOR DKYELLOW; URINE GLUCOSE (UA) NEGATIVE (NEGATIVE); URINE KETONE NEGATIVE (NEGATIVE); URINE LEUK ESTERASE NEGATIVE (NEGATIVE); URINE NITRITE NEGATIVE (NEGATIVE); URINE PROTEIN NEGATIVE (NEGATIVE)
[2018-03-09] MEDS: chlordiazePOXIDE HCL 25 MG CAPSULE PO SCH ×4 (05:14→22:16)
[2018-03-09] MEDS: PRENATAL VITAMINS W/ FOLIC ACID TABLET (FP) PO SCH (10:16)
[2018-03-09] MEDS: NICOTINE 14 MG/24 HOURS TOPICAL PATCH TD SCH (10:17)
[2018-03-09 10:36] LABS: HEMATOCRIT 44.2 % (35.4-49); HEMOGLOBIN 14.4 GM/dL (11.7-16.9); MCH 28.3 pg (25.7-33.7); MCHC 32.6 g/dl (32.0-35.9); MEAN CELL VOLUME 86.8 fl (80-96); PLATELET COUNT 194 K/MM3 (134-434); RBC 5.09 M/mm3 (4.00-5.60)
[2018-03-09 10:45] LABS: ALBUMIN 3.2 g/dl (3.4-5.0); ALK PHOS 75 U/L (45-117); ANION GAP 9 MMOL/L (8-16); BILIRUBIN,TOTAL 1.1 mg/dL (0.2-1); BLOOD UREA NITROGEN 10 mg/dL (7-18); CALCIUM 9.2 mg/dL (8.5-10.1); CHLORIDE 106 mmol/L (98-107); CO2 27 mmol/L (21-32); CREATININE 0.8 mg/dL (0.55-1.3); GLUCOSE,RANDOM 74 mg/dL (74-106); POTASSIUM 4.5 mmol/L (3.5-5.1); SGOT/AST 17 U/L (15-37); SGPT/ALT 11 U/L (13-61); SODIUM 143 mmol/L (136-145)
--- NOTE | 2018-03-09 11:07 | EKG ---
Test Reason : Blood Pressure : / mmHG Vent. Rate : 073 BPM Atrial Rate : 073 BPM P-R Int : 144 ms QRS Dur : 074 ms QT Int : 374 ms P-R-T Axes : 078 081 071 degrees QTc Int : 412 ms NORMAL SINUS RHYTHM NORMAL ECG WHEN COMPARED WITH ECG OF 08-DEC-2017 18:18, NO SIGNIFICANT CHANGE WAS FOUND Confirmed by Dane Almaguer MD ([id number]) on 03/09/2018 11:07:02 AM Referred By: Confirmed By:Dane Almaguer MD
--- NOTE | 2018-03-09 11:51 | PN ---
BHS CIWA - CIWA Score Nausea/Vomitin Muscle Tremors: 2 Anxiety: 2 Agitation: 0-Normal Activity Paroxysmal Sweats: No Perspiration Orientation: 0-Oriented Tacttile Disturbances: 2-Mild Itch/Numbness/Burn Auditory Disturbances: 0-None Visual Disturbances: 0-None Headache: 2-Mild CIWA-Ar Total Score: 10 BHS Progress Note (SOAP) Subjective: PATIENT C/O NAUSEA/DIARRHEA, SHAKES AND HEADACHE Objective: 03/09/18 11:48 Laboratory Tests 03/08/18 03/09/18 03/09/18 19:46 07:30 07:30 WBC 5.0 RBC 5.09 Hgb 14.4 Hct 44.2 MCV 86.8 MCH 28.3 MCHC 32.6 RDW 15.0 Plt Count 194 MPV 7.0 L Sodium 143 Potassium 4.5 Chloride 106 Carbon Dioxide 27 Anion Gap 9 BUN 10 Creatinine 0.8 Creat Clearance w eGFR > 60 Random Glucose 74 Calcium 9.2 Total Bilirubin 1.1 H AST 17 ALT 11 L Alkaline Phosphatase 75 Total Protein 7.0 Albumin 3.2 L Urine Color Dkyellow Urine Appearance Clear Urine pH 6.0 Ur Specific [place] 1.020 Urine Protein Negative Urine Glucose (UA) Negative Urine Ketones Negative Urine Blood Negative Urine Nitrite Negative Urine Bilirubin Negative Urine Urobilinogen 2.0 Ur Leukocyte Esterase Negative RPR Titer 03/09/18 07:30 WBC RBC Hgb Hct MCV MCH MCHC RDW Plt Count MPV Sodium Potassium Chloride Carbon Dioxide Anion Gap BUN Creatinine Creat Clearance w eGFR Random Glucose Calcium Total Bilirubin AST ALT Alkaline Phosphatase Total Protein Albumin Urine Color Urine Appearance Urine pH Ur Specific [place] Urine Protein Urine Glucose (UA) Urine Ketones Urine Blood Urine Nitrite Urine Bilirubin Urine Urobilinogen Ur Leukocyte Esterase RPR Titer Nonreactive Vital Signs Temperature 97.2 F L 03/09/18 09:25 Pulse Rate 81 03/09/18 09:25 Respiratory Rate 18 03/09/18 09:25 Blood Pressure 117/61 03/09/18 09:25 O2 Sat by Pulse Oximetry (%) ALERT AND ORIENTED SKIN WARM,INTACT CAR S1S2 RESP CTA BL GI SOFT, BS+,NT, ND EXT +TREMORS, NO EDEMA PSYCH =ANXIETY Assessment: 03/09/18 11:51 ETOH WITHDRAWAL SYNDROME Plan: DETOX ORDERED ENCOURAGE ORAL FLUIDS CONTINUE TO MONITOR CLINICALLY
--- NOTE | 2018-03-09 19:27 | CONSULT ---
[facility] Psychiatric Consult - Data Date of interview: 03/09/18 Admission source: [facility] Identifying data: Another admission to [facility] for this 62 y/o AA male seeking detox treatment on for alcohol and cocaine (crack) dependence.Patient is single without children,domiciled,unemployed and supported on SSI benefits. Substance Abuse History: Confirmed by the patient in this session.Details in current [facility] report : Smoking history: Current every day smoker. Have you smoked in the past 12 months: Yes. Aproximately how many cigarettes per day: 10. Cigars Per Day: 0. Hx Chewing Tobacco Use: No. Initiated information on smoking cessation: Yes. 'Breaking Loose' booklet given: 03/08/18. - Substance & Tx. History. Hx Alcohol Use: Yes. Hx Substance Use: Yes. Substance Use Type : Alcohol, Cocaine. Hx Substance Use Treatment: Yes ( Last detox and rehab [facility] 12/08/17 - 12/30/17.). - Substances Abused. Alcohol. Route: Oral. Frequency: Daily. Amount used: 3 x 24 oz, 1 pint vodka. Age of first use: 13. Date of Last Use: 03/08/18 (4 AM). crack. Route: Smoking. Frequency: Daily. Amount used: 10 crack / cigarettes per day. Age of first use: 23. Date of Last Use: 03/07/18. Marijuana/Hashish. Route: Smoking. Frequency: 1-3 times last 30 days. Amount used: 1 joint. Age of first use: 18. Date of Last Use: 03/01/18 Medical History: History of withdrawal-related seizures,hepatitis C,past treatment (colectomy) for cancer of colon in 2014,hypercholesterolemia,COPD and a history of treatment for gonorrhea/syphilis. Psychiatric History: Extensive history of psychiatric illness.Patient is diagnosed with Schizoaffective Disorder.He admits to two psychiatric hospitalizations ([facility] in [place] + [facility] in the [place]).Mr Barker declares that he NO LONGER gets his outpatient psychiatric services at [facility] under the supervision of Dr Benitez.Has dropped out of [employer] care.Patient indicates that he obtains medications from local detox/ rehabilitation facilities.Maintained on a regimen of risperdal,trazodone and remeron (doses not recalled).Patient denies history of suicide attempts. Physical/Sexual Abuse/Trauma History: Patient denies. Additional Comment: Urine Drug Screen Results: THC-Marijuana, MALINA-Cocaine.Noted. Mental Status Exam - Mental Status Exam Alert and Oriented to: Time, Place, Person Cognitive Function: Good Patient Appearance: Well Groomed Mood: Nervous, Withdrawn Affect: Mood Congruent Patient Behavior: Fatigued, Cooperative Speech Pattern: Clear, Appropriate Voice Loudness: Normal Thought Process: Goal Oriented Thought Disorder: Not Present Hallucinations: Denies Suicidal Ideation: Denies Homicidal Ideation: Denies Insight/Judgement: Poor Sleep: Poorly, Difficulty falling asleep Appetite: Good Muscle strength/Tone: Normal Gait/Station: Normal Psychiatric Findings - Problem List ([place] 1, 2,3) (1) Alcohol dependence with uncomplicated withdrawal Current Visit: Yes Status: Acute (2) Cannabis dependence, uncomplicated Current Visit: Yes Status: Chronic (3) Cocaine dependence, uncomplicated Current Visit: Yes Status: Acute (4) Nicotine dependence Current Visit: Yes Status: Acute Qualifiers: Nicotine product type: cigarettes Substance use status: in withdrawal Qualified Code(s): F17.213 - Nicotine dependence, cigarettes, with withdrawal (5) Schizoaffective disorder Current Visit: Yes Status: Chronic (6) Insomnia Current Visit: Yes Status: Acute (7) Non-compliance Current Visit: Yes Status: Acute - Initial Treatment Plan Initial Treatment Plan: Psychoeducation.Sleep hygiene.Detoxification in progress.Medications : trazodone 50 mg po hs + prozac 20 mg po daily. Risperdal is held until further orders.Side effects/benefits of these medications are discussed with the patient.Mr Barker is in agreement with this plan of care.Observation.
[2018-03-09] MEDS: THIAMINE HCL 100 MG TABLET (FP) PO SCH (22:16)
[2018-03-09] MEDS: traZODone HCL 50 MG TABLET (FP) PO SCH (22:16)
[2018-03-10] MEDS: chlordiazePOXIDE HCL 25 MG CAPSULE PO SCH ×3 (05:57→17:20)
[2018-03-10] MEDS: NICOTINE 14 MG/24 HOURS TOPICAL PATCH TD SCH (10:18)
[2018-03-10] MEDS: FLUoxetine HCL 20 MG CAPSULE (FP) PO SCH (10:18)
[2018-03-10] MEDS: PRENATAL VITAMINS W/ FOLIC ACID TABLET (FP) PO SCH (10:18)
--- NOTE | 2018-03-10 13:56 | PN ---
S CIWA - CIWA Score Nausea/Vomitin-Mild Nausea/No Vomiting Muscle Tremors: 2 Anxiety: 2 Agitation: 0-Normal Activity Paroxysmal Sweats: No Perspiration Orientation: 0-Oriented Tacttile Disturbances: 0-None Auditory Disturbances: 0-None Visual Disturbances: 0-None Headache: 2-Mild CIWA-Ar Total Score: 7 BHS Progress Note (SOAP) Subjective: PATIENT C/O HEADACHE, SHAKES, FEELING TIRED AND OCCASIONAL NAUSEA. Objective: 03/10/18 13:53 Laboratory Tests 03/08/18 03/09/18 03/09/18 19:46 07:30 07:30 WBC 5.0 RBC 5.09 Hgb 14.4 Hct 44.2 MCV 86.8 MCH 28.3 MCHC 32.6 RDW 15.0 Plt Count 194 MPV 7.0 L Sodium 143 Potassium 4.5 Chloride 106 Carbon Dioxide 27 Anion Gap 9 BUN 10 Creatinine 0.8 Creat Clearance w eGFR > 60 Random Glucose 74 Calcium 9.2 Total Bilirubin 1.1 H AST 17 ALT 11 L Alkaline Phosphatase 75 Total Protein 7.0 Albumin 3.2 L Urine Color Dkyellow Urine Appearance Clear Urine pH 6.0 Ur Specific [place] 1.020 Urine Protein Negative Urine Glucose (UA) Negative Urine Ketones Negative Urine Blood Negative Urine Nitrite Negative Urine Bilirubin Negative Urine Urobilinogen 2.0 Ur Leukocyte Esterase Negative RPR Titer 03/09/18 07:30 WBC RBC Hgb Hct MCV MCH MCHC RDW Plt Count MPV Sodium Potassium Chloride Carbon Dioxide Anion Gap BUN Creatinine Creat Clearance w eGFR Random Glucose Calcium Total Bilirubin AST ALT Alkaline Phosphatase Total Protein Albumin Urine Color Urine Appearance Urine pH Ur Specific [place] Urine Protein Urine Glucose (UA) Urine Ketones Urine Blood Urine Nitrite Urine Bilirubin Urine Urobilinogen Ur Leukocyte Esterase RPR Titer Nonreactive Vital Signs Temperature 98.4 F 03/10/18 10:05 Pulse Rate 77 03/10/18 10:05 Respiratory Rate 18 03/10/18 10:05 Blood Pressure 112/73 03/10/18 10:05 O2 Sat by Pulse Oximetry (%) PE: SKIN WARM AND DRY ALERT AND ORIENTED CAR S1S2 RESP CTA BL BS+, NT, ND, SOFT EXT: MILD TREMORS NEURO +PERRLA, ALERT AND ORIENTED X 3 Assessment: 03/10/18 13:55 WITHDRAWAL SYNDROME Plan: CONTINUE DETOX ORDERED CONTINUE TO MONITOR CLINICALLY ENCOURAGE ORAL FLUIDS
[2018-03-10] MEDS: chlordiazePOXIDE 5 MG CAPSULE PO SCH (22:39)
[2018-03-10] MEDS: THIAMINE HCL 100 MG TABLET (FP) PO SCH (22:39)
[2018-03-10] MEDS: traZODone HCL 50 MG TABLET (FP) PO SCH (22:39)
[2018-03-11] MEDS: chlordiazePOXIDE 5 MG CAPSULE PO SCH ×3 (05:36→17:48)
[2018-03-11] MEDS: PRENATAL VITAMINS W/ FOLIC ACID TABLET (FP) PO SCH (10:38)
[2018-03-11] MEDS: FLUoxetine HCL 20 MG CAPSULE (FP) PO SCH (10:38)
[2018-03-11] MEDS: NICOTINE 14 MG/24 HOURS TOPICAL PATCH TD SCH (10:38)
--- NOTE | 2018-03-11 11:33 | PN ---
BHS Progress Note (SOAP) Subjective: PATIENT CONTINUES ON DETOX FROM ETOH. STATES "I FEEL OK BUT TIRED." Objective: 03/11/18 11:32 ALERT AND ORIENTED RESTING IN BED SKIN WARM AND DRY CAR S1S2 RESP CTA BL Assessment: 03/11/18 11:32 WITHDRAWAL SYNDROME Plan: PATIENT TO CONTINUE DETOX ENCOURAGE ORAL FLUIDS CONTINUE TO MONITOR
[2018-03-11] MEDS: THIAMINE HCL 100 MG TABLET (FP) PO SCH (22:34)
[2018-03-11] MEDS: chlordiazePOXIDE HCL 10 MG CAPSULE PO SCH (22:34)
[2018-03-11] MEDS: traZODone HCL 50 MG TABLET (FP) PO SCH (22:34)
[2018-03-12] MEDS: chlordiazePOXIDE HCL 10 MG CAPSULE PO SCH ×2 (05:37→10:33)
[2018-03-12 10:04] VITALS: BP 100/66; PULSE 89; TEMP 98.2
[2018-03-12] MEDS: NICOTINE 14 MG/24 HOURS TOPICAL PATCH TD SCH (10:32)
[2018-03-12] MEDS: PRENATAL VITAMINS W/ FOLIC ACID TABLET (FP) PO SCH (10:32)
[2018-03-12] MEDS: FLUoxetine HCL 20 MG CAPSULE (FP) PO SCH (10:32)
--- NOTE | 2018-03-12 13:02 | DS ---
[facility] Detox Discharge Summary Admission Date: 03/08/18 Discharge Date: 03/12/18 - History Present History: Alcohol Dependence, Cannabis Dependence, Cocaine Dependence Pertinent Past History: COPD HLD - Physical Exam Results Vital Signs: Vital Signs Temperature 98.2 F 03/12/18 10:02 Pulse Rate 89 03/12/18 10:02 Respiratory Rate 16 03/12/18 10:02 Blood Pressure 100/66 03/12/18 10:02 O2 Sat by Pulse Oximetry (%) Pertinent Admission Physical Exam Findings: Withdrawal sxs Laboratory Tests 03/08/18 03/09/18 03/09/18 19:46 07:30 07:30 WBC 5.0 RBC 5.09 Hgb 14.4 Hct 44.2 MCV 86.8 MCH 28.3 MCHC 32.6 RDW 15.0 Plt Count 194 MPV 7.0 L Sodium 143 Potassium 4.5 Chloride 106 Carbon Dioxide 27 Anion Gap 9 BUN 10 Creatinine 0.8 Creat Clearance w eGFR > 60 Random Glucose 74 Calcium 9.2 Total Bilirubin 1.1 H AST 17 ALT 11 L Alkaline Phosphatase 75 Total Protein 7.0 Albumin 3.2 L Urine Color Dkyellow Urine Appearance Clear Urine pH 6.0 Ur Specific Cornell 1.020 Urine Protein Negative Urine Glucose (UA) Negative Urine Ketones Negative Urine Blood Negative Urine Nitrite Negative Urine Bilirubin Negative Urine Urobilinogen 2.0 Ur Leukocyte Esterase Negative RPR Titer 03/09/18 07:30 WBC RBC Hgb Hct MCV MCH MCHC RDW Plt Count MPV Sodium Potassium Chloride Carbon Dioxide Anion Gap BUN Creatinine Creat Clearance w eGFR Random Glucose Calcium Total Bilirubin AST ALT Alkaline Phosphatase Total Protein Albumin Urine Color Urine Appearance Urine pH Ur Specific Cornell Urine Protein Urine Glucose (UA) Urine Ketones Urine Blood Urine Nitrite Urine Bilirubin Urine Urobilinogen Ur Leukocyte Esterase RPR Titer Nonreactive Labs reviewed - Treatment Hospital Course: Detox Protocol Followed, Detoxed Safely, Responded well, Discharged Condition Good - Medication Discharge Medications: Ambulatory Orders traZODone HCL [Desyrel -] 50 mg PO HS #30 tablet 10/13/17 Fluoxetine HCl [Prozac -] 20 mg PO DAILY #30 capsule 12/30/17 Risperidone [Risperdal -] 1 mg PO BID #60 tablet 12/30/17 - Diagnosis (1) Alcohol dependence with uncomplicated withdrawal Current Visit: Yes Status: Acute (2) Cocaine dependence, uncomplicated Current Visit: Yes Status: Chronic (3) Nicotine dependence Current Visit: Yes Status: Chronic Qualifiers: Nicotine product type: cigarettes Substance use status: in withdrawal Qualified Code(s): F17.213 - Nicotine dependence, cigarettes, with withdrawal (4) COPD (chronic obstructive pulmonary disease) Current Visit: Yes Status: Chronic Qualifiers: COPD type: unspecified COPD Qualified Code(s): J44.9 - Chronic obstructive pulmonary disease, unspecified (5) Cannabis dependence, uncomplicated Current Visit: Yes Status: Chronic (6) HLD (hyperlipidemia) Current Visit: Yes Status: Chronic Qualifiers: Hyperlipidemia type: unspecified Qualified Code(s): E78.5 - Hyperlipidemia , unspecified - AMA Did Patient Leave Against Medical Advice: No (F/U with your PCP within 1-2 weeks )
== END 2018-03-12 14:29 | disposition other institution (70) | DRG 774 ==
LOC: YASAS 14:03 → Y3N 16:47
PROC: HZ2ZZZZ Detoxification Services for Substance Abuse Treatment (ICD-10-PCS; principal; 2018-03-08)
DX: F10.230 Alcohol dependence with withdrawal, uncomplicated (principal); F14.20 Cocaine dependence, uncomplicated; F12.20 Cannabis dependence, uncomplicated; F17.213 Nicotine dependence, cigarettes, with withdrawal; F25.9 Schizoaffective disorder, unspecified; J44.9 Chronic obstructive pulmonary disease, unspecified; E78.5 Hyperlipidemia, unspecified; Z91.19 Patient's noncompliance with other medical treatment and regimen; Z85.038 Personal history of other malignant neoplasm of large intestine; Z87.438 Personal history of other diseases of male genital organs; Z86.69 Personal history of other diseases of the nervous system and sense organs; Z87.891 Personal history of nicotine dependence
CPT/HCPCS: 36415; 80053; 81003; 85027; 86593; 93005; 93010

== ENCOUNTER 2018-03-12 15:39 | Inpatient (IN) | payer OTHER ==
[2018-03-12] MEDS ORDERED: NICOTINE POLACRILEX 2 MG GUM BUC PRN (16:22)
[2018-03-12] MEDS ORDERED: MAGNESIUM HYDROX 2400MG/30ML ORAL SUSPENSION 30 ML CUP PO PRN (16:22)
[2018-03-12] MEDS ORDERED: P-EPHED 60MG/TRIPROLIDI 2.5MG TABLET PO PRN (16:22)
[2018-03-12] MEDS ORDERED: guaiFENesin/D-METHORPHAN HB 10 ML UNIT-DOSE CUPS PO PRN (16:22)
[2018-03-12] MEDS ORDERED: LOPERAMIDE HCL 2 MG CAPSULE PO PRN (16:22)
[2018-03-12] MEDS ORDERED: ACETAMINOPHEN 325 MG TABLET (FP) PO PRN (16:22)
[2018-03-12] MEDS ORDERED: MENTHOL/PHENOL 1 EACH UD MM PRN (16:22)
[2018-03-12] MEDS ORDERED: MAGNESIUM CITRATE 300 ML BOTTLE PO PRN (16:22)
[2018-03-12] MEDS ORDERED: IBUPROFEN 400 MG TABLET (FP) PO PRN (16:22)
[2018-03-12] MEDS ORDERED: hydrOXYzine PAMOATE 50 MG CAPSULE (FP) PO PRN (16:22)
[2018-03-12] MEDS: traZODone HCL 50 MG TABLET (FP) PO SCH (21:57)
[2018-03-12] MEDS: THIAMINE HCL 100 MG TABLET (FP) PO SCH (21:57)
[2018-03-13] MEDS: risperiDONE 1 MG TABLET (FP) PO SCH (10:11)
[2018-03-13] MEDS: PRENATAL VITAMINS W/ FOLIC ACID TABLET (FP) PO SCH (10:11)
[2018-03-13] MEDS: NICOTINE 14 MG/24 HOURS TOPICAL PATCH TD SCH (10:11)
[2018-03-13] MEDS: FLUoxetine HCL 20 MG CAPSULE (FP) PO SCH (10:11)
[2018-03-13] MEDS: THIAMINE HCL 100 MG TABLET (FP) PO SCH (22:04)
[2018-03-13] MEDS: traZODone HCL 50 MG TABLET (FP) PO SCH (22:04)
[2018-03-14] MEDS: NICOTINE 14 MG/24 HOURS TOPICAL PATCH TD SCH (10:04)
[2018-03-14] MEDS: PRENATAL VITAMINS W/ FOLIC ACID TABLET (FP) PO SCH (10:04)
[2018-03-14] MEDS: risperiDONE 1 MG TABLET (FP) PO SCH (10:04)
[2018-03-14] MEDS: FLUoxetine HCL 20 MG CAPSULE (FP) PO SCH (10:04)
[2018-03-14] MEDS: THIAMINE HCL 100 MG TABLET (FP) PO SCH (21:30)
[2018-03-14] MEDS: traZODone HCL 50 MG TABLET (FP) PO SCH (21:30)
--- NOTE | 2018-03-15 06:28 | HP ---
Psychiatrist Admission - Data Date of interview: 03/15/18 Admission source: 3N Identifying data: This is one of the multiple [facility] admission for this 62 years old single Black male, unemployed on SSI, domiciled Medical History: Significant for COPD, dyslipidemia, history of treatment for hepatitis C, gonorrhea & syphilis, alcohol withdrawal seizure and past colectomy for cancer of colon in 2015. Smokes 10 cigarettes daily Psychiatric History: Patient is well known to this facility from multiple previous admission. Reports extensive history of psychiatric illness. Patient is diagnosed with Schizoaffective Disorder with two previous psychiatric hospitalizations ([facility] in [place] & [facility] in the [place]). Up to a few months ago, he was receiving outpatient psychiatric services at [facility] under the supervision of Dr Benitez. Reports that since he dropped out of treatment, he has been getting medications only whenever admitted to detox/rehab in this facility. Reports being maintained on Risperdal , Trazadone and Remeron(doses notrecalled). He recently saw Dr Ku on while in detox and he was prescribed Trazadone 50 mg po HS and Prozac 20 mg po daily. Patient denies history of suicide attempts. At present, denies experiencing psychotic, manic or depressive symptoms as well as S/H ideations. However reports sleeping poorly despite taking Trazadone 50 mg at bedtime. Requests that Trazadone dosage be increased Physical/Sexual Abuse/Trauma History: Denies history of emotional, physical or sexual as well as DV relationship, Patient reports he served in ([employer] ) from 1972 to 1977, and discharged with "bad conduct", reports "I was fighting ". Additional Comment: Reports history of a few previous misdemeanor arrests on charges of drinking in public Vital Signs: Vital Signs - 24 hr 03/14/18 07:07 Temperature 97.6 F Pulse Rate 64 Respiratory 16 Rate Blood Pressure 102/69 Allergies/Adverse Reactions: Allergies Allergy/AdvReac Type Severity Reaction Status Date / Time No Known Allergies Allergy Verified 03/12/18 15:47 Date of last physical exam: 03/08/18 Concur with the findings of this exam: Yes - Substance Abuse/Tx History Hx Alcohol Use: Yes Hx Substance Use: Yes Substance Use Type: Alcohol (Started drinking alcohol at age 13, consumes one pint of vodka & 3x 24oz of beer daily. Last drank on 03/08/18), Cocaine (Started smoking crack cocaine at age 23, consumes 5 bags daily. Last smoked on 03/07/18) , Marijuana (Started smoking marijuana at age 18, consumes one joint 1-3 times in the last 30 days. Last smoked on 03/01/18) Hx Substance Use Treatment: Yes (7 previous inpt detox & 4 inpt rehab admissions @ [facility]) Mental Status Exam - Mental Status Exam Alert and Oriented to: Time, Place, Person Cognitive Function: Fair Patient Appearance: Disheveled Mood: Hopeful, Euthymic Patient Behavior: Cooperative Speech Pattern: Clear Voice Loudness: Normal Thought Process: Intact, Goal Oriented Hallucinations: Denies Suicidal Ideation: Denies Homicidal Ideation: Denies Insight/Judgement: Fair Sleep: Poorly Appetite: Good Muscle strength/Tone: Normal Gait/Station: Normal Psychiatric Findings - Problem List ([place] 1, 2,3) (1) Alcohol dependence Current Visit: Yes Status: Acute (2) Cocaine dependence Current Visit: No Status: Acute (3) Cannabis abuse Current Visit: No Status: Acute (4) Cannabis dependence Current Visit: No Status: Acute (5) Nicotine dependence Current Visit: No Status: Chronic Qualifiers: Nicotine product type: cigarettes Substance use status: in withdrawal Qualified Code(s): F17.213 - Nicotine dependence, cigarettes, with withdrawal (6) Schizoaffective disorder Current Visit: No Status: Chronic Qualifiers: Schizoaffective disorder type: unspecified Qualified Code(s): F25.9 - Schizoaffective disorder, unspecified Comment: As per existing records and patient's own verbal account.On medications. (7) Substance-induced sleep disorder Current Visit: Yes Status: Acute (8) COPD (chronic obstructive pulmonary disease) Current Visit: No Status: Chronic Qualifiers: COPD type: unspecified COPD Qualified Code(s): J44.9 - Chronic obstructive pulmonary disease, unspecified Comment: PT STATES RESOLVED AND NO CURRENT MED/ WILL MONITOR RESPITORY WHILE IN [place]. (9) HLD (hyperlipidemia) Current Visit: No Status: Chronic Qualifiers: Hyperlipidemia type: unspecified Qualified Code(s): E78.5 - Hyperlipidemia , unspecified (10) Hepatitis C Current Visit: No Status: Chronic Qualifiers: Viral hepatitis chronicity: chronic Hepatic coma status: without hepatic coma Qualified Code(s): B18.2 - Chronic viral hepatitis C (11) History of colon surgery Current Visit: No Status: Suspected - Initial Treatment Plan Initial Treatment Plan: 1) Continue Prozac 20 mg po daily. 2) Discontinue Risperdal 1 mg po daily and Trazadone 50 mg po HS ordered by Dr Trujillo. 3 ) Start Risperdal 1 mg po BID and Trazadone 100 mg po HS. 4) Monitor progress
[2018-03-15] MEDS: FLUoxetine HCL 20 MG CAPSULE (FP) PO SCH (10:18)
[2018-03-15] MEDS: risperiDONE 1 MG TABLET (FP) PO SCH ×2 (10:19→22:16)
[2018-03-15] MEDS: PRENATAL VITAMINS W/ FOLIC ACID TABLET (FP) PO SCH (10:19)
[2018-03-15] MEDS: NICOTINE 14 MG/24 HOURS TOPICAL PATCH TD SCH (10:19)
[2018-03-15] MEDS: MAG HYDROX/AL HYDROX/SIMETH 30 ML UNIT-DOSE CUP PO PRN (15:47)
[2018-03-15] MEDS: THIAMINE HCL 100 MG TABLET (FP) PO SCH (22:15)
[2018-03-15] MEDS: traZODone HCL 100 MG TABLET (FP) PO SCH (22:15)
[2018-03-16] MEDS: PRENATAL VITAMINS W/ FOLIC ACID TABLET (FP) PO SCH (10:33)
[2018-03-16] MEDS: risperiDONE 1 MG TABLET (FP) PO SCH ×2 (10:33→22:31)
[2018-03-16] MEDS: FLUoxetine HCL 20 MG CAPSULE (FP) PO SCH (10:33)
[2018-03-16] MEDS: NICOTINE 14 MG/24 HOURS TOPICAL PATCH TD SCH (10:34)
[2018-03-16] MEDS: MAG HYDROX/AL HYDROX/SIMETH 30 ML UNIT-DOSE CUP PO PRN (16:36)
[2018-03-16] MEDS: THIAMINE HCL 100 MG TABLET (FP) PO SCH (22:31)
[2018-03-16] MEDS: traZODone HCL 100 MG TABLET (FP) PO SCH (22:31)
[2018-03-17] MEDS: PRENATAL VITAMINS W/ FOLIC ACID TABLET (FP) PO SCH (10:25)
[2018-03-17] MEDS: FLUoxetine HCL 20 MG CAPSULE (FP) PO SCH (10:25)
[2018-03-17] MEDS: risperiDONE 1 MG TABLET (FP) PO SCH ×2 (10:25→22:00)
[2018-03-17] MEDS: NICOTINE 14 MG/24 HOURS TOPICAL PATCH TD SCH (10:25)
[2018-03-17] MEDS: traZODone HCL 100 MG TABLET (FP) PO SCH (22:00)
[2018-03-17] MEDS: THIAMINE HCL 100 MG TABLET (FP) PO SCH (22:00)
[2018-03-17] MEDS: MELATONIN 5 MG TABLETS PO PRN (22:01)
[2018-03-18] MEDS: PRENATAL VITAMINS W/ FOLIC ACID TABLET (FP) PO SCH (10:09)
[2018-03-18] MEDS: FLUoxetine HCL 20 MG CAPSULE (FP) PO SCH (10:09)
[2018-03-18] MEDS: NICOTINE 14 MG/24 HOURS TOPICAL PATCH TD SCH (10:09)
[2018-03-18] MEDS: risperiDONE 1 MG TABLET (FP) PO SCH ×2 (10:09→22:00)
[2018-03-18] MEDS: THIAMINE HCL 100 MG TABLET (FP) PO SCH (22:00)
[2018-03-18] MEDS: traZODone HCL 100 MG TABLET (FP) PO SCH (22:00)
[2018-03-18] MEDS: MELATONIN 5 MG TABLETS PO PRN (22:00)
[2018-03-19] MEDS: NICOTINE 14 MG/24 HOURS TOPICAL PATCH TD SCH (10:10)
[2018-03-19] MEDS: PRENATAL VITAMINS W/ FOLIC ACID TABLET (FP) PO SCH (10:10)
[2018-03-19] MEDS: risperiDONE 1 MG TABLET (FP) PO SCH ×2 (10:10→22:36)
[2018-03-19] MEDS: FLUoxetine HCL 20 MG CAPSULE (FP) PO SCH (10:10)
[2018-03-19] MEDS: MELATONIN 5 MG TABLETS PO PRN (22:36)
[2018-03-19] MEDS: traZODone HCL 100 MG TABLET (FP) PO SCH (22:36)
[2018-03-19] MEDS: THIAMINE HCL 100 MG TABLET (FP) PO SCH (22:36)
[2018-03-20] MEDS: PRENATAL VITAMINS W/ FOLIC ACID TABLET (FP) PO SCH (10:05)
[2018-03-20] MEDS: FLUoxetine HCL 20 MG CAPSULE (FP) PO SCH (10:05)
[2018-03-20] MEDS: NICOTINE 14 MG/24 HOURS TOPICAL PATCH TD SCH (10:05)
[2018-03-20] MEDS: risperiDONE 1 MG TABLET (FP) PO SCH ×2 (10:05→21:33)
[2018-03-20] MEDS: traZODone HCL 100 MG TABLET (FP) PO SCH (21:33)
[2018-03-20] MEDS: MELATONIN 5 MG TABLETS PO PRN (21:33)
[2018-03-20] MEDS: THIAMINE HCL 100 MG TABLET (FP) PO SCH (21:33)
[2018-03-21] MEDS: risperiDONE 1 MG TABLET (FP) PO SCH ×2 (10:18→21:56)
[2018-03-21] MEDS: NICOTINE 14 MG/24 HOURS TOPICAL PATCH TD SCH (10:19)
[2018-03-21] MEDS: FLUoxetine HCL 20 MG CAPSULE (FP) PO SCH (10:19)
[2018-03-21] MEDS: PRENATAL VITAMINS W/ FOLIC ACID TABLET (FP) PO SCH (10:19)
[2018-03-21] MEDS: THIAMINE HCL 100 MG TABLET (FP) PO SCH (21:56)
[2018-03-21] MEDS: traZODone HCL 100 MG TABLET (FP) PO SCH (21:56)
[2018-03-21] MEDS: MELATONIN 5 MG TABLETS PO PRN (21:57)
[2018-03-22] MEDS: PRENATAL VITAMINS W/ FOLIC ACID TABLET (FP) PO SCH (10:28)
[2018-03-22] MEDS: risperiDONE 1 MG TABLET (FP) PO SCH ×2 (10:28→21:20)
[2018-03-22] MEDS: NICOTINE 14 MG/24 HOURS TOPICAL PATCH TD SCH (10:28)
[2018-03-22] MEDS: FLUoxetine HCL 20 MG CAPSULE (FP) PO SCH (10:28)
[2018-03-22] MEDS: MELATONIN 5 MG TABLETS PO PRN (21:20)
[2018-03-22] MEDS: THIAMINE HCL 100 MG TABLET (FP) PO SCH (21:20)
[2018-03-22] MEDS: traZODone HCL 100 MG TABLET (FP) PO SCH (21:20)
[2018-03-23] MEDS: risperiDONE 1 MG TABLET (FP) PO SCH ×2 (10:18→21:30)
[2018-03-23] MEDS: FLUoxetine HCL 20 MG CAPSULE (FP) PO SCH (10:18)
[2018-03-23] MEDS: NICOTINE 14 MG/24 HOURS TOPICAL PATCH TD SCH (10:19)
[2018-03-23] MEDS: PRENATAL VITAMINS W/ FOLIC ACID TABLET (FP) PO SCH (10:19)
[2018-03-23] MEDS: THIAMINE HCL 100 MG TABLET (FP) PO SCH (21:30)
[2018-03-23] MEDS: MELATONIN 5 MG TABLETS PO PRN (21:31)
[2018-03-23] MEDS: traZODone HCL 100 MG TABLET (FP) PO SCH (21:31)
[2018-03-24] MEDS: PRENATAL VITAMINS W/ FOLIC ACID TABLET (FP) PO SCH (10:11)
[2018-03-24] MEDS: FLUoxetine HCL 20 MG CAPSULE (FP) PO SCH (10:11)
[2018-03-24] MEDS: risperiDONE 1 MG TABLET (FP) PO SCH ×2 (10:11→21:22)
[2018-03-24] MEDS: NICOTINE 14 MG/24 HOURS TOPICAL PATCH TD SCH (10:12)
[2018-03-24] MEDS: traZODone HCL 100 MG TABLET (FP) PO SCH (21:22)
[2018-03-24] MEDS: MELATONIN 5 MG TABLETS PO PRN (21:22)
[2018-03-24] MEDS: THIAMINE HCL 100 MG TABLET (FP) PO SCH (21:22)
--- NOTE | 2018-03-25 10:18 | PN ---
Psychiatric Progress Note Vital Signs: Vital Signs Period Temp Pulse Resp BP Sys/Kelly Pulse Ox Last 24 Hr 97.8 F 70 18-18 98/68 Date of Session: 03/25/18 Chief Complaint:: Discharge Note HPI: Patient addressing Alcohol, Cocaine and Cannabis Dependence comorbid with Nicotine Dependence, Schizoaffective Disorder and Substance-Induced Sleep Disorder ROS: COPD, HLD, Hep C were medically managed Current Medications: Active Medications Generic Name Dose Route Start Last Admin Trade Name Freq PRN Reason Stop Dose Admin Acetaminophen 650 mg 03/12/18 16:22 Tylenol - PO Q4H PRN FEVER Al Hydroxide/Mg Hydroxide 30 ml 03/12/18 16:22 03/16/18 16:36 Mylanta Oral Suspension - PO 30 ml Q6H PRN Administration DYSPEPSIA Eucalyptus/Menthol/Phenol/Sorbitol 1 each 03/12/18 16:22 Cepastat Lozenge - MM Q4H PRN SORE THROAT Fluoxetine HCl 20 mg 03/13/18 10:00 03/24/18 10:11 Prozac - PO 20 mg DAILY RADHA Administration Guaifenesin 10 ml 03/12/18 16:22 Robitussin Dm - PO Q6H PRN COUGH Hydroxyzine Pamoate 50 mg 03/12/18 16:22 Vistaril - PO Q4H PRN AGITATION Ibuprofen 400 mg 03/12/18 16:22 Motrin - PO Q6H PRN Pain Level 4-6 Loperamide HCl 4 mg 03/12/18 16:22 Imodium - PO Q6H PRN DIARRHEA Magnesium Citrate 300 ml 03/12/18 16:22 Citroma - PO Q48H PRN CONSTIPATION Magnesium Hydroxide 30 ml 03/12/18 16:22 Milk Of Magnesia - PO DAILY PRN CONSTIPATION Melatonin 5 mg 03/12/18 22:00 03/24/18 21:22 Melatonin PO 5 mg HS PRN Administration INSOMNIA Nicotine 14 mg 03/13/18 10:00 03/24/18 10:12 Nicoderm Patch - TD Not Given DAILY RADHA Nicotine Polacrilex 2 mg 03/12/18 16:22 Nicorette Gum - BUC Q2H PRN NICOTINE REPLACEMENT RX Multivit/Folic Acid/Iron 1 tab 03/13/18 10:00 03/24/18 10:11 Vitamins (Sjr) - PO 1 tab DAILY RADHA Administration Pseudoephedrine/Triprolidine 1 combo 03/12/18 16:22 Actifed - PO TID PRN NASAL CONGESTION Risperidone 1 mg 03/15/18 22:00 03/24/18 21:22 Risperdal - PO 1 mg BID RADHA Administration Thiamine HCl 100 mg 03/12/18 22:00 03/24/18 21:22 Vitamin B1 - PO 100 mg HS RADHA Administration Trazodone HCl 100 mg 03/15/18 22:00 03/24/18 21:22 Desyrel - PO 100 mg HS RADHA Administration Current Side Effect: No Lab tests ordered: Yes Lab tests reviewed: Yes Provider note:: Patient will complete this program on 03/26/18. He has met his treatment goals and will continue to address his issues in . 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 He responded well to Prozac 20 mg po daily, Risperdal 1 mg po BID and Trazadone 100 mg po HS. Scripts for 30 days supply of these medications will be electronically transmitted to [facility] at [address] [place] [address]. He is stable for discharg on 03/26/18 Total face to face time:: 35 Mental Status Exam - Mental Status Exam Alert and Oriented to: Time, Place, Person Cognitive Function: Fair Mood: Hopeful, Euthymic Affect: Blunted Patient Behavior: Cooperative Speech Pattern: Clear, Artificially Ventilated Thought Process: Intact, Goal Oriented Hallucinations: Denies Suicidal Ideation: Denies Homicidal Ideation: Denies Insight/Judgement: Fair Sleep: Fair Appetite: Good Muscle strength/Tone: Normal Gait/Station: Normal Psychiatric Treatment Plan - Problem List (1) Alcohol dependence Current Visit: Yes (2) Cocaine dependence Current Visit: No (3) Cannabis abuse Current Visit: No (4) Cannabis dependence Current Visit: No (5) Nicotine dependence Current Visit: No Qualifiers: Nicotine product type: cigarettes Substance use status: in withdrawal Qualified Code(s): F17.213 - Nicotine dependence, cigarettes, with withdrawal (6) Schizoaffective disorder Current Visit: No Qualifiers: Schizoaffective disorder type: unspecified Qualified Code(s): F25.9 - Schizoaffective disorder, unspecified Comment: As per existing records and patient's own verbal account.On medications. (7) Substance-induced sleep disorder Current Visit: Yes (8) COPD (chronic obstructive pulmonary disease) Current Visit: No Qualifiers: COPD type: unspecified COPD Qualified Code(s): J44.9 - Chronic obstructive pulmonary disease, unspecified Comment: PT STATES RESOLVED AND NO CURRENT MED/ WILL MONITOR RESPITORY WHILE IN [place]. (9) HLD (hyperlipidemia) Current Visit: No Qualifiers: Hyperlipidemia type: unspecified Qualified Code(s): E78.5 - Hyperlipidemia , unspecified (10) Hepatitis C Current Visit: No Qualifiers: Viral hepatitis chronicity: chronic Hepatic coma status: without hepatic coma Qualified Code(s): B18.2 - Chronic viral hepatitis C (11) History of colon surgery Current Visit: No Initial treatment plan: Patient will be discharged tomorrow and referred to [facility] for long tern residential treatment
[2018-03-25] MEDS: FLUoxetine HCL 20 MG CAPSULE (FP) PO SCH (10:22)
[2018-03-25] MEDS: PRENATAL VITAMINS W/ FOLIC ACID TABLET (FP) PO SCH (10:22)
[2018-03-25] MEDS: risperiDONE 1 MG TABLET (FP) PO SCH ×2 (10:22→22:01)
[2018-03-25] MEDS: NICOTINE 14 MG/24 HOURS TOPICAL PATCH TD SCH (10:22)
[2018-03-25] MEDS: MELATONIN 5 MG TABLETS PO PRN (22:01)
[2018-03-25] MEDS: traZODone HCL 100 MG TABLET (FP) PO SCH (22:01)
[2018-03-25] MEDS: THIAMINE HCL 100 MG TABLET (FP) PO SCH (22:01)
[2018-03-26] MEDS: FLUoxetine HCL 20 MG CAPSULE (FP) PO SCH (09:56)
[2018-03-26] MEDS: PRENATAL VITAMINS W/ FOLIC ACID TABLET (FP) PO SCH (09:56)
[2018-03-26] MEDS: risperiDONE 1 MG TABLET (FP) PO SCH ×2 (09:56→22:01)
[2018-03-26] MEDS: NICOTINE 14 MG/24 HOURS TOPICAL PATCH TD SCH (09:57)
[2018-03-26] MEDS: MELATONIN 5 MG TABLETS PO PRN (22:01)
[2018-03-26] MEDS: traZODone HCL 100 MG TABLET (FP) PO SCH (22:01)
[2018-03-26] MEDS: THIAMINE HCL 100 MG TABLET (FP) PO SCH (22:01)
[2018-03-27] MEDS: PRENATAL VITAMINS W/ FOLIC ACID TABLET (FP) PO SCH (10:08)
[2018-03-27] MEDS: FLUoxetine HCL 20 MG CAPSULE (FP) PO SCH (10:08)
[2018-03-27] MEDS: risperiDONE 1 MG TABLET (FP) PO SCH ×2 (10:08→21:48)
[2018-03-27] MEDS: NICOTINE 14 MG/24 HOURS TOPICAL PATCH TD SCH (10:09)
[2018-03-27] MEDS: THIAMINE HCL 100 MG TABLET (FP) PO SCH (21:48)
[2018-03-27] MEDS: MELATONIN 5 MG TABLETS PO PRN (21:48)
[2018-03-27] MEDS: traZODone HCL 100 MG TABLET (FP) PO SCH (21:48)
[2018-03-28] MEDS: PRENATAL VITAMINS W/ FOLIC ACID TABLET (FP) PO SCH (09:53)
[2018-03-28] MEDS: NICOTINE 14 MG/24 HOURS TOPICAL PATCH TD SCH (09:53)
[2018-03-28] MEDS: FLUoxetine HCL 20 MG CAPSULE (FP) PO SCH (09:53)
[2018-03-28] MEDS: risperiDONE 1 MG TABLET (FP) PO SCH ×2 (09:53→21:29)
[2018-03-28] MEDS: MELATONIN 5 MG TABLETS PO PRN (21:29)
[2018-03-28] MEDS: traZODone HCL 100 MG TABLET (FP) PO SCH (21:29)
[2018-03-28] MEDS: THIAMINE HCL 100 MG TABLET (FP) PO SCH (21:29)
[2018-03-29] MEDS: FLUoxetine HCL 20 MG CAPSULE (FP) PO SCH (10:21)
[2018-03-29] MEDS: risperiDONE 1 MG TABLET (FP) PO SCH ×2 (10:21→21:45)
[2018-03-29] MEDS: PRENATAL VITAMINS W/ FOLIC ACID TABLET (FP) PO SCH (10:21)
[2018-03-29] MEDS: NICOTINE 14 MG/24 HOURS TOPICAL PATCH TD SCH (10:22)
[2018-03-29] MEDS: THIAMINE HCL 100 MG TABLET (FP) PO SCH (21:45)
[2018-03-29] MEDS: traZODone HCL 100 MG TABLET (FP) PO SCH (21:45)
[2018-03-29] MEDS: MELATONIN 5 MG TABLETS PO PRN (21:45)
[2018-03-30 07:08] VITALS: TEMP 97.5
[2018-03-30] MEDS: risperiDONE 1 MG TABLET (FP) PO SCH ×2 (10:23→21:26)
[2018-03-30] MEDS: FLUoxetine HCL 20 MG CAPSULE (FP) PO SCH (10:23)
[2018-03-30] MEDS: PRENATAL VITAMINS W/ FOLIC ACID TABLET (FP) PO SCH (10:23)
[2018-03-30] MEDS: NICOTINE 14 MG/24 HOURS TOPICAL PATCH TD SCH (10:24)
--- NOTE | 2018-03-30 15:10 | PN ---
Psychiatric Progress Note Vital Signs: Vital Signs Period Temp Pulse Resp BP Sys/Kelly Pulse Ox Last 24 Hr 97.5 F 63 16- 99/61 Date of Session: 03/30/18 Chief Complaint:: Discharge Note HPI: Patient addressing Alcohol, Cocaine and Cannabis Dependence comorbid with Nicotine Dependence, Schizoaffective Disorder and Substance-Induced Sleep Disorder ROS: COPD, HLD, Hep C were medically managed Current Medications: Active Medications Generic Name Dose Route Start Last Admin Trade Name Freq PRN Reason Stop Dose Admin Acetaminophen 650 mg 03/12/18 16:22 Tylenol - PO Q4H PRN FEVER Al Hydroxide/Mg Hydroxide 30 ml 03/12/18 16:22 03/16/18 16:36 Mylanta Oral Suspension - PO 30 ml Q6H PRN Administration DYSPEPSIA Eucalyptus/Menthol/Phenol/Sorbitol 1 each 03/12/18 16:22 Cepastat Lozenge - MM Q4H PRN SORE THROAT Fluoxetine HCl 20 mg 03/13/18 10:00 03/30/18 10:23 Prozac - PO 20 mg DAILY RADHA Administration Guaifenesin 10 ml 03/12/18 16:22 Robitussin Dm - PO Q6H PRN COUGH Hydroxyzine Pamoate 50 mg 03/12/18 16:22 Vistaril - PO Q4H PRN AGITATION Ibuprofen 400 mg 03/12/18 16:22 Motrin - PO Q6H PRN Pain Level 4-6 Loperamide HCl 4 mg 03/12/18 16:22 Imodium - PO Q6H PRN DIARRHEA Magnesium Citrate 300 ml 03/12/18 16:22 Citroma - PO Q48H PRN CONSTIPATION Magnesium Hydroxide 30 ml 03/12/18 16:22 Milk Of Magnesia - PO DAILY PRN CONSTIPATION Melatonin 5 mg 03/12/18 22:00 03/29/18 21:45 Melatonin PO 5 mg HS PRN Administration INSOMNIA Nicotine 14 mg 03/13/18 10:00 03/30/18 10:24 Nicoderm Patch - TD Not Given DAILY RADHA Nicotine Polacrilex 2 mg 03/12/18 16:22 Nicorette Gum - BUC Q2H PRN NICOTINE REPLACEMENT RX Multivit/Folic Acid/Iron 1 tab 03/13/18 10:00 03/30/18 10:23 Vitamins (Sjr) - PO 1 tab DAILY RADHA Administration Pseudoephedrine/Triprolidine 1 combo 03/12/18 16:22 Actifed - PO TID PRN NASAL CONGESTION Risperidone 1 mg 03/15/18 22:00 03/30/18 10:23 Risperdal - PO 1 mg BID RADHA Administration Thiamine HCl 100 mg 03/12/18 22:00 03/29/18 21:45 Vitamin B1 - PO 100 mg HS RADHA Administration Trazodone HCl 100 mg 03/15/18 22:00 03/29/18 21:45 Desyrel - PO 100 mg HS RADHA Administration Current Side Effect: No Lab tests ordered: Yes Lab tests reviewed: Yes Provider note:: Patient will complete this program on 03/31/18. He has met his treatment goals and will continue to address his issues in outpatient treatment at [facility]. 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 He responded well to Prozac 20 mg po daily, Risperdal 1 mg po BID and Trazadone 100 mg po HS. Scripts for 30 days supply of these medications will be electronically transmitted to [facility] [address] [address]. He is stable for discharge on 03/31/18 Total face to face time:: 35 Mental Status Exam - Mental Status Exam Alert and Oriented to: Time, Place, Person Cognitive Function: Fair Patient Appearance: Disheveled Mood: Hopeful, Euthymic Affect: Appropriate Patient Behavior: Cooperative Speech Pattern: Clear Voice Loudness: Normal Thought Process: Intact, Goal Oriented Thought Disorder: Not Present Hallucinations: Denies Suicidal Ideation: Denies Homicidal Ideation: Denies Insight/Judgement: Fair Sleep: Fair Appetite: Good Muscle strength/Tone: Normal Gait/Station: Normal Psychiatric Treatment Plan - Problem List (1) Alcohol dependence Current Visit: Yes (2) Cocaine dependence Current Visit: No (3) Cannabis abuse Current Visit: No (4) Cannabis dependence Current Visit: No (5) Nicotine dependence Current Visit: No Qualifiers: Nicotine product type: cigarettes Substance use status: in withdrawal Qualified Code(s): F17.213 - Nicotine dependence, cigarettes, with withdrawal (6) Schizoaffective disorder Current Visit: No Qualifiers: Schizoaffective disorder type: unspecified Qualified Code(s): F25.9 - Schizoaffective disorder, unspecified Comment: As per existing records and patient's own verbal account.On medications. (7) Substance-induced sleep disorder Current Visit: Yes (8) COPD (chronic obstructive pulmonary disease) Current Visit: No Qualifiers: COPD type: unspecified COPD Qualified Code(s): J44.9 - Chronic obstructive pulmonary disease, unspecified Comment: PT STATES RESOLVED AND NO CURRENT MED/ WILL MONITOR RESPITORY WHILE IN [place]. (9) HLD (hyperlipidemia) Current Visit: No Qualifiers: Hyperlipidemia type: unspecified Qualified Code(s): E78.5 - Hyperlipidemia , unspecified (10) Hepatitis C Current Visit: No Qualifiers: Viral hepatitis chronicity: chronic Hepatic coma status: without hepatic coma Qualified Code(s): B18.2 - Chronic viral hepatitis C (11) History of colon surgery Current Visit: No Initial treatment plan: Patient will be discharged tomorrow and referred to [facility] for outpatient treatment
[2018-03-30] MEDS: traZODone HCL 100 MG TABLET (FP) PO SCH (21:26)
[2018-03-30] MEDS: MELATONIN 5 MG TABLETS PO PRN (21:26)
[2018-03-30] MEDS: THIAMINE HCL 100 MG TABLET (FP) PO SCH (21:26)
[2018-03-31 07:01] VITALS: BP 97/64; PULSE 62
[2018-03-31] MEDS: PRENATAL VITAMINS W/ FOLIC ACID TABLET (FP) PO SCH (09:11)
[2018-03-31] MEDS: risperiDONE 1 MG TABLET (FP) PO SCH (09:11)
[2018-03-31] MEDS: NICOTINE 14 MG/24 HOURS TOPICAL PATCH TD SCH (09:11)
[2018-03-31] MEDS: FLUoxetine HCL 20 MG CAPSULE (FP) PO SCH (09:11)
== END 2018-03-31 09:20 | disposition home or self-care (01) | DRG 772 ==
LOC: YASAS 15:39 → Y3W 15:40
PROVIDERS: ADMIT Psychiatry & Neurology Psychiatry; ATTEND Psychiatry & Neurology Psychiatry
PROC: HZ42ZZZ Group Counseling for Substance Abuse Treatment, Cognitive-Behavioral (ICD-10-PCS; principal; 2018-03-12)
DX: F10.20 Alcohol dependence, uncomplicated (principal); F14.20 Cocaine dependence, uncomplicated; F12.20 Cannabis dependence, uncomplicated; F17.213 Nicotine dependence, cigarettes, with withdrawal; F25.9 Schizoaffective disorder, unspecified; F19.282 Other psychoactive substance dependence with psychoactive substance-induced sleep disorder; J44.9 Chronic obstructive pulmonary disease, unspecified; E78.5 Hyperlipidemia, unspecified; B18.2 Chronic viral hepatitis C; Z85.038 Personal history of other malignant neoplasm of large intestine; Z90.49 Acquired absence of other specified parts of digestive tract; Z87.438 Personal history of other diseases of male genital organs; Z86.69 Personal history of other diseases of the nervous system and sense organs
CPT/HCPCS: J2794

== ENCOUNTER 2018-05-11 12:07 | Inpatient (IN) | payer OTHER ==
[2018-05-11 12:36] VITALS: BMI 21.6
--- NOTE | 2018-05-11 13:39 | HP ---
CIWA Score Nausea/Vomitin Muscle Tremors: 2 Anxiety: 2 Agitation: 2 Paroxysmal Sweats: 1-Minimal Palms Moist Orientation: 0-Oriented Tacttile Disturbances: 1-Very Mild Itch/Numbness Auditory Disturbances: 1-Very Mild Visual Disturbances: 0-None Headache: 2-Mild CIWA-Ar Total Score: 13 - Admission Criteria OASAS Guidelines: Admission for Medically Managed Detox: Requires at least one of the followin. CIWA greater than 12 2. Seizures within the past 24 hours 3. Delirium tremens within the past 24 hours 4. Hallucinations within the past 24 hours 5. Acute intervention needed for co occurring medical disorder 6. Acute intervention needed for co occurring psychiatric disorder 7. Severe withdrawal that cannot be handled at a lower level of care (continued vomiting, continued diarrhea, abnormal vital signs) requiring intravenous medication and/or fluids 8. Patient presents the following: CIWA greater than 12 Admission Criteria Met: Admission criteria met Admission ROS S - HPI Chief Complaint: i need help to stop drinking alcohol,cocaine,marijuana Allergies/Adverse Reactions: Allergies Allergy/AdvReac Type Severity Reaction Status Date / Time No Known Allergies Allergy Verified 05/11/18 13:29 History of Present Illness: this 62 years old male with alcohol,cocaine and marijuana dependence,seeking detox,withdrawal symptom,last detox 03/08/18 to 03/12/18 nicotine dependence schizoaffective disorder hepatitis c treated weight loss longest period of sobriety 5 and half year - Ebola screening Have you traveled outside of the country in the last 21 days: No Have you had contact with anyone from an Ebola affected area: No Have you been sick,other than usual withdrawal symptoms: No Do you have a fever: No - Review of Systems Constitutional: Loss of Appetite, Malaise, Night Sweats, Changes in sleep, Weakness, Unintentional Wgt. Loss EENT: reports: Nose Congestion Respiratory: reports: No Symptoms reported Cardiac: reports: No Symptoms Reported, Palpitations GI: reports: Diarrhea, Nausea, Vomiting, Abdominal cramping : reports: No Symptoms Reported Musculoskeletal: reports: Back Pain, Muscle Pain Integumentary: reports: Dryness Neuro: reports: Headache, Tremors Endocrine: reports: No Symptoms Reported Hematology: reports: No Symptoms Reported Psychiatric: reports: No Sypmtoms Reported, Judgement Intact, Mood/Affect Appropiate, Orientated x3 Patient History - Patient Medical History Hx Anemia: No Hx Asthma: No Hx Chronic Obstructive Pulmonary Disease (COPD): Yes (no meds ) Hx Cancer: Yes (Colon Ca, Tx'd w/ surgery, 2014. No F/U treatment recommended at this time.) Hx Cardiac Disorders: No Hx Congestive Heart Failure: No Hx Hypertension: No Hx Hypercholesterolemia: Yes (Meds. in past 2 years; Currently managed with diet.) Hx Pacemaker: No HX Cerebrovascular Accident: No Hx Seizures: Yes (2016 r/yt alcohol withdrawal) Hx Dementia: No Hx Diabetes: No Hx Gastrointestinal Disorders: No Hx Liver Disease: Yes (Hep C, Diagnosed approx. 11 years ago.) Hx Genitourinary Disorders: No Hx Sexually Transmitted Disorders: Yes (GONORRHEA AT AGE 15) Hx Renal Disease (ESRD): No Hx Thyroid Disease: No Hx Human Immunodeficiency Virus (HIV): No (Last Tested: 06/2017: NEGATIVE.) Hx Hepatitis C: Yes (Diagnosed approx. 11 years ago; [facility] [place]) Hx Depression: Yes Hx Suicide Attempt: No Hx Bipolar Disorder: No Hx Schizophrenia: Yes (schizoaffective) Other Medical History: no sucidal,no homicidal - Patient Surgical History Past Surgical History: Yes Hx Neurologic Surgery: No Hx Cataract Extraction: No Hx Cardiac Surgery: No Hx Lung Surgery: No Hx Breast Surgery: No Hx Breast Biopsy: No Hx Abdominal Surgery: Yes (colectomy in 04/22 [facility]) Hx Appendectomy: No Hx Cholecystectomy: No Hx Genitourinary Surgery: No Hx Section: (N/A) Hx Orthopedic Surgery: No Anesthesia Reaction: No - PPD History Previous Implant?: Yes Documented Results: Negative w/proof Date: 08/12/17 Results: 0 mm PPD to be Administered?: No - Smoking Cessation Smoking history: Current every day smoker Have you smoked in the past 12 months: Yes Aproximately how many cigarettes per day: 10 Cigars Per Day: 0 Hx Chewing Tobacco Use: No Initiated information on smoking cessation: Yes 'Breaking Loose' booklet given: 05/11/18 - Substance & Tx. History Hx Alcohol Use: Yes Hx Substance Use: Yes Substance Use Type: Alcohol, Cocaine, Marijuana Hx Substance Use Treatment: Yes ([facility] 03/08/18 to 03/12/18 [facility] 03/12/18 to 03/31/18) - Substances Abused Alcohol Route: Oral Frequency: Daily Amount used: 4-5 24 oz beers Age of first use: 7 Date of Last Use: 05/11/18 Crack Route: Smoking Frequency: Daily Amount used: 2 bags Age of first use: 22 Date of Last Use: 05/10/18 Marijuana/Hashish Route: Smoking Frequency: 1-3 times last 30 days Amount used: 1 joint Age of first use: 15 Date of Last Use: 05/10/18 Family Disease History - Family Disease History Family Disease History: Other: Mother (Stroke.), Brother (Psych. disorder.), Sister (Aneurysm, .) Admission Physical Exam [facility] - Vital Signs Vital Signs: Vital Signs - 24 hr 05/11/18 12:36 Temperature 98.7 F Pulse Rate 71 Respiratory 18 Rate Blood Pressure 150/86 - Physical General Appearance: Yes: Moderate Distress, Tremorous, Irritable, Sweating, Anxious HEENTM: Yes: Normal ENT Inspection, JL, Pharynx Normal Respiratory: Yes: Lungs Clear, Normal Breath Sounds, No Respiratory Distress Neck: Yes: Within Normal Limits, Supple, Trachea in good position Breast: Yes: Within Normal Limits Cardiology: Yes: Within Normal Limits, Regular Rhythm, Regular Rate, S1, S2 Abdominal: Yes: Within Normal Limits, Normal Bowel Sounds, Non Tender, Soft, Rebound, Surgical Scar (midline surgical scar) Genitourinary: Yes: Within Normal Limits Back: Yes: Muscle Spasm Musculoskeletal: Yes: full range of Motion, Back pain, Muscle Pain Extremities: Yes: Within Normal Limits, Normal Range of Motion, Tremors 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: 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 (5) History of colon surgery Current Visit: No Status: Suspected (6) History of colon cancer Current Visit: No Status: Resolved (7) Weight loss Current Visit: No Status: Acute (8) COPD (chronic obstructive pulmonary disease) Current Visit: No Status: Chronic Qualifiers: COPD type: unspecified COPD Qualified Code(s): J44.9 - Chronic obstructive pulmonary disease, unspecified Comment: PT STATES RESOLVED AND NO CURRENT MED/ WILL MONITOR RESPITORY WHILE IN [place]. (9) Hepatitis C Current Visit: No Status: Chronic Qualifiers: Viral hepatitis chronicity: chronic Hepatic coma status: without hepatic coma Qualified Code(s): B18.2 - Chronic viral hepatitis C Cleared for Admission [facility] - Detox or Rehab S Level of Care: Medically Managed Detox Regimen/Protocol: Librium S Breath Alcohol Content Breath Alcohol Content: 0 Urine Drug Screen - Results Drug Screen Negative: No Urine Drug Screen Results: THC-Marijuana, MALINA-Cocaine
[2018-05-11] MEDS ORDERED: MAGNESIUM CITRATE 300 ML BOTTLE PO PRN (13:49)
[2018-05-11] MEDS ORDERED: P-EPHED 60MG/TRIPROLIDI 2.5MG TABLET PO PRN (13:49)
[2018-05-11] MEDS ORDERED: IBUPROFEN 400 MG TABLET (FP) PO PRN (13:49)
[2018-05-11] MEDS ORDERED: MAGNESIUM HYDROX 2400MG/30ML ORAL SUSPENSION 30 ML CUP PO PRN (13:49)
[2018-05-11] MEDS ORDERED: MAG HYDROX/AL HYDROX/SIMETH 30 ML UNIT-DOSE CUP PO PRN (13:49)
[2018-05-11] MEDS ORDERED: hydrOXYzine PAMOATE 25 MG CAPSULE (FP) PO PRN (13:49)
[2018-05-11] MEDS ORDERED: LOPERAMIDE HCL 2 MG CAPSULE PO PRN (13:49)
[2018-05-11] MEDS ORDERED: ACETAMINOPHEN 325 MG TABLET (FP) PO PRN (13:49)
[2018-05-11] MEDS ORDERED: MENTHOL/PHENOL 1 EACH UD MM PRN (13:49)
[2018-05-11] MEDS ORDERED: guaiFENesin/D-METHORPHAN HB 10 ML UNIT-DOSE CUPS PO PRN (13:49)
[2018-05-11] MEDS ORDERED: chlordiazePOXIDE HCL 25 MG CAPSULE PO PRN (15:14)
--- NOTE | 2018-05-11 15:58 | CONSULT ---
[facility] Psychiatric Consult - Data Date of interview: 05/11/18 Admission source: [facility] Identifying data: This is one of several admissions to [facility] for this 62 y/ o AA male seeking detoxification treatment, on , for cannabis, alcohol and cocaine (crack) dependence. Patient is single without children, domiciled, unemployed and supported on SSI benefits. Substance Abuse History: Discussed with the patient in this interview. Details in current [facility] report : Smoking history: Current every day smoker. Have you smoked in the past 12 months: Yes. Aproximately how many cigarettes per day: 10. Cigars Per Day: 0. Hx Chewing Tobacco Use: No. Initiated information on smoking cessation: Yes. 'Breaking Loose' booklet given: 05/11/18. - Substance & Tx. History. Hx Alcohol Use: Yes. Hx Substance Use: Yes. Substance Use Type : Alcohol, Cocaine, Marijuana. Hx Substance Use Treatment: Yes ([facility] 03/08/18 to 03/12/18 [facility] 03/12/18 to 03/31/18) Medical History: Remarkable for a history of withdrawal-related seizures, hepatitis C, past treatment (colectomy) for cancer of colon in 2014, hypercholesterolemia,COPD and a history of treatment for gonorrhea/syphilis. Psychiatric History: Patient presents with an extensive history of psychiatric illness. Patient is a good historian. Diagnosed with Schizoaffective Disorder. Endorses a history of two psychiatric hospitalizations ([facility] in [place] + [facility] in the [place]). Patient reports that he gets his psychiatric OPD services at [facility]. Medicated with risperdal + remeron + trazodone (doses not recalled). Patient denies history of suicide attempts. Physical/Sexual Abuse/Trauma History: Patient denies. Additional Comment: Urine Drug Screen Results: THC-Marijuana, MALINA-Cocaine. Noted. Mental Status Exam - Mental Status Exam Alert and Oriented to: Time, Place, Person Cognitive Function: Grossly Intact Patient Appearance: Unkempt, Disheveled Mood: Nervous, Withdrawn Affect: Mood Congruent, Constricted Patient Behavior: Fatigued, Cooperative Speech Pattern: Clear, Appropriate Voice Loudness: Normal Thought Process: Goal Oriented Thought Disorder: Not Present Hallucinations: Denies Suicidal Ideation: Denies Homicidal Ideation: Denies Insight/Judgement: Poor Sleep: Poorly, Difficulty falling asleep (as per self-report) Appetite: Fair Muscle strength/Tone: Normal Gait/Station: Other (not observed ; in bed during entire interview) Psychiatric Findings - Problem List ([place] 1, 2,3) (1) Alcohol dependence with uncomplicated withdrawal Current Visit: Yes Status: Acute (2) Cannabis dependence Current Visit: Yes Status: Acute (3) Cocaine dependence Current Visit: Yes Status: Acute (4) Nicotine dependence Current Visit: Yes Status: Chronic Qualifiers: Nicotine product type: cigarettes Substance use status: in withdrawal Qualified Code(s): F17.213 - Nicotine dependence, cigarettes, with withdrawal (5) Insomnia Current Visit: Yes Status: Acute (6) Schizoaffective disorder Current Visit: Yes Status: Chronic Qualifiers: Schizoaffective disorder type: unspecified Qualified Code(s): F25.9 - Schizoaffective disorder, unspecified Comment: As per existing records and patient's own verbal account.On medications. (7) Non-compliant patient Current Visit: Yes Status: Chronic - Initial Treatment Plan Initial Treatment Plan: Psychoeducation. Sleep hygiene. Detoxification in progress. Records reviewed. Medications resumed as : risperdal 0.5 mg po bid + prozac 10 mg po daily. Side effects/benefits of both drugs are discussed with the patient. Mr Braker expressed his agreement with this plan of care. Observation.
[2018-05-11 17:22] LABS: URINE APPEARANCE CLEAR; URINE BILIRUBIN NEGATIVE (<2.0 mg/dL); URINE COLOR DKYELLOW; URINE GLUCOSE (UA) NEGATIVE (NEGATIVE); URINE KETONE TRACE (NEGATIVE); URINE LEUK ESTERASE 1+ (NEGATIVE); URINE NITRITE NEGATIVE (NEGATIVE); URINE PROTEIN NEGATIVE (NEGATIVE)
[2018-05-11 17:26] LABS: EPI CELLS RARE /HPF (FEW); URINE HYALINE CAST 3 /lpf; URINE MUCUS RARE
[2018-05-11] MEDS: chlordiazePOXIDE HCL 25 MG CAPSULE PO SCH ×2 (17:49→22:33)
[2018-05-11] MEDS: MELATONIN 5 MG TABLETS PO PRN (22:33)
[2018-05-11] MEDS: THIAMINE HCL 100 MG TABLET (FP) PO SCH (22:33)
[2018-05-11] MEDS: risperiDONE 0.5 MG TABLET (FP) PO SCH (22:34)
[2018-05-12] MEDS: chlordiazePOXIDE HCL 25 MG CAPSULE PO SCH ×4 (06:45→23:52)
[2018-05-12] MEDS: PRENATAL VITAMINS W/ FOLIC ACID TABLET (FP) PO SCH (10:53)
[2018-05-12] MEDS: FLUoxetine HCL 10 MG CAPSULE (FP) PO SCH (10:53)
[2018-05-12] MEDS: risperiDONE 0.5 MG TABLET (FP) PO SCH ×2 (10:54→23:52)
[2018-05-12 11:02] LABS: HEMATOCRIT 48.6 % (35.4-49); MCH 28.5 pg (25.7-33.7); MEAN CELL VOLUME 86.6 fl (80-96); MEAN PLT VOLUME 8.1 fl (7.5-11.1); PLATELET COUNT 208 K/MM3 (134-434); RBC 5.61 M/mm3 (4.00-5.60); RDW 14.2 % (11.9-15.9); WHITE BLOOD COUNT 5.9 K/mm3 (4.0-10.0)
[2018-05-12 11:05] LABS: ALBUMIN 4.1 g/dl (3.4-5.0); ALK PHOS 89 U/L (45-117); ANION GAP 8 MMOL/L (8-16); BILIRUBIN,TOTAL 2.5 mg/dL (0.2-1); BLOOD UREA NITROGEN 13 mg/dL (7-18); CALCIUM 9.2 mg/dL (8.5-10.1); CHLORIDE 99 mmol/L (98-107); CO2 28 mmol/L (21-32); CREATININE 0.9 mg/dL (0.55-1.3); GLUCOSE,RANDOM 90 mg/dL (74-106); SGOT/AST 34 U/L (15-37); SGPT/ALT 18 U/L (13-61); SODIUM 135 mmol/L (136-145); TOT PROT 8.7 g/dl (6.4-8.2)
--- NOTE | 2018-05-12 13:14 | PN ---
S CIWA - CIWA Score Nausea/Vomitin-Mild Nausea/No Vomiting Muscle Tremors: 2 Anxiety: 3 Agitation: 2 Paroxysmal Sweats: 1-Minimal Palms Moist Orientation: 0-Oriented Tacttile Disturbances: 0-None Auditory Disturbances: 0-None Visual Disturbances: 0-None Headache: 1-Very Mild CIWA-Ar Total Score: 10 S Progress Note (SOAP) Subjective: tremor sweat restlessness trouble sleep at night Objective: 05/12/18 13:15 Vital Signs Temperature 98.2 F 05/12/18 09:36 Pulse Rate 59 L 05/12/18 09:36 Respiratory Rate 18 05/12/18 09:36 Blood Pressure 122/68 05/12/18 09:36 O2 Sat by Pulse Oximetry (%) Laboratory Last Values WBC 5.9 K/mm3 (4.0-10.0) 05/12/18 05:00 RBC 5.61 M/mm3 (4.00-5.60) H 05/12/18 05:00 Hgb 16.0 GM/dL (11.7-16.9) 05/12/18 05:00 Hct 48.6 % (35.4-49) 05/12/18 05:00 MCV 86.6 fl (80-96) 05/12/18 05:00 MCH 28.5 pg (25.7-33.7) 05/12/18 05:00 MCHC 33.0 g/dl (32.0-35.9) 05/12/18 05:00 RDW 14.2 % (11.9-15.9) 05/12/18 05:00 Plt Count 208 K/MM3 (134-434) 05/12/18 05:00 MPV 8.1 fl (7.5-11.1) D 05/12/18 05:00 Sodium 135 mmol/L (136-145) L 05/12/18 05:00 Potassium 4.0 mmol/L (3.5-5.1) 05/12/18 05:00 Chloride 99 mmol/L (98-107) 05/12/18 05:00 Carbon Dioxide 28 mmol/L (21-32) 05/12/18 05:00 Anion Gap 8 MMOL/L (8-16) 05/12/18 05:00 BUN 13 mg/dL (7-18) 05/12/18 05:00 Creatinine 0.9 mg/dL (0.55-1.3) 05/12/18 05:00 Creat Clearance w eGFR > 60 (>60) 05/12/18 05:00 Random Glucose 90 mg/dL (74-106) 05/12/18 05:00 Calcium 9.2 mg/dL (8.5-10.1) 05/12/18 05:00 Total Bilirubin 2.5 mg/dL (0.2-1) H 05/12/18 05:00 AST 34 U/L (15-37) 05/12/18 05:00 ALT 18 U/L (13-61) 05/12/18 05:00 Alkaline Phosphatase 89 U/L (45-117) 05/12/18 05:00 Total Protein 8.7 g/dl (6.4-8.2) H 05/12/18 05:00 Albumin 4.1 g/dl (3.4-5.0) 05/12/18 05:00 Urine Color Dkyellow 05/11/18 16:45 Urine Appearance Clear 05/11/18 16:45 Urine pH 6.0 (5.0-8.0) 05/11/18 16:45 Ur Specific [place] 1.020 (1.010-1.035) 05/11/18 16:45 Urine Protein Negative (NEGATIVE) 05/11/18 16:45 Urine Glucose (UA) Negative (NEGATIVE) 05/11/18 16:45 Urine Ketones Trace (NEGATIVE) H 05/11/18 16:45 Urine Blood 1+ (NEGATIVE) H 05/11/18 16:45 Urine Nitrite Negative (NEGATIVE) 05/11/18 16:45 Urine Bilirubin Negative (<2.0 mg/dL) 05/11/18 16:45 Urine Urobilinogen 2.0 mg/dL (0.2-1.0) 05/11/18 16:45 Ur Leukocyte Esterase 1+ (NEGATIVE) H 05/11/18 16:45 Urine WBC (Auto) 23 /hpf (3-5) 05/11/18 16:45 Urine RBC (Auto) 3 /hpf (0-3) 05/11/18 16:45 Ur Epithelial Cells Rare /HPF (FEW) 05/11/18 16:45 Hyaline Casts 3 /lpf 05/11/18 16:45 Urine Mucus Rare 05/11/18 16:45 HIV 1&2 Antibody Screen Negative 05/11/18 15:12 HIV P24 Antigen Negative 05/11/18 15:12 lab noted repeat ua repeat camp Assessment: 05/12/18 13:17 withdrawal sx Plan: continue detox
[2018-05-12] MEDS: THIAMINE HCL 100 MG TABLET (FP) PO SCH (23:52)
[2018-05-13] MEDS: chlordiazePOXIDE HCL 25 MG CAPSULE PO SCH ×2 (07:46→10:52)
[2018-05-13 10:45] LABS: URINE APPEARANCE SLCLOUDY; URINE BILIRUBIN NEGATIVE (<2.0 mg/dL); URINE COLOR DKYELLOW; URINE GLUCOSE (UA) NEGATIVE (NEGATIVE); URINE KETONE NEGATIVE (NEGATIVE); URINE LEUK ESTERASE NEGATIVE (NEGATIVE); URINE NITRITE NEGATIVE (NEGATIVE); URINE PROTEIN NEGATIVE (NEGATIVE)
[2018-05-13] MEDS: risperiDONE 0.5 MG TABLET (FP) PO SCH ×2 (10:52→22:47)
[2018-05-13] MEDS: FLUoxetine HCL 10 MG CAPSULE (FP) PO SCH (10:52)
[2018-05-13] MEDS: PRENATAL VITAMINS W/ FOLIC ACID TABLET (FP) PO SCH (10:52)
--- NOTE | 2018-05-13 11:30 | PN ---
S CIWA - CIWA Score Nausea/Vomitin-No Nausea/No Vomiting Muscle Tremors: 3 Anxiety: 1-Mildly Anxious Agitation: 2 Paroxysmal Sweats: 1-Minimal Palms Moist Orientation: 0-Oriented Tacttile Disturbances: 0-None Auditory Disturbances: 0-None Visual Disturbances: 0-None Headache: 0-None Present CIWA-Ar Total Score: 7 [facility] Progress Note (SOAP) Subjective: tremor sweat trouble sleep at night Objective: 05/13/18 11:29 Vital Signs Temperature 98.1 F 05/13/18 08:59 Pulse Rate 87 05/13/18 08:59 Respiratory Rate 18 05/13/18 08:59 Blood Pressure 113/76 05/13/18 08:59 O2 Sat by Pulse Oximetry (%) Laboratory Last Values WBC 5.9 K/mm3 (4.0-10.0) 05/12/18 05:00 RBC 5.61 M/mm3 (4.00-5.60) H 05/12/18 05:00 Hgb 16.0 GM/dL (11.7-16.9) 05/12/18 05:00 Hct 48.6 % (35.4-49) 05/12/18 05:00 MCV 86.6 fl (80-96) 05/12/18 05:00 MCH 28.5 pg (25.7-33.7) 05/12/18 05:00 MCHC 33.0 g/dl (32.0-35.9) 05/12/18 05:00 RDW 14.2 % (11.9-15.9) 05/12/18 05:00 Plt Count 208 K/MM3 (134-434) 05/12/18 05:00 MPV 8.1 fl (7.5-11.1) D 05/12/18 05:00 Sodium 135 mmol/L (136-145) L 05/12/18 05:00 Potassium 4.0 mmol/L (3.5-5.1) 05/12/18 05:00 Chloride 99 mmol/L (98-107) 05/12/18 05:00 Carbon Dioxide 28 mmol/L (21-32) 05/12/18 05:00 Anion Gap 8 MMOL/L (8-16) 05/12/18 05:00 BUN 13 mg/dL (7-18) 05/12/18 05:00 Creatinine 0.9 mg/dL (0.55-1.3) 05/12/18 05:00 Creat Clearance w eGFR > 60 (>60) 05/12/18 05:00 Random Glucose 90 mg/dL (74-106) 05/12/18 05:00 Calcium 9.2 mg/dL (8.5-10.1) 05/12/18 05:00 Total Bilirubin 2.5 mg/dL (0.2-1) H 05/12/18 05:00 AST 34 U/L (15-37) 05/12/18 05:00 ALT 18 U/L (13-61) 05/12/18 05:00 Alkaline Phosphatase 89 U/L (45-117) 05/12/18 05:00 Total Protein 8.7 g/dl (6.4-8.2) H 05/12/18 05:00 Albumin 4.1 g/dl (3.4-5.0) 05/12/18 05:00 Urine Color Dkyellow 05/13/18 08:38 Urine Appearance Slcloudy 05/13/18 08:38 Urine pH 6.0 (5.0-8.0) 05/13/18 08:38 Ur Specific [place] 1.026 (1.010-1.035) 05/13/18 08:38 Urine Protein Negative (NEGATIVE) 05/13/18 08:38 Urine Glucose (UA) Negative (NEGATIVE) 05/13/18 08:38 Urine Ketones Negative (NEGATIVE) 05/13/18 08:38 Urine Blood Negative (NEGATIVE) 05/13/18 08:38 Urine Nitrite Negative (NEGATIVE) 05/13/18 08:38 Urine Bilirubin Negative (<2.0 mg/dL) 05/13/18 08:38 Urine Urobilinogen 2.0 mg/dL (0.2-1.0) 05/13/18 08:38 Ur Leukocyte Esterase Negative (NEGATIVE) 05/13/18 08:38 Urine WBC (Auto) 23 /hpf (3-5) 05/11/18 16:45 Urine RBC (Auto) 3 /hpf (0-3) 05/11/18 16:45 Ur Epithelial Cells Rare /HPF (FEW) 05/11/18 16:45 Hyaline Casts 3 /lpf 05/11/18 16:45 Urine Mucus Rare 05/11/18 16:45 RPR Titer Nonreactive (NONREACTIVE) 05/12/18 05:00 HIV 1&2 Antibody Screen Negative 05/11/18 15:12 HIV P24 Antigen Negative 05/11/18 15:12 lab noted Assessment: 05/13/18 11:29 withdrawal sx Plan: continue detox
[2018-05-13] MEDS: chlordiazePOXIDE 5 MG CAPSULE PO SCH ×2 (18:14→22:47)
[2018-05-13] MEDS: MELATONIN 5 MG TABLETS PO PRN (22:47)
[2018-05-13] MEDS: THIAMINE HCL 100 MG TABLET (FP) PO SCH (22:47)
[2018-05-14] MEDS: chlordiazePOXIDE 5 MG CAPSULE PO SCH ×2 (06:30→10:42)
[2018-05-14] MEDS: FLUoxetine HCL 10 MG CAPSULE (FP) PO SCH (10:42)
[2018-05-14] MEDS: PRENATAL VITAMINS W/ FOLIC ACID TABLET (FP) PO SCH (10:42)
[2018-05-14] MEDS: risperiDONE 0.5 MG TABLET (FP) PO SCH ×2 (10:43→22:09)
[2018-05-14 11:43] LABS: ALBUMIN 3.3 g/dl (3.4-5.0); ALK PHOS 93 U/L (45-117); ANION GAP 11 MMOL/L (8-16); BILIRUBIN,TOTAL 1.1 mg/dL (0.2-1); BLOOD UREA NITROGEN 16 mg/dL (7-18); CALCIUM 8.7 mg/dL (8.5-10.1); CHLORIDE 106 mmol/L (98-107); CO2 26 mmol/L (21-32); CREATININE 0.8 mg/dL (0.55-1.3); GLUCOSE,RANDOM 128 mg/dL (74-106); POTASSIUM 3.7 mmol/L (3.5-5.1); SGOT/AST 20 U/L (15-37); SODIUM 143 mmol/L (136-145); TOT PROT 7.1 g/dl (6.4-8.2)
[2018-05-14 12:34] LABS: SGPT/ALT 16 U/L (13-61)
--- NOTE | 2018-05-14 12:58 | PN ---
[facility] Progress Note (SOAP) Subjective: interrupted sleep, but better Objective: 05/14/18 12:56 pt aox3 in nad ambulating 05/14/18 12:57 Vital Signs Temperature 97.9 F 05/14/18 11:20 Pulse Rate 76 05/14/18 11:20 Respiratory Rate 16 05/14/18 11:20 Blood Pressure 98/64 05/14/18 11:20 O2 Sat by Pulse Oximetry (%) Laboratory Tests 05/11/18 05/11/18 05/12/18 15:12 16:45 05:00 WBC 5.9 RBC 5.61 H Hgb 16.0 Hct 48.6 MCV 86.6 MCH 28.5 MCHC 33.0 RDW 14.2 Plt Count 208 MPV 8.1 D Sodium Potassium Chloride Carbon Dioxide Anion Gap BUN Creatinine Creat Clearance w eGFR Random Glucose Calcium Total Bilirubin AST ALT Alkaline Phosphatase Total Protein Albumin Urine Color Dkyellow Urine Appearance Clear Urine pH 6.0 Ur Specific [place] 1.020 Urine Protein Negative Urine Glucose (UA) Negative Urine Ketones Trace H Urine Blood 1+ H Urine Nitrite Negative Urine Bilirubin Negative Urine Urobilinogen 2.0 Ur Leukocyte Esterase 1+ H Urine WBC (Auto) 23 Urine RBC (Auto) 3 Ur Epithelial Cells Rare Hyaline Casts 3 Urine Mucus Rare RPR Titer HIV 1&2 Antibody Screen Negative HIV P24 Antigen Negative 05/12/18 05/12/18 05/13/18 05:00 05:00 08:38 WBC RBC Hgb Hct MCV MCH MCHC RDW Plt Count MPV Sodium 135 L Potassium 4.0 Chloride 99 Carbon Dioxide 28 Anion Gap 8 BUN 13 Creatinine 0.9 Creat Clearance w eGFR > 60 Random Glucose 90 Calcium 9.2 Total Bilirubin 2.5 H AST 34 ALT 18 Alkaline Phosphatase 89 Total Protein 8.7 H Albumin 4.1 Urine Color Dkyellow Urine Appearance Slcloudy Urine pH 6.0 Ur Specific [place] 1.026 Urine Protein Negative Urine Glucose (UA) Negative Urine Ketones Negative Urine Blood Negative Urine Nitrite Negative Urine Bilirubin Negative Urine Urobilinogen 2.0 Ur Leukocyte Esterase Negative Urine WBC (Auto) Urine RBC (Auto) Ur Epithelial Cells Hyaline Casts Urine Mucus RPR Titer Nonreactive HIV 1&2 Antibody Screen HIV P24 Antigen 05/14/18 07:00 WBC RBC Hgb Hct MCV MCH MCHC RDW Plt Count MPV Sodium 143 Potassium 3.7 Chloride 106 Carbon Dioxide 26 Anion Gap 11 BUN 16 Creatinine 0.8 Creat Clearance w eGFR > 60 Random Glucose 128 H Calcium 8.7 Total Bilirubin 1.1 H AST 20 ALT 16 Alkaline Phosphatase 93 Total Protein 7.1 Albumin 3.3 L Urine Color Urine Appearance Urine pH Ur Specific [place] Urine Protein Urine Glucose (UA) Urine Ketones Urine Blood Urine Nitrite Urine Bilirubin Urine Urobilinogen Ur Leukocyte Esterase Urine WBC (Auto) Urine RBC (Auto) Ur Epithelial Cells Hyaline Casts Urine Mucus RPR Titer HIV 1&2 Antibody Screen HIV P24 Antigen Assessment: 05/14/18 12:57 withdrawal sx's Plan: cont. detox increase fluids d/c in am
[2018-05-14] MEDS: chlordiazePOXIDE HCL 10 MG CAPSULE PO SCH ×2 (18:07→22:09)
[2018-05-14] MEDS: MELATONIN 5 MG TABLETS PO PRN (22:09)
[2018-05-14] MEDS: THIAMINE HCL 100 MG TABLET (FP) PO SCH (22:09)
[2018-05-15] MEDS: chlordiazePOXIDE HCL 10 MG CAPSULE PO SCH ×2 (06:19→10:28)
[2018-05-15] MEDS: PRENATAL VITAMINS W/ FOLIC ACID TABLET (FP) PO SCH (10:28)
[2018-05-15] MEDS: FLUoxetine HCL 10 MG CAPSULE (FP) PO SCH (10:28)
[2018-05-15] MEDS: risperiDONE 0.5 MG TABLET (FP) PO SCH ×2 (10:28→22:15)
--- NOTE | 2018-05-15 11:17 | PN ---
[facility] Progress Note (SOAP) Subjective: Generalized weakness, malaise amd restlessness Objective: 05/15/18 11:15 Vital Signs - 8 hr 05/15/18 05/15/18 05/15/18 03:30 06:47 09:13 Temperature 97.3 F L 97.9 F Pulse Rate 52 L 69 Respiratory 18 16 16 Rate Blood Pressure 111/66 118/77 Laboratory Last Values WBC 5.9 K/mm3 (4.0-10.0) 05/12/18 05:00 RBC 5.61 M/mm3 (4.00-5.60) H 05/12/18 05:00 Hgb 16.0 GM/dL (11.7-16.9) 05/12/18 05:00 Hct 48.6 % (35.4-49) 05/12/18 05:00 MCV 86.6 fl (80-96) 05/12/18 05:00 MCH 28.5 pg (25.7-33.7) 05/12/18 05:00 MCHC 33.0 g/dl (32.0-35.9) 05/12/18 05:00 RDW 14.2 % (11.9-15.9) 05/12/18 05:00 Plt Count 208 K/MM3 (134-434) 05/12/18 05:00 MPV 8.1 fl (7.5-11.1) D 05/12/18 05:00 Sodium 143 mmol/L (136-145) 05/14/18 07:00 Potassium 3.7 mmol/L (3.5-5.1) 05/14/18 07:00 Chloride 106 mmol/L (98-107) 05/14/18 07:00 Carbon Dioxide 26 mmol/L (21-32) 05/14/18 07:00 Anion Gap 11 MMOL/L (8-16) 05/14/18 07:00 BUN 16 mg/dL (7-18) 05/14/18 07:00 Creatinine 0.8 mg/dL (0.55-1.3) 05/14/18 07:00 Creat Clearance w eGFR > 60 (>60) 05/14/18 07:00 Random Glucose 128 mg/dL (74-106) H 05/14/18 07:00 Calcium 8.7 mg/dL (8.5-10.1) 05/14/18 07:00 Total Bilirubin 1.1 mg/dL (0.2-1) H 05/14/18 07:00 AST 20 U/L (15-37) 05/14/18 07:00 ALT 16 U/L (13-61) 05/14/18 07:00 Alkaline Phosphatase 93 U/L (45-117) 05/14/18 07:00 Total Protein 7.1 g/dl (6.4-8.2) 05/14/18 07:00 Albumin 3.3 g/dl (3.4-5.0) L 05/14/18 07:00 Urine Color Dkyellow 05/13/18 08:38 Urine Appearance Slcloudy 05/13/18 08:38 Urine pH 6.0 (5.0-8.0) 12 08:38 Ur Specific [place] 1.026 (1.010-1.035) 05/13/18 08:38 Urine Protein Negative (NEGATIVE) 05/13/18 08:38 Urine Glucose (UA) Negative (NEGATIVE) 05/13/18 08:38 Urine Ketones Negative (NEGATIVE) 05/13/18 08:38 Urine Blood Negative (NEGATIVE) 05/13/18 08:38 Urine Nitrite Negative (NEGATIVE) 05/13/18 08:38 Urine Bilirubin Negative (<2.0 mg/dL) 05/13/18 08:38 Urine Urobilinogen 2.0 mg/dL (0.2-1.0) 05/13/18 08:38 Ur Leukocyte Esterase Negative (NEGATIVE) 05/13/18 08:38 Urine WBC (Auto) 23 /hpf (3-5) 05/11/18 16:45 Urine RBC (Auto) 3 /hpf (0-3) 05/11/18 16:45 Ur Epithelial Cells Rare /HPF (FEW) 05/11/18 16:45 Hyaline Casts 3 /lpf 05/11/18 16:45 Urine Mucus Rare 05/11/18 16:45 RPR Titer Nonreactive (NONREACTIVE) 05/12/18 05:00 HIV 1&2 Antibody Screen Negative 05/11/18 15:12 HIV P24 Antigen Negative 05/11/18 15:12 Labs noted, no panic values Generalized weakness Assessment: 05/15/18 11:16 Withdrawal sx Plan: Continue detox and monitoring Delay discharge x 1 day and monitor due to weakness making him unsafe for discharge
[2018-05-15] MEDS: THIAMINE HCL 100 MG TABLET (FP) PO SCH (22:15)
[2018-05-15] MEDS: MELATONIN 5 MG TABLETS PO PRN (23:31)
[2018-05-16] MEDS: risperiDONE 0.5 MG TABLET (FP) PO SCH ×2 (10:25→22:20)
[2018-05-16] MEDS: PRENATAL VITAMINS W/ FOLIC ACID TABLET (FP) PO SCH (10:25)
[2018-05-16] MEDS: FLUoxetine HCL 10 MG CAPSULE (FP) PO SCH (10:26)
--- NOTE | 2018-05-16 12:42 | PN ---
[facility] Progress Note (SOAP) Subjective: patient was weak and fatigue yesterday Ms. Chong was called and granted discharge till Thursday [facility] patient reported that he is feeling little better today no tremor no sweat Objective: 05/16/18 12:40 Vital Signs Temperature 98.4 F 05/16/18 09:45 Pulse Rate 70 05/16/18 09:45 Respiratory Rate 16 05/16/18 09:45 Blood Pressure 103/67 05/16/18 09:45 O2 Sat by Pulse Oximetry (%) Laboratory Last Values WBC 5.9 K/mm3 (4.0-10.0) 05/12/18 05:00 RBC 5.61 M/mm3 (4.00-5.60) H 05/12/18 05:00 Hgb 16.0 GM/dL (11.7-16.9) 05/12/18 05:00 Hct 48.6 % (35.4-49) 05/12/18 05:00 MCV 86.6 fl (80-96) 05/12/18 05:00 MCH 28.5 pg (25.7-33.7) 05/12/18 05:00 MCHC 33.0 g/dl (32.0-35.9) 05/12/18 05:00 RDW 14.2 % (11.9-15.9) 05/12/18 05:00 Plt Count 208 K/MM3 (134-434) 05/12/18 05:00 MPV 8.1 fl (7.5-11.1) D 05/12/18 05:00 Sodium 143 mmol/L (136-145) 05/14/18 07:00 Potassium 3.7 mmol/L (3.5-5.1) 05/14/18 07:00 Chloride 106 mmol/L (98-107) 05/14/18 07:00 Carbon Dioxide 26 mmol/L (21-32) 05/14/18 07:00 Anion Gap 11 MMOL/L (8-16) 05/14/18 07:00 BUN 16 mg/dL (7-18) 05/14/18 07:00 Creatinine 0.8 mg/dL (0.55-1.3) 05/14/18 07:00 Creat Clearance w eGFR > 60 (>60) 05/14/18 07:00 Random Glucose 128 mg/dL (74-106) H 05/14/18 07:00 Calcium 8.7 mg/dL (8.5-10.1) 05/14/18 07:00 Total Bilirubin 1.1 mg/dL (0.2-1) H 05/14/18 07:00 AST 20 U/L (15-37) 05/14/18 07:00 ALT 16 U/L (13-61) 05/14/18 07:00 Alkaline Phosphatase 93 U/L (45-117) 05/14/18 07:00 Total Protein 7.1 g/dl (6.4-8.2) 05/14/18 07:00 Albumin 3.3 g/dl (3.4-5.0) L 05/14/18 07:00 Urine Color Dkyellow 05/13/18 08:38 Urine Appearance Slcloudy 05/13/18 08:38 Urine pH 6.0 (5.0-8.0) 05/13/18 08:38 Ur Specific [place] 1.026 (1.010-1.035) 05/13/18 08:38 Urine Protein Negative (NEGATIVE) 05/13/18 08:38 Urine Glucose (UA) Negative (NEGATIVE) 05/13/18 08:38 Urine Ketones Negative (NEGATIVE) 05/13/18 08:38 Urine Blood Negative (NEGATIVE) 05/13/18 08:38 Urine Nitrite Negative (NEGATIVE) 05/13/18 08:38 Urine Bilirubin Negative (<2.0 mg/dL) 05/13/18 08:38 Urine Urobilinogen 2.0 mg/dL (0.2-1.0) 05/13/18 08:38 Ur Leukocyte Esterase Negative (NEGATIVE) 05/13/18 08:38 Urine WBC (Auto) 23 /hpf (3-5) 05/11/18 16:45 Urine RBC (Auto) 3 /hpf (0-3) 05/11/18 16:45 Ur Epithelial Cells Rare /HPF (FEW) 05/11/18 16:45 Hyaline Casts 3 /lpf 05/11/18 16:45 Urine Mucus Rare 05/11/18 16:45 RPR Titer Nonreactive (NONREACTIVE) 05/12/18 05:00 HIV 1&2 Antibody Screen Negative 05/11/18 15:12 HIV P24 Antigen Negative 12/04/18 15:12 lab noted Assessment: 05/16/18 12:41 mild withdrawal sx Plan: medically supervised detox
[2018-05-16] MEDS: MELATONIN 5 MG TABLETS PO PRN (22:20)
[2018-05-16] MEDS: THIAMINE HCL 100 MG TABLET (FP) PO SCH (22:20)
--- NOTE | 2018-05-17 08:55 | DS ---
[facility] Detox Discharge Summary Admission Date: 05/11/18 Discharge Date: 05/17/18 - History Present History: Alcohol Dependence, Cannabis Dependence, Cocaine Dependence - Physical Exam Results Vital Signs: Vital Signs Temperature 97.3 F L 05/17/18 07:59 Pulse Rate 49 L 05/17/18 07:59 Respiratory Rate 16 05/17/18 07:59 Blood Pressure 110/59 L 05/17/18 07:59 O2 Sat by Pulse Oximetry (%) - Treatment Hospital Course: Detox Protocol Followed, Detoxed Safely, Responded well, Discharged Condition Good, Rehab Referral Accepted - Medication Discharge Medications: Ambulatory Orders Fluoxetine HCl [Prozac -] 20 mg PO DAILY #30 capsule 03/25/18 Risperidone [Risperdal -] 1 mg PO BID #60 tablet 03/25/18 traZODone HCL [Desyrel -] 100 mg PO HS #30 tablet 03/25/18 - Diagnosis (1) Cocaine dependence Current Visit: Yes Status: Chronic Qualifiers: Substance use status: uncomplicated Qualified Code(s): F14.20 - Cocaine dependence, uncomplicated (2) Insomnia Current Visit: Yes Status: Acute (3) Alcohol dependence with uncomplicated withdrawal Current Visit: Yes Status: Chronic (4) Cannabis dependence Current Visit: Yes Status: Chronic (5) Nicotine dependence Current Visit: Yes Status: Chronic Qualifiers: Nicotine product type: cigarettes Substance use status: uncomplicated Qualified Code(s): F17.210 - Nicotine dependence, cigarettes, uncomplicated (6) Non-compliant patient Current Visit: Yes Status: Chronic (7) Schizoaffective disorder Current Visit: Yes Status: Chronic Qualifiers: Schizoaffective disorder type: unspecified Qualified Code(s): F25.9 - Schizoaffective disorder, unspecified (8) Non-compliance Current Visit: No Status: Acute (9) Substance-induced sleep disorder Current Visit: No Status: Acute (10) Substance-induced sleep disorder Current Visit: No Status: Acute (11) Weight loss Current Visit: No Status: Acute (12) COPD (chronic obstructive pulmonary disease) Current Visit: No Status: Chronic Qualifiers: COPD type: unspecified COPD Qualified Code(s): J44.9 - Chronic obstructive pulmonary disease, unspecified (13) Depression Current Visit: No Status: Chronic (14) HLD (hyperlipidemia) Current Visit: No Status: Chronic Qualifiers: Hyperlipidemia type: unspecified Qualified Code(s): E78.5 - Hyperlipidemia , unspecified (15) Hep C w/o coma, chronic Current Visit: No Status: Chronic (16) History of schizoaffective disorder Current Visit: No Status: Chronic (17) History of colon surgery Current Visit: No Status: Suspected (18) History of colon cancer Current Visit: No Status: Resolved - AMA Did Patient Leave Against Medical Advice: No (referred to inpatient rehab)
[2018-05-17] MEDS: risperiDONE 0.5 MG TABLET (FP) PO SCH (10:17)
[2018-05-17] MEDS: PRENATAL VITAMINS W/ FOLIC ACID TABLET (FP) PO SCH (10:17)
[2018-05-17] MEDS: FLUoxetine HCL 10 MG CAPSULE (FP) PO SCH (10:17)
[2018-05-17 18:11] VITALS: BP 117/63; PULSE 65; TEMP 98.8
== END 2018-05-17 17:02 | disposition home or self-care (01) | DRG 774 ==
LOC: YASAS 12:07 → Y6N 14:02
PROC: HZ2ZZZZ Detoxification Services for Substance Abuse Treatment (ICD-10-PCS; principal; 2018-05-11)
DX: F10.230 Alcohol dependence with withdrawal, uncomplicated (principal); F14.20 Cocaine dependence, uncomplicated; F12.20 Cannabis dependence, uncomplicated; F17.210 Nicotine dependence, cigarettes, uncomplicated; F25.9 Schizoaffective disorder, unspecified; F19.282 Other psychoactive substance dependence with psychoactive substance-induced sleep disorder; F19.24 Other psychoactive substance dependence with psychoactive substance-induced mood disorder; F32.9 Major depressive disorder, single episode, unspecified; G47.00 Insomnia, unspecified; J44.9 Chronic obstructive pulmonary disease, unspecified; E78.5 Hyperlipidemia, unspecified; E78.00 Pure hypercholesterolemia, unspecified; B18.2 Chronic viral hepatitis C; R63.4 Abnormal weight loss; Z68.21 Body mass index [BMI] 21.0-21.9, adult; Z86.19 Personal history of other infectious and parasitic diseases; Z85.038 Personal history of other malignant neoplasm of large intestine; Z98.890 Other specified postprocedural states; Z91.19 Patient's noncompliance with other medical treatment and regimen
CPT/HCPCS: 36415; 80053; 81003; 81015; 85027; 86593; 87389